=== PATIENT | female | born 1970 | race Caucasian/White ===

== ENCOUNTER 2023-05-23 14:26 | Emergency (ER) | payer MEDICAID, SELFPAY ==
[2023-05-23] VITALS (17 sets, daily range): BP systolic 120–167; BP diastolic 90–111; PULSE 85–99; RESP 13–20; O2SAT 96–99; BMI 32.9
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
--- NOTE | 2023-05-23 14:49 | XR_ITS ---
The [address] [address] Patient Name: CANDE MACHADO MRN: [id number] date: 1970 Sex: F Assigned Patient Location: ER Current Patient Location: ER Accession/Order Number: [id number] Exam Date: 05/23/2023 15:19 Report Date: 05/23/2023 15:38 At the request of: CHAO HUSSEIN Procedure: XR shoulder LT min 2V EXAM: XR shoulder LT min 2V HISTORY: pain COMPARISON: None. TECHNIQUE: 3 views FINDINGS: Overall bony architecture is normal. There is mild narrowing of the acromioclavicular joint. The glenohumeral joint space is satisfactorily maintained. Soft tissues are unremarkable. XR/XR shoulder LT min 2V IMPRESSION: Early degenerative changes at the acromioclavicular joint. No evidence for acute fracture or dislocation. Electronically authenticated by: Melissa YOUNGBLOOD Date: 05/23/2023 15:38
--- NOTE | 2023-05-23 14:54 | ECG_ITS ---
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
[2023-05-23] MEDS: ORPHENADRINE 60 MG/ 2 ML VIAL IV (15:56)
[2023-05-23] MEDS: KETOROLAC TROMETHAMINE 30 MG/ML VIAL IVP (15:56)
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
== END 2023-05-23 16:35 | disposition home or self-care (01) ==
PROVIDERS: Emergency Provider Emergency Medicine
DX: S43.402A Unspecified sprain of left shoulder joint, initial encounter (principal); V44.5XXA Car driver injured in collision with heavy transport vehicle or bus in traffic accident, initial encounter; F17.210 Nicotine dependence, cigarettes, uncomplicated
CPT/HCPCS: 70450; 72125; 73030; 93005; 96374; 96375; 99285

== ENCOUNTER 2023-10-08 10:18 | Emergency (ER) | payer MEDICAID, SELFPAY ==
[2023-10-08 10:20] VITALS: BP 126/75; PULSE 77; RESP 18; TEMP 36.8; O2SAT 99; BMI 35.6
[2023-10-08] MEDS: ORPHENADRINE 60 MG/ 2 ML VIAL IM (11:14)
[2023-10-08] MEDS: HYDROCODONE/ACET 5-325 MG TABLET 1 TAB PO (11:14)
--- NOTE | 2023-10-08 11:17 | ED.GENADUL1 ---
HPI - General Adult General Chief complaint: Back Pain/Injury Stated complaint: BACK PAIN Time Seen by Provider: 10/08/23 11:07 Source: patient Mode of arrival: walk-in Limitations: no limitations History of Present Illness HPI narrative: Patient is a 53-year-old female who is presenting to the Emergency Room WITH ACUTE ON CHRONIC BILATERAL LUMBAR PAIN, and upper thoracic pain bilateral. Patient has a neurosurgeon in [place]. Patient has an appointment on October 16 with her neurosurgeon. Patient has had MRI several weeks ago. Patient has had previous surgery on her upper and lower back, she may need additional surgery. A she'll boyfriend is at bedside. Patient has baclofen and Lyrica that she is taking at home, no pain medication. Patient's PCP is at [facility], she has not spoken to them about pain medication. Patient's pain to upper shoulder/thoracic area has gotten worse in the last week, left shoulder/left trapezius is hurting more than the right side. Patient is here for pain relief. . All systems are negative except as noted/marked. All systems reviewed and otherwise negative. . Nurses note and vital signs reviewed and patient is not hypoxic. General: The patient appears Mild distress secondary to pain. Patient is resting uncomfortably on cart, Laying in a right lateral decubitus position. Patient is not toxic, lethargic, or listless Skin: Warm, dry, no pallor noted. There is no rash noted. No petechiae, purpura. Head: Normocephalic, atraumatic Eye: Normal conjunctiva, no drainage, EOMI. PERRL Ears, Nose, Mouth, and Throat: oral mucosa is moist. Nares patent. Mouth without vesicles. Cardiovascular: Regular Rate and Rhythm, no murmur, gallop, rub Respiratory: Patient is in no distress, no accessory muscle use, lungs are clear to auscultation, no wheezing, rales or rhonchi Back: Patient has moderate tenderness to palpation to bilateral trapezius muscles, left hurting little bit more than the right. Patient has mild to moderate left shoulder pain with flexion and extension and abduction of left shoulder, she's had no acute injury, trauma or fall. No signs of dislocation or fracture. Patient has mild to moderate paracervical tenderness to palpation. Patient has moderate bilateral paralumbar tenderness palpation, no new midline pain, no rash anywhere to the back. Patient has no signs of saddle anesthesia or cauda equina. Otherwise non-tender, no CVA tenderness bilaterally to percussion. No CT LS midline pain Besides above mentioned. GI: soft, no tenderness to palpation, no masses appreciated. No rebound, guarding, or rigidity noted. No flank pain bilateral, No distention Musculoskeletal: Patient has full range of motion of all of the extremities, no motor, sensory, or focal neurological deficits Neurological: A&O x3, normal speech Psychiatric: Cooperative Related Data Home Medications Medication Instructions Recorded Confirmed aripiprazole 15 mg tablet 15 mg PO DAILY 10/08/23 10/08/23 baclofen 10 mg tablet 10 mg PO Q12H 10/08/23 10/08/23 bupropion HCl 150 mg 24 hr tablet, 150 mg PO DAILY 10/08/23 10/08/23 extended release dextroamphetamine-amphetamine ER 30 mg PO .dailly 10/08/23 10/08/23 30 mg 24hr capsule,extend release prazosin 2 mg capsule 2 mg PO Q12H 10/08/23 10/08/23 pregabalin 100 mg capsule 100 mg PO Q12H 10/08/23 10/08/23 tizanidine 4 mg tablet 4 mg PO DAILY 10/08/23 10/08/23 Previous Rx's Medication Instructions Recorded oxycodone-acetaminophen 5 mg-325 1 tab PO Q4H PRN pain #10 tabs 10/08/23 mg tablet (Percocet) Allergies Allergy/AdvReac Type Severity Reaction Status Date / Time No Known Drug Allergies Allergy Verified 05/23/23 14:36 PFSH PFSH Social History Smoking status: Current every day smoker Exam Constitutional Vital Signs, click to edit/add: Last Vital Signs Temp 98.2 F 10/08/23 10:20 Pulse 77 10/08/23 10:20 Resp 18 10/08/23 10:20 BP 126/75 10/08/23 10:20 Pulse Ox 99 10/08/23 10:20 O2 Del Method Room Air 10/08/23 10:20 Course Vital Signs Vital signs: Vital Signs Temperature 98.2 F 10/08/23 10:20 Pulse Rate 77 10/08/23 10:20 Respiratory Rate 18 10/08/23 10:20 Blood Pressure 126/75 10/08/23 10:20 Pulse Oximetry 99 10/08/23 10:20 Oxygen Delivery Method Room Air 10/08/23 10:20 Temperature 98.2 F 10/08/23 10:20 Pulse Rate 77 10/08/23 10:20 Respiratory Rate 18 10/08/23 10:20 Blood Pressure 126/75 10/08/23 10:20 Pulse Oximetry 99 10/08/23 10:20 Oxygen Delivery Method Room Air 10/08/23 10:20 Medical Decision Making MDM Narrative Medical decision making narrative: Patient was given total, Norflex and a [place] in the Emergency Room. Patient was sent home with a short prescription of Percocet. Patient understands we cannot treat chronic pain from the Emergency Room. Patient is told that she needs additional medication she would have to get that from her PCP. Patient is also not taking any anti-inflammatories for unknown reason. Patient will start using NSAIDs along with either Tylenol or Percocet along with baclofen Lyrica and she'll see her neurologist next week at October 08 appointment. No questions at discharge Discharge Plan Discharge Chief Complaint: Back Pain/Injury Clinical Impression: Chronic thoracic back pain, Chronic lumbar pain, Chronic pain Patient Disposition: Home, Self-Care Time of Disposition Decision: 11:17 Condition: Fair Prescriptions / Home Meds: New oxycodone-acetaminophen [Percocet] 5-325 mg tablet 1 tab PO Q4H PRN (Reason: pain) Qty: 10 0RF No Action aripiprazole 15 mg tablet 15 mg PO DAILY baclofen 10 mg tablet 10 mg PO Q12H bupropion HCl 150 mg tablet extended release 24 hr 150 mg PO DAILY pregabalin 100 mg capsule 100 mg PO Q12H prazosin 2 mg capsule 2 mg PO Q12H dextroamphetamine-amphetamine 30 mg capsule,extended release 24hr 30 mg PO .dailly tizanidine 4 mg tablet 4 mg PO DAILY Instructions: Chronic Back Pain (DC), Lower Back Exercises (ED) Additional Instructions: Continue to ice 20 minutes on, 20 minutes off. See her neurologist next week as scheduled. Use anti-inflammatories [id number]. Use either Motrin, Advil, ibuprofen or Aleve. Do not take [place] with Tylenol, take one of the other depending on how severe pain is. Both products have Tylenol in it and he can actually take too much Tylenol and one day. Any other needs for additional medication follow-up with her PCP Stand Alone Forms: Portal Instructions [facility]
[2023-10-08] MEDS: KETOROLAC TROMETHAMINE 60 MG/2 ML VIAL IM (11:21)
== END 2023-10-08 11:29 | disposition home or self-care (01) ==
PROVIDERS: Emergency Provider Emergency Medicine
DX: M54.6 Pain in thoracic spine (principal); M54.50 Low back pain, unspecified; G89.29 Other chronic pain; Z79.899 Other long term (current) drug therapy; F17.210 Nicotine dependence, cigarettes, uncomplicated
CPT/HCPCS: 96372; 99284

== ENCOUNTER 2025-05-15 03:44 | Emergency (ER) | payer MEDICAID, SELFPAY ==
[2025-05-15 03:48] VITALS: BP 131/80; PULSE 75; TEMP 36.8; O2SAT 98; BMI 28.2
--- OUTSIDE RECORDS SUMMARY | 2025-05-15 03:53 | XMS_ITS | CCD ---
Author Organization [facility] Care Team Providers Care Taker Away Name Role Phone Unavailable Primary Care Provider UnavailAGUSTÍN Hernandez Referring Unavailable [facility] Primary Care Unavailable IRA, DR RODAS Admitting Unavailable IRA, DR RODAS Consulting Unavailable IRA, DR RODAS Attending Unavailable STEPHAN JUAREZ Admitting Unavailable STEPHAN JUAREZ Attending Unavailable IRA, DR RODAS Consulting Unavailable [facility] Primary Care Unavailable LEÓN OCONNOR Referring Unavailable SERVICES, [facility] Unava ilable FERNÁNDEZ, CADY Attending Unavailable LEÓN OCONNOR Referring Unavailable SERVICES, [facility] Unava ilable FERNÁNDEZ, CADY Referring Unavailable SERVICES, [facility] Unava ilable FERNÁNDEZ, CADY Referring Unavailable SERVICES, [facility] Unava ilable LEÓN OCONNOR Referring Unavailable SERVICES, [facility] Unava ilable LEÓN OCONNOR Admitting Unavailable LEÓN OCONNOR Attending Unavailable SERVICES, [facility] Unava ilable SERVICES, [facility] Unava il[facility] LEÓN OCONNOR Attending Unavailable LEÓN OCONNOR Referring Unavailable SERVICES, [facility] Unava ilable SERVICES, [facility] Unava il[facility] GUERO DURBIN Attending Unavailable LEÓN OCONNOR Attending Unavailable SERVICES, [facility] Unava ilable SERVICES, [facility] GUERO DURBIN Attending Unavailable PATY SILVER Attending Unavailable VERONICA DIXON Referring Unavailable VERONICA DIXON Primary Care Unavailable Unallocated Yennifer ARREOLA Provider Unavailable [phone] Veronica Dixon MD Primary Care Provider Gabriella Valdes MD Unavailable [phone] Gabriella Valdes MD Unavailable [phone] Unallocated , Yennifer Provider Unavailable Services, [facility] Primary Care Provider Veronica Dixon MD Primary Care Provider ROSALIO MONTES Referring Unavailable SERVICES, [facility] Unava ilable JYOTI, ROSALIO Vargas Admitting Unavailable JYOTI, ROSALIO Vargas Attending Unavailable ROSALIO MONTES Referring Unavailable SERVICES, [facility] Primary Care Unava ilable LAURITA SINGH Attending Unavailable SERVICES, [facility] Unava ilable GUERO DURBIN Referring Unavailable SERVICES, [facility] Unava ilable PATY SILVER Referring Unavailable DIXON, VERONICA L Primary Care Unavailable FERNÁNDEZCADY Attending Unavailable DIXON, VERONICA L Primary Care Unavailable FERNÁNDEZLEVIR Attending Unavailable DIXON, VERONICA L Referring Unavailable DIXON, VERONICA L Primary Care Unavailable ISAEL PATTON Referring Unavailable SERVICES, [facility] Unava ilable Services, [facility] Primary Care Provider Gabriella Valdes MD Unavailable LUIS CARBONE Admitting Unavailable LUIS CARBONE Attending Unavailable LUIS CARBONE Admitting Unavailable LUIS CARBONE Attending Unavailable Dixon, Veronica L. Primary Care Unavailable LUIS CARBONE Admitting Unavailable LUIS CARBONE Attending Unavailable LUIS CARBONE Attending Unavailable LUIS CARBONE Admitting Unavailable Dixon, Veronica L. Primary Care Unavailable JR. CARBONE GEORGE C Attending Unavaila libertad CARBONE JR., GEORGE C Attending Unavaila ble ADITI BILLY T Attending Unavailable BILLY, ADITI T Attending Unavailable THEODORE SAMUEL Attending Unavailable BILLY, ADITI T Attending Unavailable BILLY, ADITI T Referring Unavailable BILLY, ADITI T Attending Unavailable TRISHA HARRIS Attending Unavailable BILLY, ADITI T Referring Unavailable TRISHA HARRIS Attending Unavailable BILLY, ADITI T Referring Unavailable HEATHER KENNY Attending Unavailable BILLY, ADITI T Referring Unavailable TRISHA HARRIS Attending Unavailable BILLY, ADITI T Referring Unavailable HEATHER KENNY Attending Unavailable BILLY, ADITI T Referring Unavailable HEATHER KENNY Attending Unavailable BILLY, ADITI T Referring Unavailable ROSALIO MONTES Attending Unavailable ROSALIO MONTES Referring Unavailable Allergies Allergy Classification Reported Allergen(s) Allergy Type Date of Onset Reaction(s) Facility (20 sources) Grass pollen; Translations: [GRASS POLLEN] Propensity to adverse reactions to drug (disorder) 9 Other (See Comments) [facility] (1 source) No Known Medication Allergies; Translations: [No Known Medication Allergies] Propensity to adverse reactions to drug (disorder) [facility] Rep[facility] Medications Current Medications Medication Drug Class(es) Dates Sig (Normalized) Sig (Original) acetaminophen 325 mg oral tablet (20 sources) Start: 12-04-2023 take 2 tablets by mouth every four hours as needed acetaminophen (Tylenol) 325 MG tablet Take 650 mg by mouth every 4 (four) hours if needed 12/04/2023 Active Start: 12-03-2023 End: 12-04-2023 take 1 tablet by mouth every four hours as needed for pain 650 mg, oral, Every 4 hours PRN, mild pain - pain scale 1-3, fever of 38.6, Starting on Fri12/03/23 at 1631, PACU & Post-op, Do not give for fever if patient received acetaminophen containing products within 4 hours. acetaminophen 325 mg / oxyCODONE hydrochloride 5 mg oral tablet (12 sources) Opioid Agonist Start: 04-16-2025 End: 04-21-2025 take 1 tablet by mouth every six hours for pain oxyCODONE-acetaminophen (Percocet) 5-325 MG tablet Indications: Status post arthroscopy of left shoulder Take 1 tablet by mouth every 6 (six) hours if needed for moderate pain for up to 5 days 20 tablet 04/16/2025 04/21/2025 Active Start: 03-31-2025 End: 04-05-2025 take 1 tablet by mouth every six hours for pain oxyCODONE-acetaminophen (Percocet) 5-325 MG tablet Indications: Post-operative pain Take 1 tablet by mouth every 6 (six) hours if needed for moderate pain for up to 5 days 20 tablet 03/31/2025 04/05/2025 Active Start: 01-21-2025 End: 01-26-2025 take 1 tablet by mouth every six hours for pain oxyCODONE-acetaminophen (Percocet) 5-325 MG tablet Indications: Pain and swelling of left shoulder , Post-op pain Take 1 tablet by mouth every 6 (six) hours if needed for moderate pain for up to 5 days 20 tablet 01/21/2025 01/26/2025 Active Start: 12-04-2023 End: 12-11-2023 oxyCODONE-acetaminophen (PER COCET) 5-325 mg per tablet Indications: Acute post-operative pain Take 1-2 tablets by mouth every 6 (six) hours as needed for pain for up to 7 days. Max Daily Amount: 8 tablets 56 tablet 0 12/04/2023 12/11/2023 Active Start: 12-03-2023 End: 12-04-2023 take 1 tablet by mouth every four hours as needed for pain oxyCODONE-acetaminophen (PERCOCET) 5-325 mg per tablet 1 tablet Start: 10-08-2023 End: 11-07-2023 take 1 tablet by mouth every four hours as needed for pain oxyCODONE-acetaminophen (PERCOCET) 5-325 mg per tablet Take 1 tablet by mouth every 4 (four) hours as needed for pain. 0 10/08/2023 11/07/2023 Discontinued (Therapy completed) take 1 tablet by maureen th twice daily oxyCODONE-acetaminophen (PERCOCET) 10-32 5 MG per tablet Take 1 tablet by mouth 2 times daily 0 Active amitriptyline hydrochloride 50 mg oral tablet (20 sources) Tricyclic Antidepressant Start: 07-01-2024 End: 12-30-2024 amitriptyline (ELAVIL) 50 mg tablet Indications: Fibromyalgia One capsule at 8 PM each night 90 tablet 1 12/30/2024 Active Start: 01-01-2024 End: 07-01-2024 amitriptyline (ELAVIL) 25 mg tablet Indications: Fibromyalgia One capsule at 8 PM each night 90 tablet 1 01/01/2024 07/01/2024 Discontinued (Reorder) Start: 10-27-2023 End: 01-01-2024 amitriptyline (Elavil) 10 MG tablet 10/27/2023 Active atorvastatin 40 mg oral tablet (20 sources) HMG-CoA Reductase Inhibitor Start: 06-03-2024 atorvastatin (Lipito r) 40 MG tablet 1 (one) time each day at the same time 06/03/2024 Active bisacodyl 10 mg rectal suppository (1 source) Stimulant Laxative Start: 12-05-2023 End: 12-04-2023 10 mg, rectal, As needed, constipation, if no BM within 6 hours of administering Milk of Magnesia, Starting on Fri12/05/23 at 0000, PACU & Post-op, Start Post-Op Day 2 Look-alike/sound-alike medication - verify indication for use. Start: 12-05-2023 End: 12-04-2023 10 mg, rectal, As needed, co nstipation, if no BM within 6 hours of administering Milk of Magnesia, Starting on Fri12/05/23 at 0000, PACU & Post-op, Start Post-Op Day 2 Look-alike/sound-alike medication - verify indication for use. dextroamphetamine sulfate 10 mg oral tablet (6 sources) Central Nervous System Stimulant take 4 tablets by mouth once daily dextroamphetamine (DextroStat) 10 MG tablet Take 40 mg by mouth Daily Active diclofenac sodium 50 mg delayed release oral tablet (1 source) Nonsteroidal Anti-inflammatory Drug Start: 2020 take 1 tablet by mouth three times daily at mealtime diclofenac (VOLTAREN) 50 MG EC tablet Take 1 tablet by mouth 3 times daily (with meals) 60 tablet 3 03/09/2021 Active DULoxetine 60 mg delayed release oral capsule (20 sources) Serotonin and Norepinephrine Reuptake Inhibitor Start: 2024 take 1 capsule by mouth in the morning, then take 1 capsule by mouth at bedtime DULoxetine (CYMBALTA) 60 mg capsule Indications: Fibromyalgia Take 1 capsule (60 mg total) by mouth in the morning and 1 capsule (60 mg total) before bedtime. 180 capsule 1 12/30/2024 Active Start: 07-05-2024 End: 12-30-2024 DULoxetine 40 mg capsule,del ayed release(DR/EC) Indications: Fibromyalgia 1 capsule twice daily 180 capsule 1 07/05/2024 12/30/2024 Discontinued Start: 07-01-2024 End: 07-05-2024 DULoxetine 40 mg capsule,del ayed release(DR/EC) Indications: Fibromyalgia Take 20 mg by mouth in the morning and 20 mg before bedtime. 180 capsule 1 07/01/2024 07/05/2024 Discontinued Start: 10-27-2023 End: 07-01-2024 take 1 capsule by mouth in the morning DULoxetine (Cymbalta) [address] capsule Take 20 mg by mouth in the morning. 10/27/2023 Active escitalopram 20 mg oral tablet (1 source) Serotonin Reuptake Inhibitor take 1 tablet by mouth once daily escitalopram (LEXAPRO) 20 MG tablet Take 20 mg by mouth daily 0 Active gabapentin 100 mg oral capsule (1 source) Anti-epileptic Agent Start: 1 End: 1 take 1 capsule by mouth three times daily gabapentin (NEURONTIN) 100 MG capsule Take 1 capsule by mouth 3 times daily for 30 days. 90 capsule 0 05/23/2021 06/22/2021 Active magnesium hydroxide 80 mg/ml oral suspension (1 source) Start: 4 End: 4 30 mL, oral, 2 times daily PRN, if no BM by post-op day 2, Starting on Fri12/05/23 at 0000, PACU & Post-op, Start Post-Op Day 2: DO NOT use in Renal/Dialysis patients Shake well. Start: 12-05-2023 End: 12-04-2023 30 mL, oral, 2 times daily P RN, if no BM by post-op day 2, Starting on Fri12/05/23 at 0000, PACU & Post-op, Start Post-Op Day 2: DO NOT use in Renal/Dialysis patients Shake well. meloxicam 15 mg oral tablet (20 sources) Nonsteroidal Anti-inflammatory Drug Start: 10-27-2023 End: 12-30-2024 meloxicam (Mobic) 15 MG tablet 11/23/2023 Active take 1 tablet by mouth once rex y meloxicam (MOBIC) 7.5 MG tablet Take 7.5 mg by mouth daily 0 Active naloxone hydrochloride 40 mg/ml nasal spray (6 sources) Opioid Antagonist Start: 12-04-2023 naloxone (NARCAN) 4 mg/actuation spray,non-aerosol nasal spray Administer 1 spray (4 mg total) into alternating nostrils as needed for opioid reversal. 1 each 12/04/2023 Active naloxone (NARCAN) 4 mg/actuation spray,non-aerosol nasal spray (7 sources) Start: 12-04-2023 naloxone (NARCAN) 4 mg/actuation spray,non-aerosol nasal spray Administer 1 spray (4 mg total) into alternating nostrils as needed for opioid reversal. 1 each 12/04/2023 Active pregabalin 150 mg oral capsule (20 sources) Start: 12-03-2023 End: 12-04-2023 take 150 mg by mouth twice daily 150 mg, oral, 2 times daily, First dose on Fri12/03/23 at 2100, PACU & Post-op, Look-alike/sound-alike medication. Verify indication for use Start: 11-25-2023 End: 06-08-2024 take 1 capsule by mouth in the morning pregabalin (Lyrica) 150 MG capsule Take 150 mg by mouth in the morning and 150 mg in the evening. 11/25/2023 Active Start: 09-09-2023 End: 10-27-2023 take 1 capsule by mouth in the morning, then take 1 capsule by mouth at bedtime pregabalin (LYRICA) 150 mg capsule Indications: Chronic right shoulder pain , Radiculopathy, cervical region Take 1 capsule (150 mg total) by mouth in the morning and 1 capsule (150 mg total) before bedtime. 60 capsule 0 10/10/2023 10/27/2023 Discontinued Start: 08-27-2023 End: 12-30-2024 take 1 capsule by mouth once daily at bedtime pregabalin (LYRICA) 100 mg capsule Indications: Fibromyalgia Take 1 capsule (100 mg total) by mouth once daily at bedtime. 90 capsule 1 07/01/2024 12/30/2024 Discontinued (Reorder) Vit-Fe Fumarate-FA ( VITAMIN) 27-0.8 MG TABS (1 source) Vit-Fe Fumarate-FA ( VITAMIN) 27-0.8 MG TABS Take by mouth 0 Active psyllium 520 mg oral capsule (7 sources) Start: take 1 capsule by mouth at bedtime psyllium (METAMUCIL) 0.52 gram capsule Indications: Diarrhea, unspecified type Take 1 capsule (0.52 g total) by mouth in the morning and at bedtime. 60 capsule 1 06/08/2024 Active tiZANidine 4 mg oral tablet (11 sources) Central alpha-2 Adrenergic Agonist Start: End: tiZANidine (ZANAFLEX) 4 mg tablet Indications: Fibromyalgia One tab at 8 PM each night 90 tablet 1 12/30/2024 Active take 1 capsule by mouth once davy ly tiZANidine (Zanaflex) 4 MG capsule Take 4 mg by mouth Daily Active traMADol hydrochloride 50 mg oral tablet (18 sources) Opioid Agonist Start: 05-04-2024 End: 12-04-2023 take 1 tablet by mouth every six hours as needed for pain traMADoL (ULTRAM) 50 mg tablet Take 1 tablet (50 mg total) by mouth every 6 (six) hours as needed for pain. 05/04/2024 Active Start: 10-16-2023 End: 11-15-2023 take 1 tablet by mouth every eight hours as needed for pain traMADoL (ULTRAM) 50 mg tablet Indications: Spinal stenosis of lumbar region, unspecified whether neurogenic claudication present , Radiculopathy, lumbar region Take 1 tablet (50 mg total) by mouth every 8 (eight) hours as needed for pain for up to 30 days. 90 tablet 0 10/16/2023 11/15/2023 traMADol (Ultram ) 50 MG tablet Take 50 mg by mouth if needed for severe pain Active Completed/Discontinued Medications Medication Drug Class(es) Dates Sig (Normalized) Sig (Original) 24 hr amphetamine aspartate 3.75 mg / amphetamine sulfate 3.75 mg / dextroamphetamine saccharate 3.75 mg / dextroamphetamine sulfate 3.75 mg extended release oral capsule (20 sources) Central Nervous System Stimulant Start: 12-04-2023 End: 12-04-2023 take 1 capsule by mouth once daily 30 mg, oral, Daily, First dose on Fri12/04/23 at 0800, PACU & Post-op, Look-alike/sound-a like medication - verify indication for use. Do not crush or chew. Capsule may be swallowed whole or it may be opened and the contents sprinkled on applesauce. Applesauce should be consumed immediately without chewing., Indications: attention-deficit hyperactivity disorder Start: 12-03-2023 End: 12-04-2023 take 1 capsule by mouth once daily at lunch 10 mg, oral, Daily with lunch, First dos e on Fri12/03/23 at 1700, PACU & Post-op, Look-alike/sound-alike medication - verify indication for use. Do not crush or chew. Capsule may be swallowed whole or it may be opened and the contents sprinkled on applesauce. Applesauce should be consumed immediately without chewing., Indications: attention-deficit hyperactivity disorder Start: 10-08-2023 take 1 capsule by mo uth in the morning, then take 1 capsule by mouth every twenty-four hours amphetamine-dextroamphetamine XR (Adderall XR) 30 MG 24 hr capsule Take 30 mg by mouth in the morning. 10/08/2023 Active Start: 09-03-2023 take 1 capsule by mo uth once daily at lunch amphetamine-dextroamphetamine XR (ADDERALL XR) 10 mg 24 hr capsule Indications: attention-deficit hyperactivity disorder Take 1 capsule (10 mg total) by mouth daily with lunch Indications: attention deficit disorder with hyperactivity. 09/03/2023 Active End: 11-07-2023 take 1 tablet by mouth in the morning, then take 1 tablet by mouth at bedtime dextroamphetamine-amphetamine (ADDERALL) 20 mg tablet Take 1 tablet (20 mg total) by mouth in the morning and 1 tablet (20 mg total) before bedtime. 0 11/07/2023 Discontinued (Therapy completed) take 1 tablet by maureen th twice daily amphetamine-dextroamphetamine (ADDERALL) 10 MG tablet Take 10 mg by mouth 2 times daily 0 Active ARIPiprazole 15 mg oral tablet (20 sources) Atypical Antipsychotic Start: 12-03-2023 End: 12-04-2023 take 15 mg by mouth once daily at breakfast 15 mg, oral, Daily with breakfast, First dose on Fri12/03/23 at 1700, PACU & Post-op, Look-alike/sound-alike medication - verify indication for use., Indications: bipolar disorder baclofen 10 mg oral tablet (5 sources) gamma-Aminobutyri c Acid-ergic Agonist Start: 11-03-2023 End: 11-07-2023 take 1 tablet by mouth in the morning, then take 1 tablet by mouth at bedtime baclofen (LIORESAL) 10 mg tablet Take 1 tablet (10 mg total) by mouth in the morning and 1 tablet (10 mg total) before bedtime. 0 11/03/2023 11/07/2023 Discontinued (Therapy completed) Start: 07-29-2023 End: 10-27-2023 take 1 tablet by mouth in the morning, then take 1 tablet by mouth at bedtime baclofen (LIORESAL) 10 mg tablet Take 1 tablet (10 mg total) by mouth in the morning and 1 tablet (10 mg total) before bedtime. 60 tablet 3 07/29/2023 10/27/2023 Discontinued 24 hr buPROPion hydrochloride 150 mg extended release oral tablet (20 sources) Aminoketone Start: 11-24-2023 End: 12-07-2024 take 1 tablet by mouth every twenty-four hours in the morning buPROPion XL (Wellbutrin XL) 150 MG 24 hr tablet Take 150 mg by mouth in the morning. 11/24/2023 12/07/2024 Discontinued (Discontinued by another clinician) Start: 08-01-2023 take 1 tablet by maureen th every twelve hours in the morning buPROPion SR (WELLBUTRIN SR) 100 mg 12 hr tablet Indications: anxiety with depression Take 1 tablet (100 mg total) by mouth in the morning. Indications: anxiousness associated with depression. 08/01/2023 Active ceFAZolin (ANCEF) 2,000 mg in sodium chloride 0.9 % 50 mL IVPB-MBP (1 source) Start: 12-03-2023 End: 12-04-2023 take 2000 mg intravenously every eight hours 2,000 mg, intravenous, at 100 mL/hr, Administer over 30 Minutes, Every 8 hours, First dose on Fri12/03/23 at 2000, For 2 doses, PACU & Post-op, Pharmacy to adjust per renal function; Start 8 hours after pre-op dose for total of 3 doses including pre-op dose. Infuse all doses within 24 hours of initial dose. For patient less than 120 kg. ADD-VANTAGE/MBP- Discard 24 hours after activating; dissolve drug prior to administration, Indication: Surgical prophylaxis chlorzoxazone 500 mg oral tablet (8 sources) Muscle Relaxant Start: 01-01-2024 End: 07-01-2024 take 1 tablet by mouth four times daily as needed for muscle spasms chlorzoxazone (PARAFON FORTE) 500 mg tablet Indications: Fibromyalgia Take 1 tablet (500 mg total) by mouth 4 (four) times a day as needed for muscle spasms. 30 tablet 5 01/01/2024 07/01/2024 Discontinued docusate sodium 50 mg / sennosides, group home 8.6 mg oral tablet (8 sources) Start: 12-04-2023 End: 06-08-2024 take 1 tablet by mouth in the morning sennosides-docusate sodium (SENOKOT-S) 8.6-50 mg Take 1 tablet by mouth in the morning and 1 tablet before bedtime. 12/04/2023 06/08/2024 Discontinued (Discontinued by another clinician) Start: 12-04-2023 End: 12-04-2023 take 1 tablet by mouth twice daily for diarrhea, then take 1 tablet by mouth once daily for diarrhea 1 tablet, oral, 2 times daily, First dose on Fri12/04/23 at 0900, PACU & Post-op, Start Post-Op Day 1: Hold for diarrhea 0.4 ml enoxaparin sodium 100 mg/ml prefilled syringe (1 source) Low Molecular Weight Heparin Start: 12-04-2023 End: 12-04-2023 40 mg, subcutaneous, Daily, First dose on Fri12/04/23 at 0600, PACU & Post-op, When Creatinine Clearance 30 mL/min or greater Look-alike/sound-alike medication - verify indication for use. gadoteridol (PROHANCE) injection 15 mL (1 source) Start: 05-27-2021 End: 05-27-2021 gadoteridol (PROHANCE) injection 15 mL glucagon (rdna) 1 mg injection (1 source) Antihypoglycemic Agent Start: 12-03-2023 End: 12-04-2023 1 mg, intramuscular, As needed, low blood sugar, blood glucose less than 70 mg/dL and unconscious or NPO without IV access., Starting on Fri12/03/23 at 1631, PACU & Post-op, If conscious and not NPO, immediately follow with meal tray or high protein (7Grams) snack if tray not available. If NPO, initiate IV 5% Dextrose/Water at 100 mL/hr and contact prescriber for additional orders. If blood glucose is not greater than 70 mg/dL after initial treatment, repeat treatment. 150 ml glucose 50 mg/ml injection (3 sources) Start: 12-03-2023 End: 12-04-2023 15 g, oral, As needed, low blood sugar, blood glucose less than 70 mg/dL, Starting on Fri12/03/23 at 1631, PACU & Post-op, If patient conscious and taking PO. If blood glucose is not greater than 70 mg/dL after initial treatment, repeat treatment. Start: 12-03-2023 End: 12-04-2023 25 mL, intravenous, As neede d, low blood sugar, blood glucose less than 70 mg/dL and unconscious or NPO with IV access, Starting on Fri12/03/23 at 1631, PACU & Post-op, Push over 1-3 minutes STAT. If conscious and not NPO, immediately follow with meal tray or high protein (7 grams) snack if tray not available. If NPO, initiate 5% dextrose in water at 100 mL/hr and contact prescriber for additional orders. If blood glucose is not greater than 70 mg/dL after initial treatment, repeat treatment. VESICANT (RED) Warning: HYPERTONIC solution. Start: 12-03-2023 End: 12-04-2023 take 70 mg intravenously every hour 100 mL/hr, intravenous, Continuous PRN, blood glucose less than 70 mg/dL, Starting on Fri12/03/23 at 1631, PACU & Post-op, Use immediately following dextrose 50% or glucagon treatment for patients who are unconscious or NPO. Contact prescriber for additional orders. If blood glucose is not greater than 70 mg/dL after initial treatment, repeat treatment. ibuprofen 800 mg oral tablet (4 sources) Nonsteroidal Anti-inflammatory Drug Start: 05-23-2023 End: 10-27-2023 take 1 tablet by mouth every eight hours as needed for pain ibuprofen (MOTRIN) 800 mg tablet Take 1 tablet (800 mg total) by mouth every 8 (eight) hours as needed for pain. 0 05/23/2023 10/27/2023 Discontinued methocarbamol 500 mg oral tablet (20 sources) Muscle Relaxant Start: 12-03-2023 End: 03-15-2025 methocarbamol (Robaxin) 500 MG tablet Take 500 mg by mouth in the morning and 500 mg at noon and 500 mg in the evening and 500 mg before bedtime. 12/04/2023 03/15/2025 Discontinued (Therapy completed) Start: 10-27-2023 End: 12-04-2023 methocarbamol (Robaxin) 500 MG tablet Take 500 mg by mouth in the morning and 500 mg at noon and 500 mg in the evening and 500 mg before bedtime. 12/04/2023 Active Start: 05-23-2023 End: 10-27-2023 take 1 tablet by mouth three times daily as needed methocarbamoL (ROBAXIN) 500 mg tablet Take 1 tablet (500 mg total) by mouth 3 (three) times a day as needed. 0 05/23/2023 10/27/2023 Discontinued (Reorder) 1 ml methylPREDNISolone acetate 40 mg/ml injection (16 sources) Corticosteroid Start: 12-07-2024 End: 12-07-2024 methylPREDNISolone acetate (DEPO-Medrol) injection 40 mg Start: 12-07-2024 End: 12-07-2024 40 mg, Intra-articular, Once PRN Procedure, Starting on Fri12/07/24 at 1032, For 1 dose Start: 04-01-2024 methylPREDNISo lone (MEDROL, KAMARI,) 4 mg tablet Indications: Status post lumbar laminectomy Take 1 tablet (4 mg total) by mouth See Admin Instructions. Use as directed by package instructions 21 tablet 04/01/2024 Active Start: 05-27-2023 End: 11-07-2023 methylPREDNISolone (MEDROL, KAMARI,) 4 mg tablet Indications: Lumbar pain follow package directions 21 tablet 0 05/27/2023 11/07/2023 Discontinued (Therapy completed) Start: 05-27-2023 methylPREDNISo lone (MEDROL, KAMARI,) 4 mg tablet Indications: Lumbar pain follow package directions 21 tablet 0 05/27/2023 Active 2 ml midazolam 1 mg/ml cartridge (1 source) Benzodiazepine Start: 12-03-2023 End: 12-03-2023 midazolam (PF) (VERSED) injection 2 mg 1 ml morphine sulfate 2 mg/ml injection (1 source) Opioid Agonist Start: 12-03-2023 End: 12-04-2023 take 2 mg intravenously every four hours as needed 2 mg, intravenous, Every 4 hours PRN, for breakthrough pain, Starting on Fri12/03/23 at 1631, PACU & Post-op, Look-alike/sound -alike medication - verify indication for use. 2 ml ondansetron 2 mg/ml injection (1 source) Serotonin-3 Receptor Antagonist Start: 12-03-2023 End: 12-04-2023 take 4 mg intravenously every six hours as needed for nausea and vomiting 4 mg, intravenous, Every 6 hours PRN, nausea, vomiting, Starting on Fri12/03/23 at 1631, PACU & Post-op, Administer over 2-5 minutes. polyethylene glycol 3350 34363 mg powder for oral solution (8 sources) Osmotic Laxative Start: 12-03-2023 End: 06-08-2024 polyethylene glycol (GLYCOLAX) 17 gram packet Take 17 g by mouth in the morning. 12/05/2023 06/08/2024 Discontinued (Patient Stopped On Own) prazosin 1 mg oral capsule (20 sources) alpha-Adrenergic Cedric Start: 12-03-2023 End: 12-04-2023 take 2 mg by mouth twice daily 2 mg, oral, 2 times daily, First dose on Fri12/03/23 at 2100, PACU & Post-op, Indications: hypertension, post traumatic stress disorder Start: 04-26-2020 End: 11-07-2023 take 1 capsule by mouth once daily prazosin (MINIPRESS) 2 mg capsule Take 1 capsule (2 mg total) by mouth nightly. 0 04/26/2020 Active 125 ml sodium chloride 9 mg/ml prefilled syringe (3 sources) Start: 12-03-2023 End: 12-04-2023 take 75 mL intravenously every hour 75 mL/hr, intravenous, Continuous, Starting on Fri12/03/23 at 1645, PACU & Post-op Start: 12-03-2023 End: 12-04-2023 take 1 dose by mouth once 3 mL, intravenous, Every 12 hours scheduled, First dose on Fri12/03/23 at 2100, PACU & Post-op, Once tolerating oral intake Problems Active Problems Problem Classification Problem Date Documented Da te Episodic/Chronic Anxiety disorders (20 sources) Anxiety disorder, unspecified; Translations: [Panic attack] Onset: 07-05-2022 12-07-2023 Chronic Disorders of teeth and jaw (5 sources) Jaw pain; Translations: [Dental caries, unspecified] Onset: 07-04-2022 Episodic Mood disorders (20 sources) Major depressive disorder, single episode, unspecified; Translations: [Bipolar I disorder] Onset: 07-05-2022 12-07-2023 Chronic Osteoarthritis (20 sources) Unspecified osteoarthritis, unspecified site; Translations: [Arthritis] Onset: 10-27-2023 12-07-2023 Chronic Other aftercare (1 source) Other m[facility] (current) drug therapy; Translations: [OTH 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 SERVICES 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 CURRENT DRUG THERAPY] Onset: 07-05-2022 Episodic Other gastrointestinal disorders (1 source) Fecal urgency; Translations: [Fecal urgency] Onset: 06-08-2024 Episodic Other nervous system disorders (1 source) Other acute postprocedural pain; Translations: [Other acute postprocedural pain] Onset: 12-03-2023 Episodic Other nervous system disorders (2 sources) Postoperative pain ; Translations: [Other acute postprocedural pain] 01-20-2025 Episodic Other non-traumatic joint disorders (2 sources) Derangement of left shoulder joint; Translations: [Other specific joint derangements of left shoulder, not elsewhere classified] 07-22-2024 Chronic Other non-traumatic joint disorders (2 sources) Chronic pain of left upper limb; Translations: [Pain in left shoulder] 07-22-2024 Episodic Other non-traumatic joint disorders (3 sources) Shoulder pain; Translations: [Pain in left shoulder] 12-08-2024 Episodic Residual codes; unclassified (20 sources) Obstructive sleep apnea syndrome; Translations: [Obstructive sleep apnea (adult) (pediatric)] Onset: 12-07-2023 12-07-2023 Chronic Residual codes; unclassified (1 source) H/O Spinal surgery; Translations: [Other specified postprocedural states] Episodic Residual codes; unclassified (4 sources) History of arthroscopic procedure on shoulder; Translations: [Other specified postprocedural states] 04-15-2025 Episodic Spondylosis; intervertebral disc disorders; other back problems (20 sources) Degeneration of lumbar intervertebral disc; Translations: [Other intervertebral disc degeneration, lumbar region] Onset: 02-26-2023 Chronic Sprains and strains (4 sources) Sprain of left rotator cuff capsule; Translations: [Sprain of left rotator cuff capsule, initial encounter] 12-07-2024 Episodic Substance-related disorders (1 source) Nicotine dependence, cigarettes, uncomplicated; Translations: [NICOTINE DEPEND CIGARETTES UNCOMP] Onset: 07-05-2022 Chronic Unclassified (1 source) Spinal stenosis of lumbar region, unspecified whether neurogenic claudication present [M48.061] Onset: 12-03-2023 Unclassified (1 source) Change in Bowel Habits Onset: 06-08-2024 Unclassified (1 source) Post-op Onset: 01-01-2024 Unclassified (1 source) Results Onset: 10-16-2023 Unclassified (1 source) left shoulder rotator cuff tear Onset: 02-25-2024 Past or Other Problems Problem Classification Problem Date Documented Da te Episodic/Chronic Mood disorders (12 sources) Mood disorders Onset: 12-04-2023 12-04-2023 Other connective tissue disease (2 sources) Fibromyalgia; Translations: [Fibromyalgia] Onset: 10-27-2023 Episodic Other connective tissue disease (20 sources) Fibromyalgia; Translations: [Fibromyalgia] Onset: 10-27-2023 12-07-2023 Episodic Other gastrointestinal disorders (2 sources) Diarrhea, unspecified; Translations: [Diarrhea, unspecified] Onset: 06-08-2024 Episodic Other gastrointestinal disorders (1 source) Diarrhea; Translations: [Diarrhea, unspecified] 06-08-2024 Episodic Other gastrointestinal disorders (1 source) Urgent desire for stool; Translations: [Fecal urgency] 06-08-2024 Episodic Other nervous system disorders (1 source) Acute postoperative pain; Translations: [Other acute postprocedural pain] 12-04-2023 Episodic Other non-traumatic joint disorders (20 sources) Chronic pain of right upper limb; Translations: [Pain in right shoulder] Onset: 12-29-2015 12-29-2015 Episodic Other non-traumatic joint disorders (20 sources) Pain in left shoulder; Translations: [Pain in joint, shoulder region] Onset: 10-16-2023 06-17-2024 Episodic Residual codes; unclassified (2 sources) Other specified postprocedural states; Translations: [Other specified postprocedural states] Onset: 01-01-2024 Episodic Residual codes; unclassified (20 sources) Amnesia; Translations: [Other amnesia] Onset: 12-07-2023 12-07-2023 Episodic Residual codes; unclassified (2 sources) History of lumbar laminectomy; Translations: [Other specified postprocedural states] 01-01-2024 Episodic Spondylosis; intervertebral disc disorders; other back problems (20 sources) Backache; Translations: [Dorsalgia, unspecified] Onset: 10-23-2021 Episodic Unclassified (2 sources) Sprain of left rotator cuff capsule 12-08-2024 Results Test Name Value Interpretation Reference Range Facility Coding Summaryon 04-12-2025 Coding Summary HTMLBase 64 LsmflvwoROn6gJw+PGhlYW Q+DX1JYKBrL09meUYgdR2q T4GIEAiUDnkgVYJOWUkELj NsjgVjOC7vhBLfCZZv IC8+FA2kWRSwNgzfpFQdb3 A7fXM2M06vnj0gTYthlPS7 DWSkXeQhrgvdn5renQo4SM cuNmluOyBt LWMuxX76GUD7tI90Xy02hE NvdUAis9fsdSo6HhSlDTNi YHI1mTiaMJphs5KwLUSoS1 1rcRNkq1Z8 BYRhuMyflQFvNoIuaLZ0aJ 0tPYxsrgxkq9uoxoxcDdp3 jw96rEVkq1J0nHI0X7Aynx S8OYXptQOw ZwtgeYFKpI5rhsgip1ytmy ksIwKuLZQsKQm4WRo5WYKp rDphNcTyQM05KJQ9HRPvqh XwC2IyUHHb hEodOeE4w9Y4Rs3BZ3PZTn wdM3UOIDDDPYfdzUC+PC90 eu14X7AsXxilQjb3ONThPH Y3qXH3xE9e DRJjTRncn8E1xWY9H4Gila Kcna6bv9xxKUMqYSbaG07v zAZlp9P8TXMerXW8ZMFolF ptJoTwiT13 Oyc+DNQtmYlcs3IzRstil1 ims2aolAo0BrfaPRVcvoSw mEicWBZ0o6JqRh9sWEHdqZ U7wDS9kQ0u MsWgDnY8BEkiK570UxAdoR TiLoioA27vF3PpzLW+PHRy Xzs7GALusHuvFF0cY9FcPJ RpbmctbGVm zUmgXG9zSMYevsajVKHyjE 4uLSCaS0i0MhTrUzQ4GPtg L2MyXJUnwdonHy81gD2yEz XwXaR1LHjr W2WfwyO5EANglDIoKXuwEG O7C56sn5I9ITVvLBAkKFG4 bBK1uZ3owPnmndrkuSCvnI sgdmVydGlj MLozLCiuF912QIYjjTjkCz NvZGluZyBEYXRlOiAgMDYv MjQvMjAyNTwvdGQ+PHRkIH K9uOxyOKQg qLNeGRixWi1qwOrwaMxpDJ 1hCEFbdtyyQMXvcZ3hDGQd gXOevChgGM8hSSBlkhxkh7 55LrJuNMX6 GIIwmOZlY0SabS9uQmTeMP JoSTPiT5TotPTkDLjlM322 FMrrUhR6KUQutvHnA5BmMH FsaWduOiB0 n7S0Ls0Yn4KzvdgfD3PeoQ EtJnIkFduqWKd3Q1BuEitl dHI+CO79BDFqQV45EBx5RV W0kFfnYWbo AEQwB6EgpK5uKkEuOIQfAF RkOyc+PHRhYmxlIHdpZHRo REnlNHWaHxUajKulVB6oNz 9yZGVyLWNv xKjtjKYeUdLid1fmDZAaIE gkHL7eiJacL0VzbVN4OAMd a7p0Ky40A52sX1WvwZT+PG LxqTB3iQW7 mK4qSdWtAmB1RTezE937Xn LblCRzWjwqv8ukd0vbzUw4 AyV2LONsvcYibSmeRRW1s2 LcOz31S45l IHdpZHRoPSIxNSUiIHZhbG ockd3onE3vCr1+PGNvbCB3 sDD5xC3zTqOcElU9CWjwJ8 49InRvcCIv Yjarx2mkb9wzpLs2KlKeJF UwalOspHzdQBI9e9HqAp74 L6IsuKptr1EbFcb2vw33iJ Dnd3H6kPV1 S4InMHVfpmfczSYdqWoxFO 7zOQSyipbuTCNwnC0xTLXr L0a3TwLhSqV7TOqvV3Medg Q5DOWvpWUx EIYthQHPnH0qwtlbk2opjb hiUnCrMMMwBRx2RKe7SSBl xNmhGpZwIZL5UeZ5JQO7kY AbdP7lvBku otkvrN4dFin+RIK9oLRxgX TUXS7xChoosIN+PHRkIHN0 iKrxYAwaWIRahO1eYXVfK9 q5HzIoQoB7 HBnmR2QzfqO6HGXwhQEwXW XncYVPpI9cjpufn2qnwwtp PnKbUAMbSLy7CHy7AIGnmP duOiBsZWZ0 WoE8GLS5tXXmcT8oyWnbqv aszN6zBse+QmlydGggRGF0 LKt1I4OeEgo7PSMhkPhcQD 0ncGFkZGlu Tl9gtAcxcEmzBJ7wYHCibr mgq102RkPyn3cdAYAyaGMa YDgvZXO5Y81mu3Z2BBUrER AnMOG4eHB4 eH8pvYpkvnrczTWoaPmvfz VhqVtyCOuvRPzlP093KGFq nKijBqVjTPx3C7KfIxv6ZH DupApjDV3l zPLyKZcuLx5yjJyhuFzfSI 3zGGNwcmzgf195YhPfn0bf AOOvbYFpDRejCBE7L87pi2 C3XKOfURRd NKA3aPW2uO4lgNqqoebvqB VmdDsgdmVydGljYWwtYWxp O200TDTraMzlPhNkcXv3K2 HuJsd8HBSl hGkjJW6vxMOdJVwaSt4fgC pwcBtjLE3cEXVejrnsw144 LnFtj4jkNLOscYZmOQusHI S9V28kr3S9 SQCsECAnUSC7mZT7xY5bwF lnbjogbGVmdDsgdmVydGlj XOopMZnnR972NGYpyGwpRz BhdGllbnQg GEyfRFy2H9RcXzkesTY+PC 35WKDxBD91mCDzyTCma1ds mSw7ExVkHFNgBJX2lNulUG nvb3RfNVKc U05quSVpg1K8GPLpfDqipP SkHkMrjIV5pD5cFJhioydq n3mxglucApkzs3rkfs47vI 60N69iPEex ZHRoPSIzMCUiIHZhbGlnbj 2zjQ8gGn0+KMYejQM7iXA3 wI3fPMXpUgF9YPcsU493Wb RvcCIvPjxj i0nvv4tgrLf3JdG5IVIvsz FkiKptATF2b9MqUt10M43v IHdpZHRoPSIyMCUiIHZhbG tczx3ktD2w Ii8+HXYxzXF2rNX4jA9fUe JyYlX9EFmwP012WuQdrTCx RdcnD60yS3YwkQT+PHRyPj r9JDTvfExf RY5xlROcTOufPq4kHOF4Ge JlWpTtBMqbY6WvRVQaqhpq snsmcBH6VIRgRNShqE19Mz 9udDogMTBw mNYRmC5jmhulu7clyvhqMs TvRRUwLFs0RPh9GAWunQdk RbVyFQV2QcR3GJE8kTHmyI 1hbGlnbjog oV6cO3WtXEHkbqgqEb72uO 5vIfHbFpT0CSveJvq+SkFD Y5UNOdbyZKRSVVblJDVRXC S5N7LrTwc4 LMDspHlaWU7cfEXpNTogFc 7mmKqkyUnrEB2zGPCrmudh QYIwyP5jFGOcjCYiyRoaOG 4wNTBpbjtm h021OrJvXFM8LXZvqIPiF8 PxrL7aBxHcHJZvUUTwA3Ib fQDeUEmbC224FOfmOsY6ED WbkjUjJ7Ws EMHayAetDgX2s1J8Ij5bLe 4oVJ0oXWluES77QD11nIMo d1I1tJO0O7CmDEKhfmpujf aawZS9RGWl URNryJ82iIHtVCsuJt0ec0 N0z665ZJWdRPWnyE52Hn9e iHthQVGyzNIIjN8gytinb3 xvcjogIzAw KMNsCLs8OWx2YOBdiUhuWc EnTFO9EbL6CQD5oQWoaI1g vOghlulocH9xGft+NTMgWW GsumB7K9Hh Hpd3XUNxhCkbRR3ciMJoUZ hhOh4nlGsstRvtRZ0nIOId krobVJMpqL8vOPVlaBNwtD boBK7oBZVf uhyqt632HpHmJSH3DNIvtK DuS0TyeW2qPsVzRMIzDWSn K7FqoPLpPVqbC322FThyCl C6KQAfxuNz D1AzDVMutJpsLcD0v6I4Tx 2OIU6VHHB0E9JbQcv1MVJi cOdyDP6yrMRgECqxSy7ljA vvvNfnLK4v NUUfdpitKDRvrI1uKQShzT CilOjkTG3sOYMxzfjub076 YdWiHBJ5GGKqhXWnP3AieP 9yOiAjMDAw AYBlL6HmjHCkPIxcE977CO naLnQ2QXNefoEgL6GjELFp fFefTqG7w6G2Ko8SKLfkF1 VfS0CzlExi dGQ+OB11kw46J8GsZyedFp f1MPJxFKF7zOZ4cF8kCGYh QGfiq7G7pYK0C1PrrjAhtv 3je9kqCSSb KVdwJ70rwISnj8P5XFDikH F2GWVlqQsdXzUfnJ39Yii+ WJLgdStsy7GxWzwrk3ahl6 wjmTx6QoTl TFNuzpXgsLvlSVJ7e3SoTt 04V56yQZxhCEInJMWsCEJb EFPcgRwazo0jvC2bPo1+PG RzvJM8gRB2 iC8eTkGiIcV1LSfcJ216Je HuvZAmQuvtx4oax7lqmAl4 VuFzTBVdrrQoeBcpKRI3i5 TdAx07E4Di yUbqk5AmQqx2hw19jLXzu7 S1eTC3B1FtCPLihynhwBYq rNbsWZ0lQNHcavsdWCBclP 2mCFLlH1y5 CgKaRgS5JQyhJ0FjpoN8CX GumUGdKHAojQPIrC9rjlmi e5qxktghLeFdPIChQWe2HV d4YLUkkTtk ZbHhHUA4DyQ0VWK7hYYleS 8qxQkcbmchrV0tKwt+UGh5 l0yrqFMrZH1dvQL1SG59CM 16mVEpc4I4 wOC8L0ZzVPIjmioafgewdL W8CDTcNPTkvV88Ih0hkXtq Qk6mCKTbOFT5FDItxXHiU3 AinL3tFwIy DOHqJRCsQ0EsgAPhZHhsY0 76GSkaSyI2GWQnuvVjJ8Ln BPEjvFklZfI8j8R7Tk8LKJ 07SU67HZ38 xHZrn2L1jDU5C3MtNQAqsw egfqufgBI1LSNtYFPbtX30 Qh6rjEbuCg2wBIPwSXT8TU KivDPmM9Ld yP7aMoSrXCIuBKFrI3GgmN BiFAaxP149USvoOqM9CQWm wyRmD8WfWMNehRzzLtM2w1 W8Sb1YKg99 TM95YL83dBMyf3S2zYI6Z8 GdMWIywzjlnghydRP1BUPh HEEquO86My3kwUzfSv1vTH VqHRU9ALYs xMLdU9PssD3fEzByMESuTF JuM0MqlILpYVmoR864QAaa ZvG6VFNsahAfV4VsVSIpjB eoQxL7h5J2 Ik7NEBgdyfb6E1UeCurgnV I+PM62XOQzPM26oZHpjQKw m0amhLb7KmWaAYArCTP9oF vvIKcgd0On ZXI (more content not included)... Normal [facility] MAGR Intraoperative Recordon 04-07-2025 MAGR Intraoperative Record MAGR Intra-Op Record Summary Primary Physician: LUIS CARBONE DO Finalized Date/Time: 04/07/25 13:32:35 Pt. Name: CANDE RAHMAN/Sex: 1970 FEMALE Med Rec #: [id number] Physician: LUIS CARBONE DO Financial #: [id number] Pt. Type: D Room/Bed: / Admit/Disch: 04/01/25 09:25:00 - 04/01/25 14:15:00 Institution: Case Times MAGR Entry 1 Patient In Room Time 04/01/25 11:12:00 Out Room Time 04/01/25 12:53:00 Anesthesia Start Time 04/01/25 11:12:00 Stop Time 04/01/25 12:53:00 Surgery Start Time 04/01/25 11:46:00 Stop Time 04/01/25 12:40:00 Last Modified By: Libby Dobson RN 04/01/25 12:55:33 Case Attendance MAGR Entry 1 Entry 2 Entry 3 Case Attendee LUIS CARBONE Bradley MD Baumer, Erica RN Role Performed Surgeon - Primary Anesthesiologist of Reed [employer] Wind Instrument Tuner Record Time In 04/01/25 11:18:00 04/01/25 11:12:00 04/01/25 11:12:00 Time Out 04/01/25 12:40:00 04/01/25 12:53:00 04/01/25 12:53:00 Procedure Arthroscopy Arthroscopy Arthroscopy Shoulder(Left) Shoulder(Left) Shoulder(Left) Last Modified By: Libby Dobson RN, Erica RN Baumer, Erica RN 04/01/25 12:55:34 04/01/25 12:55:34 04/01/25 12:55:34 Entry 4 Entry 5 Case Attendee Ching Stewart CST, Hunter ST CSFA Role Performed Treasury Director Scrub Personnel Time In 04/01/25 11:12:00 04/01/25 11:12:00 Time Out 04/01/25 12:53:00 04/01/25 12:53:00 Procedure Arthroscopy Arthroscopy Shoulder(Left) Shoulder(Left) Last Modified By: Libby Dobson RN, Erica RN 04/01/25 12:55:34 04/01/25 12:55:34 General Comments: ZEKE AUGUSTE (ARTHREX) Surgical Procedures MAGR Pre-Care Text: A.20 Verifies operative procedure, surgical site, and laterality Im.150 Develops individualized plan of care Entry 1 Procedure Arthroscopy Shoulder Primary Procedure Yes Primary Surgeon LUIS CARBONE DO Modifiers Left Surgeon Comment Left shoulder Start 04/01/25 11:46:00 arthroscopy with rotator cuff repair Stop 04/01/25 12:40:00 Anesthesia Type General Surgical Service Orthopedics Wound Class Clean Technique Details Closure Technique Primary Entire procedure No was performed via laparoscope or robotic assistance Last Modified By: Libby Dobson RN 04/01/25 12:52:45 Post-Care Text: O.730 The patient's care is consistent with the individualized perioperative plan of care General Case Data MAGR Pre-Care Text: A.350.1 Classifies surgical wound Entry 1 Case Information OR MAGR OR 05 Case Level Level 4 Wound Class Clean Specialty Orthopedics ASA Class 2 Diagnosis Preop Diagnosis Rotator cuff tear, Left Postop Same As Preop Yes shoulder Postop Diagnosis Rotator cuff tear, Left shoulder Blunt or No Is the procedure No penetrating injury considered occured prior to Emergent/Urgent? the start of the procedure: Last Modified By: Libby Dobson RN 04/01/25 12:33:01 Post-Care Text: O.760 Patient receives consistent and comparable care regardless of the setting Time Out MAGR Entry 1 Procedure(s) Arthroscopy Shoulder(Left) Time Out Checklist Verifications Team Introductions Yes Confirmed Identity, Yes Completed Procedure, Incision Site, and Consent(s) Presence of Yes Site Verification, Yes Necessary Site Marking, Site Procedural Marking Equipment, Devices, Alternative, and/or and Implants Site Marking Verified Exception in Accordance with Facility Policy Anesthesia Review Antibiotic Received Yes All Anesthesia Yes Within an Concerns Addressed Appropriate Time Interval Prior to Surgical Incision Surgeon Review Anticipated Blood Yes Expected Case Yes Loss Risk Addressed Duration Addressed Critical and Yes Non-Routine Steps to be Performed Addressed Nurse Review Equipment Yes Fire Risk Yes Checks/Concerns Assessment Addressed Completed and Interventions Performed Diagnostic and Yes Sterilization n/a Radiological Test Concerns Addressed Results Displayed are Appropriate and Labeled Other Concerns n/a Addressed Time Out Scout Juarez, Time Out Time 04/01/25 11:45:00 Participants Libby Dobson RN, Tera Carpenter MD, Ching Stewart CST, LUIS CARBONE DO Last Modified By: Libby Dobson RN 04/01/25 11:47:26 Patient Positioning MAGR Pre-Care Text: A.280 Identifies baseline musculoskeletal status Im.40 Positions the patient Im.80 Applies safety devices Entry 1 Procedure Arthroscopy Body Position Supine Shoulder(Left) Left Arm Position Other/See comments Right Arm Position Extended on padded arm board Left Leg Position Extended Right Leg Position Extended Feet Uncrossed? Yes Press Points Checked Yes Additional RIGHT LATERAL ON GEL Positioning Device Arm Boards, Arm Strap, Information PADDED PEG BOARD. Pillow, Safety Strap, OPERATIVE ARM SUSPENDED Peg Board IN ATAR SLEEVE/SHOULDER GUILLERMO. PILLOWS BETWEEEN KNEES. Outcome Met ( (more content not included)... [facility] Coding Summaryon 04-06-2025 Coding Summary HTMLBase 64 VvxupofwJYx2wEf+PGhlYW Q+SY9TAOLoM74efHCncX9r H9QTYGkVPjzrGZSIOKfOTq IreeDhVB0tqXKiMZEh IC8+OA8fJMMuVrzxrZYhg3 M7iEM9S46kgg7qHYpubIB5 UWFkRlBuazluy8npgFd0IP cuNmluOyBt WRXvvL77DYK1jG31Ab41aF ImiLMco6tmpVs7DxOpVTJy GES0qYmfUCwfh6KrRAIgC3 9trPCaf8C6 OWMtzFjgcVYnVqVrjGV7yC 2oKGufnfmui8surxplVbt8 mu12gKCcy5O2tKF0T7Fpyx R3WTJmbGQu SvseySJLwK5vuenla8kxks ksWqBiNYGaEQs6SRk2VXGi xDkdBjIjXA97LKX9VHHfwo IbH3TqQWIq iNekNbE5r8E1Zm6XH0QBEc rtY2IURJBYJXwfuNL+PC90 ki61L3UuCeekCfu7ZFJoWF A0qWO0gP4o OVVtFYzsd6S3aKB6Q1Ctsl Fvsd6tf1hhPUZlTEfhX88y hQGhr7X7VLRiuVS3BAOspX drJaEvgU81 Oyc+LVIjyCowm7VkJbqio8 nvd4hhvEq7WrfdOARegqHd uVtkCPK9s4YvUl4bPSRfoC A9vHO7zK3f QuLrMoX8LGbeK959SwGsiK SsCjznX78hZ4GgtTO+PHRy Ykd9CSIueStlDC7nC6DnNN RpbmctbGVm sRmhTX0yIMNzkdxcJLSbpZ 6nXPCwV6p2DcRpAdM4HCng R6JvVZXzbizdZl85cR0gIk DvEqO0VDhw J8CbfkA1PGTfgXBmALucNP O6S31qg6N4BVJqTYCyJPR4 wKJ5gG8ghSpkxzuxwWEuuW sgdmVydGlj XSguHPqpE637QPOupFloGb NvZGluZyBEYXRlOiAgMDYv MTgvMjAyNTwvdGQ+PHRkIH I7tUiiJAVr xHZcCWpqCc9fdQlwyVpxSQ 8oWMCjptjiSMUtgC0sNZBq tBVbhUvrRU2tAHPxtmxje0 67OxKyYAE3 ZGBcsFNiK2BhgF6oGyJwUC ByMILgU5PtwDVgBJyvX538 SCwmJyT0CCWsgmDxG6ExTH FsaWduOiB0 t3V7Jc9Am7OszutsQ6HdzZ QfGvFgThxuGIj9L5RjJyix dHI+KA65LNGxUC44PFq6CE R8zPidSLpo TVDxK3QzvM3iQrRcYIJtWL RkOyc+PHRhYmxlIHdpZHRo CDjvHWPiQjQkkEyySV9iTe 9yZGVyLWNv bYkrrVTmQwLik3vmTJNiFS fcPL3hbGaeF9VrcQO2JBZx l3w6Kl35D25lA8XntBE+PG LboAA1jGJ1 iN5yAcEvCpK1HVrlD541Uu NzaZVqDroqm5hvi2ywrIt2 RjZ7MFEmprQrsAvlZPY4u3 TjXe58B73u IHdpZHRoPSIxNSUiIHZhbG okdk8dfM2wLp8+PGNvbCB3 oSY9sQ5jRyEdLqR6BXgjF4 49InRvcCIv Nshgj6yxo0lqgKa0UnQuAF JpghWoeJwyNVB5r9WeFp37 Q7RrnPbuh6PhVbf4wv71tN Asy3X6wUK4 S2SsXWUnosdimIDciYhuLF 0oUSWlhdafNTRroI0hSQOw T2t3FuZdEcU1PHreC7Emrn G7FGBudYRr SEHwmFTLtW7kfrczu6evel piMyKvKWIfQDx3WPw0IUXg iIrrYwSjWZI1BuW4BON9oO GlsV5zkGsh syzpaV9mJan+QTE6vRZavV AJXA3zKrimvUU+PHRkIHN0 wAvkCQoqSCTscT9jOZZlJ4 q7IzGdJoU0 KJzrW5UsokW2LXAqtOHmOW SleXOJpY3tessju3irkwna KfXwTVYkMEc5APd4ZVMghR duOiBsZWZ0 ZyT3LYX1aJQryV2nwIuixm zbvY1yVvy+QmlydGggRGF0 ABk4I3RsQjy4QXLpwVphNZ 0ncGFkZGlu Yf4pmRqncOfiBO6cXLJhhi dzk541TbMcr7poUNOrcKVe ZTphYXJ3J54gk8L9SYPcAM ZgLXF7qHP0 kO2tuGaxvytlhVAisIyrjo RqrDdtWWtoEPxzU982QSHg wFlgVrSfVNn5Y4TkYts5NM FkpLfjWP7a jTJrFCbdDm4gaEjljLmjZV 4dISLcgwncx249AgRmp3pa REZnsWRfDXycFWG8D01fe3 J3DXYdGWRj QUP6jFT6dZ9pfGxjyonvkD VmdDsgdmVydGljYWwtYWxp E262BUEyyRbpKtPezUs1D4 OmQgo2HEFz zOanWA5ssFZtQRsgCq5puL nlhVujPH8pDSJlwkjae346 YdOlc1hsUYOxkRDjABpbOJ C6T67ga0C3 SLJcGMNyAYW5nYH8nJ3ctF lnbjogbGVmdDsgdmVydGlj YYieMSluA923ARBxnRbmVd BhdGllbnQg DMksRCi2X1CoQvppvVO+PC 07TKDhLY49nDGszOGal2ux iNw7QwWyIBLcSYM6pLsyHN jsq9VmNOJv S69uiZRkk6H2HPNcqZfwnU HkKfLjyTY2tI2oEYsxzvdj k4obqimcUvemp2vekr07kI 52Z86oQInd ZHRoPSIzMCUiIHZhbGlnbj 2ghM5nKi2+XOXxjSV2lCQ8 bZ2rMXVeZgC7LVhuH896Tn RvcCIvPjxj r9hxc2jbcTa7TyX1OYLsbx AipIdoTOX1q3SiHa47V77z IHdpZHRoPSIyMCUiIHZhbG ovmv2sgG5a Ii8+XOMtfSU9pYD9gY6nZj TjUdX2YIotV009LwMenNDf TaamU33tW0JkoNM+PHRyPj v3FKNztHjw IA9hqZHjZMyeFs8sWBB9En CjJxZyGEvdB9CmSPMtvtgy tjrtfGZ2CZPrILTdaL23Br 9udDogMTBw cULPkO9thjjlz3cqtoyaVk BrGGGmNOu4IQc5WHUmzNsf BrMeZGR6YfL2UFV6eVSgiL 1hbGlnbjog fR9zZ2MtLTZiltjxCt81sO 2cGqRzMlG8VAxrXvb+SkFD T2USVrqnXNXCSIijJVBKIW Y2C9BgUqs8 FLYadTttLM8maBRtTKpoFd 5ynIwygDpvXD0rKVNgyyxc STSufL0iCCLptFSnrJjqVV 4wNTBpbjtm m133CnGnFWJ9ZUVmxDCaH9 PqbG9dMgOuRDWxWGJnL8Cy nLYxTDaxL345GJouNnH7PA RghiOoB9Gf ELTynNwpBdS5m2G6Xe6aRx 2pJO7iHXxqVI35HF77nEAk d5T9oIY5C1XwEWUxddqmrh hzrLV0OGCf VYQkrS26iUXbWWkpEv4us3 O9a250ZCEqGYAdwC32Hd1s wMyrEHRutYZLgD3azravg1 xvcjogIzAw UHMyALc2GCy7TUOpxBxcRs DwDOP8XhF8XLI1mSZmqM4y wTcfzanrpQ2uIgn+NTMgWW MhyqE4H0Qi Oyr9TLVblDfvJD6hwWJlRW lyLi1xrBbelOfcNG5nSTGx splvDBCfgU6iOORjnDTxhC kbRR8pMHSx vmhco570ZdOkURX2AGGhrC DvC2VgtK0dKwCdBFVxTWCz R6WflUViMXjbJ644MVaaZo W8FJWzgvAp X0BtMHUazQmxNbZ4r7I6Ty 1TIX1IIXD6V8LrUuf7SJGo kYcrDS5tmDAkNUblZb7qqR qgwLniDB8q UXZpfuaaNAUrnO1aGNRbsW ZhfRbkGR4dILYocmduh834 YyPaCFY3JGGhgZTrE9TecC 9yOiAjMDAw AHQnZ7BhhURqEQcsZ617UQ wlMiW9MACgarTqJ5LyGVPv dBgvBzR2w0Y4Pe2YIVijG6 JaR6TcvEuv dGQ+QG45gm13C6WoQqcnHc h0TFYdJLN2zXQ2nI3sBQEr IPgmq3L2nDD5X4MmlrPdor 1hi4skKVCf YKdcR38acNUir1A7XOCtgY S3IAFqsDdoTbUxrG41Hpf+ SFXanGvlj4GhNbfmy2ifc9 fawPp3HoCm KRItpuBcaSigSOP8u2EoEm 85V88nDCpgGNXzPZVmFIXv KGPeiSpqln3osP5cAi8+PG IpgUU9jXG3 pR9zPxVlAwW2RPykA499Ds ChqYUsGyslp1vnk8njmEy5 VfItUHEihvQsvAqbBMI7f2 FxMc23Y9Jr nHfpi3GgDek4ff65mLJiw5 N2fZR1X8KuCROmkjcrhOLq wKmhLX1vSJWkyftpLLLhmI 9lCCScH5z1 RiTxBvE2ESuyL4ArslN2TJ LxvKXzJQOulVKLtX8iuiqk i6uodkplFeMjWRFeCYx0PI q0OPEyaKca KkVfADS7RoO3WDZ9uSVkfI 5cuScapiviwY0gQnx+UGh5 c2lslWDrGI3glDW5DW22VH 62wBShj8M8 lIV4W0XaYHKsxruepjqjwK I5QOOlAJHqgF96Ej8gpIdv Lu0bHZQtPYY9YAIcsYWpI2 KasL3oAuOk AICyJSLzK1DhhNKoBWvhQ3 70DIjlIsM3UALlauTpS3Ga UMOhhIihPyI1q2M8Kp1CRM 69JA38EG25 cENgu7Q4yFY1J4DlUIJzrd cgeidxmFH2IKPsFOJcrS62 Mb7maGzfYg0oMHJpTQU6TO FgeZZmS2Jt mG5gYkEtFYIcPVMuZ1CncR XlORypB616HRdwOoM2VNJn hcJsA0TiZFJqqQgqNlQ4a7 R6Lt6XMe28 BS14KQ69eSLna9H4wWB0I1 EeCEXqxinitlpkaXB7MFRv NGByfD96Oz9tkXzsMo3hHM WmVJY4LXZj lFLfR7FnoW3mWiArPMBdPD NbD1WaqWVdNHsjV244TNsm ZnX0VFUgbkZaL6ZuTWIyfS chMqQ5c1F0 Wk7CUAazldt7X3TvAdqetB I+YL69RLIoOJ60ySEotBWl w5dboBj1EfNcNOIbQMN5pE gjCRmzv5Zq ZXI (more content not included)... [facility] Consent Formson 04-04-2025 Consent Forms [id number]#1.00 [facility] Outside Recordson 04-04-2025 Outside Records [id number]#1.00 [facility] Provider Orderson 04-04-2025 Provider Orders [id number]#1.00 [facility] Telemetry Stripson Telemetry Strips [id number]#1.00 [facility] Anesthesia Noteon 04-01-2025 Anesthesia Note Patient: CANDE RAHMAN Age: 55 years Sex: FEMALE : 1970 Associated Diagnoses: None Author: Tera Carpenter MD Postoperative Information Post Operative Note: Post Anesthesia Care Unit. Anesthetic utilized: General, LMA used. . Regional: Interscalene BPNB for post-operative pain control. . Health Status Allergies: Allergic Reactions (All) No Known Medication Allergies Physical Examination Vital Signs (last 24 hrs) Last Charted Temp Temporal L 36.2 DegC (APR 01 09:35) Heart Rate Monitored 83 bpm (APR 01:30) Resp Rate 16 br/min (APR 01:30) SBP H 125 mmHg (APR 01:30) DBP H 84 mmHg (APR 01:30) Weight 86.3 kg (APR 01 09:35) Pain assessment: Self-reports no pain. General: Alert and oriented, No acute distress. Respiratory: Respirations are non-labored. Cardiovascular: Normal rate, Regular rhythm. Neurologic: Alert, Oriented. Review / Management Condition: Stable. Assessment Anesthetic outcome No anesthetic complications noted. Adequate pain relief. No Complaint of nausea and vomiting. Plan Transfer/ Discharge: Patient can be discharged from PACU when criteria met. [Electronically Signed on: 04/01/2025 13:37 EDT] Tera Carpenter MD [Verified on: 04/01/2025 13:37 EDT] Tera Carpenter MD [facility] Anesthesia Note Patient: CANDE RAHMAN Age: 55 years Sex: FEMALE : 1970 Associated Diagnoses: None Author: Tera Carpenter MD Preoperative Information Anesthesia history: Patient history: No nausea and vomiting with anesthesia, No prior anesthesia problems. Review of Systems Constitutional: Negative. Respiratory: No shortness of breath. Cardiovascular: No chest pain. Health Status Allergies: Allergic Reactions (All) No Known Medication Allergies Current medications: Home Medications (13) Active Adderall 10 mg oral tablet 10 mg = 1 tab(s), Oral, Daily amitriptyline 50 mg oral tablet 50 mg = 1 tab(s), Oral, Once a day (at bedtime) amphetamine-dextroamph etamine 30 mg oral capsule, extended release 30 mg = 1 cap(s), Oral, qAM ARIPiprazole 15 mg oral tablet 15 mg = 1 tab(s), Oral, Daily atorvastatin 80 mg oral tablet 80 mg = 1 tab(s), Oral, Daily Auvelity 45 mg-105 mg oral tablet, extended release 1 tab(s), Oral, BID DULoxetine 40 mg oral delayed release capsule 1 tab(s), Oral, Daily Gummie (THC) 1 tab(s), Chewed, HS meloxicam 15 mg oral tablet 15 mg = 1 tab(s), Oral, Daily prazosin 2 mg oral capsule 2 mg = 1 cap(s), Oral, BID pregabalin 150 mg oral capsule 150 mg = 1 cap(s), Oral, Daily tiZANidine 4 mg oral tablet 4 mg = 1 tab(s), Oral, HS traMADol 50 mg oral tablet 50 mg = 1 tab(s), PRN, Oral, q12hr Problem list: All Problems Anxiety / SNOMED CT 58576183 / Confirmed ADHD / SNOMED CT 4867466892 / Confirmed Bipolar 1 disorder / SNOMED CT 0604060354 / Confirmed Depression / SNOMED CT 88445868 / Confirmed Hyperlipidemia / SNOMED CT 23808308 / Confirmed Insomnia / SNOMED CT 341813018 / Confirmed Neck pain / SNOMED CT 179441153 / Confirmed Overactive bladder / SNOMED CT 6535636330 / Confirmed PTSD (post-traumatic stress disorder) / SNOMED CT 98786287 / Confirmed Shoulder pain / SNOMED CT 38990264 / Confirmed Tobacco user / SNOMED CT 852480077 / Probable Histories Family History: No family history items have been selected or recorded. Procedure history: Surgery ([id number]). Comments: 01/06/2025 15:10 EDT - Danni King RN back Tubal ligation ([id number]). Shoulder ([id number]). Comments: 01/06/2025 15:14 EDT Danni Kumar RN left shoulder surgery Hysterectomy ([id number]). Social History Electronic Cigarette/Vaping Assessment Electronic Cigarette Use: Use, within last 90 days. Type: Cannabinoid infused, Flavored only, Nicotine infused. Use per Day: occasionally. Alcohol Assessment Use: Current. Beer, Wine, Liquor, 1-2 times per year Tobacco Assessment Current everyday tobacco user Tobacco Use:. half pack a day per day. 39 year(s). Substance Abuse Assessment Substance use: Past. Cocaine, Marijuana, 1-2 times per month . Social & Psychosocial Habits Alcohol 03/08/2025 Alcohol Use: Current Type: Beer, Liquor, Wine Frequency: 1-2 times per year Substance Use 03/08/2025 Substance use: Past Type: Cocaine, Marijuana Frequency: 1-2 times per month Tobacco 03/08/2025 Smoking tobacco use: Current everyday tobacco Number used per day: half pack a day Number of years: 39 Electronic Cigarette/Vaping 03/08/2025 Electronic Cigarette Use: Use, within last 90 days Type: Cannabinoid infused, Flavored only, Nicotine infused Use per Day: occasionally . Physical Examination Vital Signs (last 24 hrs) Last Charted Temp Temporal L 36.2 DegC (APR 01:35) Heart Rate Peripheral 72 bpm (APR 01:35) Resp Rate 16 br/min (APR 01:35) SBP H 123 mmHg (APR 01:44) DBP H 82 mmHg (APR 01:44) Weight 86.3 kg (TELLO 13 09:35) General: Alert and oriented, No acute distress. Airway: Mallampati classification: III (soft palate, base of uvula visible). Mouth: Adequate opening. Neck: Stiffness, Trachea ( Limited Flexion ), No full range of motion. Respiratory: Respirations are non-labored. Cardiovascular: Normal rate, Regular rhythm. Neurologic: Alert, Oriented. Review / Management Laboratory Results Plan [place] [employer]hesiologists (ASA) physical status classification: Class II. Anesthetic Preoperative Plan Anesthesia: General. , Regional Interscalene BPNB for Post-operative pain control. , Plan for LMA. Anesthetic plan, risks, benefits, and alternatives discussed with the patient and/or family. Patient verbalized understanding. Informed consent was given. Consent was signed by the patient. Mother and aunt present at interview. . [Electronically Signed on: 04/01/2025 10:38 EDT] Tera Carpenter MD [Verified on: 04/01/2025 10:38 EDT] Tera Carpenter MD [facility] Inpatient Patient Summaryon 04-01-2025 Inpatient [place] [address] Patient Discharge Instructions Name: CANDE RAHMAN : 1970 Patient Address: [address] [place] [address] Primary Care Provider: Name: Phone: After you are discharged if you find you have any questions, please, call [phone] ext [phone] to speak to a nurse. Discharge Diagnosis: Acute pain of left shoulder Prescription Information: If you have been given a prescription for narcotics, seek immediate medical attention if you have any difficulty breathing or any sudden status changes such as confusion and sleepiness. If you or anyone you know is experiencing suicidal thoughts, mental health, alcohol and/or drug addiction problems; contact the [facility] 12/05 Crisis Hotline -Text 4HNSP lc 826263. If you received any narcotics, sedation, or any other medication that causes drowsiness for the next 24 hours, unless otherwise directed: ? Do not drive a car. ? Do not operate machinery such as power tools, lawn mowers, drills, sewing machines, or stoves ? Avoid alcoholic beverages and drugs for allergies, nerves, or sleep ? Do not make important personal or business decisions or sign any legal documents [facility] would like to thank you for allowing us to assist you with your healthcare needs. The following includes patient education materials and information regarding your injury/illness. CANDE RAHMAN has been given the following list of follow-up instructions, prescriptions, and patient education materials: Follow-up Instructions With: Address: When: Aditi Blakelyen [address] [place] [address], [place] [id number] Business (1) 04/15/2025 9:15 AM Medications During the course of your visit, your medication list was updated with the most current information. The details of those changes are reflected below: New Medications Other Medications acetaminophen-hydrocod one (acetaminophen-hydroco done 325 mg-5 mg oral tablet) 1 tab(s) Oral (given by mouth) every 4 hours as needed pain. Medications to Continue That Have Not Changed Other Medications amitriptyline (amitriptyline 50 mg oral tablet) 1 tab(s) Oral (given by mouth) once a day (at bedtime). amphetamine-dextroamph etamine (Adderall 10 mg oral tablet) 1 tab(s) Oral (given by mouth) every day. amphetamine-dextroamph etamine (amphetamine-dextroamp hetamine 30 mg oral capsule, extended release) 1 cap(s) Oral (given by mouth) once a day (in the morning). ARIPiprazole (ARIPiprazole 15 mg oral tablet) 1 tab(s) Oral (given by mouth) every day. atorvastatin (atorvastatin 80 mg oral tablet) 1 tab(s) Oral (given by mouth) every day. bupropion-dextromethor turk (Auvelity 45 mg-105 mg oral tablet, extended release) 1 tab(s) Oral (given by mouth) 2 times per day. DULoxetine (DULoxetine 40 mg oral delayed release capsule) 1 tab(s) Oral (given by mouth) every day. meloxicam (meloxicam 15 mg oral tablet) 1 tab(s) Oral (given by mouth) every day. prazosin (prazosin 2 mg oral capsule) 1 cap(s) Oral (given by mouth) 2 times per day. pregabalin (pregabalin 150 mg oral capsule) 1 cap(s) Oral (given by mouth) every day. tiZANidine (tiZANidine 4 mg oral tablet) 1 tab(s) Oral (given by mouth) At bedtime. No Longer Take the Following Medications Template Non-Formulary (Gummie (THC)) 1 tab(s) Chewed At bedtime. traMADol (traMADol 50 mg oral tablet) 1 tab(s) Oral (given by mouth) Every 12 hours scheduled time as needed as needed for pain. It is important to always keep an active list of medications available so that you can share with other providers and manage your medications appropriately. As an additional courtesy, we are also providing you with your final active medications list that you can keep with you. acetaminophen-hydrocod one (acetaminophen-hydroco done 325 mg-5 mg oral tablet) 1 tab(s) Oral (given by mouth) every 4 hours as needed pain. amitriptyline (amitriptyline 50 mg oral tablet) 1 tab(s) Oral (given by mouth) once a day (at bedtime). amphetamine-dextroamph etamine (Adderall 10 mg oral tablet) 1 tab(s) Oral (given by mouth) every day. amphetamine-dextroamph etamine (amphetamine-dextroamp hetamine 30 mg oral capsule, extended release) 1 cap(s) Oral (given by mouth) once a day (in the morning). ARIPiprazole (ARIPiprazole 15 mg oral tablet) 1 tab(s) Oral (given by mouth) every day. atorvastatin (atorvastatin 80 mg oral tablet) 1 tab(s) Oral (given by mouth) every day. bupropion-dextromethor turk (Auvelity 45 mg-105 mg oral tablet, extended release) 1 tab(s) Oral (given by mouth) 2 times per day. DULoxetine (DULoxetine 40 mg oral delayed release capsule) 1 tab(s) Oral (given by mouth) every day. meloxicam (meloxicam 15 mg oral tablet) 1 tab(s) Oral (given by mouth) every day. prazosin (prazosin 2 mg oral capsule) 1 cap(s) Oral (given by mouth) 2 times per day. pregabalin (prega (more content not included)... Normal [facility] MAGR Intraoperative Recordon 04-01-2025 MAGR Intraoperative Record MAGR Intra-Op Record Summary Primary Physician: Finalized Date/Time: 04/01/25 11:19:45 Pt. Name: CANDE RAHMANEileen Shukla/Sex: 1970 FEMALE Med Rec #: [id number] Physician: LUIS CARBONE DO Financial #: [id number] Pt. Type: D Room/Bed: / Admit/Disch: 04/01/25 09:25:00 - Institution: Case Times MAGR Entry 1 Patient In Room Time 04/01/25 11:02:00 Out Room Time 04/01/25 11:12:00 Anesthesia Start Time 04/01/25 11:03:00 Stop Time 04/01/25 11:09:00 Surgery Start Time 04/01/25 11:05:00 Stop Time 04/01/25 11:09:00 Last Modified By: Joyce Fried RN 04/01/25 11:14:29 Case Attendance MAGR Entry 1 Entry 2 Entry 3 Case Attendee Tera Carpenter MD, Margaret RN Slauterbeck, Linda RN Role Performed Anesthesiologist of Reed Or Wind Instrument Tuner [employer] Instrument Tuner Record Time In 04/01/25 11:02:00 04/01/25 11:02:00 04/01/25 11:02:00 Time Out 04/01/25 11:10:00 04/01/25 11:11:00 04/01/25 11:11:00 Procedure Interscalene Block Interscalene Block Interscalene Block Last Modified By: Joyce Fried RN, Linda RN Slauterbeck, Linda RN 04/01/25 11:14:58 04/01/25 11:14:58 04/01/25 11:14:58 Surgical Procedures MAGR Pre-Care Text: A.20 Verifies operative procedure, surgical site, and laterality Im.150 Develops individualized plan of care Entry 1 Procedure Interscalene Block Primary Procedure Yes Primary Surgeon Tera Carpenter MD Surgeon Comment SCALENE BLOCK PRIOR TO LEFT SHOULDER ARTHROSCOPY Start 04/01/25 11:05:00 Stop 04/01/25 11:09:00 Anesthesia Type Regional Block Surgical Service Anesthesia Wound Class Clean Technique Details Closure Technique Primary Entire procedure Yes was performed via laparoscope or robotic assistance Last Modified By: Joyce Fried RN 04/01/25 11:15:23 Post-Care Text: O.730 The patient's care is consistent with the individualized perioperative plan of care General Case Data MAGR Pre-Care Text: A.350.1 Classifies surgical wound Entry 1 Case Information OR MAGR Proc Room Case Level None Wound Class Clean Specialty Anesthesia ASA Class 2 Diagnosis Preop Diagnosis SCALENE BLOCK PRIOR TO Postop Same As Preop Yes LEFT SHOULDER ARTHROSCOPY Postop Diagnosis SCALENE BLOCK PRIOR TO LEFT SHOULDER ARTHROSCOPY Blunt or No Is the procedure No penetrating injury considered occured prior to Emergent/Urgent? the start of the procedure: Last Modified By: Joyce Fried RN 04/01/25 11:15:37 Post-Care Text: O.760 Patient receives consistent and comparable care regardless of the setting Time Out MAGR Entry 1 Procedure(s) Interscalene Block Time Out Checklist Verifications Team Introductions Yes Confirmed Identity, Yes Completed Procedure, Incision Site, and Consent(s) Presence of Yes Site Verification, Yes Necessary Site Marking, Site Procedural Marking Equipment, Devices, Alternative, and/or and Implants Site Marking Verified Exception in Accordance with Facility Policy Anesthesia Review Antibiotic Received n/a All Anesthesia Yes Within an Concerns Addressed Appropriate Time Interval Prior to Surgical Incision Surgeon Review Anticipated Blood Yes Expected Case Yes Loss Risk Addressed Duration Addressed Critical and Yes Non-Routine Steps to be Performed Addressed Nurse Review Equipment Yes Fire Risk Yes Checks/Concerns Assessment Addressed Completed and Interventions Performed Diagnostic and n/a Sterilization Yes Radiological Test Concerns Addressed Results Displayed are Appropriate and Labeled Other Concerns Yes Addressed Time Out Tera Carpenter MD, Time Out Time 04/01/25 11:02:00 Participants Mariluz Hoyt RN, Joyce Fried RN Last Modified By: Joyce Fried RN 04/01/25 11:16:43 Patient Positioning MAGR Pre-Care Text: A.280 Identifies baseline musculoskeletal status Im.40 Positions the patient Im.80 Applies safety devices Entry 1 Procedure Interscalene Block Body Position Semi-Fowlers Left Arm Position Extended Right Arm Position Extended Left Leg Position Extended Right Leg Position Extended Feet Uncrossed? Yes Press Points Checked Yes Outcome Met (O.80) Yes Last Modified By: Joyce Fried RN 04/01/25 11:17:11 Post-Care Text: E.290 Evaluates musculoskeletal status O.80 Patient is free from signs and symptoms of injury related to positioning Skin Prep MAGR Pre-Care Text: A.30 Verifies allergies Im.270 Performs skin preparation Im.270.1 Implements protective measures to prevent skin and tissue injury due to chemical sources Entry 1 Skin Prep Syntegrity Prep Agents (Im.270) Chlorhexidine Gluconate Prep By Tera Carpenter MD and Alcohol Prep Area (Im.270) Shoulder, Neck Prep Area Details Left Skin Prep Agent Dry Yes Without Pooling Hair Removal Syntegrity Hair Removal Methods No hair removal performed Outcome Met (O.100) Yes Last Modified By: Gold Fried (more content not included)... [facility] MAGR PACU Recordon MAGR PACU Record MAGR PACU Record Summary Primary Physician: LUIS CARBONE DO Finalized Date/Time: 04/01/25 13:44:10 Pt. Name: JOSIAH CANDE PALMA Gayla/Sex: 1970 FEMALE Med Rec #: [id number] Physician: LUIS CARBONE DO Financial #: [id number] Pt. Type: D Room/Bed: / Admit/Disch: 04/01/25 09:25:00 - Institution: PACU Case Times MAGR Entry 1 In PACU I 04/01/25 12:50:00 Discharge from PACU 04/01/25 13:33:00 I Last Modified By: Joaquín Muhammad RN 04/01/25 13:44:06 Finalized By: Joaquín Muhammad RN Document Signatures Signed By: Joaquín Muhammad RN 04/01/25 13:44 [facility] MAGR Postoperative Recordon 04-01-2025 MAGR Postoperative Record MAGR Phase II Record Summary Primary Physician: LUIS CARBONE DO Finalized Date/Time: 04/01/25 14:14:46 Pt. Name: CANDE RAHMANEileen Caal./Sex: 1970 FEMALE Med Rec #: [id number] Physician: LUIS CARBONE DO Financial #: [id number] Pt. Type: D Room/Bed: / Admit/Disch: 04/01/25 09:25:00 - Institution: Phase II Case Times MAGR Pre-Care Text: Patient is free from s/s of injury. Patient remains free from compromised physical state related to surgery or anesthesia. Patient comfort maintained. Patient/family verbalize understanding of discharge instructions. Entry 1 In PACU II 04/01/25 13:35:00 Discharge from PACU 04/01/25 14:15:00 II Last Modified By: Joyce Fried RN 04/01/25 14:14:42 Post-Care Text: The patient remains free from s/s of injury. Patient's vital signs stable, circulation maintained, return to preop mental and physical status, opsite/dressing intact, minimal or absent nausea and vomiting, tolerates po intake. Patient verbalizes adequate pain control. Patient/family express understanding of discharge instructions. Finalized By: Joyce Fried RN Document Signatures Signed By: Joyce Fried RN 04/01/25 14:14 [facility] Preoperative Recordon 0 04-01-2025 [facility] Preoperative Record MAGR Pre-Op Record Summary Primary Physician: LUIS CARBONE DO Finalized Date/Time: 04/01/25 12:55:27 Pt. Name: JOSIAH CANDE Shukla/Sex: 1970 FEMALE Med Rec #: [id number] Physician: LUIS CARBONE DO Financial #: [id number] Pt. Type: D Room/Bed: / Admit/Disch: 04/01/25 09:25:00 - Institution: Pre-Op Case Times MAGR Pre-Care Text: Patient will be optimally prepared for surgery. Patient is free from s/s of injury. Provide information to patient/family related to plan of care. Verify patient allergies. Confirm identity and verify consent before the operative or invasive procedure. Entry 1 Patient Arrival Time 04/01/25 09:35:00 Preop Departure 04/01/25 11:10:00 Last Modified By: Joaquín Muhammad RN 04/01/25 12:55:24 Post-Care Text: Patient is prepared mentally and physically and is ready for surgery. The patient remains free from s/s of injury. Patient/family express understanding of plan of care and participate in decisions affecting his or her perioperrative plan of care. Allergies documented appropriately. Patient identifiers and consent correct. General Comments: Reviewed for the next 24 hours not to do anything that requires concentration. Denies chest pain, shortness of breath or illnessess. Denies pacemaker/defib. Denies sleep apnea. Finalized By: Joaquín Muhammad RN Document Signatures Signed By: Joaquín Muhammad RN 04/01/25 12:55 [facility] Patient Handouton 04-01-2025 Patient Handout Outpatient Shoulder Discharge Instructions 1.) For the next 24 hours, do not drink any alcoholic beverages, drive a motor vehicle, operate machinery or power tools, make any important decisions or sign important papers. 2.) Rest at home with moderate activity as tolerated for at least 24 hours. 3.) You may feel dizzy, lightheaded or sleepy following surgery. Please, have someone with you for the rest of the day and during the night. 4.) You may eat when you prefer, but it is usually best to start with liquids and gradually work up to solid foods. 5.) If you experience persistent nausea or vomiting, pain not controlled with your pain medicine and ice, bleeding that you feel is excessive, swelling or fever, please call Dr. Carbone at [phone]. 6.) Keep dressings in place, clean and dry until 04/05. 7.) On 04/05, remove the dressings, shower and cover the incision with band aids. 8.) Flex and extend elbow 15 times twice a day starting tomorrow. 9.) Use the sling continuously except to bathe. 10.) DO NOT LIFT ARM AWAY FROM SIDE!! 11.) Use Ice as needed to help with pain control. 12.) Proceed immediately to the emergency room for chest pain or shortness of breath 13.) If you have any problems or concerns, please call the office at [phone] or [phone] [facility] Triage Panel 04-01-2025 Triage Internal Control Pass [facility] Comment on above: Performed By: #### 1 [id number] ####[facility] (DEFAULT)[address] [place] [address]9910 U Amph Scr Negative [facility] Comment on above: Performed By: #### 1 [id number] ####[facility] (DEFAULT)[address] [place] [address] 95600 U Farhana Scr Negative [facility] Comment on above: Performed By: #### 1 [id number] ####[facility] (DEFAULT)[address] [place] [address] [id number] U Benzodia Scr Negative [facility] Comment on above: Performed By: #### 1 [id number] ####[facility] (DEFAULT)[address] [place] [address] 60045 U Cannab Scrn Positive [facility] Comment on above: Performed By: #### 1 [id number] ####[facility] (DEFAULT)[address] [place] [address] 42469 U Cocaine Scr Negative [facility] Comment on above: Performed By: #### 1 [id number] ####[facility] (DEFAULT)[address] [place] [address] 69161 U Methadone Scr Negative [facility] Comment on above: Performed By: #### 1 [id number] ####[facility] (DEFAULT)[address] [place] [address] 35079 U Methamp Scrn Negative [facility] Comment on above: Performed By: #### 1 [id number] ####[facility] (DEFAULT)[address] [place] [address] 03532 U Opiate Scr Negative [facility] Comment on above: Performed By: #### 1 [id number] ####[facility] (DEFAULT)[address] [place] [address] [id number] U Oxycod Scr Negative [facility] Comment on above: Performed By: #### 1 [id number] ####[facility] (DEFAULT)[address] [place] [address] 73386 U Phencyclidine Scr Negative [facility] Comment on above: Performed By: #### 1 [id number] ####[facility] (DEFAULT)[address] [place] [address] [id number] U Tricyclic Antidepress Scr Positive [facility] Comment on above: Result Comment: Resu lts are to be used only for medical (ie, treatment) purposes only. Positive tests will not be sent out for confirmation. PROFILE?-V MEDTOX Scan? Drugs of Abuse Test System detects drug classes at the following cutoff concentrations: AMP Amphetamine (d-amphetamine): 500 ng/mL BAR Barbituates (Butabital): 200 ng/mL BZO Benzodiazepines (Nordiazepam): 150 ng/mL BUP Buprenorphine (Buprenorphine): 10 ng/mL SHANNAN Cocaine (Benzoylecgonine): 150 ng/mL MAMP Methamphetamine (d-Methamphetamine): 500 ng/mL MTD Methadone (Methadone): 200 ng/mL OPI Opiates (Morphine): 100 ng/mL or 2000 ng/mL OXY Oxycodone (Oxycodone): 100 ng/mL PCP Phencyclidine (Phencyclidine): 25 ng/mL PPX Propoxyphene (Norpropoxyphene): 300 ng/mL THC Cannabinoids (61-ovi-8-carboxy- -THC): 50 ng/mL TCA Tricyclic-Antidepressants (Desipramine): 300 ng/mL Performed By: #### 1 [id number] ####[facility] (DEFAULT)[address] [place] [address] 70563 Urine Source Voided [facility] Comment on above: Performed By: #### 1 [id number] ####[facility] (DEFAULT)[address] [place] [address] 09565 Progress Note - Nurseon 03-20 Progress Note - Nurse Spoke with pt and informed her to be at hospital at 10am and NPO after MN, she verbalizes understanding. [Electronically Signed on: 03/31/2025 09:18 EDT] Halblaub, Sidsel RN [Verified on: 03/31/2025 09:18 EDT] Ruthy Terry RN [facility] Coding Summaryon 03-15-2025 Coding Summary HTMLBase 64 YmstwbzcGRi0jIy+PGhlYW Q+WV9WICBbY16giHBlqO0v F1JUIQuCDaayDVLBYXvUCg HdmcDmMX0ykDDcNYXt IC8+EM2gQBDlXhfftKXzn0 X7pLJ7T08kyd8dXZcffUJ7 SXPnBxYmpcdgl2tcdXm4CV cuNmluOyBt QFUhfU66TEZ2xZ37Va27uB HluWCpp2xaaUf1MnMlQRDk VYW3lGtcAZpkf4FnKGKpE4 7eiIVxt4P0 ZYVobXgdiZEaVfGjdXI9yF 5vNBttcuepf1radnlwXfr0 yg22bVUfw8T7zMY3P2Enyh W8ZNCrlDVw KasxlZIMbJ1qozhhm9fhqo ceBpTiVPZlJRd4YVf2YZOt wZxrCtRqZW71EEO6HYQgor KkV4LdSVVr mJwbIoI2u3N9Vw1XF3CLAb idL5CWPBDMPSbvyQH+PC90 tc18K9OyEausYcn8JFAoKT O5fQE1iZ1u FFOeFGvmo4Y9mPS5J3Mmhm Jtsk6cz0tuPHDoULrtR94t yXQie2V9DLYmxJK7MRLmwE udMfPoiR22 Oyc+WXIyzPmpd4ZwPpcpe7 act8bzfRv8ZuslWKWzlwNn cGowBET4h9LoDp6bWGDrxK G0pVM9vD8x MnUxIpO1QLwvO720SsHtmC QeDqeiW63yW1ReqBF+PHRy Gmo5UANnvXccNS6rQ0YtUP RpbmctbGVm gFtkXK9fPJUfyajkOKPluH 0fACZgR7j7LsUsIeU8JDqi Q0PhQZBhqkncYf50mV0vLb PoNcA4TTpb R9BjmsP4CSAzsVNrYLgjSZ U1W71nk9Q7IXUoMQEeHJB6 eEL5eV0qkFwncoobfGDanJ sgdmVydGlj CUnnMPytR980DVQulQfcXv NvZGluZyBEYXRlOiAgMDUv MjcvMjAyNTwvdGQ+PHRkIH U0bXhqCKDs qROqHOcfVe8qpEjzuUpkPI 9pFVMptjbeOQFruJ6rVPKi yNEpbDiyEB0tNYRzcgvqa1 80XkCiHPG9 HANmqKLhE2WtaK2dHsFoNJ YjMFMmU7SgtEKwJKhdX668 RNqrEjC5MQJejnBpG6GrJG FsaWduOiB0 m1Z2Wv5Uf9UhbemxH8VmfG TwOoTxGcqqKLe0B2FfKsez dHI+QY86DMYwOD86NWu7JF W9aJwmIDdd SHFjJ2EltL5vHrLyQJRlFQ RkOyc+PHRhYmxlIHdpZHRo HNwgWLIsFaOztDwcMX7rZd 9yZGVyLWNv sWzdfKYeRyMpw8leUFPbUC sbUV7fkAujU2KlkUM4PXSa w2c5Is55S64wY9VsxII+PG MchRH7oKF3 bN9fToHsMfD6BVfuN636Yn FxaQXhJkmnb0arw0lbaUf2 QiK0KMEkmxVfgAvuAWR7z3 UiSg14M62c IHdpZHRoPSIxNSUiIHZhbG cjwt4vlV5qFw9+PGNvbCB3 eSI3qP4cUbPaDjS1TAqqW9 49InRvcCIv Cxgtm8fda3xbqLm1EdCaTY YcjsDvzXwvOII6i7DcVl13 J4FwqSnmt5BpMlq6tq46uT Mxe4G9eZR6 H8PpMEMfwbdwmMRlpHikBH 7bBXMsrdalHSFugN7cGIDg J5k1GkAiDrE7COikL6Qrzz I8RCFdzXXc YJOdrHYQqE2nkyecz9maxl wpDyKrZQKcIYk8YTh2VGIi rOpySwHjNTQ0FfX0ISV2oM PxrN1dmIev tmnysZ5jYtp+OOX0fFMesQ RPAD5bYndmzAS+PHRkIHN0 rGueNKywMNSscY4pXIEnR8 c3QvKgSgK2 SGxpK9LojeY2DQHjwBHsEO ZinDFIhB8wdysdi0ioqyeb JlGvUEIaIFu6IZt7CORnsK duOiBsZWZ0 PuS6CTC5jQYvuB4syMgcjz wucR6eNdk+QmlydGggRGF0 ZHn2P1OrMvk3TWKxmMokTW 0ncGFkZGlu Kn4ogLcscPjhQC1gJRUqbs xdk956TpEpw2slDLKuvEQn VKlcHMW1I17uc7K1RQNpNE EwBNS7zXP8 rP5pkMfkbocncLShzSmsmq QqbGtiTTmxOXffI655KZHr hAvnLvJtHLd6Z1GdYzn5KX AsmDvdNQ8v zIYqKEehRl5dhUveqIfhYN 5wSVTwizmrw006EmWbh3nr YYYmoVDgKGgoMFX7P22om7 B8EITgWJZo YRI1gMU5jV9uoKssiamykP VmdDsgdmVydGljYWwtYWxp W431ZDFthElyEyIwwYq4S4 BnTdj0IRGo nIcmNR0vkFOgVYqzLl2yuF xvdKqgZB7aTNSdwvvza328 TvJfo4qoKTZleUVaSVtjQW G2B58kw2I7 IJKlPHInGRQ7oOV3qF3izP lnbjogbGVmdDsgdmVydGlj RMjeRZawW965JEIguEtrGt BhdGllbnQg OInpDIi1H5DdNuxveJN+PC 83RUKhQO42tWMcoPJhd5jj yOe9IxUrVQWmLAN0pUkiPX nzk3IbTORi S37uwNUho8Q8HMOrrWwylN VbZkKevGI0bV0wHUmnxyxf d9mtrlsnZurdd1mjdt02bC 54N02iEKhh ZHRoPSIzMCUiIHZhbGlnbj 0odV0wIy3+NKXyzFV0gRH9 rR5tLFZtUjV4UEfcG724Nh RvcCIvPjxj f7acb4bwaYi7NxW2ZNEjqj KrzGzyRUJ0e8AzSf34Z21b IHdpZHRoPSIyMCUiIHZhbG uwyh1raU4p Ii8+PYChoLM2dHQ8gT6qSb ZiIbM0QTwhA824GvXibMPw LharX70wS2PjvSQ+PHRyPj u1RNJkwKdb ZZ4mhFVpOUaqRg0vTMH6Yh QiHgKqXPqfW1QpCUDnhyxw ocpxeDI7NJTzZEGmrZ99Yj 9udDogMTBw kNZKjD3mxvokd7wnlznsBr BzGTXvTDb8OIa6SIQozQsp GzAqDBG8NyW3AAL5qHQwgG 1hbGlnbjog oY0bE7PuDOWqjhjeEb68aQ 2lQnAaIpE4BBetUgp+SkFD F0PJHybaOUKGDGvyJFOEWW S1Y7ZiSft6 PLQhxAkjVT7xcJSnTJmnKa 4jnSivgTmkNK5gWHSzkgjp QEEjoY9hCVNjeDArtAiwHV 4wNTBpbjtm x724QlSjODO0JIPtsVAqN5 NcmP7nQxXiUGXmLWMqT9Hz nYBhYLrqW215MInxHcZ2GR LpenHwO3Ge FJVwdJrsQwI5a9G0Ks1hYl 0jYO3fUQuvUL90ZI07mUZu u2X6qPP4O4BeHAYxcickih wiuOE5WKHf BMCfyU73nOHqIFkhWl4wn7 V1k382EJBmKKNdzE03Za3r jKsmGUChrHKLlN0xnpijg2 xvcjogIzAw YYKhNPd3YKz4IAJvdZdqGl OdZJP4StQ2SAS1fKEoeV1k vZrrqkvqyV9nRzi+NTMgWW TbeqJ5E0Nb Afa2POHvuNshJR4zfSJrSA dyHl8bxRjtjIplNZ8lBGVq gdhsJJVifJ0kZWJgpNUidV tiWL1nMMTb puxul379OdHiUTL9SRTsoD UsY9RbqI3uBlPcLCGhYBNo N9KgaTZuRJwtI761LJdwQk O3VVXrvpSm A3TyNWDbwOzzQaI0g6I7Gv 5HMS6PPYP8T6WuFdc4EPCp pAkuHN3boEVyOOofVb0djL jflUpdDA7e VISgftqtJUAyvP3yZKAqbH OfmBwwMV0lQYWorumuj899 TsWlLDG1QIThjWMkG2FzwW 9yOiAjMDAw WNGxH3ZfmTQwENzpT996FE nnKkP2JMJfqlJvW9BnJYKy mSjeInC5t5B9Ku8PHEaxuW Q+MU26in78 S4TwQnvuCkn6LADaFXK9dX E3vA2yCAKyHPiko8W8dAL3 B3CsxrMfwo7ri5luWXFkGS izG27eyJGf l1S6PMUgiIO5NXJgbSbjOc VwhX60Fle+RRZujXott6Qt Vgqbi7ohn6cheBa9FfGuVU IgdmFsaWdu CET9r0GrNv94U86wUYwaBC XcRYMzTLStFSUyuNhhty5j oL9yBl4+MWMmsVR8zOX3uA 6lMeCbOcB5 DOgtM836SyKtoPIpJohir9 hfe2cllMu9HlFkBIWymeEr xHmdKDD0n3EqUw38L8FspB yzn2QcNec8 ml89kHZgq5P1uFQ8Z3LsDD PhlzihsOKcnDmgIP6pSFPk ndifFZUgaP2cUNPbZ8n4Ry NhFgO4SYsd K7JpkeD0CLPtkNQtBNNokZ KBtT9pkjcho8aujijeWvMa CQWdYWf5ZOa9XQWutSppGo UdEBM4UcK8 FFE7rOMyaQ9nvHfueiorqF 9wOyc+AHo8x9oweYUvGW4l yBQ0QR11MD38zJBuc8H3nV Q9T5YiLLMd haxzcgvpoLX7GEFeXRNxfC 34Gl9ruVxqBi3oRWFzXKJ9 JJOshGPlJ9OdpS7bRqGfPJ KsTJPrP2Oa gCDzEGlrQ345CQoqLjL6GS TxgoPoZ4LxJPVboFsrSmG5 h2T7Ei5PGP17WE19WF19iQ Zjq8W1lDA9 L8SfSCVikikerwxaeSI7RK NmACAkpF00Xn1fiHstZj8k RYIjYTF2STWhhUToV6FsuN 9yOiAjMDAw GZInO8SzgINgPLfnB150DZ ebCaR3HWWrcmHsF6TeMCBa tTymInI4y5B7Rw0UFg97PQ 62BP63aTHp f5N1nRK9L1JkPMTwuxglxj oroAL6EPGuHSPtgW86Dz8t cTxyPv7zAMJcBSF3EMIhwZ KeK3IrbJ9f TuEvICUpPZGnL0WtgNYiVV ubP078XXgfMwQ7JTMmwmRl E7TnSIDuxHhfZjT1q3M1Bx 3NCVqtgkp9 P0ObEjnocXD+UA82JIMeQS 96cDRqfSXwa5vacEm4BuMg JHBjYRI9uJmjQCprb4RvGU AbK92ubLGd c2U (more content not included)... [facility] Progress Note - Nurseon 02-18 Progress Note - Nurse Dr Bernabe reviews pt chart and wants Triage panel morning of surgery. [Electronically Signed on: 03/10/2025 13:05 EDT] Ruthy Terry RN [Verified on: 03/10/2025 13:05 EDT] Ruthy Terry RN [facility] .Auto Diff 103-08-2025 Auto [place] % 7 % Normal 10-31 [facility] Comment on above: Performed By: #### 1 [id number], [id number], [id number] ####[facility] (DEFAULT)[address] [place] [address] 26777 Baso Abs# 0.0 x10 Normal 0.0-0.2 [facility] Comment on above: Performed By: #### 1 [id number], [id number], [id number] ####[facility] (DEFAULT)[address] [place] [address] 39313 Basophils/100 WBC (Bld) 0.5 % Normal 0.2-2.0 [facility] Comment on above: Performed By: #### 1 [id number], [id number], [id number] ####[facility] (DEFAULT)[address] [place] [address] 09405 Eos Abs# 0.1 x10 Normal 0.0-0.4 [facility] Comment on above: Performed By: #### 1 [id number], [id number], [id number] ####[facility] (DEFAULT)[address] [place] [address] 34711 Eosinophils/100 WBC (Bld) 2.1 % Normal 0.9-4.0 [facility] Comment on above: Performed By: #### 1 [id number], [id number], [id number] ####[facility] (DEFAULT)[address] [place] [address] 95197 Lymph Abs# 2.5 x10 Normal 1.3-2.9 [facility] Comment on above: Performed By: #### 1 [id number], [id number], [id number] ####[facility] (DEFAULT)[address] [place] [address] 25981 Lymphocytes/100 WBC (Bld) 38 % Normal 14-48 [facility] Comment on above: Performed By: #### 1 [id number], [id number], [id number] ####[facility] (DEFAULT)[address] [place] [address] 11499 [place] Abs# 0.5 x10 Normal 0.0-0.8 [facility] Comment on above: Performed By: #### 1 [id number], [id number], [id number] ####[facility] (DEFAULT)[address] [place] [address] 38168 Neut Abs# 3.4 x10 Normal 1.5-9.2 [facility] Comment on above: Performed By: #### 1 [id number], [id number], [id number] ####[facility] (DEFAULT)[address] [place] [address] 17492 Neutrophils/100 WBC (Bld) 52 % Normal 44-88 [facility] Comment on above: Performed By: #### 1 [id number], [id number], [id number] ####[facility] (DEFAULT)[address] [place] [address] 32305 [facility] Standardon 03-08-2025 eGFR Non AA >60 Invalid Interpretation Code [facility] Comment on above: Performed By: #### 1 [id number], [id number], [id number] ####[facility] (DEFAULT)[address] [place] [address] 57882 eGFR AA >60 Invalid Interpretation Code [facility] Comment on above: Performed By: #### 1 [id number], [id number], [id number] ####[facility] (DEFAULT)[address] [place] [address] 20516 Anion gap [Moles/Vol] 11.6 mmol/L Normal 5.0-19.0 [facility] Comment on above: Performed By: #### 1 [id number], [id number], [id number] ####[facility] (DEFAULT)[address] [place] [address] 84624 Calcium [Mass/Vol] 8.9 mg/dL Normal 8.9-10.3 [facility] Comment on above: Performed By: #### 1 [id number], [id number], [id number] ####[facility] (DEFAULT)[address] [place] [address] 03647 Chloride [Moles/Vol] 104 mmol/L Normal 101-111 [facility] Comment on above: Performed By: #### 1 [id number], [id number], [id number] ####[facility] (DEFAULT)[address] [place] [address] 82660 CO2 [Moles/Vol] 25 mmol/L Normal 21-32 [facility] Comment on above: Performed By: #### 1 [id number], [id number], [id number] ####[facility] (DEFAULT)[address] [place] [address] 74299 Creatinine [Mass/Vol] 0.83 mg/dL Normal 0.60-1.30 [facility] Comment on above: Performed By: #### 1 [id number], [id number], [id number] ####[facility] (DEFAULT)[address] [place] [address] 86625 Glucose [Mass/Vol] 92.0 mg/dL Normal 74.0-118.0 [facility] Comment on above: Performed By: #### 1 [id number], [id number], [id number] ####[facility] (DEFAULT)[address] [place] [address] 99890 Osmolality 273 mOsm/L Invalid Interpretation Code [facility] Comment on above: Performed By: #### 1 [id number], [id number], [id number] ####[facility] (DEFAULT)[address] [place] [address] 63823 Potassium [Moles/Vol] 4.6 mmol/L Normal 3.6-5.1 [facility] Comment on above: Performed By: #### 1 [id number], [id number], [id number] ####[facility] (DEFAULT)[address] [place] [address] 63105 Sodium [Moles/Vol] 136.0 mmol/L Normal 136.0-144.0 [facility] Comment on above: Performed By: #### 1 [id number], [id number], [id number] ####[facility] (DEFAULT)[address] [place] [address] 76623 Urea nitrogen [Mass/Vol] 18 mg/dL Normal 8-26 [facility] Comment on above: Performed By: #### 1 [id number], [id number], [id number] ####[facility] (DEFAULT)[address] [place] [address] 20676 Urea nitrogen/Creatinine [Mass ratio] 21.6 mg/mg High 4.6-16.2 [facility] Comment on above: Performed By: #### 1 [id number], [id number], [id number] ####[facility] (DEFAULT)[address] [place] [address] 77069 CBC w/ Auto Diffon 5 Erythrocyte distribution width (RBC) [Ratio] 14.8 % Normal 11.5-15.0 [facility] Comment on above: Performed By: #### 1 [id number], [id number], [id number] ####[facility] (DEFAULT)[address] [place] [address] 01481 Hematocrit (Bld) [Volume fraction] 41.6 % High 33.7-40.4 [facility] Comment on above: Performed By: #### 1 [id number], [id number], [id number] ####[facility] (DEFAULT)[address] [place] [address] 02202 Hemoglobin (Bld) [Mass/Vol] 14.0 g/dL Normal 11.3-15.9 [facility] Comment on above: Performed By: #### 1 [id number], [id number], [id number] ####[facility] (DEFAULT)[address] [place] [address] Man Diff? Auto Invalid Interpretation Code [facility] Comment on above: Performed By: #### 1 [id number], [id number], [id number] ####[facility] (DEFAULT)[address] [place] [address] 03061 MCH (RBC) [Entitic mass] 31 pg Normal 24-34 [facility] Comment on above: Performed By: #### 1 [id number], [id number], [id number] ####[facility] (DEFAULT)[address] [place] [address] 79323 MCHC (RBC) [Mass/Vol] 34 g/dL Normal 26-37 [facility] Comment on above: Performed By: #### 1 [id number], [id number], [id number] ####[facility] (DEFAULT)[address] [place] [address] 41863 MCV (RBC) [Entitic vol] 93 fL Normal 81-100 [facility] Comment on above: Performed By: #### 1 [id number], [id number], [id number] ####[facility] (DEFAULT)[address] [place] [address] 74824 Platelet 284 x10 Normal 138-427 [facility] Comment on above: Performed By: #### 1 [id number], [id number], [id number] ####[facility] (DEFAULT)[address] [place] [address] 86413 Platelet mean volume (Bld) [Entitic vol] 7.7 fL Normal 6.3-10.2 [facility] Comment on above: Performed By: #### 1 [id number], [id number], [id number] ####[facility] (DEFAULT)[address] [place] [address] RBC 4.47 x10 Normal 3.70-5.30 [facility] Comment on above: Performed By: #### 1 [id number], [id number], [id number] ####[facility] (DEFAULT)[address] [place] [address] WBC 6.5 x10 Normal 3.5-10.5 [facility] Comment on above: Performed By: #### 1 [id number], [id number], [id number] ####[facility] (DEFAULT)[address] [place] [address] 38198 Coding Summaryon 01-25-2025 Coding Summary HTMLBase 64 CeftrgktQNl2oQp+PGhlYW Q+KW2OCMPoZ54drZMkiD5s X1PWMXdFMuikLOFVPRhFIn HkwvJaBE1thIAjEYQx IC8+IT6wHGFdYbbvpCDdc4 O3bEV7N40kgc3aAUhmmLP8 RCAfQkLopnprj7wpdMx9ZT cuNmluOyBt SODbxZ71DRL4nJ28Mr47pL EwtPNdu8dvhNe4SbIkYJSd JGN1dVauKQzbj7GvRLMjC5 6cwATws1V0 ZXMpmIhpjZBnClItmON8jK 8hACjavfeec1djzhglBka8 wh70vAEbx9E6oBJ4K6Adjx V2YIAcnSBt BuulyWQSvU6hyrgcu6wful rzDmYdKXPgGOk0YAk1DCTs vEczCbKfQN54KTF3TVPzft ZhP2LvOCGl nQgxEvV0y0R2Zs2TK8KPTw uaD0OWBYGPSMclfIQ+PC90 ja16Q3KrZgjjUlr5WULySM D7gBW7kI1r MMOuLOaks6T4fIE2P2Lnub Tzix6lf3qsYQYnRIvvM30o bQJgf2F9TKLmmRG3SELdiJ lvHhNpqA27 Oyc+LTMlfQhoz5JkNyaru1 pve4dslOs3FhxmDSHpzyEw oEngFJI0r6RuCw7rKQKbkD G2cUG2iH7e LnPyTbJ3PHglA156SzZgaV CcIvazB24oV4IbvWS+PHRy Jhl1XAKmpVdzQM1tC2IwGU RpbmctbGVm rOagIY4tHDIyyefcCQIyrA 4mNYYaQ6y8FfHtIzT1BZnw Z1TvYPMkgwxaQk62jI8wNi IdPyD1KIcv K5UgpkX0TUIzdTCuLJwiOR Z0T26sw6M6FZEdBUEvYBF0 lQW0oO0tmLokakqbjYWrxZ sgdmVydGlj YGoiCWcfI355MDYdiHfhRx NvZGluZyBEYXRlOiAgMDQv MDgvMjAyNTwvdGQ+PHRkIH I0gTvfUYZm oRAaNEyeYs2isBwuwMqeWE 1mLXFiwkeeCSOvnM5jXTNx iVYucZvuOM6qHFBsxjxhi5 28PbSgWIO4 MELbbZBhD0CfjQ3bCuBiEZ XfIXIcC5ZzuYNnFCyvR626 JMliYwL6UPZdvpJfV8UoET FsaWduOiB0 s7I7Cl4Sn0CdhehiC8ZrnS UtTcLgLydgYWl3N4MzFduz dHI+VX66KQKfKJ75MIx0GL N7xYbdTBue CYXgQ8OjoO2pBtYxAODwBT RkOyc+PHRhYmxlIHdpZHRo NCzxFJPmKzSdrPqsLQ4yQw 9yZGVyLWNv mVassRXuPeWuf6ynKUCiPW hgOY5qjKiyC9KlwCA0OYMd i2w3Hd52E41lO9ZfaNL+PG NwiLH7aDZ4 uM2pLtJyJgH6OMtnC804Ew EgwFCsAqtam1rbl0mvsIz8 MsY0RYDzunEfaPsoTYE9y1 YmYv94I78i IHdpZHRoPSIxNSUiIHZhbG lqrm2emA3aDj9+PGNvbCB3 eUU8bX3uBeOnBrK1JMcaO7 49InRvcCIv Oayvm2zcb1wsjMh3CnBzNK VdepUbbXbtWLU2g5YsHq87 R7KyjZkyu1XpWcr8jo98kG Fjo0C1mPF3 T2SmBDEjhstlbTFotNilKV 5pERKoehbfKNMywZ6fOUIn T7w1GvPwKyB2VNlsQ4Tegq C0USLnjAHe IQXwkGAToM9dgpszs8pnri swIcSsCNCrDBs1TTq0UMTn bXooYjSeXBE3EdV3KEV8cN JypD8mwOun wolqcW2oVto+UNG2tYOscY ZFDV2vPimjwFL+PHRkIHN0 nRbaZGzeXLBlvJ0hCUEkC5 s5MwBhBnR9 TAsuR2XqbdJ8QVJdgCEpHI YfvRMMuX5jdadku8yehnnj OpLxHHFeKRs0HKe4TSMrkR duOiBsZWZ0 SoG2CIP4zBRkcW1bnTvxni wdsR8lAyi+QmlydGggRGF0 YUa8B5OzKpv6LGExhSkiHD 0ncGFkZGlu Tp3fdUhnbTwkHJ4nUQQqyy jfk084SuLej5wjSUGicOPc WYjgHQL1M20qk3F0FDSqDZ PjZMD5vIG5 rK5vwWlppjtgfCZrmWnnvz DnoRjvFBlxQLtpP316XVNr nVjvYuKiRXj0K5GuJem0RZ GikSlaAT3c cZKuVTohPw9gdPctaEebDG 1sGLUxkfrru868HnRnh6yg FKGsxOLxENedTTB9Y52ax7 S4RNClLTIx PYB9rZF7kE5maRxtxbtnuQ VmdDsgdmVydGljYWwtYWxp G828IPBwsJdvXeWmlYp7E4 BgRkf7RDVz cExkOY4ihUSvMGbaId2gvH nigUrkBR3eRIRwbaque210 RaUac4lcRADklUJdRIlfVN C6I47qb3L2 WGQdMLLoSCV1gHL0hU3pcG lnbjogbGVmdDsgdmVydGlj RRxcMFapP519IRIwuVetEt BhdGllbnQg NLdlDTx9S8NiFksdmLI+PC 97STXvAH33pXDqdSEdd7zq bIw7KiInGGFgWTV4pMixOM gmr3MmWMFk T84wiDKof1D7TQDbmRgtjF KdLiWyxET1zE1uQIptzgjb d7kzoeiyGrckd0zkzg91oQ 32B42wJFau ZHRoPSIzMCUiIHZhbGlnbj 4fyI2bQb9+UKSluPS0dLL1 mR3kUIVrSqT6GTlvJ569Zn RvcCIvPjxj t4xez5ugjTb1DdI1CNWmrv FumFpxXRY6h2LoDo50Y64q IHdpZHRoPSIyMCUiIHZhbG iwza3ipO8n Ii8+LONrvLJ4vAV0nS1fUu GjPwG0KEuzI477JuXdiFNh ArhyD49lU4RdvWN+PHRyPj n3HDMvnOav RE6mlCEgUDlxZr6pVPL3Ia CiYrImFVjcL5UlVJVmkpyo cwndtQZ2USOsNXCkwN71Zi 9udDogMTBw mKBDeE5bhoyxc0bqxtxmQo SfKNIvHYa0RZq7GWEdqGin UdZxDTP4KlK5EMZ7tJXnwK 1hbGlnbjog lR4jF4HeXCBrebnfYz22bZ 8yJaWwWdD6AKnrCai+SkFD F6MWYpguMEFIAMgbHDBTOJ F6P3KwKln9 UJIisTigDB4cvQOuDUlcMd 2gaPbctJbxMN6wMKLtzatq GKEvpY4oAPTlkTNzxPjwHN 4wNTBpbjtm i351JlGbCZF1YYUzaHQnO6 EzkK3hZcWsHJXvJFKlM6Uw eJTnMRvhW135UPuzJpH2CX IoguUwQ4Xf REBqiIgbKsH8y1N7Bc4iFs 4yAP8lEOktIW53JN46uQPf x2C5sML1D7HlBJKijylzve cmgAD4UOTs CFXwuA30gCAeDFzuTh6wz7 S5k489BUWgFUPayW25Rm3j qIevSQCcqAASdO7akumro4 xvcjogIzAw VUKeZXo9GEu4XOYmjNueUz BoAFS3MnJ5IXU2bZYmuJ6s rPrwccnqbC7uMag+NTMgWW OkmzQ2Y3Ql Zcy5IZJbbEorFT6bcHNsEI xcOs9zhOoslAlqEI2oXVJx zzmuCDZjuJ6rURMihNGxiL grDN0tFQSo szjct140JtQdEHX0LYZaqX DkH2ZquP7cGcTrQOBiVSEw X8FkrQZmSQolN304YYhoDt C6IVWtoxMo I0YcDZDaxDvdCcN4e8J9Gk 8QPS5KRHU4G1JeGrw9CWZw qVfhAO2dwGWgALgqOt8qmD vicWhpUP0l VBBmmnxeWKOcpP2qJULqwB IwzDccPU3jJQJisdjnv954 FwFgFDM9BRUwpRLjN4GkrN 9yOiAjMDAw SJKeD1RwvAZdXTbmB396XE txEdY0YHHqtnXiH8HiCTFw dHotIwO3o8P8Bw0VTUkyJ9 XmI9ZziKam dGQ+JV84wx31X7BmBmfjKv x6GYFaSRY8pMP9dG9qRMMz SNckq3G6nNW5H5BwtiYkgp 4og4gxQDMy RPgtU60dpWYqc3K2PUTzxD I2QQIgaVnyJaEwnO11Dfp+ OQRpiBdkz8ZpWykbm6nva6 cebLu5JtTv BDLmgtCrxIrwQOK4s5TqWf 81P11aPJnaQHXqRWCyFIXi QPOtdIjkvd9rxO2nDj9+PG BkcBS2iVZ8 qS3lBwSyKvT4IAdtL206Eb UwdIMqXhvwy2aog9bwkDd0 FxWyWCIsmkQlvDtjBUK8q3 EqZr40U9Lv xOwyz7WtLrf9en35fCUjm2 P1hQN3R6FyYDKatcgilHCc dLdmDO2rHTNsueufITTnoX 9vNSEaV7v5 CiIpSiM0RNxxW8WtemX5UY QafZWaMKNpbFRCqU5ivapy l4aqmptwTiAzXWYkVSp1EU h3TJOkcFle FcIpHHC0HcM6HVX8rFIqrC 0xgJadtxlszO2bGxm+UGh5 d3zesGEoCH8qrHM5NO12PT 89jEHvt9S0 rNL4I4CxVLAivmrocvuezJ I8UTRgKRLsfK65Tf1gxLdy Pw9mYXZtZEF2XWJxqMXhH8 JekX4nZgOs AOAeWFOjL2PiiNGgIEqhY5 43AAcrVlD4STWyizAdX2Eh DPLwuDdbItE4n9Z3Jz3ECU 08AS77UV99 hYWlq4N8mWC1E0AuBFLvtb hialuqxKX8VOLiTMZijW64 Ma2rrCkbCa9gMDXqAXM8XE UyvFZmZ9Wx rM2mPqXvSDSsSBHtU9MsmZ LxKZblK099PHphFpK9VOPn ctNlN0BvTYKzyHexMyO0p7 U9Ya1VQv24 JR99YN09gPQos0I6zRR3D7 IrXWJivbpzpjodsGY5WYNg SUGccF82Me4hmBprQb2qUD VqJXC7VGQb eNVmY3CcfO3dBwElYYGuTI ZcZ8FvzZRgFIwtR053NLmt ZgV5EDMasaAnB8XgVVNusM eaKqW9g0I0 Vd6BSGbirbp4Z0ZtVpxcqM I+GJ64LBEsGI44xADamXKz u7usaJf9AoQeVMEbPBY1kR meAQvcy2Kb ZXI (more content not included)... [facility] Preoperative Record [facility] Pre-Op Record Summary Primary Physician: LUIS CARBONE DO Finalized Date/Time: 01/21/25 11:19:28 Pt. Name: CANDE RAHMAN/Sex: 1970 FEMALE Med Rec #: [id number] Physician: LUIS CARBONE DO Financial #: [id number] Pt. Type: D Room/Bed: / Admit/Disch: 01/21/25 09:58:19 - Institution: Pre-Op Case Times [facility] Pre-Care Text: Patient will be optimally prepared for surgery. Patient is free from s/s of injury. Provide information to patient/family related to plan of care. Verify patient allergies. Confirm identity and verify consent before the operative or invasive procedure. Entry 1 Patient Arrival Time 01/21/25 10:04:00 Preop Departure 01/21/25 11:17:00 Last Modified By: Sanjuana Llamas RN 01/21/25 11:19:23 Post-Care Text: Patient is prepared mentally and physically and is ready for surgery. The patient remains free from s/s of injury. Patient/family express understanding of plan of care and participate in decisions affecting his or her perioperrative plan of care. Allergies documented appropriately. Patient identifiers and consent correct. General Comments: Pt arrives to w ambulatory. PT denies cp, sob, cough or flu like symptoms. PT denies pacemaker/defibillator , pt has sleep apnea. Finalized By: Sanjuana Llamas RN Document Signatures Signed By: Sanjuana Llamas RN 01/21/25 11:19 [facility] Triage Panel 12on 01-21-2025 Triage Internal Control Pass [facility] Comment on above: Performed By: #### 1 [id number] ####[facility] (DEFAULT)[address] [place] [address] U Amph Scr Negative [facility] Comment on above: Performed By: #### 1 [id number] ####[facility] (DEFAULT)[address] [place], [place] [id number] U Farhana Scr Negative [facility] Comment on above: Performed By: #### 1 [id number] ####[facility] (DEFAULT)[address] [place] [address] U Benzodia Scr Negative [facility] Comment on above: Performed By: #### 1 [id number] ####[facility] (DEFAULT)[address] [place] [address] U Cannab Scrn Positive [facility] Comment on above: Performed By: #### 1 [id number] ####[facility] (DEFAULT)[address] [place] [address] U Cocaine Scr Positive [facility] Comment on above: Performed By: #### 1 [id number] ####[facility] (DEFAULT)[address] [place] [address] U Methadone Scr Negative [facility] Comment on above: Performed By: #### 1 [id number] ####[facility] (DEFAULT)[address] [place] [address] U Methamp Scrn Negative [facility] Comment on above: Performed By: #### 1 [id number] ####[facility] (DEFAULT)[address] [place] [address] U Opiate Scr Negative [facility] Comment on above: Performed By: #### 1 [id number] ####[facility] (DEFAULT)[address] [place] [address] U Oxycod Scr Negative [facility] Comment on above: Performed By: #### 1 [id number] ####[facility] (DEFAULT)[address] [place] [address] U Phencyclidine Scr Negative [facility] Comment on above: Performed By: #### 1 [id number] ####[facility] (DEFAULT)[address] [place] [address] U Tricyclic Antidepress Scr Positive [facility] Comment on above: Result Comment: Resu lts are to be used only for medical (ie, treatment) purposes only. Positive tests will not be sent out for confirmation. PROFILE?-V MEDTOX Scan? Drugs of Abuse Test System detects drug classes at the following cutoff concentrations: AMP Amphetamine (d-amphetamine): 500 ng/mL BAR Barbituates (Butabital): 200 ng/mL BZO Benzodiazepines (Nordiazepam): 150 ng/mL BUP Buprenorphine (Buprenorphine): 10 ng/mL SHANNAN Cocaine (Benzoylecgonine): 150 ng/mL MAMP Methamphetamine (d-Methamphetamine): 500 ng/mL MTD Methadone (Methadone): 200 ng/mL OPI Opiates (Morphine): 100 ng/mL or 2000 ng/mL OXY Oxycodone (Oxycodone): 100 ng/mL PCP Phencyclidine (Phencyclidine): 25 ng/mL PPX Propoxyphene (Norpropoxyphene): 300 ng/mL THC Cannabinoids (64-ild-5-carboxy- -THC): 50 ng/mL TCA Tricyclic-Antidepressants (Desipramine): 300 ng/mL Performed By: #### 1 [id number] ####[facility] (DEFAULT)[address] [place] [address] Urine Source Voided Normal [facility] Comment on above: Performed By: #### 1 [id number] ####[facility] (DEFAULT)[address] [place] [address] Inpatient Patient Summaryon 01-20-2025 Inpatient Patient Summary [facility] [address] [place] [id number] Patient Discharge Instructions Name: CANDE RAHMAN : 1970 Patient Address: [address] [place] [address] Primary Care Provider: Name: Phone: After you are discharged if you find you have any questions, please, call [phone] ext [phone] to speak to a nurse. Discharge Diagnosis: Acute pain of left shoulder Prescription Information: If you have been given a prescription for narcotics, seek immediate medical attention if you have any difficulty breathing or any sudden status changes such as confusion and sleepiness. If you or anyone you know is experiencing suicidal thoughts, mental health, alcohol and/or drug addiction problems; contact the [facility] 12/05 Crisis Hotline -text 4HGPE op 005339. If you received any narcotics, sedation, or any other medication that causes drowsiness for the next 24 hours, unless otherwise directed: ? Do not drive a car. ? Do not operate machinery such as power tools, lawn mowers, drills, sewing machines, or stoves ? Avoid alcoholic beverages and drugs for allergies, nerves, or sleep ? Do not make important personal or business decisions or sign any legal documents [facility] would like to thank you for allowing us to assist you with your healthcare needs. The following includes patient education materials and information regarding your injury/illness. CANDE RAHMAN has been given the following list of follow-up instructions, prescriptions, and patient education materials: Follow-up Instructions With: Address: When: Theodore Samuel [address] [place], [place] [id number] Business (1) 02/04/2025 9:00 AM Medications During the course of your visit, your medication list was updated with the most current information. The details of those changes are reflected below: Medications to Continue That Have Not Changed Other Medications amitriptyline (amitriptyline 50 mg oral tablet) 1 tab(s) Oral (given by mouth) once a day (at bedtime). amphetamine-dextroamph etamine (Adderall 10 mg oral tablet) 1 tab(s) Oral (given by mouth) every day. amphetamine-dextroamph etamine (Adderall 30 mg oral tablet) 1 tab(s) Oral (given by mouth) every day. amphetamine-dextroamph etamine (amphetamine-dextroamp hetamine 30 mg oral capsule, extended release) 1 cap(s) Oral (given by mouth) once a day (in the morning). ARIPiprazole (ARIPiprazole 15 mg oral tablet) 1 tab(s) Oral (given by mouth) every day. atorvastatin (atorvastatin 80 mg oral tablet) 1 tab(s) Oral (given by mouth) every day. bupropion-dextromethor turk (Auvelity 45 mg-105 mg oral tablet, extended release) 1 tab(s) Oral (given by mouth) every day. DULoxetine (DULoxetine 40 mg oral delayed release capsule) 1 tab(s) Oral (given by mouth) As Directed. meloxicam (meloxicam 15 mg oral tablet) 1 tab(s) Oral (given by mouth) every day. prazosin (prazosin 2 mg oral capsule) 1 cap(s) Oral (given by mouth) 2 times per day. pregabalin (pregabalin 150 mg oral capsule) 1 cap(s) Oral (given by mouth) every day. tiZANidine (tiZANidine 4 mg oral tablet) 1 tab(s) Oral (given by mouth) At bedtime. traMADol (traMADol 50 mg oral tablet) 1 tab(s) Oral (given by mouth) Every 12 hours scheduled time as needed as needed for pain. It is important to always keep an active list of medications available so that you can share with other providers and manage your medications appropriately. As an additional courtesy, we are also providing you with your final active medications list that you can keep with you. amitriptyline (amitriptyline 50 mg oral tablet) 1 tab(s) Oral (given by mouth) once a day (at bedtime). amphetamine-dextroamph etamine (Adderall 10 mg oral tablet) 1 tab(s) Oral (given by mouth) every day. amphetamine-dextroamph etamine (Adderall 30 mg oral tablet) 1 tab(s) Oral (given by mouth) every day. amphetamine-dextroamph etamine (amphetamine-dextroamp hetamine 30 mg oral capsule, extended release) 1 cap(s) Oral (given by mouth) once a day (in the morning). ARIPiprazole (ARIPiprazole 15 mg oral tablet) 1 tab(s) Oral (given by mouth) every day. atorvastatin (atorvastatin 80 mg oral tablet) 1 tab(s) Oral (given by mouth) every day. bupropion-dextromethor turk (Auvelity 45 mg-105 mg oral tablet, extended release) 1 tab(s) Oral (given by mouth) every day. DULoxetine (DULoxetine 40 mg oral delayed release capsule) 1 tab(s) Oral (given by mouth) As Directed. meloxicam (meloxicam 15 mg oral tablet) 1 tab(s) Oral (given by mouth) every day. prazosin (prazosin 2 mg oral capsule) 1 cap(s) Oral (given by mouth) 2 times per day. pregabalin (pregabalin 150 mg oral capsule) 1 cap(s) Oral (given by mouth) every day. tiZANidine (tiZANidine 4 mg oral tablet) 1 tab(s) Oral (given by mouth) At bedtime. traMADol (traMADol 50 mg oral tablet) 1 tab(s) Oral (given by mouth) Every 12 hours sched (more content not included)... Normal [facility] Patient Handouton 01-20-2025 Patient Handout Outpatient Shoulder Discharge Instructions 1.) For the next 24 hours, do not drink any alcoholic beverages, drive a motor vehicle, operate machinery or power tools, make any important decisions or sign important papers. 2.) Rest at home with moderate activity as tolerated for at least 24 hours. 3.) You may feel dizzy, lightheaded or sleepy following surgery. Please, have someone with you for the rest of the day and during the night. 4.) You may eat when you prefer, but it is usually best to start with liquids and gradually work up to solid foods. 5.) If you experience persistent nausea or vomiting, pain not controlled with your pain medicine and ice, bleeding that you feel is excessive, swelling or fever, please call Dr. Carbone at [phone]. 6.) Keep dressings in place, clean and dry until 01/25/25 . 7.) On 01/25/25, remove the dressings, shower and cover the incision with band aids. 8.) Flex and extend elbow 15 times twice a day starting tomorrow. 9.) Use the sling continuously except to bathe. 10.) DO NOT LIFT ARM AWAY FROM SIDE!! 11.) Use Ice as needed to help with pain control. 12.) Proceed immediately to the emergency room for chest pain or shortness of breath 13.) If you have any problems or concerns, please call the office at [phone] or [phone] [facility] XR CHEST 2 VWSon 01-14-2025 XR CHEST 2 VWS XR CHEST 2 VWS PA and lateral chest: HISTORY: Preoperative exam. Anesthesia clearance. 2 views of the chest are obtained. Cardiac and mediastinal contours are within normal limits. Lungs are clear. There is no vascular congestion, effusion, or pneumothorax. Osseous structures appear intact. IMPRESSION: No acute findings. Finalized by Vincezno Hernandez MD on 01/14/2025 10:33 PM [facility] Coding Summaryon 2025 Coding Summary HTMLBase 64 RdlvcnnlFJy7uWd+PGhlYW Q+SD3WJJArG07tyCNuqH9w K7LRIOfEEgmmKYVZSGgWVk FrvkKaGR6hiCQdQQPz IC8+EB2eZAAmIcjxrRIag5 V6eYV6E49frn0nLRubhJP4 XRIrQcDoztbrk1uljNb2EQ cuNmluOyBt ZLEakT49QVZ9vP21Lx60mM MgrSNlg8kedPx5DhLnQDNh LIL0cZkaNDicw6MnEQMkV8 5nyALwz7S1 QXJjlNcdjUNdBpTjiMO0fB 8bJOmewlvzg8vqnfnbQte5 if00yPOqc3X7aYH7H5Thrw E9QWBycCVk XcmylSYFpK2dvzntz5xrbk wyMzPzMGGhWRy7IAi5IHSo lGeqSxJqYJ74RYZ9TAKpri ZrJ8BtICQu pKtaZbU4k5W4Mh3OW6HQNq znD3UMMEEUOSmdaMX+PC90 iw95J7VhLcldLsk7MNLrRM V3oLA5oN8d MYKmLZweo8S4pVP8J2Kzks Jegu9aj4lsCBTnILwpK10c dTKfc5F5QZNhiXV4WMKsxJ wtZzYnuK33 Oyc+ZQCfbVkjd7AqHrydl6 kre3eigSh6UjqdLFAxrqZf lZeyTKY4f8VmGz9nHYHrpP Z1aCS8uO0g HxKqFkT6DXzeC835SeMstR JeRinkK36fR3ZjwKD+PHRy Yum3MWSwcDieHS9sO4RjHY RpbmctbGVm hKbtBA3cDUEmtyfpXZAltX 7kXXNwT9o5DeLgRdV2LBau E7AbBRRclzfuPe63aZ5kRp LvVoT3UJzd Q6QxsrD6CDGkkJMaBWsmFG A1U50ll3O6IWWuUCHlLSM1 yGQ8zL9leMbsiubrnLUezD sgdmVydGlj PUrgIHfaJ404UBKitKozTw NvZGluZyBEYXRlOiAgMDMv MjYvMjAyNTwvdGQ+PHRkIH F3sUvcJSJu iMJmSMpfMy7dgCoaqIwlLY 9nKUKxoyjsBXRxbI3hXIVa cCZlcVvkIU0xPYPoljjuo3 81XcOkREG5 VZFxoZSmE7MozE6kElGnPC LyOLTjW0VqnMAgJIqsV271 DBpdLcB2HQEcgnBgO3QgPN FsaWduOiB0 o7I9Qv5Ax0IhvsyeR8TmfH UtPwDnZunfJNt0H5EzZnxk dHI+QQ93WOXzKZ92NRp6SJ I5fQajMJzb GLXkF8JbhZ2qBzTqMBKjSE RkOyc+PHRhYmxlIHdpZHRo ZOqeEYUiYwYysDmqKN4oTk 9yZGVyLWNv vNvmnBJuAlSvg8rhOKSoAA riDD4owRddM5PmuVJ1RHDf a1v2Iv78C46zH2PrcPF+PG LwbLM7vQQ5 tC4bQhRbVyV9IPtxP345Wa EhiXSzCtycz4huy6tacWm9 AwI9QSFvtdKbkRjiNEO9v3 NeOj32O09u IHdpZHRoPSIxNSUiIHZhbG wviu5oyR5jGy2+PGNvbCB3 eRH6sF8wFfMxTaJ1RFadX1 49InRvcCIv Cyagy2sbs4tsyCv9ToFgXR HcniApoCkvTSE8e3VoPn90 C4KtsRppa7ZlPlk3cu77xT Kou7Q5mNA0 S8IoWTZopqmxeXIafIamEZ 4xQGZrgrwcPMSbqD0sIFJu Z6k8QjBpDpR9SKobQ6Uoqc V7CMIuuATr NSEyoIHPtG8eocood6levq zzNeAeTUPxYIk7PEh2OVOv rDgqZjNcPXP1SlK5LDT4vD QnkC3xgQfg pwyvzX1dBgi+ZJE9iYNjsN IGKH9bCofsiON+PHRkIHN0 jZpyNWliNLOuuP0bTOYaG3 s0YaHxWoY0 BIsbP5XakrQ9HWVyxSVbDL RmnDUXvF6heqlbc3wqilit DzBzCUHkDDu0HLl9ZSOkeI duOiBsZWZ0 XhD2OOU3lAEqxS6scHkppb spaZ2uXwd+QmlydGggRGF0 LQi8T3VyUya7HSXhnDhcFS 0ncGFkZGlu Ex8vkKsauBtoUX6dNSBmst jfa689SqZpq7scYBMcrHEz GZjsBES6L68vx0Q3EZVjBY GbUFV3iVV5 sR2pnHghvzfmfNWurGkpgk XyiRkbYSliWHasR190GAJa aSwjTvQuAWj5Y4OoGuc9LA PeyFtbFN0l hBXwCHzsLy7idMlpzJbbIV 2wXKSchsodk840DdTcw6nv FVMarUIsOBtvWCE7B82sa3 B4EOFsSXXv YTZ2hSE2wO2ctIhslaeuxV VmdDsgdmVydGljYWwtYWxp R524JYImpUajXlWucDe1N8 AbRme1KJGi yTkiHC9udMRkNSrwOi6fwM knkJnaVQ6hFIOdsxhmc272 AeHgv3asWEQxxDCcHIvsPE N0X92tt0R8 GCVhFWAbPAI6cHJ1vV0ddZ lnbjogbGVmdDsgdmVydGlj DFtyOJpkF427HGVjlSthFs BhdGllbnQg SIbtXSl2P9IhSqzdxDZ+PC 76VYApBX17tTVnvEPqm2oj hGu1FaLmJPBwLBG1zIbhOK rtb0CbMPYh X00hoLBnk6S4SQBnbWvjcE QwBsCxzEA6zH0uETdnltlp b1isrbzhNgkdi3xesj87rG 67C77aOZln ZHRoPSIzMCUiIHZhbGlnbj 1gtW4cVi1+AJUhmSV4oGD6 cZ7vMSHbRlF9QTidU316Gf RvcCIvPjxj m7lby3cnfBa8GnL8MSHqlg PxhMemKYC9k8SkJe16P61l IHdpZHRoPSIyMCUiIHZhbG bkrt6xwR6i Ii8+VILxqYB8sMQ7fV1eYp LmDlM6PTgbN591CjOybFFp QzqxO43mM8SxpGY+PHRyPj l5IHQxjOhh VX8mtFWaGMikNj8yYWQ5Mv AuQhBdQDtyQ6VgYONobgep utdfjWG3ZIDqFUIxpS19Vj 9udDogMTBw lTRMpA0ygvjkq2vqrzhkRs LuWKQgOJp1MCn2OYCgsZkz CiViMOE6UyQ4WQJ9aSWviG 1hbGlnbjog zE0gT9WkFNGhrhplPu27oK 9nOjIwLfT1PJheKnp+SkFD Y0XCBfjpUOJUWMsfMQKHLT A4M3JpHnd3 NXBwcMhrSR8mvAKyXKfnCo 9tuFcbqHsoJU5rXCSrfdgp WZYxiJ6pVAMlkCLytNlkLY 4wNTBpbjtm p809KuTbARO1MOKocNLzH6 DuzR9iTbDdKUBaGTZmY5Zr qAJrGFtcA712OWqxTrW0ZP AccwFoW5Mo JQHfcAdaFnT9c7A8Vj2qJn 1kYO8hSFxpWD25JO52bIEc f9B3zRN7T0CmQZWoiitkcb xrsRM8QHAf GXUekR32aKJkFOhjNs8qg8 I6g859UOSvMGPxwZ66Kq9a oVrvEPGtkORLcG6sqyqeo3 xvcjogIzAw YHNlPHs2HFu2PYQetMqgBp UfAQM3FwA5FJV3iQObrZ7z rEcbmmwqeI1tXde+NTMgWW JwfuR1F5Lo Bme7QAFzvCjbLC3xxAJeJI qiCh2crLlepOftUC8mBFYa wlofFPUnoF4dNMTakCTbnQ tlCA7qTBHu gosvt504UcWrBKJ2VVBuxJ DtD0FxqP4sBgFlPQVrGSKm L3MazEHfNPfaN800JUilZz H7XUFozjDz R4OjRSSqmMomCnW1x6T1Kz 1BPG5NGBO8R8QzBhk1PLEj jNskIE2kcABqLFmmOs1dtC kqhGkvVN8v SBWssfhfICOvoT8yIENquS RktIlgLP5xKGEreetrw906 YrBdZMN3RFApvCNhM5VvuX 9yOiAjMDAw GSByK2ElpTZxKRawB856PX woQaC8PVAsshDcV9XhGLWv lKeiOrI6s9D9De8FQCiuuL Q+QF03zn20 E2GjPuxhAzr4XKXeVRA2mX R3eD0cXAMhAMrcc2M5zYK2 P7OfbkZocb2sg7dnVNLxCR jmW49clQJd q7D6EZEztKD2QVTnxAsjDj StuD80Fzq+SANryBxnj5Gt Kalrh1gds7xnbRi1UbWwSA IgdmFsaWdu OTV2a2WgEb20Z02gWMrtHI KrYJRsZAUpHZGkdQwzfl7o dP1zOh7+GPLaoSO5mKA5wU 9tQfZsCmT9 EOfqY362EuKcuRBmWbktv6 yqj2iktSl7WjWjMIQrhtOs jDqpVIT3s5ZcHw05H4JvrB njy7CoKbw5 qt72rVJsq0E2bKM0Y8OzXH TbnylcaBWknLfvDC7wMDYz sdchXVAqtO0aPSKfJ5w7Kq BxBdY4NPep Q0OmltZ2FGSgkNKkBGVogA OCzA0ywvlnx3yxnxsjRcNr XJZrIJr3VJt1UIDtsCgpIg YzBHG1RxI1 GZI2bFWtcB6dzOmunsfbqH 9wOyc+AMj5v7ytbBFrHA9v zLM0WF70BJ96yVPtp7A2mB E9Z8IeWCOr vmrkeqbypCO1IOUeIBDodH 76Ho5ckTkdJm1tXKCpYGV5 ZECpsNXkP2JvhW7kMaJgDE CxJDUcB7Py zQGzQLonH047BNxnQkY2OD SmkmUdX4PlWQQlbCcvMxJ7 y7E6Xs7JJB19JL84UN40iQ Kvr2N2uDF7 H3AoTWHzghibrqmrwLN6DO XiWSXwsK54Qc9olNyeZa6p LGZyGNW3VQWajJOwH5TyvZ 9yOiAjMDAw FKWwL6KqlDDpSYmtY837SA bvViI6DTLkpjPnH2RnKUDz wIjcOxX1p2B9Mc2FGs09LH 72UO85dJNm k3M5dXA7K6UhPBUrgbtway jehXC9BETeBKWzoB99Yg9c nGtnRr6tADYyKWT1MUXdfS ImM3UilS2b DpGmFUIvGODpA4RwmDWhOZ rnZ177CHepMxW5LSQhetIj C2UpCYXryPfmWnY4n7M4Hc 3TXSxqxpp1 F0ZyXproyQC+HE92HCKwMQ 31oVZxpLArm1vdfAl1UnJg PQLuZFT3aUfrUXqnh4WhXN FsU77xtWWe c2U (more content not included)... [facility] No Panel Informationon 12-07 Jr. Luis waggoner DO 12/08/2024 12:15 PM L Inj/Asp: L subacromial bursa on 12/07/2024 10:32 AM Indications: pain Details: 21 G needle, posterior approach Medications: 40 mg methylPREDNISolone acetate 40 MG/ML Outcome: tolerated well, no immediate complications Procedure, treatment alternatives, risks and benefits explained, specific risks discussed. Consent was given by the patient. Patient was prepped and draped in the usual sterile fashion. [facility] MR SHOULDER LEFT WO IV CONTR Cheryl 08-24-2024 MR SHOULDER LEFT WO IV CONTRAST EXAM: MR SHOULDER LEFT WO IV CONTRAST HISTORY: Shoulder pain. Limited range of motion. History of prior shoulder surgery. TECHNIQUE: Multiplanar multisequence MRI of the shoulder was performed Without contrast. COMPARISON: Shoulder radiographs May 04, 2024. FINDINGS: Mild degenerative changes of the acromioclavicular joint without undersurface osteophyte formation. The acromion is curved. Coracoclavicular ligament intact. Small amount of subacromial/subdeltoid bursal fluid. Low-grade intrasubstance tearing of distal infraspinatus tendon at and just proximal to the footprint with possible tiny full-thickness tear components superimposed on mild tendinosis. Supraspinatus, subscapularis, and teres minor tendons are intact. No atrophy or fatty infiltration of the rotator cuff musculature. The intra-articular and extra-articular long head biceps tendon is intact. The biceps tendon resides within the bicipital groove. Postsurgical changes of labral repair. Anterior superior through posterior superior labral scarring and postsurgical changes without definitive tear. No well-defined or measurable cartilage defect. Small glenohumeral joint effusion . IMPRESSION: Low-grade intrasubstance tearing of distal infraspinatus tendon at and just proximal to the footprint with possible tiny full-thickness tear components superimposed on mild tendinosis. ELECTRONICALLY SIGNED BY: Manish Jones, DO Normal Not Available Comment on above: Order Comment: LT sh oulder pain. Previous RCR and SLAP repair 02/25/24. [facility] C DIFFICILE BY PCRon 024 C. difficile toxin genes LEXI+probe Ql (Stl) TOXIGENIC C DIFF Negative (qualifier value) 027 NAP1 Negative (qualifier value) Normal PRNEG [facility] Comment on above: Performed By: #### 5 4067-4 #### [facility] ([id number]) [address], [address] [place] [address] #### [id number] #### [facility] ([id number]) [address] [place] [address] [facility] ([id number]) [address] [address] GI PANELon 06-10-2024 Gastrointestinal pathogens DNA and RNA panel LEXI+non-probe (Stl) SPECIMEN SOURCE STOOL CAMPYLOBACTER Not detected (qualifier value) PLESIOMONAS Not detected (qualifier value) SALMONELLA Not detected (qualifier value) VIBRIO Not detected (qualifier value) VIBRIO CHOLERAE Not detected (qualifier value) Y. ENTEROCOLITICA Not detected (qualifier value) AGGREGATIVE E COLI Not detected (qualifier value) PATHOGENIC E COLI Not detected (qualifier value) TOXIGENIC E COLI Not detected (qualifier value) SHIGA TOXIN E COLI Not detected (qualifier value) SHIGELLA-E COLI Not detected (qualifier value) CRYPTOSPORIDIUM Not detected (qualifier value) CYCLOSPORA Not detected (qualifier value) E HISTOLYTICA Not detected (qualifier value) GIARDIA LAMBLIA Not detected (qualifier value) ADENOVIRUS Not detected (qualifier value) ASTROVIRUS Not detected (qualifier value) NOROVIRUS Not detected (qualifier value) ROTAVIRUS A Not detected (qualifier value) SAPOVIRUS Not detected (qualifier value) Normal NDET [facility] Comment on above: Performed By: #### 5 4067-4 #### [facility] ([id number]) [address] [address] #### 23893-1 #### [facility] ([id number]) [address] [place] [address] [facility] ([id number]) [address] [address] XR SPINE LUMB BENDING ONLY 2 -3 VWSon 03-30-2024 XR SPINE LUMB BENDING ONLY 2-3 VWS XR SPINE LUMB BENDING ONLY 2-3 VWS Lumbosacral spine: 03/29/2024 10:08 AM. Reason for study: Status post lumbar laminectomy. Comparison: Lumbosacral spine radiographs from 06/25/2023 Technique: Flexion/extension lateral views of the lumbosacral spine were obtained. Findings: Vertebral body heights are well-maintained. No significant spondylolisthesis. Severe degenerative disc disease at the lumbosacral junction. Mild facet arthropathy the lower lumbar spine. Laminectomy postsurgical changes noted. Impression: 1. No acute fracture or significant spondylolisthesis on the flexion/extension views. 2. Similar advanced lumbosacral degenerative disc disease. Finalized by Manuel Delgado MD on 03/30/2024 10:19 AM Normal [facility] CREATININEon 12-04-2023 Creatinine [Mass/Vol] 0.78 mg/dL Normal 0.40-1.00 Comment on above: Result Comment: METH OD TRACEABLE TO IDSC STANDARD Performed By: #### 1 988-5, 81831-4, 86408-4, 70194-8 #### [facility] ([id number]) [address], [address] [place] [address] eGFR (CKD-EPI) NON-RACE DEPENDENT >90 Normal >59 Comment on above: Result Comment: Reported eGFR is based on the CKD-EPI 2020 equation that does not use a race coefficient. Performed By: #### 1 988-5, 54099-1, 46336-0, 23387-2 #### [facility] ([id number]) [address], [address] [place] [address] Creatinine includes GFR, ser umon 12-04-2023 Creatinine [Mass/Vol] 0.78 mg/dL 0.40 - 1.00 mg/dL [facility] Comment on above: METHOD TRACEABLE TO IDMS STANDARD eGFR (CKD-EPI)non-race dependent - PINF [facility] Comment on above: Reported eGFR is based on the CKD-EPI 2020 equation that does not use a race coefficient. [facility] HGB AND HCTon 12-04-2023 Hematocrit (Bld) [Volume fraction] 37.9 % Normal 35-47 Comment on above: Performed By: #### 1 988-5, 61316-2, 12366-6, 09132-3 #### [facility] ([id number]) [address], [address] [place] [address] Hemoglobin (Bld) [Mass/Vol] 12.7 g/dL Normal 11.7-15.5 Comment on above: Performed By: #### 1 988-5, 84974-2, 91247-8, 21054-4 #### [facility] ([id number]) [address], [address] [place] [address] Hemoglobin and hematocrit, b loodon 12-04-2023 Hematocrit (Bld) [Volume fraction] 37.9 % 35 - 47 % [facility] Hemoglobin (Bld) [Mass/Vol] 12.7 g/dL 11.7 - 15.5 g/dL [facility] PLATELET COUNT AND MPVon Platelet mean volume (Bld) [Entitic vol] 7.7 fL Normal 7-12 Comment on above: Performed By: #### 1 988-5, 52934-4, 81363-5, 80709-5 #### [facility] ([id number]) [address], [address] [place] [address] Platelets (Bld) [#/Vol] 280 10*3/uL Normal 150-450 Comment on above: Performed By: #### 1 988-5, 26177-6, 70095-4, 83927-0 #### [facility] ([id number]) [address], [address] [place] [address] Platelet counton 12-04-2023 Platelet mean volume (Bld) [Entitic vol] 7.7 fL 7 - 12 fL [facility] Platelets (Bld) [#/Vol] 280 10*3/uL [facility] RF Guidance for injection of Spine facet jointon 12-03-2023 CLINICAL INFORMATION : L4-5 lami IMPRESSION: * Intraoperative fluoroscopy provided. The reference air kerma was 1.56 mGy. Finalized by Theodore Woods MD on 12/03/2023 12:39 PM SECTRAPACS Theodore Woods MD - 12/03/2023 CLINICAL INFORMATION: L4-5 lami IMPRESSION: * Intraoperative fluoroscopy provided. The reference air kerma was 1.56 mGy. Finalized by Theodore Woods MD on 12/03/2023 12:39 PM [facility] Radiology Study observation (narrative) [facility] RF Guidance for injection of Spine facet jointOrdered By: Theodore Woods on 12-03-2023 [facility] Work Phone: Type and screen (Pre-op)on 0 12-03-2023 ABO O [facility] Rh Nom (Bld) Positive [facility] Bacteria identified Cx Nom ( U)on 11-08-2023 Service comment (Unsp spec) [Interp] >100,000 ORGANISMS/ML NORMAL UROGENITAL ROCIO [facility] APTTon 11-07-2023 aPTT Coag (PPP) [Time] 35 s [facility] BASIC METABOLIC PANLon 11-07 Anion gap [Moles/Vol] 9 mmol/L Normal 5-15 Comment on above: Performed By: #### C BCA, BMP, PINR, 90204-1 #### [facility] ([id number]) [address], [address] [place] [address] Calcium [Mass/Vol] 9.4 mg/dL Normal 8.5-10.5 [facility] Comment on above: Performed By: #### C BCA, BMP, PINR, 01705-4 #### [facility] ([id number]) [address], [address] [place] [address] Chloride [Moles/Vol] 106 mmol/L Normal 98-109 [facility] Comment on above: Performed By: #### C BCA, BMP, PINR, 26510-5 #### [facility] ([id number]) [address], [address] [place] [address] CO2 [Moles/Vol] 22 mmol/L Normal 22-32 Comment on above: Performed By: #### C BCA, BMP, PINR, 28835-2 #### [facility] ([id number]) [address], [address] [place] [address] Creatinine [Mass/Vol] 0.93 mg/dL Normal 0.40-1.00 Comment on above: Result Comment: METH OD TRACEABLE TO IDMS STANDARD Performed By: #### C BCA, BMP, PINR, 63989-0 #### [facility] ([id number]) [address], [address] [place] [address] GFR/1.73 sq M.predicted among non-blacks MDRD (S/P/Bld) [Vol rate/Area] 74 mL/min/{1.73_m2} Normal >59 Comment on above: Result Comment: Reported eGFR is based on the CKD-EPI 2020 equation that does not use a race coefficient. Performed By: #### C BCA, BMP, PINR, 98662-4 #### [facility] ([id number]) [address], [address] [place] [address] Glucose [Mass/Vol] 90 mg/dL Normal 65-99 [facility] Comment on above: Performed By: #### C BCA, BMP, PINR, 51642-0 #### [facility] ([id number]) [address], [address] [place] [address] Potassium [Moles/Vol] 4.2 mmol/L Normal 3.5-5.0 Comment on above: Performed By: #### C BCA, BMP, PINR, 45777-7 #### [facility] ([id number]) [address], [address] [place] [address] Sodium [Moles/Vol] 137 mmol/L Normal 134-146 [facility] Comment on above: Performed By: #### C BCA, BMP, PINR, 88670-1 #### [facility] ([id number]) [address], [address] [place] [address] Urea nitrogen [Mass/Vol] 19 mg/dL Normal 5-23 Comment on above: Performed By: #### C BCA, BMP, PINR, 04678-6 #### [facility] ([id number]) [address], [address] [place] [address] Basic Metabolic Panelon 10-20 Anion gap [Moles/Vol] 9 mmol/L 5 - 15 mmol/L [facility] Calcium [Mass/Vol] 9.4 mg/dL 8.5 - 10. 5 mg/dL [facility] Chloride [Moles/Vol] 106 mmol/L 98 - 10 9 mmol/L [facility] CO2 [Moles/Vol] 22 mmol/L 22 - 32 mmol/L [facility] Creatinine [Mass/Vol] 0.93 mg/dL 0.40 - 1.00 mg/dL [facility] Comment on above: METHOD TRACEABLE TO IDSC STANDARD eGFR (CKD-EPI)non-race dependent 74 - PINF [facility] Comment on above: Reported eGFR is based on the CKD-EPI 2020 equation that does not use a race coefficient. Glucose [Mass/Vol] 90 mg/dL 65 - 99 mg/dL [facility] Potassium [Moles/Vol] 4.2 mmol/L 3.5 - 5.0 mmol/L [facility] Sodium [Moles/Vol] 137 mmol/L 134 - 146 mmol/L [facility] Urea nitrogen [Mass/Vol] 19 mg/dL 5 - 23 mg/dL [facility] CBC AND AUTO DIFFon 11-07-19 ABSOLUTE BASOPHIL 0.0 X10E9/L Normal 0.0-0.2 [facility] Comment on above: Performed By: #### C BCA, BMP, PINR, 27962-6 #### [facility] ([id number]) [address] [address] [place] [address] ABSOLUTE NEUTROPHIL 6.2 X10E9/L Normal 1.5-6.6 [facility] Comment on above: Performed By: #### C BCA, BMP, PINR, 55207-9 #### [facility] ([id number]) [address] [address] [place] [address] Basophils/100 WBC (Bld) 0.4 % Normal Comment on above: Performed By: #### C BCA, BMP, PINR, 73743-3 #### [facility] ([id number]) [address] [address] [place] [address] Eosinophils (Bld) [#/Vol] 0.0 10*3/uL Normal 0.0-0.4 Comment on above: Performed By: #### C BCA, BMP, PINR, 39977-7 #### [facility] ([id number]) [address] [address] Eosinophils/100 WBC (Bld) 0.4 % Normal Comment on above: Performed By: #### C BCA, BMP, PINR, 44905-6 #### [facility] ([id number]) [address] [address] [place] [address] Erythrocyte distribution width (RBC) [Ratio] 14.1 % Normal 11.5-15.0 Comment on above: Performed By: #### C BCA, BMP, PINR, 61175-1 #### [facility] ([id number]) [address] [address] [place] [address] Hematocrit (Bld) [Volume fraction] 45.0 % Normal 35-47 Comment on above: Performed By: #### C BCA, BMP, PINR, 47652-9 #### [facility] ([id number]) [address], [address] [place] [address] Hemoglobin (Bld) [Mass/Vol] 15.2 g/dL Normal 11.7-15.5 Comment on above: Performed By: #### C BCA, BMP, PINR, 78055-6 #### [facility] ([id number]) [address], [facility] [place] [address] [place] [address] Lymphocytes (Bld) [#/Vol] 2.5 10*3/uL Normal 1.0-3.5 Comment on above: Performed By: #### C BCA, BMP, PINR, 63347-3 #### [facility] ([id number]) [address] [address] [place] [address] Lymphocytes/100 WBC (Bld) 26.3 % Normal Comment on above: Performed By: #### C BCA, BMP, PINR, 97848-5 #### [facility] ([id number]) [address], [address] [place] [address] MCH (RBC) [Entitic mass] 30.6 pg Normal 27-34 Comment on above: Performed By: #### C BCA, BMP, PINR, 74339-7 #### [facility] ([id number]) [address], [address] [place] [address] MCHC (RBC) [Mass/Vol] 33.8 g/dL Normal 32-36 Comment on above: Performed By: #### C BCA, BMP, PINR, 79639-4 #### [facility] ([id number]) [address], [address] [place] [address] MCV (RBC) [Entitic vol] 91 fL Normal 80-100 Comment on above: Performed By: #### C BCA, BMP, PINR, 42016-1 #### [facility] ([id number]) [address], [address] [place] [address] Monocytes (Bld) [#/Vol] 0.6 10*3/uL Normal 0-0.9 Comment on above: Performed By: #### C BCA, BMP, PINR, 97023-5 #### [facility] ([id number]) [address], [address] [place] [address] Monocytes/100 WBC (Bld) 6.6 % Normal Comment on above: Performed By: #### C BCA, BMP, PINR, 76143-6 #### [facility] ([id number]) [address], [address] [place] [address] Neutrophils/100 WBC (Bld) 66.3 % Normal Comment on above: Performed By: #### C BCA, BMP, PINR, 97245-7 #### [facility] ([id number]) [address], [address] [place] [address] Platelet mean volume (Bld) [Entitic vol] 8.1 fL Normal 7-12 Comment on above: Performed By: #### C BCA, BMP, PINR, 15666-7 #### [facility] ([id number]) [address], [address] [place] [address] Platelets (Bld) [#/Vol] 334 10*3/uL Normal 150-450 Comment on above: Performed By: #### C BCA, BMP, PINR, 48250-8 #### [facility] ([id number]) [address], [address] [place] [address] RBC COUNT 4.97 X10E12/L Normal 3.80-5.20 Comment on above: Performed By: #### C BCA, BMP, PINR, 09598-4 #### [facility] ([id number]) [address], [address] [place] [address] WBC (Bld) [#/Vol] 9.4 10*3/uL Normal 4.0-11.0 [facility] Comment on above: Performed By: #### C BCA, BMP, PINR, 68611-2 #### [facility] ([id number]) [address] [place] [address] CBC auto differentialon 10-20 Basophils (Bld) [#/Vol] 0.0 10*3/uL [facility] Basophils/100 WBC (Bld) 0.4 % [facility] Eosinophils (Bld) [#/Vol] 0.0 10*3/uL [facility] Eosinophils/100 WBC (Bld) 0.4 % [facility] Erythrocyte distribution width (RBC) [Ratio] 14.1 % 11.5 - 15.0 % [facility] Hematocrit (Bld) [Volume fraction] 45.0 % 35 - 47 % [facility] Hemoglobin (Bld) [Mass/Vol] 15.2 g/dL 11.7 - 15.5 g/dL [facility] Lymphocytes (Bld) [#/Vol] 2.5 10*3/uL [facility] Lymphocytes/100 WBC (Bld) 26.3 % [facility] MCH (RBC) [Entitic mass] 30.6 pg 27 - 34 pg [facility] MCHC (RBC) [Mass/Vol] 33.8 g/dL 32 - 36 g/dL [facility] MCV (RBC) [Entitic vol] 91 fL 80 - 100 fL [facility] Monocytes (Bld) [#/Vol] 0.6 10*3/uL [facility] Monocytes/100 WBC (Bld) 6.6 % [facility] Neutrophils (Bld) [#/Vol] 6.2 10*3/uL [facility] Neutrophils/100 WBC (Bld) 66.3 % [facility] Platelet mean volume (Bld) [Entitic vol] 8.1 fL 7 - 12 fL [facility] Platelets (Bld) [#/Vol] 334 10*3/uL [facility] RBC (Bld) [#/Vol] 4.97 10*6/uL [facility] WBC corrected for nucl RBC Auto (Bld) [#/Vol] 9.4 [facility] No Panel Informationon 11-07 [facility] PROTIME AND INRon 11-07-2023 INR Coag (PPP) [Relative time] 1.0 {INR} Normal 0.8-1.1 Comment on above: Performed By: #### C BCA, BMP, PINR, 89942-8 #### [facility] ([id number]) [address], [address] [place] [address] PT Coag (PPP) [Time] 11.4 s Normal 9.8-13.2 [facility] Comment on above: Performed By: #### C BCA, BMP, PINR, 96776-5 #### [facility] ([id number]) [address], [address] [place] [address] Protime & INRon 11-07-2023 INR Coag (PPP) [Relative time] 1.0 {INR} [facility] PT Coag (PPP) [Time] 11.4 s [facility] Type and screenon 11-07-2023 ABO O [facility] Rh Nom (Bld) Positive [facility] URINALYSISon 11-07-2023 Bilirubin Ql (U) Negative Normal NEG [facility] BLOOD/HGB Negative Normal NEG Color (U) YELLOW Normal YELLOW Glucose Ql (U) Negative Normal NEG Hyaline casts LM Ql (Urine sed) 4 /lpf High 0-2 Ketones Ql (U) Negative Normal NEG Leukocyte esterase Test strip Ql (U) Negative Normal NEG MUCOUS PRESENT Abnormal NONE Nitrite Ql (U) Negative Normal NEG pH (U) 6.0 [pH] Normal 5.0-8.5 Protein Ql (U) Trace Abnormal NEG R.B.CELLS <1 Normal 0-5 Specific gravity (U) [Rel density] 1.029 Normal 1.003-1.035 SQUAMOUS EPITHELIUM 1 /hpf Normal 0-5 [facility] TURBIDITY CLEAR Normal CLEAR Urobilinogen (U) [Mass/Vol] mg/dL Normal <1.1 W.B.CELLS 2 /hpf Normal 0-5 URINE CULTUREon 11-07-2023 Bacteria identified Cx Nom (U) CULTURE RESULTS >100,000 ORGANISMS/ML NORMAL UROGENITAL ROCIO Normal Comment on above: Performed By: #### 1 988-5, 09333-0, 25502-2, 92675-4 #### [facility] ([id number]) [address] [place] [address], [address] [place] [address] Urinalysison 11-07-2023 Bilirubin Ql (U) Negative Negative^Ne g ative [facility] Color (U) YELLOW YELLOW^YELLO W [facility] Epithelial cells Auto (Urine sed) [#/Area] 1 [facility] Glucose (U) [Mass/Vol] Negative Negative^Neg ative mg/dL [facility] Hemoglobin Auto test strip Ql (U) Negative Negative^Neg ative [facility] Hyaline casts (Urine sed) [#/Area] 4 /[LPF] High [facility] Interpretation and review of laboratory results Abnormal [facility] Ketones (U) [Mass/Vol] Negative Negative^Neg ative mg/dL [facility] Leukocyte esterase Auto test strip Ql (U) Negative Negative^Neg ative [facility] Mucus Ql (Urine sed) PRESENT Abnormal NONE^NONE [facility] Nitrite Auto test strip Ql (U) Negative Negative^Neg ative [facility] pH (U) 6.0 [pH] 5.0 - 8.5 [facility] Protein (U) [Mass/Vol] Trace Abnormal Negative^Neg ative mg/dL [facility] RBC Auto (Urine sed) [#/Area] [facility] Specific gravity Refractometry automated (U) [Rel density] 1.029 1.003 - 1.035 [facility] Turbidity Ql (U) CLEAR CLEAR^CLEAR [facility] Urobilinogen Qn (U) NINF [facility] WBC Auto (Urine sed) [#/Area] 2 [facility] aPTT Coag (PPP) [Time]on aPTT Coag (Bld) [Time] 35 s Normal 26-37 Comment on above: Performed By: #### 1 988-5, 91364-8, 54622-4, 26332-0 #### [facility] ([id number]) [address] [place] [address] XR OSSEOUS SURVEY LIMITEDon 10-29-2023 XR OSSEOUS SURVEY LIMITED XR OSSEOUS SURVEY LIMITED 2 views of each hand HISTORY: Bilateral hand pain and swelling COMPARISON: None FINDINGS: No fracture. No malalignment. Joint spaces are preserved. No significant osteophyte formation. No osseous erosive changes. IMPRESSION: No osseous abnormalities in either hand. Finalized by Kenroy Stahl MD on 10/28/2023 10:04 PM Normal C-reactive proteinon 024 CRP [Mass/Vol] 1.4 mg/dL High 0.000 - 0.744 mg/dL [facility] CCP Abon 10-27-2023 Cyclic citrullinated peptide IgG Qn U/ML NINF - 3.0 U/ML [facility] Comment on above: Interpretation-------- <3 Negative >=3 Positive CRP [Mass/Vol]on 10-27-2023 Interpretation and review of laboratory results Abnormal [facility] C REACTIVE PROTEIN 1.4 mg/dL High 0.000-0.744 [facility] Comment on above: Performed By: #### 1 988-5, 45291-4, 18531-8, 80786-7 #### [facility] ([id number]) [address], [address] [place] [address] Cyclic citrullinated peptide IgG Qnon 10-27-2023 [facility] ESR Photometric method (Bld) [Velocity]on 10-27-2023 Interpretation and review of laboratory results Abnormal [facility] ESR, ERYTHROCYTE SEDIMENTATION RATE 42 mm/h High 0-30 Comment on above: Performed By: #### 1 988-5, 54673-9, 85907-3, 07624-6 #### [facility] ([id number]) [address], [address] [place] [address] Erythrocyte Sedimentation Ra te (ESR)on 10-27-2023 ESR Photometric method (Bld) [Velocity] 42 mm/h High 0 - 30 mm/h [facility] Rheumatoid factoron 10-27-19 24 Rheumatoid factor Nephelometry Qn (S) NINF [facility] Rheumatoid factor Nephelomet ry Qn (S)on 10-27-2023 [facility] RHEUMATOID FACTOR <10 Normal <20 [facility] Comment on above: Performed By: #### 1 988-5, 56563-3, 63215-4, 26224-0 #### [facility] ([id number]) [address], [address] [place] [address] XR CHEST 2 VWSon 10-16-2023 XR CHEST 2 VWS XR CHEST 2 VWS Chest 2 views History: Anesthesia clearance, preadmission testing, personal history of tobacco use Pre-op testing; Spinal stenosis of lumbar region, unspecified whether neurogenic claudication present Comparison: 10/23/2021 Findings: Chest 2 views. Stable cardiomediastinal silhouette. No focal opacity, effusion or pneumothorax. Impression: No evident acute cardiopulmonary process. Finalized by Ángel Edge MD on 10/16/2023 5:12 PM Normal XR Chest PA and Lateralon Chest 2 views History: Anesthesia clearance, preadmission testing, personal history of tobacco use Pre-op testing; Spinal stenosis of lumbar region, unspecified whether neurogenic claudication present Comparison: 10/23/2021 Findings: Chest 2 views. Stable cardiomediastinal silhouette. No focal opacity, effusion or pneumothorax. Impression: No evident acute cardiopulmonary process. Finalized by Ángel Edge MD on 10/16/2023 5:12 PM [facility] Ángel Edge MD - 10/16/2023 Chest 2 views History: Anesthesia clearance, preadmission testing, personal history of tobacco use Pre-op testing; Spinal stenosis of lumbar region, unspecified whether neurogenic claudication present Comparison: 10/23/2021 Findings: Chest 2 views. Stable cardiomediastinal silhouette. No focal opacity, effusion or pneumothorax. Impression: No evident acute cardiopulmonary process. Finalized by Ángel Edge MD on 10/16/2023 5:12 PM [facility] Radiology Study observation (narrative) [facility] XR Chest PA and LateralOrder ed By: Ángel Edge on 10-16-2023 [facility] Work Phone: MRI LUMBAR SPINE W WO CONTRA STOrdered By: Agustín Walls on 05-28-2021 L5-S1 postoperative changes considered to represent left laminectomy. L5-S1 severe degenerative disc disease. Bulging/protruding severely desiccated disc, and to a lesser extent endplate osteophyte, more pronounced in the left paracentral, subarticular and medial foraminal region where there is also posterior disc margin postoperative scarring adjacent to the left S1 nerve root as it exits the thecal sac. No significant canal stenosis. L5-S1 mild right greater than left foraminal narrowing. L4-5 central, right paracentral and subarticular focal disc bulge/undulating broad-based disc protrusion that along with ligamentum flavum hypertrophy, facet arthrosis, and mild posterior epidural lipomatosis creates moderate thecal sac narrowing. C5-6 degenerative disc changes and possible canal narrowing on the localizer. Correlate with dedicated cervical spine MRI. Right pelvic lesion appears cystic but is incompletely characterized. Correlate with pelvic ultrasound. [employer] Phone: MRI lumbar spine without and with contrast HISTORY: 5 year history of low back pain. Pain radiates to lower extremity. Numbness in the legs and hands. COMPARISON: No prior lumbar spine imaging available for correlation. TECHNIQUE: Sagittal T1, T2, and inversion recovery. Axial and coronal T2. Sagittal and axial T1 with fat suppression after the IV administration of 15 mL of gadolinium (ProHance). Sagittal T2 whole spine localizer. 3 plane abdominal pelvic T2 localizer. FINDINGS: For the purposes of enumerating the lumbar disc levels the lowest lumbar-type disc will be referred to as L5-S1. Conus medullaris is unremarkable terminating at the approximately mid L1 vertebral body level. Vertebral body heights are maintained. No sign of spondylolysis. L3 posterior mid right vertebral body less than 5 mm focus of increased T1, T2 and inversion recovery sequence signal compatible with small hemangioma. Tiny mid L5 vascular remnant or fat poor hemangioma. A few scattered small focal fatty marrow rests within the visualized bony structures. S1 is a transitional-type vertebra incompletely sacralized bilaterally (Castellevi type II B). T11-12 disc is included on the edge of the study appears unremarkable. T12-L1 disc has subtle anterior bulging but is otherwise unremarkable without significant degenerative desiccation, height loss, disc bulging, canal or foraminal narrowing. L1-2 (L1): Disc is unremarkable without significant degeneration. No canal or foraminal stenosis. Mild ligamentum flavum hypertrophy and minimal facet arthrosis. L2-3 (L2): Disc is unremarkable without significant degeneration. No canal or foraminal stenosis. Mild ligamentum flavum hypertrophy and subtle facet arthrosis. L3-4 (L3): Very mild posterior disc space narrowing. No significant disc desiccation. No posterior disc bulging/anterior thecal sac mass effect, canal or foraminal stenosis. Minimal ligamentous hypertrophy. L4-5 (L4): Very mild posterior disc space narrowing. The rest of the disc space height and degree of hydration is maintained. Subtle retrolisthesis of L4 relative to L5 due to the posterior disc space narrowing. Central, right paracentral and subarticular focal disc bulging or broad-based undulating protrusion causing mild to moderate anterior thecal sac mass effect. Disc extends 4.9 mm posterior to the superior L5 endplate and 3 mm posterior to the inferior L4 endplate. Along with moderate ligamentous hypertrophy and mild facet arthrosis there is associated moderate thecal sac narrowing accentuated by mild posterior epidural lipomatosis. Overall mild to moderate bony canal narrowing. No significant foraminal stenosis. L5-S1 (L5): Susceptibility artifact in the posterior paraspinal soft tissues on the left extending to the lamina compatible with laminectomy postoperative changes. Enhancement of the left posterior lamina margin indicate scarring. Severely narrowed and desiccated disc. Degenerative type II (fat) endplate signal changes involving the lower and upper halves of L5 and S1, respectively. Diffuse but more prominently eccentric towards the left paracentral, subarticular and medial foraminal mild disc level anterior extradural defect. Part of this represents desiccated disc and to a lesser extent endplate osteophyte in addition to scar. Enhancement of this region at the posterior disc margin near the S1 nerve (subarticular) compatible with postoperative scarring contacting but not significantly displacing the S1 nerve root. Tiny area of nonenhancing disc signal more left paracentral away from the S1 nerve root protruding slightly inferior to the superior S1 endplate. No significant canal stenosis. L5-S1 moderate bilateral facet arthrosis. Severe facet joint spurring is more pronounced on the right and along with severe disc space narrowing and foraminal bulging of the desiccated disc, and to lesser extent osteophyte complex, accounts for mild right foraminal narrowing. Milder foraminal narrowing on the left due to disc space height loss and foraminal desiccated disc bulging. 7.9 x 6.8 mm cystic signal structure only seen on the inversion recovery sequence at the posterior margin of the left laminectomy defect. This could represent a residual small seroma but is of doubtful clinical significance as it does not appear to create any mass effect on the neural structures. Incidental findings on the localizer: C5-6 moderate degenerative disc changes with likely at least mild posterior disc bulging. There may be canal narrowing. Evaluation limited on the localizer. Consider correlation with cervical spine MRI. Only on the localizer within the right pelvis is an approximately 4.7 cm in greatest dimension well-defined rounded increased T2 signal lesion causing slight depression of the superior aspect of the right urinary bladder. This is incompletely characterized as its entire margin is not included on the study. The limited portion appears cystic without sign of soft tissue nodules. Correlate with ultrasound of the pelvis. [employer] Work Phone: [employer], po Incoming Radiant Results From [employer] - 05/28/2021 9:12 PM EDT MRI lumbar spine without and with contrast HISTORY: 5 year history of low back pain. Pain radiates to lower extremity. Numbness in the legs and hands. COMPARISON: No prior lumbar spine imaging available for correlation. TECHNIQUE: Sagittal T1, T2, and inversion recovery. Axial and coronal T2. Sagittal and axial T1 with fat suppression after the IV administration of 15 mL of gadolinium (ProHance). Sagittal T2 whole spine localizer. 3 plane abdominal pelvic T2 localizer. FINDINGS: For the purposes of enumerating the lumbar disc levels the lowest lumbar-type disc will be referred to as L5-S1. Conus medullaris is unremarkable terminating at the approximately mid L1 vertebral body level. Vertebral body heights are maintained. No sign of spondylolysis. L3 posterior mid right vertebral body less than 5 mm focus of increased T1, T2 and inversion recovery sequence signal compatible with small hemangioma. Tiny mid L5 vascular remnant or fat poor hemangioma. A few scattered small focal fatty marrow rests within the visualized bony structures. S1 is a transitional-type vertebra incompletely sacralized bilaterally (Castellevi type II B). T11-12 disc is included on the edge of the study appears unremarkable. T12-L1 disc has subtle anterior bulging but is otherwise unremarkable without significant degenerative desiccation, height loss, disc bulging, canal or foraminal narrowing. L1-2 (L1): Disc is unremarkable without significant degeneration. No canal or foraminal stenosis. Mild ligamentum flavum hypertrophy and minimal facet arthrosis. L2-3 (L2): Disc is unremarkable without significant degeneration. No canal or foraminal stenosis. Mild ligamentum flavum hypertrophy and subtle facet arthrosis. L3-4 (L3): Very mild posterior disc space narrowing. No significant disc desiccation. No posterior disc bulging/anterior thecal sac mass effect, canal or foraminal stenosis. Minimal ligamentous hypertrophy. L4-5 (L4): Very mild posterior disc space narrowing. The rest of the disc space height and degree of hydration is maintained. Subtle retrolisthesis of L4 relative to L5 due to the posterior disc space narrowing. Central, right paracentral and subarticular focal disc bulging or broad-based undulating protrusion causing mild to moderate anterior thecal sac mass effect. Disc extends 4.9 mm posterior to the superior L5 endplate and 3 mm posterior to the inferior L4 endplate. Along with moderate ligamentous hypertrophy and mild facet arthrosis there is associated moderate thecal sac narrowing accentuated by mild posterior epidural lipomatosis. Overall mild to moderate bony canal narrowing. No significant foraminal stenosis. L5-S1 (L5): Susceptibility artifact in the posterior paraspinal soft tissues on the left extending to the lamina compatible with laminectomy postoperative changes. Enhancement of the left posterior lamina margin indicate scarring. Severely narrowed and desiccated disc. Degenerative type II (fat) endplate signal changes involving the lower and upper halves of L5 and S1, respectively. Diffuse but more prominently eccentric towards the left paracentral, subarticular and medial foraminal mild disc level anterior extradural defect. Part of this represents desiccated disc and to a lesser extent endplate osteophyte in addition to scar. Enhancement of this region at the posterior disc margin near the S1 nerve (subarticular) compatible with postoperative scarring contacting but not significantly displacing the S1 nerve root. Tiny area of nonenhancing disc signal more left paracentral away from the S1 nerve root protruding slightly inferior to the superior S1 endplate. No significant canal stenosis. L5-S1 moderate bilateral facet arthrosis. Severe facet joint spurring is more pronounced on the right and along with severe disc space narrowing and foraminal bulging of the desiccated disc, and to lesser extent osteophyte complex, accounts for mild right foraminal narrowing. Milder foraminal narrowing on the left due to disc space height loss and foraminal desiccated disc bulging. 7.9 x 6.8 mm cystic signal structure only seen on the inversion recovery sequence at the posterior margin of the left laminectomy defect. This could represent a residual small seroma but is of doubtful clinical significance as it does not appear to create any mass effect on the neural structures. Incidental findings on the localizer: C5-6 moderate degenerative disc changes with likely at least mild posterior disc bulging. There may be canal narrowing. Evaluation limited on the localizer. Consider correlation with cervical spine MRI. Only on the localizer within the right pelvis is an approximately 4.7 cm in greatest dimension well-defined rounded increased T2 signal lesion causing slight depression of the superior aspect of the r (more content not included)... [employer] Work Phone: [employer] Phone: MRI LUMBAR SPINE W WO CONTRA STon 05-27-2021 MRI LUMBAR SPINE W WO CONTRAST MRI lumbar spine without and with contrast HISTORY: 5 year history of low back pain. Pain radiates to lower extremity. Numbness in the legs and hands. COMPARISON: No prior lumbar spine imaging available for correlation. TECHNIQUE: Sagittal T1, T2, and inversion recovery. Axial and coronal T2. Sagittal and axial T1 with fat suppression after the IV administration of 15 mL of gadolinium (ProHance). Sagittal T2 whole spine localizer. 3 plane abdominal pelvic T2 localizer. FINDINGS: For the purposes of enumerating the lumbar disc levels the lowest lumbar-type disc will be referred to as L5-S1. Conus medullaris is unremarkable terminating at the approximately mid L1 vertebral body level. Vertebral body heights are maintained. No sign of spondylolysis. L3 posterior mid right vertebral body less than 5 mm focus of increased T1, T2 and inversion recovery sequence signal compatible with small hemangioma. Tiny mid L5 vascular remnant or fat poor hemangioma. A few scattered small focal fatty marrow rests within the visualized bony structures. S1 is a transitional-type vertebra incompletely sacralized bilaterally (Castellevi type II B). T11-12 disc is included on the edge of the study appears unremarkable. T12-L1 disc has subtle anterior bulging but is otherwise unremarkable without significant degenerative desiccation, height loss, disc bulging, canal or foraminal narrowing. L1-2 (L1): Disc is unremarkable without significant degeneration. No canal or foraminal stenosis. Mild ligamentum flavum hypertrophy and minimal facet arthrosis. L2-3 (L2): Disc is unremarkable without significant degeneration. No canal or foraminal stenosis. Mild ligamentum flavum hypertrophy and subtle facet arthrosis. L3-4 (L3): Very mild posterior disc space narrowing. No significant disc desiccation. No posterior disc bulging/anterior thecal sac mass effect, canal or foraminal stenosis. Minimal ligamentous hypertrophy. L4-5 (L4): Very mild posterior disc space narrowing. The rest of the disc space height and degree of hydration is maintained. Subtle retrolisthesis of L4 relative to L5 due to the posterior disc space narrowing. Central, right paracentral and subarticular focal disc bulging or broad-based undulating protrusion causing mild to moderate anterior thecal sac mass effect. Disc extends 4.9 mm posterior to the superior L5 endplate and 3 mm posterior to the inferior L4 endplate. Along with moderate ligamentous hypertrophy and mild facet arthrosis there is associated moderate thecal sac narrowing accentuated by mild posterior epidural lipomatosis. Overall mild to moderate bony canal narrowing. No significant foraminal stenosis. L5-S1 (L5): Susceptibility artifact in the posterior paraspinal soft tissues on the left extending to the lamina compatible with laminectomy postoperative changes. Enhancement of the left posterior lamina margin indicate scarring. Severely narrowed and desiccated disc. Degenerative type II (fat) endplate signal changes involving the lower and upper halves of L5 and S1, respectively. Diffuse but more prominently eccentric towards the left paracentral, subarticular and medial foraminal mild disc level anterior extradural defect. Part of this represents desiccated disc and to a lesser extent endplate osteophyte in addition to scar. Enhancement of this region at the posterior disc margin near the S1 nerve (subarticular) compatible with postoperative scarring contacting but not significantly displacing the S1 nerve root. Tiny area of nonenhancing disc signal more left paracentral away from the S1 nerve root protruding slightly inferior to the superior S1 endplate. No significant canal stenosis. L5-S1 moderate bilateral facet arthrosis. Severe facet joint spurring is more pronounced on the right and along with severe disc space narrowing and foraminal bulging of the desiccated disc, and to lesser extent osteophyte complex, accounts for mild right foraminal narrowing. Milder foraminal narrowing on the left due to disc space height loss and foraminal desiccated disc bulging. 7.9 x 6.8 mm cystic signal structure only seen on the inversion recovery sequence at the posterior margin of the left laminectomy defect. This could represent a residual small seroma but is of doubtful clinical significance as it does not appear to create any mass effect on the neural structures. Incidental findings on the localizer: C5-6 moderate degenerative disc changes with likely at least mild posterior disc bulging. There may be canal narrowing. Evaluation limited on the localizer. Consider correlation with cervical spine MRI. Only on the localizer within the right pelvis is an approximately 4.7 cm in greatest dimension well-defined rounded increased T2 signal lesion causing slight depression of the superior aspect of the right urinary bladder. This is incompletely characterized as its entire margin is not included on the study. The limited portion appears cystic without sign of soft t (more content not included)... [facility] PROGRESSon 02-01-2020 PROGRESS HNO ID: [id number] Author: Alanna Rodriguez Service: ? Author Type: Physician Type: Progress Notes Filed: 02/01/2020 9:45 AM Note Text: Identified patient by and name and obtained consent from the patient to complete the visit virtually through Telephone encounter. PROBLEM: Cande Rahman presents for postop visit. SURGERY AND DATE: 12/14/2019 ; s/p TLH, BS and cystoscopy PATHOLOGY: Uterus and fallopian tubes, hysterectomy and bilateral salpingectomy: Cervix - Nabothian cysts. Endometrium - Secretory phase. Myometrium - No pathologic change. Fallopian tubes - No pathologic change. SUBJECTIVE/INTERVAL HISTORY: Cande Rahman reports that she feels well. No fever or chills. No shortness of breath, cough, or chest pain. No incisional redness, swelling, or drainage. Patient reports that her appetite is good. No abdominal pain, nausea, vomiting, diarrhea, or constipation. No dysuria, gross hematuria, urinary frequency, urinary urgency, or incontinence. OBJECTIVE: Not examined. Reviewed her CBC and CMP ASSESSMENT: 12/14/2019 ; s/p TLH, BS and cystoscopy PLAN: 1.Postop restrictions reviewed. 3. RGYN as needed. Answered all her questions. Total time spent 15 minutes, more than 50% of time was spent talking face to face. Alanna Rodriguez MD [facility] 01-07-2020 [facility] CANDE RAHMAN ([id number]) 1970 F Date Time Provider Department 01/07/20 ALANNA RODRIGUEZ [facility] During your visit today, we recorded the following information about you: Alanna Rodriguez MD 01/07/2020 1:17 PM Signed Please print out CMP and CBC requests and fax to following numbers: Lab Fax number : [phone] Doctors office : [phone] Vickie Bean Ma 01/07/2020 1:37 PM Signed Patient has been identified by name and date of : Yes Printed and faxed labs per request Allergies As of Date: 01/07/2020 (No Known Allergies) Date Reviewed: 12/27/2019 Reviewed by: Mars Mei LPN - Fully Assessed Reason for Visit: Orders [681] Cmt: LAB Prescriptions as of 01/07/2020 Sig: IBUPROFEN 800 MG TABLET Take 1 tablet by mouth every * DOCUSATE SODIUM 100 MG CAPSULE Take 1 capsule by mouth twice* OXYBUTYNIN CHLORIDE ER 10 MG * LATUDA 20 MG TABLET Take 1 tablet by mouth once d* DIVALPROEX 500 MG TABLET,SOFIA* Take 500 mg by mouth three ti* LORAZEPAM 0.5 MG TABLET Take 0.5 mg by mouth twice da* LITHIUM ASPARTATE 20 MG CAPSU* Take 1 capsule by mouth once * Problem List As Of Date: 01/07/2020 (None) Encounter Status:Closed by VICKIE BEAN MA on 01/07/20 [facility] 01-03-2020 [facility] Telephone ([facility]) CANDE RAHMAN ([id number]) 1970 F Date Time Provider Department 01/03/20 ALANNA RODRIGUEZ [facility] During your visit today, we recorded the following information about you: Stephanie Danny 01/03/2020 11:55 AM Signed Patient says she went to ED last night says she had severe kidney infection. The antibiotics that she was given to prevent infection did not help her, so they gave her a different script to help with the kidney infection. Patient was told to call the office to notify doctor. Stephanie Peres RN 01/03/2020 2:[address] Brannon, Angel guillaume. I don't think there is anything we need to do, maybe just forward to Dr. Rodriguez as an update. Thank you, Lula Rodriguez MD 01/04/2020 2:09 PM Signed Called,identified by three patient identifiers. She started sudden RUQ pain went to ED outside facility, she lives in [facility]. CT scan there reviewed : perinephric stranding and no pelvicalyceal or ureteric dilatation. No free fluid in pelvis or no abscess in pelvis. CBC ; WBC : 13 with left shift. Creatinine 1.9 UA : moderate blood and protein qnd leucs ++, urine culture : [phone] normal urogenital rocio. She was given cipro and flagyl for vaginal discharge. She was discharged on 01/01 with keflex and is her pain is completely gone and feels better, no fevers, normal GI and urinary function. No abdominal distention. Advised to call PCP at [place] and get repeat CBC and CMP ERUM. If needed will see her this week for further evaluations. Answered all her questions. Allergies As of Date: 01/03/2020 (No Known Allergies) Date Reviewed: 12/27/2019 Reviewed by: Mars Mei LPN - Fully Assessed Reason for Visit: Question [6721] Prescriptions as of 01/03/2020 Sig: CIPROFLOXACIN 500 MG TABLET Take 1 tablet by mouth twice * METRONIDAZOLE 500 MG TABLET Take 1 tablet by mouth twice * IBUPROFEN 800 MG TABLET Take 1 tablet by mouth every * DOCUSATE SODIUM 100 MG CAPSULE Take 1 capsule by mouth twice* OXYBUTYNIN CHLORIDE ER 10 MG * LATUDA 20 MG TABLET Take 1 tablet by mouth once d* DIVALPROEX 500 MG TABLET,SOFIA* Take 500 mg by mouth three ti* LORAZEPAM 0.5 MG TABLET Take 0.5 mg by mouth twice da* LITHIUM ASPARTATE 20 MG CAPSU* Take 1 capsule by mouth once * Problem List As Of Date: 01/03/2020 (None) Encounter Status:Closed by ALANNA RODRIGUEZ MD on 01/04/20 [facility] CNOVon 12-27-2019 CNOV Office Visit ([facility] ) CANDE RAHMAN ([id number]) 1970 F Date Time Provider Department 12/27/19 3:00 PM ALANNA RODRIGUEZ [facility] During your visit today, we recorded the following information about you: Blood pressure Weight 108/70 78.1 kg Mars Mei 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 Alanna Rodriguez MD 12/27/2019 2:49 PM Signed DATE OF SERVICE: 12/27/2019 PROBLEM: Cande Rahman presents for postop visit. SURGERY AND DATE: 12/14/2019 ; s/p TLH, BS and cystoscopy PATHOLOGY: Uterus and fallopian tubes, hysterectomy and bilateral salpingectomy: Cervix - Nabothian cysts. Endometrium - Secretory phase. Myometrium - No pathologic change. Fallopian tubes - No pathologic change. SUBJECTIVE/INTERVAL HISTORY: Cande Rahman reports that she feels well. No fever or chills. No shortness of breath, cough, or chest pain. No incisional redness, swelling, or drainage. Patient reports that her appetite is good. No abdominal pain, nausea, vomiting, diarrhea, or constipation. No dysuria, gross hematuria, urinary frequency, urinary urgency, or incontinence. OBJECTIVE: VITALS: stable HEENT: Normocephalic, atraumatic, mucus membranes moist and no lesions NECK: Supple, no adenopathy; thyroid symmetric, normal size, no bruits LUNGS: Clear to auscultation bilaterally. HEART: Regular rate and rhythm, no murmurs. ABDOMEN: Abdomen soft, non-tender, no hepatosplenomegaly. PELVIC: External genitalia normal. Vagina normal on speculum exam. Uterus, cervix, adnexa surgically absent. No urethral, bladder or pelvic masses. Cuff smooth. Cul de sac negative on rectal exam. No rectal masses. LOWER EXTREMITIES: No pitting edema, no palpable cords and no skin changes. ASSESSMENT: 12/14/2019 ; s/p TLH, BS and cystoscopy PLAN: 1. Discussed results of pathology and implications with patient. 2. Postop restrictions reviewed. 3. RGYN in 4-6 weeks Alanna Rodriguez MD Referring Provider: SELF [200] Allergies As of Date: 12/27/2019 (No Known Allergies) Date Reviewed: 12/27/2019 Reviewed by: Mars Mei LPN - Fully Assessed Reason for Visit: Post-Op Visit [1236] Visit Diagnosis:Post-operati ve state [Z98.890] Order(s):ciprofloxacin HCl (CIPRO) 500 mg tabletTake 1 tablet by mouth twice daily for 7 days.Disp: 14 tabletRfl: 0 metroNIDAZOLE (FLAGYL) 500 mg tabletTake 1 tablet by mouth twice daily for 7 days. for vaginosis. Do not drink alcohol while taking this medicationDisp: 14 tabletRfl: 0 Prescriptions as of 12/27/2019 Sig: CIPROFLOXACIN 500 MG TABLET Take 1 tablet by mouth twice * METRONIDAZOLE 500 MG TABLET Take 1 tablet by mouth twice * IBUPROFEN 800 MG TABLET Take 1 tablet by mouth every * DOCUSATE SODIUM 100 MG CAPSULE Take 1 capsule by mouth twice* OXYBUTYNIN CHLORIDE ER 10 MG * LATUDA 20 MG TABLET Take 1 tablet by mouth once d* DIVALPROEX 500 MG TABLET,SOFIA* Take 500 mg by mouth three ti* LORAZEPAM 0.5 MG TABLET Take 0.5 mg by mouth twice da* LITHIUM ASPARTATE 20 MG CAPSU* Take 1 capsule by mouth once * Problem List As Of Date: 12/27/2019 (None) Visit Notes: >> Mars Mei LPN Mon Dec 27, 2019 2:31 PM 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 Prescriptions ordered this encounter Disp Refills Start End CIPROFLOXACIN 500 MG TABLET 14 t* 0 12/27/2019 01/03/2020 Route: ORAL Sig: Take 1 tablet by mouth twice daily for 7 days. METRONIDAZOLE 500 MG TABLET 14 t* 0 12/27/2019 01/03/2020 Route: ORAL Sig: Take 1 tablet by mouth twice daily for 7 days. for vaginosis. Do not drink alcohol while taking this medication Disposition: Return in about 4 weeks (around 01/24/2020), or if symptoms worsen or fail to improve. Follow-up and Disposition History Recorded Encounter Status:Closed by ALANNA RODRIGUEZ MD on 12/27/19 [facility] PROGRESSon 12-27-2019 PROGRESS HNO ID: [id number] Author: Alanna Rodriguez Service: ? Author Type: Physician Type: Progress Notes Filed: 12/27/2019 2:49 PM Note Text: DATE OF SERVICE: 12/27/2019 PROBLEM: Cande Rahman presents for postop visit. SURGERY AND DATE: 12/14/2019 ; s/p TLH, BS and cystoscopy PATHOLOGY: Uterus and fallopian tubes, hysterectomy and bilateral salpingectomy: Cervix - Nabothian cysts. Endometrium - Secretory phase. Myometrium - No pathologic change. Fallopian tubes - No pathologic change. SUBJECTIVE/INTERVAL HISTORY: Cande Rahman reports that she feels well. No fever or chills. No shortness of breath, cough, or chest pain. No incisional redness, swelling, or drainage. Patient reports that her appetite is good. No abdominal pain, nausea, vomiting, diarrhea, or constipation. No dysuria, gross hematuria, urinary frequency, urinary urgency, or incontinence. OBJECTIVE: VITALS: stable HEENT: Normocephalic, atraumatic, mucus membranes moist and no lesions NECK: Supple, no adenopathy; thyroid symmetric, normal size, no bruits LUNGS: Clear to auscultation bilaterally. HEART: Regular rate and rhythm, no murmurs. ABDOMEN: Abdomen soft, non-tender, no hepatosplenomegaly. PELVIC: External genitalia normal. Vagina normal on speculum exam. Uterus, cervix, adnexa surgically absent. No urethral, bladder or pelvic masses. Cuff smooth. Cul de sac negative on rectal exam. No rectal masses. LOWER EXTREMITIES: No pitting edema, no palpable cords and no skin changes. ASSESSMENT: 12/14/2019 ; s/p TLH, BS and cystoscopy PLAN: 1. Discussed results of pathology and implications with patient. 2. Postop restrictions reviewed. 3. RGYN in 4-6 weeks Alanna Rodriguez MD [facility] Basic Metabolic Panlon 12-15 Anion gap [Moles/Vol] 8 mmol/L Normal 0-15 [facility] Comment on above: Performed By: #### C BC, BMP ####[address] [place]., [place] [phone] Calcium [Mass/Vol] 8.6 mg/dL Normal 8.5-10.2 [facility] Comment on above: Performed By: #### C BC, BMP ####[address] [place]., [place] [phone] Chloride [Moles/Vol] 106 mmol/L High 97-105 [facility] Comment on above: Performed By: #### C BC, BMP ####[address] [place]., [place] [phone] CO2 [Moles/Vol] 26 mmol/L Normal 22-30 [facility] Comment on above: Performed By: #### C BC, BMP ####[address] [place] [phone] Creatinine [Mass/Vol] 0.89 mg/dL Normal 0.58-0.96 [facility] Comment on above: Performed By: #### C BC, BMP ####[address] [place] [phone] eGFR- Amer. >60 Normal >60 [facility] Comment on above: Performed By: #### C BC, BMP ####[address] [place]., [place] [phone] GFR/1.73 sq M predicted among non-blacks MDRD (S/P/Bld) [Vol rate/Area] mL/min/{1.73_m2} Normal >60 [facility] Comment on above: Result Comment: eGFR (Estimated GFR) Units of measure: mL/min/1.73 meters squared eGFR is derived from the reexpressed MDRD Study equation using the following parameters: serum creatinine, age, gender and race. The creatinine assay has been calibrated to be traceable to [employer]. An eGFR <60 mL/min/1.73m2 for >3 months is consistent with chronic kidney disease. Refer to KDOQI guidelines for clinical interpretation. In patients with unstable renal function, e.g. those with acute kidney injury, the eGFR may not accurately reflect actual GFR. Performed By: #### C BC, BMP ####[address] [place] [phone] Glucose [Mass/Vol] 92 mg/dL Normal 74-99 [facility] Comment on above: Performed By: #### C BC, BMP ####[address] [place] [phone] Potassium [Moles/Vol] 4.2 mmol/L Normal 3.7-5.1 [facility] Comment on above: Performed By: #### C BC, BMP ####[address] [place] [phone] Sodium [Moles/Vol] 140 mmol/L Normal 136-144 [facility] Comment on above: Performed By: #### C BC, BMP ####[address] [place] [phone] Urea nitrogen [Mass/Vol] 7 mg/dL Normal 7-21 [facility] Comment on above: Performed By: #### C BC, BMP ####[address] [place] [phone] CBCon 12-15-2019 Absolute nRBC <0.01 Normal <0.01 [facility] Comment on above: Performed By: #### C BC, BMP ####[address] [place] [phone] Erythrocyte distribution width (RBC) [Ratio] 13.2 % Normal 11.5-15.0 [facility] Comment on above: Performed By: #### C BC, BMP ####[address] [place] [phone] Hematocrit (Bld) [Volume fraction] 38.0 % Normal 36.0-46.0 [facility] Comment on above: Performed By: #### C BC, BMP ####[address] [place] [phone] Hemoglobin (Bld) [Mass/Vol] 12.5 g/dL Normal 11.5-15.5 [facility] Comment on above: Performed By: #### C BC, BMP ####[address] [place] [phone] MCH (RBC) [Entitic mass] 31.6 pG Normal 26.0-34.0 [facility] Comment on above: Performed By: #### C BC, BMP ####[address] [place] [phone] MCHC (RBC) [Mass/Vol] 32.9 g/dL Normal 30.5-36.0 [facility] Comment on above: Performed By: #### C BC, BMP ####[address] [place] [phone] MCV (RBC) [Entitic vol] 96.2 fL Normal 80.0-100.0 [facility] Comment on above: Performed By: #### C BC, BMP ####[address] [place] [phone] Platelet mean volume (Bld) [Entitic vol] 10.2 fL Normal 9.0-12.7 [facility] Comment on above: Performed By: #### C BC, BMP ####[address] [place] [phone] Platelets (Bld) [#/Vol] 217 10*3/uL Normal 150-400 [facility] Comment on above: Performed By: #### C BC, BMP ####[facility] [facility]., [place] [phone] RBC (Bld) [#/Vol] 3.95 10*6/uL Normal 3.90-5.20 [facility] Comment on above: Performed By: #### C BC, BMP ####[facility] [facility] [place]., [place] [phone] WBC (Bld) [#/Vol] 8.29 10*3/uL Normal 3.70-11.00 [facility] Comment on above: Performed By: #### C BC, BMP ####[facility] [facility]., [place] [phone] NURSING PROGon 12-15-2019 NURSING PROG HNO ID: [id number] Author: Racquel TinajeroRn) NEREYDA Winchester Service: Nursing Author Type: Registered Nurse Type: Nursing Progress Note Filed: 12/15/2019 7:29 AM Note Text: Nursing Progress Note Patient Name: Cande Rahman Patient Location: [id number] __ Daily Note: 0700- Assumed patient care, patient awake, alert no signs or symptoms of distress, bed locked and lowered call light within reach will continue to monitor This note was completed by: Racquel Winchester RN [facility] PROGRESSon 12-15-2019 PROGRESS HNO ID: [id number] Author: Gabriella Harris Service: Gynecology Author Type: Physician Type: Progress Notes Filed: 12/15/2019 8:41 AM Note Text: December 15, 2019 8:14 AM Subjective Cande Rahman is POD # 1 Laparoscopic hysterectomy with bilateral salpingectomy, cystoscopy She is doing well Pain well controlled Tolerating regular diet No difficulty urinating 12/14/19 1711 12/14/19 2125 12/15/19 0254 12/15/19 0614 BP: 122/76 99/62 90/55 (!) 92/48 Pulse: 82 76 77 75 Resp: 16 12 16 Temp: 36.8 ?C (98.2 ?F) 36.8 ?C (98.2 ?F) 37.1 ?C (98.8 ?F) 36.9 ?C (98.4 ?F) TempSrc: Oral Oral Oral SpO2: 96% 97% 97% 97% Weight: Height: General appearance: healthy, alert, cooperative, pleasant, in no acute distress Abdomen: soft, nondistended, tender minimally at incisions incisions: healing well without evidence of infection, surgical glue in place Impression: POD # 1 Laparoscopic hysterectomy with bilateral salpingectomy, cystoscopy She is doing well Plan: reviewed discharge instructions Discharge today I answered all of the patient's questions. Gabriella Harris MD Plan of care discussed with patient and nurse [facility] ANES Yi 12-14-2019 ANES POST HNO ID: [id number] Author: Ike Medina Service: Anesthesiology Author Type: Anesthesiologist Type: Anesthesia PostOp Filed: 12/14/2019 1:06 PM Note Text: POST ANESTHESIA EVALUATION NOTE SERVICE DATE: 12/14/2019 SERVICE TIME: 1:06 PM : 1970 Vitals: 12/14/19 0611 12/14/19 1054 Temp: 36.2 ?C (97.2 ?F) 36.4 ?C (97.6 ?F) 12/14/19 1215 12/14/19 1230 12/14/19 1245 12/14/19 1300 BP: 148/90 145/89 137/94 143/91 12/14/19 1215 12/14/19 1230 12/14/19 1245 12/14/19 1300 Pulse: 86 88 89 88 12/14/19 1215 12/14/19 1230 12/14/19 1245 12/14/19 1300 Resp: 18 19 19 22 12/14/19 1215 12/14/19 1230 12/14/19 1245 12/14/19 1300 SpO2: 98% 97% 97% 97% Validated Vital Signs: Yes POST ANES STATUS: No apparent anesthetic complications. The patient is appropriately hydrated with stable respiratory and cardiovascular status. Patient has safe and adequate airway control. The patient has appropriate pain relief and no significant post operative nausea or vomiting. The patient has achieved baseline mental status. Intra-Operative Events: No Significant Anesthesia Events Further assessment by Anesthesia Service: None Other Remarks: SIGNATURE: Ike Medina MD PATIENT NAME: Cande Rahman DATE: December 14, 2019 TIME: 1:06 PM PAGER/CONTACT #: [phone] [facility] ANES PREOPon 12-14-2019 ANES PREOP HNO ID: [id number] Author: Ike Medina Service: Anesthesiology Author Type: Anesthesiologist Type: Anesthesia PreOp Filed: 12/14/2019 7:41 AM Note Text: ANESTHESIOLOGY DAY OF SURGERY NOTE SERVICE DATE: 12/14/2019 SERVICE TIME: 7:37 AM : 1970 Procedure(s) (LRB): LAPAROSCOPIC HYSTERECTOMY TOTAL FOR UTERUS 250 G OR LESS W/REMOVAL TUBES (Bilateral) CYSTOSCOPY (N/A) Surgeon(s): Alanna Rodriguez Estimated body mass index is 28.79 kg/m? as calculated from the following: Height as of 11/03/19: 167.6 cm (5' 6 ). Weight as of 11/03/19: 80.9 kg (178 lb 6 oz). Most recent hematocrit and potassium results: Hematocrit 46.1 09/10/2019 Potassium 4.3 09/10/2019 ANES DOS/PREOP NOTE: Vitals: 12/14/19 0611 BP: 117/74 Pulse: 70 Resp: 16 Temp: 36.2 ?C (97.2 ?F) TempSrc: Temporal Artery SpO2: 100% There is no problem list on file for this patient. Very poor and unreliable historian Possible history of TIAs, patient denies this history, tingling in left hand has been attributed to CTS No past medical history on file. No past surgical history on file. Lumbar surgery, one level lumbar fusion-per patient (left leg sxs resolved post procedure) No family history on file. Social History: Social History Tobacco Use - Smoking status: Current Every Day Smoker Years: 30.00 Types: Cigarettes - Smokeless tobacco: Current User Substance Use Topics - Alcohol use: Yes - Drug use: Not Currently No current facility-administered medications on file prior to encounter. Current Outpatient Medications on File Prior to Encounter Medication Sig - lurasidone (LATUDA) 20 mg tablet Take 1 tablet by mouth once daily. - divalproex DR (DEPAKOTE) 500 mg EC tablet Take 500 mg by mouth three times daily. - LORazepam (ATIVAN) 0.5 mg tab Take 0.5 mg by mouth twice daily. - Marlboro Aspartate 20 mg cap Take 1 capsule by mouth once daily. - HYDROcodone-acetaminop hen (NORCO) 5-325 mg per tablet Take 1 tablet by mouth every 8 hours as needed. - ibuprofen (MOTRIN) 800 mg tablet Take 800 mg by mouth every 6 hours as needed. Current Facility-Administered Medications Medication Dose Route Frequency Provider Last Rate Last Dose - lidocaine 10 mg/mL (1 %) 1-2 mg injection (XYLOCAINE) 0.1-0.2 mL INTRADERMAL PRN Alanna Kollikonda - lactated ringers infusion 5-30 mL/hr INTRAVENOUS CONTINUOUS Alanna Kollikonda 15 mL/hr at 12/14/19 0631 15 mL/hr at 12/14/19 0631 - ceFAZolin iv piggyback 2 g in D5W (iso-osmotic) 100 mL (ANCEF) 2 g INTRAVENOUS Pre-Op Once Alanna Kollikonda Allergies: ALLERGIES No Known Allergies DOS EXAM: Adequate NPO status: Yes Anesthetic risks, benefits, alternatives, personnel and consent discussed: Yes Patient agrees to proceed: Yes Previous Anesthesia: No history of adverse event. Airway Assessment: MP 2; Neck ROM: Full ROM without neurologic symptoms; Airway Evaluation: No significant abnormalities Symptoms of Sleep Apnea: denies hx or sxs Dentition: Teeth intact Additional Physical Exam: Lungs: Patient health status unchanged since recent history and physical. See history and physical for exam findings. Cardiac: Patient health status unchanged since recent history and physical. See history and physical for exam findings. Additional Pertinent Findings: N/A Blood Products: Not anticipated for this procedure. Anesthetic Plan: General, Standard ASA Monitors Pain Management Plan: Parenteral or Oral ASA Class: 3 Other Medical Problems: None Chronic Beta Cedric medication administered within 24 hours: N/A I have interviewed and examined the patient. I have reviewed the medical record and/or the pre-anesthesia evaluation, pertinent labs, and test results. Significant changes in the patient's condition since the History and Physical, not otherwise documented in primary service progress notes: No This contains updated information obtained within 48 hours of Surgery/Procedure. SIGNATURE: Ike Medina MD PATIENT NAME: Cande Rahman DATE: December 14, 2019 TIME: 7:37 AM CSN: [id number] [facility] Confirm Blood Typeon 020 ABO/RH(D) Positive [facility] Comment on above: Performed By: #### C ONABO #### [facility] [address] [place] [address] HISTORY PHYSICALon 0 HISTORY PHYSICAL HNO ID: [id number] Author: Di Rahman ([place]) Service: Gastroenterology Author Type: Physician Occupational Therapy Instructor Type: HANDP Filed: 12/14/2019 7:38 AM Note Text: HISTORY AND PHYSICAL EXAMINATION SERVICE DATE: 12/14/2019 SERVICE TIME: 715AM PRIMARY CARE PHYSICIAN: No primary care provider on file. REASON FOR VISIT: Cande Rahman is a 49 year old female who is scheduled for a Laparoscopic hysterectomy with removal of tubes at the request of Dr. Rodriguez for consultation. My final recommendation will be communicated back to the requesting physician by way of shared medical record or letter. The patient has the following: There is no problem list on file for this patient. Subjective CHIEF COMPLAINT: Ms. Rahman is a 49 yo female who presents in preop for an evaluation of her medical history and physical examination to be optimally prepared for surgery. HPI: 49 yo female presents for laparoscopic hysterectomy due to abnormal bleeding and cramping x 6 months at the request of Dr. Rodriguez. Patient denies any current pain. She denies any urinary issues including, pyruia, blood in the urine, or frequency. She denies any abnormal discharge, odors, or any other vaginal issues other than stated above. Other than the gynecological issues she presents for today, she states she is otherwise generally healthy. She denies any recent CP, SOB, or NVD. She states she has no concerns and agrees to proceed with the procedure as scheduled. No past medical history on file. No past surgical history on file. No family history on file. SOCIAL HISTORY: Social History Tobacco Use - Smoking status: Current Every Day Smoker Years: 30.00 Types: Cigarettes - Smokeless tobacco: Current User Substance Use Topics - Alcohol use: Yes - Drug use: Not Currently Prior to Admission medications as of 12/14/19 0611 Medication Sig Last Dose Taking oxybutynin ER (DITROPAN XL) 10 mg 24 hr tablet 12/13/2019 at Unknown time Yes lurasidone (LATUDA) 20 mg tablet Take 1 tablet by mouth once daily. 12/13/2019 at Unknown time Yes divalproex DR (DEPAKOTE) 500 mg EC tablet Take 500 mg by mouth three times daily. 12/13/2019 at Unknown time Yes LORazepam (ATIVAN) 0.5 mg tab Take 0.5 mg by mouth twice daily. Unknown at Unknown time Marlboro Aspartate 20 mg cap Take 1 capsule by mouth once daily. Unknown at Unknown time HYDROcodone-acetaminop hen (NORCO) 5-325 mg per tablet Take 1 tablet by mouth every 8 hours as needed. Unknown at Unknown time ibuprofen (MOTRIN) 800 mg tablet Take 800 mg by mouth every 6 hours as needed. Unknown at Unknown time No medication comments found. 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 Neuro: No history of TIA's, stroke, DATA CENTER MANAGER tumor, impaired sensorium, hemiplegia, paraplegia or quadraplegia. No neurological symptoms or problems. Respiratory: No history of current cough or dyspnea, or pneumonia in the past 6 weeks. No history of respiratory/pulmonary symptoms or problems. Cardiovascular: No history of HTN requiring medication, no history of angina, CHF, NH, cardiac surgery or stents. Denies rest pain, gangrene or revascularization/ampu tation for PVD. No history of cardiovascular symptoms or problems. GI: No history of GI symptoms or problems. No history of esophageal varices, recent ascites, or ETOH greater than 2 drinks per day. : No history of dysuria, frequency or incontinence,, stones or chronic kidney disease SHOP TECH: See HPI : Not due to recent lab values Endocrine: No history of diabetes. Has not taken steroids within the past 30 days. No history of endocrinological symptoms or problems. Hematology: No history of bleeding or clotting disorder. Pt is not taking anti-coagulation or platelet medications. No history of hematological symptoms or problems. Oncology: No history of CA metastasis, chemo within 30 days, or radiotherapy within 90 days. Has not lost 10% of body wt in 6 months. No history of oncological symptoms or problems. Psych: Anxiety Musculoskeletal: Negative for joint pain or swelling, back pain or muscle pain. Skin: Negative for lesions, rash and itching. Objective PHYSICAL EXAM: VITALS: BP 117/74 Pulse 70 Temp (Src) 97.2 (Temporal Artery) Resp 16 SpO2 100% O2 Therapy: Room Air General: Alert and oriented Skin: Normal color, no rash, no lesions. HEENT: Normocephalic Cardiovascular: Normal S1 AND S2, no rubs, murmurs or gallops. No JVD. Pulse regular. Lungs: Normal breath sounds, no wheezes or crackles. Abdomen: Soft, non-tender, no rigidity. Extremities: No deformity, no edema or tenderness, no joint swelling or clubbing. Neurological: Normal cognition and motor skills. Pulses: Carotid and radial pulses normal +2. Diagnostic tests reviewed for today's visit: Lab Value Units Date High Low HB 14.9 g/dL 09/10/2019 15.5 11.5 HCT 46.1 % 09/10/2019 46.0 36.0 WBC 10.89 k/uL 09/10/2019 11.00 3.70 PLT 316 k/uL 09/10/2019 400 150 NA 139 mmol/L 09/10/2019 144 136 K 4.3 mmol/L 09/10/2019 5.1 3.7 GLUC 89 mg/dL 09/10/2019 99 74 BUN 14 mg/dL 09/10/2019 21 7 CREAT 0.90 mg/dL 09/10/2019 0.96 0.58 PTSEC No results within date range. INR No results within date range. APTT No results within date range. ALT 20 U/L 09/10/2019 38 7 AST 17 U/L 09/10/2019 35 13 TBILI <0.2 mg/dL 09/10/2019 1.3 0.2 TSH 1.400 uU/mL 11/03/2019 4.200 0.270 Lab Value Units Date High Low HCGQT No results within date range. UHCG No results within date range. HCG, BODY* No results within date range. Lab Value Units Date High Low ABORHD No results within date range. ABSCREEN No results within date range. No results found for: HBA1C No new labs Assessment/Plan Assessment: There is no known pertinent medical condition which may affect joey-operative course This patient is optimally prepared for surgery. CONSULTS: Patient does not require consults for optimization at this time. Planned Anesthetic: General Instructions Given to Patient: Instructions located in the after visit summary. Patient given verbal and written preop instructions and voices comprehension and compliance. SIGNATURE: Di Rahman PA-C PATIENT NAME: Cande Rahman DATE: December 14, 2019 TIME: 7:15 AM PAGER/CONTACT #: [facility] NURSING PROGon 12-14-2019 NURSING PROG HNO ID: [id number] Author: Racquel TinajeroRn) NEREYDA Winchester Service: Nursing Author Type: Registered Nurse Type: Nursing Progress Note Filed: 12/14/2019 3:25 PM Note Text: Nursing Progress Note Patient Name: Cande Rahman Patient Location: [id number] __ Daily Note: 1515- Assumed patient care, patient arrived from PACU awake, alert no signs of distress bed locked and lowered call light within reach will continue to monitor This note was completed by: Racquel Winchester RN [facility] OPERATIVE NOon 12-14-2019 OPERATIVE NO HNO ID: [id number] Author: Alanna Rodriguez Service: Gynecology Author Type: Physician Type: Operative Report Filed: 12/17/2019 4:04 PM Note Text: Log ID: [id number] Surgery/Procedure Date: 12/14/2019 Incision/Procedure Start Time: 8:37 AM Incision Close/Procedure End Time: 10:41 AM Surgeon(s) and Occupational Therapy Instructor(s): Surgeon(s) and Role: * Alanna Rodriguez - Primary Physician Occupational Therapy Instructor: Di Rahman (Pa) Paraprofessional Aide Teacher: Manish Mann No qualified residents avaialble Procedures and Anesthesia: Procedure(s) and Anesthesia Type: * LAPAROSCOPIC HYSTERECTOMY TOTAL FOR UTERUS 250 G OR LESS W/REMOVAL TUBES - General * CYSTOSCOPY - General Diagnosis Code(s): Pre-Op Diagnosis Codes: * Menorrhagia [N92.0] Postop Diagnosis: Same as above Procedure Details: Patient was taken to the operating room where the sign-in and time out were completed. Patient was prepped and draped under sterile conditions. General anesthesia was induced and found to be adequate. She was placed in a dorsal lithotomy position. Exam under anesthesia was performed. The abdomen, perineum and vagina were prepped and draped in the usual sterile fashion. SCDs were placed and turned on for DVT prophylaxis. A Riley catheter was placed in the urinary bladder under sterile conditions A weighted speculum was placed in the patient's vagina with clear visualization of the cervix. The cervix was serially dilated to allow placement of Vcare and left in place throughout the laparoscopic portion of the procedure. Attention was turned to the abdomen with clean sterile gloves. Prior to making the incision the area was injected with 0.25% Marcaine 2 cc. , A 5 mm infraumbilical incision was made with the knife. and An optical visualization trochar was placed into the peritoneal cavity while the anterior abdominal wall was elevated. The abdomen was insufflated with CO2 gas. Local anesthetic was infiltrated. and A small incision was made in the Bilateral lower abdominal wall. Through these sites a 5 mm trochar and sleeve were inserted under direct visualization. The pelvic contents were visualized and found to be as below. The round ligaments were grasped, cauterized and divided first on the patient right and then on the patient's left using the LigaSure device. The ureters were well clear of the operative site. The right fallopian tube and utero-ovarian ligament were grasped, cauterized and divided using the LigaSure device. The left fallopian tube and utero-ovarian ligament were grasped, cauterized and divided using the LigaSure device. Dissection then proceeded down the broad ligaments bilaterally taking alternate bites with the LigaSure device. The bladder flap was then created using LigaSure device. All areas were inspected for hemostasis which was excellent. The uterine arteries were skeletonized using the LigaSure. The VCARE cup was then identified easily around the cervix. The bladder was ensured to be out of our colpotomy incision site. Once this was done the uterine arteries were then clamped, coagulated and transected on both sides. Once this was completed monopolar hook electrocautery was used to perform the colpotomy circumferentially along the VCARE cup. The uterus and cervix were then delivered through the vagina and sent to pathology. Findings: Uterus: Normal and small fibroids Right Ovary: Normal Left Ovary: Normal Fibroids: Fibroid present: 2 cm at fundus Polyps: No polyps The vaginal cuff ,including the posterior peritoneum, was closed with figure-8 0-vicryl sutures horizontally. The pneumo-peritoneum was re-insuflated and the pelvic contents inspected. The specimens were sent to pathology. Hemostasis was excellent and all instruments were removed from the abdomen and the pneumo-peritoneum released. The skin incisions were closed with 4-0 monocryl. and Cystoscopy was performed and strong bilateral jets were noted from the ureters. Sign-out was completed. Vaginal sweep was performed and was negative for swabs , sharps and instruments. Estimated Blood Loss: 10 cc Input : 1000 cc Output : 600 cc Specimens: uterus, bilateral fallopian tubes and cervix Drains: Yes, Riley for drainage Wound Classification: Class 2, operative wound clean-contaminated, genitor-urinary tract entered without significant spillage Complications: None I, primary surgeon performed the procedure with assistance.?The PA assisted during the entire procedure and closed the skin at the end of the procedure as there was no??qualified resident/fellow was available. I was present and scrubbed during the entire procedure until closure of the skin and was immediately available during that time. SIGNATURE: Alanna Rodriguez MD PATIENT NAME: Cande Rahman DATE: December 14, 2019 TIME: 11:14 AM PAGER/CONTACT #: [phone] [facility] PT EDon 12-14-2019 PT ED HNO ID: [id number] Author: Imani (Rn) NEREYDA Hale Service: ? Author Type: Registered Nurse Type: Patient Education Filed: 12/14/2019 6:15 AM Note Text: PRE OP LEARNING ASSESSMENT PROCEDURE/SURGERY: SURGERY: preop READINESS TO LEARN COGNITIVE ABILITY: Alert and oriented MOTIVATION TO LEARN: Eager FAMILY SUPPORT: High - Very involved in pt care PATIENT LEARNS BEST BY: Individual Instruction FACTORS AFFECTING LEARNING: None PHYSICAL LIMITATIONS AFFECTING LEARNING: None Electronically Signed By: Imani Hale RN In Department: [facility] SURGERY Normal [facility] SURGICAL PATHOLOGYon 020 SURGICAL PATHOLOGY Specimen #: [id number] Submitting Physician: ALANNA RODRIGUEZ MD FINAL DIAGNOSIS Uterus and fallopian tubes, hysterectomy and bilateral salpingectomy: Cervix - Nabothian cysts. Endometrium - Secretory phase. Myometrium - No pathologic change. Fallopian tubes - No pathologic change. MICHELLE/magdalena 12/17/2019 Devon Feliciano M.D. (Electronic Signature) _ SPECIMEN SUBMITTED A: UTERUS AND BILATERAL FALLOPIAN TUBES CLINICAL DATA MENORRHAGIA LAPAROSCOPIC TOTAL HYSTERECTOMY AND REMOVAL OF BILATERAL TUBES GROSS DESCRIPTION Received in formalin is a uterus with attached cervix and bilateral fallopian tubes. The uterus with cervix measures 8.2 x 5 x 4.1 cm and weighs 87.7 grams. A section of vaginal cuff is not attached. The ectocervix is unremarkable and the external os is fishmouth in contour. The endocervical canal measures 2.4 cm in length with Nabothian cysts but without polyps. The endometrial cavity measures 5.1 cm in length and 2.2 cm in greatest width. The endometrium ranges from 0.1 cm to 0.2 cm in thickness, is azar-red and slightly hemorrhagic. The myometrium measures 1.7 cm in thickness and is unremarkable. The serosal aspect is smooth and glistening. The right fallopian tube measures 2.6 cm in length. The fimbriated end has an normal villous appearance. The left fallopian tube measures 2.8 cm in length. The fimbriated end also has a normal villous appearance. Automatic Winder Operator sections are submitted as follows: A1 anterior cervix; A2 posterior cervix; A3 anterior uterine wall; A4 posterior uterine wall; A5-A6 right fallopian tube, totally submitted; A7-A8 left fallopian tube, totally submitted. KIANA/elisabet/12/15/19 Gross examination performed at [facility], [address] [id number] Date of Report: 12/17/2019 Date of Procedure: 12/14/2019 Date of Receipt: 12/14/2019 Submitted by: ALANNA RODRIGUEZ MD Location: [facility] Diagnostic interpretation performed at [facility], [address] [place] [address]. CLIA Number: [id number] [facility] Type and Screenon 12-14-2019 ABO/RH(D) Positive [facility] Comment on above: Performed By: #### T SCR #### [facility] [address] [place] [id number] [facility] 11-22-2019 CNPN Telephone ([facility]) CANDE RAHMAN ([id number]) 1970 F Date Time Provider Department 11/22/19 ALANNA RODRIGUEZ [facility] During your visit today, we recorded the following information about you: Lula Peres RN 11/22/2019 4:11 PM Signed Pt called in today , she is scheduled for surgery tomorrow and was not able to get all of her medical clearance. Pt was seeing her pcp in [place] and they requested a CT of the brain d/t hx strokes and she has not been able to schedule it because it hasn't been approved by insurance. Dr. Rodriguez aware and surgery to be rescheduled. Surgery rescheduled to 12-14-2019. OR aware. Lula Peres RN 11/23/2019 11:50 AM Signed Pre-printed letter sent to pt addressing surgical date change and now change inpost op appt date. Also added to letter that she is to fax the labs, EKG and the Ct results that were done by her pcp in [place] to the office so they can be uploaded into her chart. Advised to keep us informed of status of scheduling her CT scan and will plan on new surgical date of 12-14-2019. Lula Peres RN Cece Shepherd RN 11/23/2019 3:02 PM Signed Records received from [facility] in [place]. Placed on Dr. Rodriguez's desk for review Adriana Peres RN also notified that records were received Will scan to chart once reviewed by md. Allergies As of Date: 11/22/2019 (No Known Allergies) Date Reviewed: 11/03/2019 Reviewed by: Trinity Shen Ma - Fully Assessed Reason for Visit: Counseling [29] Prescriptions as of 11/22/2019 Sig: OXYBUTYNIN CHLORIDE ER 10 MG * LATUDA 20 MG TABLET Take 1 tablet by mouth once d* DIVALPROEX 500 MG TABLET,SOFIA* Take 500 mg by mouth three ti* LORAZEPAM 0.5 MG TABLET Take 0.5 mg by mouth twice da* LITHIUM ASPARTATE 20 MG CAPSU* Take 1 capsule by mouth once * HYDROCODONE 5 MG-ACETAMINOPHE* Take 1 tablet by mouth every * IBUPROFEN 800 MG TABLET Take 800 mg by mouth every 6 * Problem List As Of Date: 11/22/2019 (None) Encounter Status:Closed by LULA PERES RN on 11/22/19 Normal [facility] CNCOon 11-03-2019 CNCO HNO ID: [id number] Author: Mammography Coordinator Service: ? Author Type: Physician Type: Letter Filed: 11/04/2019 11:35 PM Note Text: November 03, 2019 PID: [id number] Cadne Rahman [address] [place] [address] Dear Ms. Rahman, We are pleased to inform you that the results of your recent breast imaging exam on 11/03/2019 are normal. Your mammogram demonstrates that you have dense breast tissue, which could hide abnormalities. Dense breast tissue, in and of itself, is a relatively common condition. Therefore, this information is not provided to cause undue concern; rather, it is to raise your awareness and promote discussion with your health care provider regarding the presence of dense breast tissue in addition to other risk factors. Early detection of cancer is very important. We also understand recommendations regarding breast cancer screening are controversial. Please discuss with your primary care provider which strategy is best for you and whether a mammogram is right for you. Your imaging studies and report will be kept on file at [facility] as part of your permanent medical record and are available for your continuing care. Thank you for allowing us to help in meeting your health care needs. Sincerely, Dr. Heaton Interpreting Radiologist [facility] (Normal over 40) Normal [facility] CNOVon 11-03-2019 CNOV Office Visit (ENDOSO ) CANDE RAHMAN ([id number]) 1970 F Date Time Provider Department 11/03/19 2:00 PM GABRIELLA WANG During your visit today, we recorded the following information about you: Pulse Blood pressure Weight Height 76/minute 102/58 80.9 kg 1.676 m Last Period 10/15/19 Gabriella Wang MD 11/03/2019 2:19 PM Signed Endocrinology Consult NEW patient Sent at the request of:Dr. Rodriguez for evaluation of abnormal thyroid function My final recommendation will be communicated back to the requesting physician by way of shared medical record or letter. CC abnormal thyroid function Ms. Cande Rahman is a 49 y old woman here for evaluation of abnormal thyroid function She needs to get hysterectomy On lithium for bipolar depression. She was on this for 6 months and this was stopped a month ago She is now on latuda for the bipolar/depression +constipation She is having periods every two weeks for 6 months if not more. She reports the changes in her periods even before the lithium was started. Has had some weight gain. She will be weaned off depakote. Was on one a day from 3 a day No hot or cold intolerance. No inappropriate sweating. No thyroid pain. No change in voice, difficulty swallowing, or neck pressure. No palpitations. No skin or hair changes. Family history of thyroid disease: no Radiation exposure: no Difficulty swallowing: no Difficulty breathing: no ROS otherwise negative. Current Outpatient Medications Medication Sig - oxybutynin ER (DITROPAN XL) 10 mg 24 hr tablet - lurasidone (LATUDA) 20 mg tablet Take 1 tablet by mouth once daily. - divalproex DR (DEPAKOTE) 500 mg EC tablet Take 500 mg by mouth three times daily. - LORazepam (ATIVAN) 0.5 mg tab Take 0.5 mg by mouth twice daily. - ibuprofen (MOTRIN) 800 mg tablet Take 800 mg by mouth every 6 hours as needed. - Marlboro Aspartate 20 mg cap Take 1 capsule by mouth once daily. - HYDROcodone-acetaminop hen (NORCO) 5-325 mg per tablet Take 1 tablet by mouth every 8 hours as needed. No current facility-administered medications for this visit. ALLERGIES No Known Allergies pmhx-Ptsd, depression, anxiety, bipolar Surgical hx-Has had tubes tied, lower back surgery and gallstone surgery Social History Tobacco Use - Smoking status: Current Every Day Smoker Years: 30.00 Types: Cigarettes - Smokeless tobacco: Current User Substance Use Topics - Alcohol use: Yes - Drug use: Not Currently No family history on file. REVIEW OF SYSTEMS GENERAL: No weight loss, malaise or fevers., SEE HPI HEENT: Negative for frequent or significant headaches, No changes in hearing or vision, no nose bleeds or other nasal problems NECK: Negative for lumps, goiter, pain and significant neck swelling RESPIRATORY: Negative for cough, wheezing or shortness of breath. CARDIOVASCULAR: Negative for chest pain, leg swelling or palpitations. GI: Negative for abdominal discomfort, blood in stools or black stools or change in bowel habits MUSCULOSKELETAL: Negative for joint pain or swelling, back pain or muscle pain. SKIN: Negative for lesions, rash, and itching. : No polyuria or dysuria. HEMATOLOGY/LYMPHOLOGY: Negative for prolonged bleeding, bruising easily or swollen nodes. ENDOCRINE: Negative for cold or heat intolerance, polyuria, polydipsia and goiter. NEURO: No history of headaches, syncope, paralysis, seizures or tremors All other reviewed and negative other than HPI. BP 102/58 (BP Site: Right Arm, BP Position: Sitting, BP Cuff Size: Extra Large Adult) Pulse 76 Ht 167.6 cm (5' 6 ) Wt 80.9 kg (178 lb 6 oz) LMP 10/15/2019 BMI 28.79 kg/m? Physical Examination General: alert and oriented X 3, well appearing, pleasant and in no acute distress HEENT: eyes without erythema or icterus, no neck lymphadenopathy or mass. Thyroid exam: No goiter or palpable thyroid nodule LN: No palpable cervical or supraclavicular lymphadenopathy. Skin: no rash, no nail changes Cardiac: RRR, no murmur gallop or rub, no peripheral edema Respiratory: CTA bilaterally, no wheezing or rhonchi Gastrointestinal: soft, NT, no palpable masses Musculoskeletal: no notable extremity weakness Neurological: symmetric reflexes bilateral upper and lower extremities. CNII-XII intact Impression and Plan: 49 y old woman here evaluation of abnormal thyroid function. She has no palpable nodules on exam. She reports constipation and weight gain. Off lithium now for one month which was stopped by her therapist. Suspect this possibly may have affected her thyroid function. Plan for hysterectomy by SHOP TECH -TSH only mildly elevated. We will repeat labs today with thyroid antibodies. If still elevated to start a low dose levothyroxine and we can repeat free t4/tsh at the end of October prior to surgery. Gabriella Wang MD Endocrinology Staff [phone] can leave a message on her phone Referring Provider: ALANNA RODRIGUEZ [[id number]] Allergies As of Date: 11/03/2019 (No Known Allergies) Date Reviewed: 11/03/2019 Reviewed by: Trinity Shen Ma - Fully Assessed Reason for Visit: New Patient [172] Primary Visit Diagnosis:Other specified hypothyroidism [E03.8] Other Visit Diagnosis:Constipation , unspecified constipation type [K59.00] Order(s):TSH BLD [SQTSH] Order #: [id number] FUTURE T4 FREE/FREE THYROX [SQFT4] Order #: [id number] FUTURE THYROID PEROXIDASE ANTIBODY BLOOD [SQMICRO] Order #: [id number] FUTURE THYROGLOBULIN AB [SQTGAB] Order #: [id number] FUTURE Prescriptions as of 11/03/2019 Sig: OXYBUTYNIN CHLORIDE ER 10 MG * LATUDA 20 MG TABLET Take 1 tablet by mouth once d* DIVALPROEX 500 MG TABLET,SOFIA* Take 500 mg by mouth three ti* LORAZEPAM 0.5 MG TABLET Take 0.5 mg by mouth twice da* IBUPROFEN 800 MG TABLET Take 800 mg by mouth every 6 * LITHIUM ASPARTATE 20 MG CAPSU* Take 1 capsule by mouth once * HYDROCODONE 5 MG-ACETAMINOPHE* Take 1 tablet by mouth every * Problem List As Of Date: 11/03/2019 (None) Encounter Status:Closed by GABRIELLA WANG MD on 11/03/19 Normal [facility] Free T4on 11-03-2019 Free T4 [Mass/Vol] 1.0 ng/dL Normal 0.9-1.7 [facility] Comment on above: Performed By: #### F T4, TSH, TGAB, MICRO ####[facility] [id number] [place], [place] [id number] [facility] SCREENINGon 11-03-2019 [facility] SCREENING * * *Final Report* * * DATE OF EXAM: Nov 03 2019 3:04PM SOW 0581 - [facility] SCREENING / PROCEDURE REASON: Encounter for screening mammogram for malignant neoplasm of breast * * * * Physician Interpretation * * * * RESULT: #[id number] - [facility] SCREENING BILATERAL DIGITAL SCREENING MAMMOGRAM WITH CAD: 11/03/2019 HISTORY: Encounter For Screening Mammogram For Malignant Neoplasm Of Breast /Screening Mammogram-Patient reports NO symptoms. RESULT: TECHNIQUE: The study was acquired using full field digital technology and interpreted from soft copy. Current study was also evaluated with a Computer Aided Detection (CAD). No prior exams were available for comparison. The tissue of both breasts is heterogeneously dense. This may lower the sensitivity of mammography. No significant masses, calcifications, or other findings are seen in either breast. IMPRESSION: NEGATIVE There is no mammographic evidence of malignancy. A 1 year screening mammogram is recommended. Adriane Heaton M.D., lp/penrad:11/03/2019 16:30:11 Public Relations Intern(s): Tawana Solis [facility] letter sent: Normal over 40 Mammogram BI-RADS: 1 Negative Multiple national specialty organizations have released breast cancer screening guidelines for women at average risk for developing breast cancer - guidelines that are based on both evidence and opinion, yet differ on when to start and how often to screen for breast cancer. With representation from Breast Imaging, Internal Medicine, Women's Health, Family Medicine, and Medical/Surgical Oncology, the [facility] has carefully reviewed the data and reached the following consensus: 1) All women should engage in shared decision-making with their providers to decide when to start and how often to screen; 2) All women should have the opportunity to start screening mammography at age 40; 3) For women ages 45-55, we recommend annual screening mammograms; 4) For women ages 55 and over, we support both the transition from an annual to a biennial interval if this aligns more with patient's values and preferences, or continuation with annual screening; 5) All women should discuss with their providers when to stop screening mammograms. Merit System Director: Tawnya Transcribe Date/Time: Nov 03 2019 2:42P Dictated by: ADRIANE HEATON MD This examination was interpreted and the report reviewed and electronically signed by: ADRIANE HEATON MD on Nov 03 2019 4:30PM EST [id number] [facility] PROGRESSon 11-03-2019 PROGRESS HNO ID: [id number] Author: Jose Ramon Benz (Tech) Service: ? Author Type: Unit Manager [employer] Type: Progress Notes Filed: 11/03/2019 3:05 PM Note Text: Radiology Service Progress Note PATIENT NAME: Cande Rahman DATE OF SERVICE: November 03, 2019 TIME: 3:05 PM PATIENT IDENTITY VERIFICATION COMPLETED USING TWO (2) IDENTIFIERS: Name and Date of confirmed by patient verbally. PATIENT GENDER DATA: Female. status: : No status: NO. PATIENT RELEVANT IMPLANT DATA REVIEWED: Yes RADIOLOGY DEPARTMENT: Mammography PERIPHERAL IV DATA: Not applicable SIGNED BY: Jose Ramon Benz November 03, 2019 3:05 PM [facility] PROGRESS HNO ID: [id number] Author: Gabriella Wang Service: ? Author Type: Physician Type: Progress Notes Filed: 11/03/2019 2:19 PM Note Text: Endocrinology Consult NEW patient Sent at the request of:Dr. Rodriguez for evaluation of abnormal thyroid function My final recommendation will be communicated back to the requesting physician by way of shared medical record or letter. CC abnormal thyroid function Ms. Cande Rahman is a 49 y old woman here for evaluation of abnormal thyroid function She needs to get hysterectomy On lithium for bipolar depression. She was on this for 6 months and this was stopped a month ago She is now on latuda for the bipolar/depression +constipation She is having periods every two weeks for 6 months if not more. She reports the changes in her periods even before the lithium was started. Has had some weight gain. She will be weaned off depakote. Was on one a day from 3 a day No hot or cold intolerance. No inappropriate sweating. No thyroid pain. No change in voice, difficulty swallowing, or neck pressure. No palpitations. No skin or hair changes. Family history of thyroid disease: no Radiation exposure: no Difficulty swallowing: no Difficulty breathing: no ROS otherwise negative. Current Outpatient Medications Medication Sig - oxybutynin ER (DITROPAN XL) 10 mg 24 hr tablet - lurasidone (LATUDA) 20 mg tablet Take 1 tablet by mouth once daily. - divalproex DR (DEPAKOTE) 500 mg EC tablet Take 500 mg by mouth three times daily. - LORazepam (ATIVAN) 0.5 mg tab Take 0.5 mg by mouth twice daily. - ibuprofen (MOTRIN) 800 mg tablet Take 800 mg by mouth every 6 hours as needed. - Marlboro Aspartate 20 mg cap Take 1 capsule by mouth once daily. - HYDROcodone-acetaminop hen (NORCO) 5-325 mg per tablet Take 1 tablet by mouth every 8 hours as needed. No current facility-administered medications for this visit. ALLERGIES No Known Allergies pmhx-Ptsd, depression, anxiety, bipolar Surgical hx-Has had tubes tied, lower back surgery and gallstone surgery Social History Tobacco Use - Smoking status: Current Every Day Smoker Years: 30.00 Types: Cigarettes - Smokeless tobacco: Current User Substance Use Topics - Alcohol use: Yes - Drug use: Not Currently No family history on file. REVIEW OF SYSTEMS GENERAL: No weight loss, malaise or fevers., SEE HPI HEENT: Negative for frequent or significant headaches, No changes in hearing or vision, no nose bleeds or other nasal problems NECK: Negative for lumps, goiter, pain and significant neck swelling RESPIRATORY: Negative for cough, wheezing or shortness of breath. CARDIOVASCULAR: Negative for chest pain, leg swelling or palpitations. GI: Negative for abdominal discomfort, blood in stools or black stools or change in bowel habits MUSCULOSKELETAL: Negative for joint pain or swelling, back pain or muscle pain. SKIN: Negative for lesions, rash, and itching. : No polyuria or dysuria. HEMATOLOGY/LYMPHOLOGY: Negative for prolonged bleeding, bruising easily or swollen nodes. ENDOCRINE: Negative for cold or heat intolerance, polyuria, polydipsia and goiter. NEURO: No history of headaches, syncope, paralysis, seizures or tremors All other reviewed and negative other than HPI. BP 102/58 (BP Site: Right Arm, BP Position: Sitting, BP Cuff Size: Extra Large Adult) Pulse 76 Ht 167.6 cm (5' 6 ) Wt 80.9 kg (178 lb 6 oz) LMP 10/15/2019 BMI 28.79 kg/m? Physical Examination General: alert and oriented X 3, well appearing, pleasant and in no acute distress HEENT: eyes without erythema or icterus, no neck lymphadenopathy or mass. Thyroid exam: No goiter or palpable thyroid nodule LN: No palpable cervical or supraclavicular lymphadenopathy. Skin: no rash, no nail changes Cardiac: RRR, no murmur gallop or rub, no peripheral edema Respiratory: CTA bilaterally, no wheezing or rhonchi Gastrointestinal: soft, NT, no palpable masses Musculoskeletal: no notable extremity weakness Neurological: symmetric reflexes bilateral upper and lower extremities. CNII-XII intact Impression and Plan: 49 y old woman here evaluation of abnormal thyroid function. She has no palpable nodules on exam. She reports constipation and weight gain. Off lithium now for one month which was stopped by her therapist. Suspect this possibly may have affected her thyroid function. Plan for hysterectomy by SHOP TECH -TSH only mildly elevated. We will repeat labs today with thyroid antibodies. If still elevated to start a low dose levothyroxine and we can repeat free t4/tsh at the end of October prior to surgery. Gabriella Wang MD Endocrinology Staff [phone] can leave a message on her phone [facility] TPO Antibodyon 11-03-2019 TPO Antibody <1.0 Normal <5.6 [facility] Comment on above: Performed By: #### F T4, TSH, TGAB, MICRO ####[facility] [place], [place] [phone] TSHon 11-03-2019 TSH Qn 1.400 uU/mL Normal 0.270-4.200 [facility] Comment on above: Result Comment: If t he patient is , TSH reference range varies by gestational period: First Trimester (weeks 9-12): 0.180-2.990 mcIU/mL Second Trimester: 0.110-3.980 mcIU/mL Third Trimester: 0.480-4.710 mcIU/mL Lance Malcolm et al. A Practical Approach for the Verifications and Determination of Site- and Trimester-Specific Reference Intervals for Thyroid Function tests in . Thyroid, 2019:29:3:412-420. Clyde E, et al. 2017 Guidelines of the [place] Thy[employer] for the Diagnosis and Management of Thyroid Disease during and the . Thyroid, 2017:27:3:315-389. Performed By: #### F T4, TSH, TGAB, MICRO ####[facility] [place], [place] [phone] Thyroglobulin Abon 0 Thyroglobulin Ab Qn 1.4 [IU]/mL Normal <14.[address] [facility] Comment on above: Performed By: #### F T4, TSH, TGAB, MICRO ####[facility] [place], [place] [phone] CNOVon 10-07-2019 CNOV Office Visit (OBGYSO ) CANDE RAHMAN ([id number]) 1970 F Date Time Provider Department 10/07/19 9:45 AM ALANNA RODRIGUEZ During your visit today, we recorded the following information about you: Blood pressure Weight Last Period 110 82.6 kg 10/07/19 Alanna Rodriguez MD 10/07/2019 10:26 AM Signed Patient is here for a pre-operative consultation. Patient with long hx menorrhagia and dysmenorrhea. Declined medical management. Endometrial biopsy : normal. Pap smear and HPV ; negative She strongly desires hysterectomy. Recent ultrasound with normal uterus except for small fibroid and ovaries. Discussed Risks/Benefits and Alternatives to Hysterectomy at length. After explaining risks such as infection , hemorrhage, injury to bowel, bladder, ureter, large blood vessels, deep vein thromboembolism , pulmonary embolism and anesthetic complications informed consent was obtained for Total laparoscopic hysterectomy, Bilateral salpingectomy and cystoscopy. Discussed ovarian preservation and patient agrees to leave ovaries in unless there is visible pathology. Consent obtained. Post op recovery discussed. Surgical paper work done. TSH elevated, will get endocrinology consult and clearance. Also will get clearance from PCP In view of h/o smoking. Questions answered. Will proceed with scheduling. Total time spent 25 minutes, more than 50% of time was spent talking face to face. Alanna Rodriguez MD Referring Provider: SELF [200] Allergies As of Date: 10/07/2019 (No Known Allergies) Date Reviewed: 10/07/2019 Reviewed by: Albertina Al Ma - Fully Assessed Reason for Visit: Uterine Fibroids [287] Primary Visit Diagnosis:Preoperative clearance [Z01.818] Other Visit Diagnoses:Menorrhagia with regular cycle [N92.0] Intramural leiomyoma of uterus [D25.1] Dysmenorrhea [N94.6] Encounter for screening mammogram for malignant neoplasm of breast [Z12.31] Order(s):lurasidone (LATUDA) 20 mg tabletTake 1 tablet by mouth once daily.Disp: Rfl: CONSULT TO PCP [3036536] Order #: [id number]: 1 FUTURE SURGICAL REQUEST - ELECTIVE [[id number]] Order #: [id number]: 1 PORTER SCREENING [[id number]] Order #: [id number] FUTURE Prescriptions as of 10/07/2019 Sig: DIVALPROEX 500 MG TABLET,SOFIA* Take 500 mg by mouth three ti* LORAZEPAM 0.5 MG TABLET Take 0.5 mg by mouth twice da* IBUPROFEN 800 MG TABLET Take 800 mg by mouth every 6 * LATUDA 20 MG TABLET Take 1 tablet by mouth once d* LITHIUM ASPARTATE 20 MG CAPSU* Take 1 capsule by mouth once * HYDROCODONE 5 MG-ACETAMINOPHE* Take 1 tablet by mouth every * Problem List As Of Date: 10/07/2019 (None) Prescriptions ordered this encounter Disp Refills Start End LATUDA 20 MG TABLET 10/07/2019 Class: Med Update Route: ORAL Sig: Take 1 tablet by mouth once daily. Disposition: Return in about 3 months (around 01/06/2020), or if symptoms worsen or fail to improve. Follow-up and Disposition History Recorded Encounter Status:Closed by ALANNA RODRIGUEZ MD on 10/07/19 [facility] 10-07-2019 HOSP Patient:Sally Rahman MRN: Height:5' 6 (1.676 m) Weight:No patient weight recorded within the last 30 days. Outpatient Medications as of 12/14/19: oxybutynin ER (DITROPAN XL) 10 mg 24 hr tablet lurasidone (LATUDA) [address] (DEPAKOTE) 500 mg EC tablet LORazepam (ATIVAN) 0.5 mg tab Marl[place] Aspartate 20 mg cap HYDROcodone-acetaminop hen (NORCO) 5-325 mg per tablet ibuprofen (MOTRIN) 800 mg tablet Admission/Clinic Administered Medications as of 12/14/19: lidocaine 10 mg/mL (1 %) 1-2 mg injection (XYLOCAINE) lactated ringers infusion ceFAZolin iv piggyback 2 g in D5W (iso-osmotic) 100 mL (ANCEF) Problem List: No problem list on file for this patient. Allergies: No Known Allergies Date Verified:12/14/19 Lab Values No results within the last 30 days for the following basenames: K,HCT Progress Notes (CL[employer]ICAL [employer]PER[employer]OR [facility]): Lula Peers RN 12/13/2019 10:12 AM Signed Spoke with pt, she is scheduled for surgery tomorrow and was to have CT scan and get medical clearance for surgery. Pt states she had the scan done and has a letter stating she is cleared for surgery. She has no way to fax letter, would like to just bring with her tomorrow. Reviewed with Dr. Rodriguez and that is acceptable. Pt aware. Also advised that she will get a call this afternoon telling her what time to be at the hospital. Lula Peres RN Progress Notes (CLINICAL [employer]PER[employer]OR [facility]): Lula Peres RN 11/22/2019 4:11 PM Signed Pt called in today , she is scheduled for surgery tomorrow and was not able to get all of her medical clearance. Pt was seeing her pcp in [place] and they requested a CT of the brain d/t hx strokes and she has not been able to schedule it because it hasn't been approved by insurance. Dr. Rodriguez aware and surgery to be rescheduled. Surgery rescheduled to 12-14-2019. OR aware. Lula Peres RN 11/23/2019 11:50 AM Signed Pre-printed letter sent to pt addressing surgical date change and now change inpost op appt date. Also added to letter that she is to fax the labs, EKG and the Ct results that were done by her pcp in [place] to the office so they can be uploaded into her chart. Advised to keep us informed of status of scheduling her CT scan and will plan on new surgical date of 12-14-2019. Lula Shepherd RN 11/23/2019 3:02 PM Signed Records received from [facility] in [place]. Placed on Dr. Rodriguez's desk for review Adriana Peres RN also notified that records were received Will scan to chart once reviewed by . [facility] PROGRESSon 10-07-2019 PROGRESS HNO ID: [id number] Author: Alanna Rodriguez Service: ? Author Type: Physician Type: Progress Notes Filed: 10/07/2019 10:26 AM Note Text: Patient is here for a pre-operative consultation. Patient with long hx menorrhagia and dysmenorrhea. Declined medical management. Endometrial biopsy : normal. Pap smear and HPV ; negative She strongly desires hysterectomy. Recent ultrasound with normal uterus except for small fibroid and ovaries. Discussed Risks/Benefits and Alternatives to Hysterectomy at length. After explaining risks such as infection , hemorrhage, injury to bowel, bladder, ureter, large blood vessels, deep vein thromboembolism , pulmonary embolism and anesthetic complications informed consent was obtained for Total laparoscopic hysterectomy, Bilateral salpingectomy and cystoscopy. Discussed ovarian preservation and patient agrees to leave ovaries in unless there is visible pathology. Consent obtained. Post op recovery discussed. Surgical paper work done. TSH elevated, will get endocrinology consult and clearance. Also will get clearance from PCP In view of h/o smoking. Questions answered. Will proceed with scheduling. Total time spent 25 minutes, more than 50% of time was spent talking face to face. Alanna Rodriguez MD Normal [facility] 09-17-2019 [facility] Telephone (HLPROB) CANDE RAHMAN ([id number]) 1970 F Date Time Provider Department 09/17/19 ALANNA RODRIGUEZ During your visit today, we recorded the following information about you: Alanna Rodriguez MD 09/17/2019 11:58 AM Signed Called, identified by three patient identifiers. EB ; benign US ; small 1 cm fibroid , otherwise normal. CBC, CMP : normal. TSH elevated, advised to follow up with endocrinology. Answered all her questions . She has follow up appointment with me next month to discuss further plan of management. Allergies As of Date: 09/17/2019 (Not on File) Date Reviewed: 09/10/2019 Reviewed by: Alanna Rodriguez - Fully Assessed Reason for Visit: Results [95] Prescriptions as of 09/17/2019 Sig: DIVALPROEX 500 MG TABLET,SOFIA* Take 500 mg by mouth three ti* LORAZEPAM 0.5 MG TABLET Take 0.5 mg by mouth twice da* LITHIUM ASPARTATE 20 MG CAPSU* Take 1 capsule by mouth once * HYDROCODONE 5 MG-ACETAMINOPHE* Take 1 tablet by mouth every * IBUPROFEN 800 MG TABLET Take 800 mg by mouth every 6 * Problem List As Of Date: 09/17/2019 (None) Encounter Status:Closed by ALANNA RODRIGUEZ MD on 09/17/19 [facility] FEMALE PELVIS TRANSVAGon 09-14-2019 US FEMALE PELVIS TRANSVAG * * *Final Report* * * DATE OF EXAM: Sep 14 2019 10:18AM [facility] - US FEMALE PELVIS TRANSVAG / PROCEDURE REASON: multiple diagnoses * * * * Physician Interpretation * * * * EXAMINATION: TRANSVAGINAL AND LIMITED TRANSABDOMINAL PELVIC ULTRASOUND CLINICAL HISTORY: Menorrhagia with regular cycle Intramural leiomyoma of uterus Secondary dysmenorrhea; 49-year-old; LMP is reported as 09/10/2019; patient reports right pelvic pain TECHNIQUE: Sonography of the pelvis was performed by transvaginal and transabdominal (limited) techniques. Images were obtained and stored in a permanent archive. MQ: [id number] COMPARISON: None RESULT: Uterus size: 7.7 x 3.8 x 4.7 cm -Orientation: Anteverted -Myometrium: 1.6 x 1.3 x 1.6 cm posterior fundal fibroid. -Endometrial echo complex: 0.6 cm in thickness, avascular -Cervix: Several Nabothian cysts Right ovary: 2.6 x 1.7 x 1.9 cm Normal sonographic appearance. Arterial and venous flow is present throughout the ovary on color Doppler imaging with normal spectral waveforms. Left ovary: 2.7 x 1.4 x 1.6 cm Normal sonographic appearance. Arterial and venous flow is present throughout the left ovary on color Doppler imaging with normal spectral waveforms. Pelvis free fluid: None. IMPRESSION: No ovarian torsion. Small fundal fibroid. [facility]it System Director[facility] Transcribe Date/Time: Sep 14 2019 10:29A Dictated by : MY RICHARDSON MD This examination was interpreted and the report reviewed and electronically signed by: MY RICHARDSON MD on Sep 14 2019 10:32AM EST [id number] [facility] 09-13-2019 [facility] Telephone ([place]da) CANDE RAHMAN ([id number]) 1970 F Date Time Provider Department 09/13/19 ALANNA RODRIGUEZ During your visit today, we recorded the following information about you: Alanna Rodriguez MD 09/13/2019 10:36 AM Signed Please call and inform her blood test results: CBC ; normal. CMP : normal. TSH : elevated, need endocrinology consult for further management. Placed request in system, please guide her to schedule. Cece Shepherd RN 09/13/2019 10:59 AM Signed Patient has been identified by name and date of : Yes Spoke with pt Results discussed Will call back to get endocrine phone number Currently driving. Endocrinology appts- [phone] Chantal Gómez RN, RN 09/14/2019 10:29 AM Signed Patient has been identified by name and date of : Yes Pt present in office, had US done in the building today Pt requesting to review results Chart reviewed Pt advised Biopsy results not yet back, pap test not yet back, blood work cbc, cmp normal Advised TSH elevated Pt requesting to see a specific cold roll catcher in [place] Requesting a referral from Dr Rodriguez Advised pt a referral has been placed for endocrinology in the [facility] system Advised pt to first check with her insurance to see if this is a covered provider, or in network Pt will call insurance company and go from there Allergies As of Date: 09/13/2019 (Not on File) Date Reviewed: 09/10/2019 Reviewed by: Alanna Rodriguez - Fully Assessed Reason for Visit: Results [95] Primary Visit Diagnosis: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] Order(s):CONSULT TO ENDOCRINOLOGY [9007] Order #: [id number]: 1 Prescriptions as of 09/13/2019 Sig: DIVALPROEX 500 MG TABLET,SOFIA* Take 500 mg by mouth three ti* LORAZEPAM 0.5 MG TABLET Take 0.5 mg by mouth twice da* LITHIUM ASPARTATE 20 MG CAPSU* Take 1 capsule by mouth once * HYDROCODONE 5 MG-ACETAMINOPHE* Take 1 tablet by mouth every * IBUPROFEN 800 MG TABLET Take 800 mg by mouth every 6 * Problem List As Of Date: 09/13/2019 (None) Encounter Status:Closed by CHANTAL GÓMEZ on 09/14/19 [facility] CBC and Differentialon 09-10 Abs Baso 0.05 k/uL Normal <0.11 [facility] Comment on above: Performed By: #### C BCDIF, CMP, TSH #### [place] [id number] [place] [address] Abs [place] 0.68 k/uL Normal <0.87 [facility] Comment on above: Performed By: #### C BCDIF, CMP, TSH #### [place] [id number] [place] [address] Abs Neut 7.04 k/uL Normal 1.45-7.50 [facility] Comment on above: Performed By: #### C BCDIF, CMP, TSH #### [place] [id number] [place] [address] Absolute nRBC <0.01 Normal <0.01 [facility] Comment on above: Performed By: #### C BCDIF, CMP, TSH #### [place] [id number] [place] [address] Basophils/100 WBC (Bld) 0.5 % Normal [facility] Comment on above: Performed By: #### C BCDIF, CMP, TSH #### [facility] [address] [place] [address] DTYPE Auto Diff Normal [facility] Comment on above: Performed By: #### C BCDIF, CMP, TSH #### [place] [id number] [place] [id number] Eosinophils (Bld) [#/Vol] 0.10 10*3/uL Normal <0.46 [facility] Comment on above: Performed By: #### C BCDIF, CMP, TSH #### [facility] [address] [place], [place] [address] Eosinophils/100 WBC (Bld) 0.9 % Normal [facility] Comment on above: Performed By: #### C BCOSCARF CMP, TSH #### [facility] [address] [place], [place] [address] Erythrocyte distribution width (RBC) [Ratio] 12.3 % Normal 11.5-15.0 [facility] Comment on above: Performed By: #### C BCDIF CMP, TSH #### [place] [id number] [place] [address] Hematocrit (Bld) [Volume fraction] 46.1 % High 36.0-46.0 [facility] Comment on above: Performed By: #### C BCDIF CMP, TSH #### [place] [id number] [place] [address] Hemoglobin (Bld) [Mass/Vol] 14.9 g/dL Normal 11.5-15.5 [facility] Comment on above: Performed By: #### C BCGENESIS CMP, TSH #### [place] [id number] [place], [place] [address] Lymphocytes (Bld) [#/Vol] 3.02 10*3/uL Normal 1.00-4.00 [facility] Comment on above: Performed By: #### C BCDIF CMP, TSH #### [place] [id number] [place], [place] [address] Lymphocytes/100 WBC (Bld) 27.7 % Normal [facility] Comment on above: Performed By: #### C BCDIF CMP, TSH #### [place] [id number] [place], [place] [address] MCH (RBC) [Entitic mass] 31.7 pG Normal 26.0-34.0 [facility] Comment on above: Performed By: #### C BCDIF CMP, TSH #### [facility] [address] [place], [place] [address] MCHC (RBC) [Mass/Vol] 32.3 g/dL Normal 30.5-36.0 [facility] Comment on above: Performed By: #### C BCDIF, CMP, TSH #### [facility] [address] [place] [address] MCV (RBC) [Entitic vol] 98.1 fL Normal 80.0-100.0 [facility] Comment on above: Performed By: #### C BCDIF, CMP, TSH #### [place] [id number] [place] [address] Monocytes/100 WBC (Bld) 6.2 % Normal [facility] Comment on above: Performed By: #### C BCDIF, CMP, TSH #### [place] [id number] [place] [address] Neutrophils/100 WBC (Bld) 64.7 % Normal [facility] Comment on above: Performed By: #### C BCDIF, CMP, TSH #### [place] [id number] [place] [address] NRBCs 0.0 /100 WBC Normal 0 [facility] Comment on above: Performed By: #### C BCDIF, CMP, TSH #### [place] [id number] [place] [address] Platelet mean volume (Bld) [Entitic vol] 10.2 fL Normal 9.0-12.7 [facility] Comment on above: Performed By: #### C BCDIF, CMP, TSH #### [place] [id number] [place] [address] Platelets (Bld) [#/Vol] 316 10*3/uL Normal 150-400 [facility] Comment on above: Performed By: #### C BCDIF, CMP, TSH #### [facility] [address] [place], [place] [address] RBC (Bld) [#/Vol] 4.70 10*6/uL Normal 3.90-5.20 [facility] Comment on above: Performed By: #### C BCDIF, CMP, TSH #### [facility] [address] [place], [place] [address] WBC (Bld) [#/Vol] 10.89 10*3/uL Normal 3.70-11.[address] [facility] Comment on above: Performed By: #### C BCDIF, CMP, TSH #### [facility] [address] [place], [place] [address] CNOVon 09-10-2019 CNOV Office Visit (OBGYSO ) CANDE RAHMAN ([id number]) 1970 F Date Time Provider Department 09/10/19 2:00 PM ALANNA RODRIGUEZ During your visit today, we recorded the following information about you: Blood pressure Weight Height Last Period 100/68 78.9 kg 1.676 m 09/10/19 Alanna Rodriguez MD 09/10/2019 2:19 PM Signed Reason for office visit : menorrhagia HPI ; Cande Rahman is a 49 year old female who presents for problem visit : Bleed 5 days/20 days, heavy bleeding first 3 days with some blood clots and abdominal cramping for last 6 months. Prior to 6 months had normal regular periods with regular flow. No Symptoms of anemia. Did not try any treatment for menorrhagia. GYNH : Last pap smear : 6 months back normal Last mammogram ; one year back normal. BC : tubal ligation. Sexually active STD's : none OB History T0 L3 SAB0 TAB0 Ectopic0 Multiple0 Live Births0 History reviewed. No pertinent past medical history. History reviewed. No pertinent surgical history. History reviewed. No pertinent family history. Social History Tobacco Use - Smoking status: Current Every Day Smoker Years: 30.00 Types: Cigarettes - Smokeless tobacco: Never Used Substance Use Topics - Alcohol use: Yes - Drug use: Not Currently Current Outpatient Medications Medication Sig - divalproex DR (DEPAKOTE) 500 mg EC tablet Take 500 mg by mouth three times daily. - LORazepam (ATIVAN) 0.5 mg tab Take 0.5 mg by mouth twice daily. - Marlboro Aspartate 20 mg cap Take 1 capsule by mouth once daily. - ibuprofen (MOTRIN) 800 mg tablet Take 800 mg by mouth every 6 hours as needed. - HYDROcodone-acetaminop hen (NORCO) 5-325 mg per tablet Take 1 tablet by mouth every 8 hours as needed. No current facility-administered medications for this visit. Allergies As of Date: 09/10/2019 (Not on File) Fully Assessed 09/10/2019 REVIEW OF SYSTEMS Abdomen: No bloating, early satiety, indigestion, or increased flatulence. No abdominal pain, nausea, vomiting, diarrhea, or constipation. Bladder: No dysuria, gross hematuria, urinary frequency, urinary urgency, or incontinence. Breast: No breast lumps, nipple d/c, overlying skin changes, redness or skin retraction. Expanded ROS: N/A Allergies and current medication updated:Yes EXAM: BP 100/68 Ht 5' 6 (1.68m) Wt 174 lb (78.9kg) LMP 09/10/2019 BMI 28.10 kg/(m2). GENERAL: pleasant, female in no apparent distress HEENT: Normocephalic, atraumatic, mucus membranes moist and no lesions NECK: Supple, full range of motion, no adenopathy and thyroid normal DERMATOLOGY: Normal, without lesions, non-icteric and non-hirsute CHEST: Normal inspiratory effort ABDOMEN: soft, non-tender and no masses PELVIC: external genitalia normal, normal Bartholin's glands, urethra, [place]'s glands, no vulvar lesions, no cervical lesions, good vaginal support, physiologic discharge present, normal appearing perineal body and perianal region BIMANUAL: uterus normal size, shape and consistency, no adnexal masses and tender on right side NEURO: alert and oriented x3,exam grossly non-focal EXTREMITIES: normal US ; 09/02/2019; Uterus 10 weeks size. 1.7 cm fibroid. ET : 16 mm ASSESSMENT AND PLAN: Menorrhagia Fibroid uterus Plan : Requested US again in [facility] system as last US from outside facility revealed some cervical mass. Explained need for EB, agreed , risks and benefits discussed, consent signed. Discussed treatment options such as Progesterone only pills, DEPO shot, Mirena IUD, Nexplanon, Hysterectomy, inclining to hysterectomy. Discussed pros and cons of all options. Also requested CBC , CMP and TSH. Answered all her questions. Total time spent 30 minutes, more than 50% of time was spent talking face to face. Alanna Rodriguez MD Endometrial biopsy : Cande Rahman is a 49 year old female. Patient's last menstrual period was 09/10/2019.. She presents today for an endometrial biopsy due to menorrhagia. The procedure including risks, benefits, options and personnel performing the procedure was discussed with the patient. There are no contraindications to the procedure. Cande Rahman expressed understanding and agreed to proceed. UNIVERSAL PROTOCOL / SAFETY CHECKLIST Procedure to be performed: Endometrial biopsy Sign in Communication: Completed Time Out: Team Confirms the Correct Patient, Correct Procedure, Correct Site and Site Marking, Correct Position (if applicable), Prep and Dry Time (if applicable). Affirmation of Time Out: YES Sign Out Discussion: Completed Alanna Rodriguez MD The cervix was cleansed with betadine. Uterus was sounded to 7 cm. The specimen was obtained with a pipelle. The procedure was completed without complication and the patient tolerated the procedure well. The specimen was properly labeled and routed to pathology. PLAN: Will call patient with results once they are in and discuss future follow-up. MD Tresa Cedeno MA 09/10/2019 4:01 PM Signed Addended by: TRESA LAINEZ MA on: 09/10/2019 04:01 PM Modules accepted: Kristian Rodriguez MD 09/10/2019 4:25 PM Signed Addended by: ALANNA RODRIGUEZ MD on: 09/10/2019 04:25 PM Modules accepted: Orders Tresa Lainez MA 09/10/2019 4:48 PM Signed Addended by: TRESA LAINEZ MA on: 09/10/2019 04:48 PM Modules accepted: Orders Referring Provider: SELF [200] Allergies As of Date: 09/10/2019 (Not on File) Date Reviewed: 09/10/2019 Reviewed by: Alanna Rodriguez - Fully Assessed Reason for Visit: New Patient [172] Cmt: endometrial biopsy/ 2 menses monthly x 2 months Reason For Visit History Recorded Visit Diagnoses:Menorrhagia with regular cycle [N92.0] Intramural leiomyoma of uterus [D25.1] Secondary dysmenorrhea [N94.5] Order(s):SURGICAL PATHOLOGY [4214309] Order #: [id number] FEMALE PELVIS TRANSVAG [[id number]] Order #: [id number] FUTURE CBC + DIFF [SQCBCDIF] Order #: [id number] FUTURE COMP METABOLIC PANEL [SQCMP] Order #: [id number] FUTURE TSH BLD [SQTSH] Order #: [id number] FUTURE PAP FLUID CERVICAL SCREENING [[id number]] Order #: [id number] HCG QUAL UR B/O [2033801] Order #: [id number] Prescriptions as of 09/10/2019 Sig: DIVALPROEX 500 MG TABLET,SOFIA* Take 500 mg by mouth three ti* LORAZEPAM 0.5 MG TABLET Take 0.5 mg by mouth twice da* LITHIUM ASPARTATE 20 MG CAPSU* Take 1 capsule by mouth once * IBUPROFEN 800 MG TABLET Take 800 mg by mouth every 6 * HYDROCODONE 5 MG-ACETAMINOPHE* Take 1 tablet by mouth every * Problem List As Of Date: 09/10/2019 (None) Disposition: Return in about 1 year (around 09/10/2020), or if symptoms worsen or fail to improve. Follow-up and Disposition History Recorded Encounter Status:Closed by ALANNA RODRIGUEZ MD on 09/10/19 Normal [facility] CYTOLOGYon 09-10-2019 CYTOLOGY ADDITIONAL PROCEDURES PRESENT Specimen originated from [facility] Specimen #: [id number] Submitting Physician: ALANNA RODRIGUEZ SPECIMEN SUBMITTED A: CERVICAL, SCREENING, FLUID _ FINAL DIAGNOSIS A. CERVICAL, SCREENING, FLUID Satisfactory for interpretation. Excess blood. Negative for intraepithelial lesion or malignancy. Endometrial cells present in phase. This specimen has been analyzed by the ThinPrep Imaging System, an automated imaging and review system, which assists the laboratory in evaluating cells on ThinPrep Pap tests. Following automated imaging, selected pinedo from every slide are reviewed by a open claims representative. GERALD Jin(ASCP) (Electronic Signature) _ ADDITIONAL PROCEDURE(S) HUMAN PAPILLOMA VIRUS Date Ordered: 09/13/2019 Date Reported: 09/15/2019 Procedure Results and Interpretation Negative for HPV DNA high risk type 16 by PCR. Negative for HPV DNA high risk type 18 by PCR. Negative for HPV DNA high risk types: 31,33,35,39,45,51,52,5 6,58,59,66,68 by PCR. This test was developed and its performance characteristics determined by [facility]'s [facility] [place] ([facility]). It has not been cleared or approved by the FDA. [facility] is regulated under CLIA as qualified to perform high-complexity testing. This test is used for clinical purposes. It should not be regarded as investigational or for research. CLINICAL DATA ROUTINE EXAM, HPV Testing: Yes, automatic HPV patients over 30 Date of Last Menstrual Period: 09/10/2019 GROSS DESCRIPTION Glacial Acetic Acid added. STAINS A: CERVICAL, SCREENING, FLUID THIN PREP SHOP TECH x 2 Blane Singh M.D., Neonatal Intensive Care Nurse Date of Report: 09/20/2019 Date of Procedure: 09/10/2019 Date of Receipt: 09/13/2019 Submitted by: ALANNA RODRIGUEZ Location: [facility] Diagnostic interpretation performed at [place] [address]. CLIA Number: [id number] The Pap Smear is a screening test for cervical cancer. False negative results occur with all screening tests, emphasizing the need for rescreening at recommended intervals, and clinical correlation. Normal [facility] Comp Metabolic Panelon 09-10 Albumin [Mass/Vol] 4.3 g/dL Normal 3.9-4.9 [facility] Comment on above: Performed By: #### C BCDIF, CMP, TSH #### [place] [address] ALP [Catalytic activity/Vol] 56 U/L Normal 34-123 [facility] Comment on above: Performed By: #### C BCDIF, CMP, TSH #### [place] [id number] ALT [Catalytic activity/Vol] 20 U/L Normal 7-38 [facility] Comment on above: Performed By: #### C BCDIF, CMP, TSH #### [place] [phone] Anion gap [Moles/Vol] 12 mmol/L Normal 9-18 [facility] Comment on above: Performed By: #### C BCDIF, CMP, TSH #### [place] [address] AST [Catalytic activity/Vol] 17 U/L Normal 13-35 [facility] Comment on above: Performed By: #### C BCDIF, CMP, TSH #### [place] [id number] [place] [address] Bilirubin [Mass/Vol] mg/dL Low 0.2-1.[address] [facility] Comment on above: Performed By: #### C BCDIF CMP, TSH #### [facility] [address] [place] [address] Calcium [Mass/Vol] 10.0 mg/dL Normal 8.5-10.2 [facility] Comment on above: Performed By: #### C BCDIF, CMP, TSH #### [place] [id number] [place] [address] Chloride [Moles/Vol] 100 mmol/L Normal 97-[address] [facility] Comment on above: Performed By: #### C BCDIF CMP, TSH #### [place] [id number] [place] [address] CO2 [Moles/Vol] 27 mmol/L Normal 22-30 [facility] Comment on above: Performed By: #### C BCDIF, CMP, TSH #### [place] [id number] [place] [phone] Creatinine [Mass/Vol] 0.90 mg/dL Normal 0.58-0.96 [facility] Comment on above: Performed By: #### C BCDIF CMP, TSH #### [facility] [address] [place] [address] eGFR- Amer. >60 Normal [facility] Comment on above: Performed By: #### C BCDIF, CMP, TSH #### [place] [id number] [place] [address] GFR/1.73 sq M predicted among non-blacks MDRD (S/P/Bld) [Vol rate/Area] mL/min/{1.73_m2} Normal [facility] Comment on above: Result Comment: eGFR (Estimated GFR) Units of measure: mL/min/1.73 meters squared eGFR is derived from the reexpressed MDRD Study equation using the following parameters: serum creatinine, age, gender and race. The creatinine assay has been calibrated to be traceable to IDMS. An eGFR <60 mL/min/1.73m2 for >3 months is consistent with chronic kidney disease. Refer to KDOQI guidelines for clinical interpretation. In patients with unstable renal function, e.g. those with acute kidney injury, the eGFR may not accurately reflect actual GFR. Performed By: #### C SLOAN MCKAY, TSH #### [facility] [address] [place], [place] [address] Glucose [Mass/Vol] 89 mg/dL Normal 74-99 [facility] Comment on above: Result Comment: The [place] Diabetes Association (ADA) provides guidance for cutoff values for fasting glucose and random glucose. The ADA defines fasting as no caloric intake for at least 8 hours. Fasting plasma glucose results between 100 to 125 mg/dL indicate increased risk for diabetes (prediabetes). Fasting plasma glucose results greater than or equal to 126 mg/dL meet the criteria for diagnosis of diabetes. In the absence of unequivocal hyperglycemia, results should be confirmed by repeat testing. In a patient with classic symptoms of hyperglycemia or hyperglycemic crisis, random plasma glucose results greater than or equal to 200 mg/dL meet the criteria for diagnosis of diabetes. Reference: Standards of Medical Care in Diabetes 2016, [place] Diabetes Association. Diabetes Care. 2016.39(Suppl 1). Performed By: #### C SLOAN MCKAY, TSH #### [facility] [address] [place], [place] [address] Potassium [Moles/Vol] 4.3 mmol/L Normal 3.7-5.1 [facility] Comment on above: Performed By: #### C SLOAN MCKAY, TSH #### [facility] [address] [place], [place] [address] Protein [Mass/Vol] 7.5 g/dL Normal 6.3-8.0 [facility] Comment on above: Performed By: #### C BCSLOAN HURTADO, TSH #### [facility] [address] [place], [place] [address] Sodium [Moles/Vol] 139 mmol/L Normal 136-144 [facility] Comment on above: Performed By: #### C BCOSCARF, CMP, TSH #### [facility] [address] [place], [place] [address] Urea nitrogen [Mass/Vol] 14 mg/dL Normal 7-21 [facility] Comment on above: Performed By: #### C BCOSCARF, CMP, TSH #### [facility] [address] [place], [place] [address] HPV w/Genotypeon 09-10-2019 HPV HighRisk Other Negative for HPV DNA high risk types: 31,33,35,39,45,51,52,5 6,58,59,66,68 by PCR. Normal [facility] Comment on above: Result Comment: This test was developed and its performance characteristics determined by [facility]'s [facility] [place] ([facility]). It has not been cleared or approved by the FDA. ED [facility] is regulated under CLIA as qualified to perform high-complexity testing. This test is used for clinical purposes. It should not be regarded as investigational or for research. Performed By: #### H PVHRR ####[address] [phone] HPV HighRisk Type [address] [facility] Comment on above: Performed By: #### H PVHRR ####[facility] [place], [place] [phone] HPV HighRisk Type [address] [facility] Comment on above: Performed By: #### H PVHRR ####[place] [id number] [place], [place] [phone] PROGRESSon 09-10-2019 PROGRESS HNO ID: [id number] Author: Alanna Rodriguez Service: ? Author Type: Physician Type: Progress Notes Filed: 09/10/2019 2:19 PM Note Text: Reason for office visit : menorrhagia HPI ; Cande Rahman is a 49 year old female who presents for problem visit : Bleed 5 days/20 days, heavy bleeding first 3 days with some blood clots and abdominal cramping for last 6 months. Prior to 6 months had normal regular periods with regular flow. No Symptoms of anemia. Did not try any treatment for menorrhagia. GYNH : Last pap smear : 6 months back normal Last mammogram ; one year back normal. BC : tubal ligation. Sexually active STD's : none OB History T0 L3 SAB0 TAB0 Ectopic0 Multiple0 Live Births0 History reviewed. No pertinent past medical history. History reviewed. No pertinent surgical history. History reviewed. No pertinent family history. Social History Tobacco Use - Smoking status: Current Every Day Smoker Years: 30.00 Types: Cigarettes - Smokeless tobacco: Never Used Substance Use Topics - Alcohol use: Yes - Drug use: Not Currently Current Outpatient Medications Medication Sig - divalproex DR (DEPAKOTE) 500 mg EC tablet Take 500 mg by mouth three times daily. - LORazepam (ATIVAN) 0.5 mg tab Take 0.5 mg by mouth twice daily. - Marlboro Aspartate 20 mg cap Take 1 capsule by mouth once daily. - ibuprofen (MOTRIN) 800 mg tablet Take 800 mg by mouth every 6 hours as needed. - HYDROcodone-acetaminop hen (NORCO) 5-325 mg per tablet Take 1 tablet by mouth every 8 hours as needed. No current facility-administered medications for this visit. Allergies As of Date: 09/10/2019 (Not on File) Fully Assessed 09/10/2019 REVIEW OF SYSTEMS Abdomen: No bloating, early satiety, indigestion, or increased flatulence. No abdominal pain, nausea, vomiting, diarrhea, or constipation. Bladder: No dysuria, gross hematuria, urinary frequency, urinary urgency, or incontinence. Breast: No breast lumps, nipple d/c, overlying skin changes, redness or skin retraction. Expanded ROS: N/A Allergies and current medication updated:Yes EXAM: BP 100/68 Ht 5' 6 (1.68m) Wt 174 lb (78.9kg) LMP 09/10/2019 BMI 28.10 kg/(m2). GENERAL: pleasant, female in no apparent distress HEENT: Normocephalic, atraumatic, mucus membranes moist and no lesions NECK: Supple, full range of motion, no adenopathy and thyroid normal DERMATOLOGY: Normal, without lesions, non-icteric and non-hirsute CHEST: Normal inspiratory effort ABDOMEN: soft, non-tender and no masses PELVIC: external genitalia normal, normal Bartholin's glands, urethra, [place]'s glands, no vulvar lesions, no cervical lesions, good vaginal support, physiologic discharge present, normal appearing perineal body and perianal region BIMANUAL: uterus normal size, shape and consistency, no adnexal masses and tender on right side NEURO: alert and oriented x3,exam grossly non-focal EXTREMITIES: normal US ; 09/02/2019; Uterus 10 weeks size. 1.7 cm fibroid. ET : 16 mm ASSESSMENT AND PLAN: Menorrhagia Fibroid uterus Plan : Requested US again in [facility] system as last US from outside facility revealed some cervical mass. Explained need for EB, agreed , risks and benefits discussed, consent signed. Discussed treatment options such as Progesterone only pills, DEPO shot, Mirena IUD, Nexplanon, Hysterectomy, inclining to hysterectomy. Discussed pros and cons of all options. Also requested CBC , CMP and TSH. Answered all her questions. Total time spent 30 minutes, more than 50% of time was spent talking face to face. Alanna Rodriguez MD Endometrial biopsy : Cande Rahman is a 49 year old female. Patient's last menstrual period was 09/10/2019.. She presents today for an endometrial biopsy due to menorrhagia. The procedure including risks, benefits, options and personnel performing the procedure was discussed with the patient. There are no contraindications to the procedure. Cande Rahman expressed understanding and agreed to proceed. UNIVERSAL PROTOCOL / SAFETY CHECKLIST Procedure to be performed: Endometrial biopsy Sign in Communication: Completed Time Out: Team Confirms the Correct Patient, Correct Procedure, Correct Site and Site Marking, Correct Position (if applicable), Prep and Dry Time (if applicable). Affirmation of Time Out: YES Sign Out Discussion: Completed Alanna Rodriguez MD The cervix was cleansed with betadine. Uterus was sounded to 7 cm. The specimen was obtained with a pipelle. The procedure was completed without complication and the patient tolerated the procedure well. The specimen was properly labeled and routed to pathology. PLAN: Will call patient with results once they are in and discuss future follow-up. Alanna Rodriguez MD Normal [facility] SURGICAL PATHOLOGYon 019 SURGICAL PATHOLOGY Specimen originated from [facility] Specimen #: [id number] Submitting Physician: ALANNA RODRIGUEZ FINAL DIAGNOSIS Endometrium, biopsy - Secretory endometrium with stromal breakdown. GZ/shr 09/13/2019 Stephanie Magallon M.D. (Electronic Signature) _ SPECIMEN SUBMITTED A: ENDOMETRIAL CAVITY BIOPSY CLINICAL DATA MENORRHAGIA GROSS DESCRIPTION A. Received in alcoholic formalin are multiple red-brown segments of hemorrhagic material aggregating to 2.2 x 2.2 x 0.5 cm. Totally submitted in one cassette. Gross examination performed at [facility], [address] [place] [address] 09/10/2019 11:47:43 PM Date of Report: 09/15/2019 Date of Procedure: 09/10/2019 Date of Receipt: 09/10/2019 Submitted by: ALANNA RODRIGUEZ Location: [facility] [place] Diagnostic interpretation performed at [place] [address]. CLIA Number: [id number] Normal [facility] TSHon 09-10-2019 TSH Qn 5.700 uU/mL High 0.270-4.200 [facility] Comment on above: Result Comment: If t he patient is , TSH reference range varies by gestational period: First Trimester (weeks 9-12): 0.180-2.990 mcIU/mL Second Trimester: 0.110-3.980 mcIU/mL Third Trimester: 0.480-4.710 mcIU/mL Lance Mlacolm et al. A Practical Approach for the Verifications and Determination of Site- and Trimester-Specific Reference Intervals for Thyroid Function tests in . Thyroid, 2019:29:3:412-420. Clyde Arellano, et al. 2017 Guidelines of the [place] Thyroid Association for the Diagnosis and Management of Thyroid Disease during and the . Thyroid, 2017:27:3:315-389. Performed By: #### C BCDIF, CMP, TSH #### [facility] [address] [place], [place] [address] ED NOTEon 09-07-2019 ED NOTE HNO ID: [id number] Author: Nash TinajeroRn) NEREYDA Ocampo Service: Emergency Medicine Author Type: Registered Nurse Type: ED Notes Filed: 09/07/2019 3:08 PM Note Text: Discharge instructions/follow-up reviewed. All additional questions or concerns addressed at this time. Patient instructed to return to Emergency Department if experiencing worsening symptoms. Patient verbalized understanding. Patient alert, oriented, respirations easy and unlabored. Normal [facility] ED PROV NOTEon 09-07-2019 ED PROV NOTE HNO ID: [id number] Author: Fior Lucio MD Service: Emergency Medicine Author Type: Resident Type: ED Provider Notes Filed: 09/07/2019 3:09 PM Note Text: Attestation signed by January Junior MD at 09/07/2019 3:40 PM I evaluated the patient and personally participated in the leon components. I agree with the resident's findings and plan as documented and have discussed the case and management of the patient's care with the resident. 49 year old female with concern for f/up regarding pelvic pain for the last week. Feels similar to dysmenorrhea in the past, but is worse and not during menses. No fever, trauma, vaginal dc, sti exposure. Ct done for these symptoms shows likely leiomyoma and ovarian cysts. Was told that malignancy could not be ruled out. Alert, afebrile and hemodynamically stable with adequate oxygenation. Exam benign. 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 dc Signature: January Junior MD Date: 09/07/2019 Time: 3:38 PM ED Provider Note Patient Name: Cande Rahman SERVICE DATE: 09/07/19 History Patient presents with: Pelvic Pain: Pt was told she has mass on her uterus. Pt is here for second opinoin. HPI Ms. Rahman is a 49 yo female w/ hx of bipolar disorder presenting with right lower quadrant abdominal/pelvic pain x1 week. States it started last Friday. Describes a sharp, constant, 8/10 pain in RLQ that extends to right groin. Denies any nausea, vomiting, fevers, or chills. States she went to [facility] last , and had CT imaging and pelvic US done at that time. States she was told she has a mass in the uterus that may be cancer , and she was told to come to [facility] if she has persistent pain. States she is very concerned about this being cancer, and that is why she is here today. states she would like the mass removed. States her LMP was end of July. States for past few months she has been having periods twice per month, and the first 3 days are often very heavy bleeding. However, she hasn't had period in almost a month. She denies any vaginal bleeding or discharge. No hx of STIs. She also endorses hot flashes for past few months. States overall, her RLQ pain feels similar to her typical PMS pain, just worse in nature. No past medical history on file. No past surgical history on file. No family history on file. Social History Tobacco Use - Smoking status: Not on file Substance and Sexual Activity - Alcohol use: Not on file - Drug use: Not on file - Sexual activity: Not on file ALLERGIES Allergies not on file Review of Systems Constitutional: Negative for chills and fever. Eyes: Negative for visual disturbance. Respiratory: Negative for chest tightness and shortness of breath. Gastrointestinal: Positive for abdominal pain (RLQ). Genitourinary: Positive for pelvic pain (RLQ ). Negative for difficulty urinating, dysuria, hematuria, vaginal bleeding, vaginal discharge and vaginal pain. Musculoskeletal: Negative for back pain. Skin: Negative for pallor and rash. Allergic/Immunologic: Negative for immunocompromised state. Neurological: Negative for weakness and headaches. Hematological: Negative for adenopathy. Psychiatric/Behavioral : Negative for confusion. Physical Exam BP 126/73 Pulse 78 Temp (Src) 98.8 (Oral) Resp 16 Wt 176 lb (79.8kg) SpO2 100% O2 Therapy: Room Air Physical Exam Vitals signs reviewed. Constitutional: General: She is not in acute distress. Appearance: Normal appearance. She is not toxic-appearing. HENT: Mouth/Throat: Mouth: Mucous membranes are moist. Pharynx: Oropharynx is clear. Eyes: General: No scleral icterus. Extraocular Movements: Extraocular movements intact. Conjunctiva/sclera: Conjunctivae normal. Neck: Musculoskeletal: Neck supple. Cardiovascular: Rate and Rhythm: Normal rate and regular rhythm. Pulmonary: Effort: Pulmonary effort is normal. Breath sounds: Normal breath sounds. Abdominal: General: There is no distension. Palpations: There is no mass. Tenderness: There is tenderness (RLQ). There is no right CVA tenderness, left CVA tenderness, guarding or rebound. Musculoskeletal: Right lower leg: No edema. Left lower leg: No edema. Skin: General: Skin is warm and dry. Coloration: Skin is not pale. Neurological: General: No focal deficit present. Mental Status: She is alert and oriented to person, place, and time. Psychiatric: Mood and Affect: Mood normal. Behavior: Behavior normal. Diagnostic Testing ED Labs Ordered and Reviewed - No data to display Procedures ED Course / Clinical Impression Clinical Impressions as of Sep 07 1501 Uterine leiomyoma, unspecified location Pelvic pain in female MDM / Disposition / Plan MDM Ms. Rahman is a 49 yo female presenting with RLQ abdominal/groin pain x1 week. She presents afebrile and hemodynamically stable. Patient brings in medical records from recent [place] ED visit on 09/02/[address] abdomen/pelvis w/ normal appendix and Pelvic ultrasound with ovarian cysts measuring <3cm bilaterally, and suspected uterine leiomyoma. Thus, I suspect her pelvic pain that she is experiencing is likely related to her uterine fibroid and dysmenorrhea. She has had no recent fevers or vomiting to suggest new appendicitis, especially with imaging 5 days ago revealing normal appendix. Further, she is very well appearing, afebrile and hemodynamically stable here. Very low suspicion for ovarian torsion at this point given size of cysts seen on prior ultrasound, and no change in nature of her pain. Further, she describes the pain as similar to her normal PMS pain, just enhanced in nature. Her main concern today is essentially regarding the uterine mass, as she was told this may be cancerous. Thus, I spoke with OBGYN and arranged for patient to have an outpatient follow up visit within the next 2 weeks for possible Endometrial biopsy. I discussed this with patient, and she feels very reassured. I encouraged her to use Motrin for pain in the meantime, and return precautions were given. She was discharged in stable condition. Given opportunity to ask questions throughout her stay. She is agreeable to this plan. The patient was DISCHARGED: Counseled patient and family regarding suspected diagnosis AND need for follow-up. Discharged home with verbal and written instructions. They were instructed to return as needed for persistent or worsening symptoms or any new concerns. Condition at time of disposition: improved SIGNATURE: MD Fior Spencer (Res) MD Khadijah Resident 09/07/19 1509 January Junior MD 09/07/19 1540 Normal [facility] Vital Signs Date Time Vital Sign Value Performing Clinician Facility 03-15-2025 14:16-040 Body height 167.6 cm Theodore TAYLOR Work Phone: [facility] 03-15-2025 14:16-040 Body mass index (BMI) [Ratio] 30.67 kg/m2 Theodore TAYLOR Work Phone: [facility] 03-15-2025 14:16-0400 Body weight 86.18 kg Theodore TAYLOR Work Phone: [facility] 01-10-2025 14:13-0400 Body height 167.6 cm Aditi Billy NP Work Phone: [facility] 01-10-2025 14:13-0400 Body mass index (BMI) [Ratio] 28.41 kg/m2 Aditi Milton VENDOR ANALYST Work Phone: [facility] 01-10-2025 14:13-0400 Body weight 79.83 kg Aditi Milton VENDOR ANALYST Work Phone: [facility] 12-30-2024 11:14-0400 Body height 167.6 cm Cady Fernández MD Work Phone: [facility] 12-30-2024 11:14-0400 Body mass index (BMI) [Ratio] 30.04 kg/m2 Cady Fernández MD Work Phone: [facility] 12-30-2024 11:14-0400 Body weight 84.37 kg Cady Fernández MD Work Phone: [facility] 12-30-2024 11:14-0400 Respiratory rate 18 /min Cady Fernández MD Work Phone: [facility] 07-01-2024 10:49-0400 Body height 167.6 cm Cady Fernández MD Work Phone: [facility] 07-01-2024 10:49-0400 Body mass index (BMI) [Ratio] 33.1 kg/m2 Cady Fernádnez MD Work Phone: [facility] 07-01-2024 10:49-0400 Body weight 92.99 kg Cady Fernández MD Work Phone: [facility] 07-01-2024 10:49-0400 Respiratory rate 18 /min Cady Fernández MD Work Phone: [facility] 06-08-2024 13:40-0400 Body height 167.6 cm Paty MCKEON Work Phone: [facility] 06-08-2024 13:40-0400 Body mass index (BMI) [Ratio] 34.22 kg/m2 Paty Silver SPOUT POSITIONER-CLINICAL SUPERVISOR Work Phone: [facility] 06-08-2024 13:40-0400 Body weight 96.16 kg Paty Silver SPOUT POSITIONER-CLINICAL SUPERVISOR Work Phone: [facility] 06-08-2024 13:40-0400 Diastolic blood pressure 67 mm[Hg] Paty Silver SPOUT POSITIONER-CLINICAL SUPERVISOR Work Phone: [facility] 06-08-2024 13:40-0400 Heart rate 102 /min Paty Silver SPOUT POSITIONER-CLINICAL SUPERVISOR Work Phone: [facility] 06-08-2024 13:40-0400 Systolic blood pressure 97 mm[Hg] Paty Silver SPOUT POSITIONER-CLINICAL SUPERVISOR Work Phone: [facility] 01-28-2024 12:50-0400 Body height 167.6 cm [facility] 01-28-2024 12:50-0400 Body mass index (BMI) [Ratio] 34.7 kg/m2 [facility] 2 [facility] 01-28-2024 12:50-0400 Body weight 97.52 kg [facility] 2 [facility] 01-01-2024 15:29-0400 Body height 167.6 cm Guero Russ SPOUT POSITIONER-CLINICAL SUPERVISOR Work Phone: [facility] 01-01-2024 15:29-0400 Body mass index (BMI) [Ratio] 33.92 kg/m2 Gueromeghan Durbin SPOUT POSITIONER-CLINICAL SUPERVISOR Work Phone: [facility] 01-01-2024 15:29-0400 Body weight 95.25 kg Gueroeleazar Durbin SPOUT POSITIONER-CLINICAL SUPERVISOR Work Phone: [facility] 01-01-2024 15:29-0400 Diastolic blood pressure 82 mm[Hg] Guero Durbin SPOUT POSITIONER-CLINICAL SUPERVISOR Work Phone: [facility] 01-01-2024 15:29-0400 Heart rate 81 /min Guero Durbin SPOUT POSITIONER-CLINICAL SUPERVISOR Work Phone: [facility] 01-01-2024 15:29-0400 Systolic blood pressure 121 mm[Hg] Guero Durbin SPOUT POSITIONER-CLINICAL SUPERVISOR Work Phone: [facility] 01-01-2024 09:13-0400 Body height 167.6 cm Cady Fernández MD Work Phone: [facility] 01-01-2024 09:13-0400 Body mass index (BMI) [Ratio] 33.91 kg/m2 Cady Fernández MD Work Phone: [facility] 01-01-2024 09:13-0400 Body weight 95.25 kg Cady Fernández MD Work Phone: [facility] 01-01-2024 09:13-0400 Diastolic blood pressure 92 mm[Hg] [facility]dez MD [facility] 01-01-2024 09:13-0400 Respiratory rate 18 /min Cady Fernández MD [facility] 01-01-2024 09:13-0400 Systolic blood pressure 133 mm[Hg] Cady Fernández MD Work Phone: [facility] 12-04-2023 07:23-0500 Body temperature 97.9 [degF] León Oconnor MD [facility] 12-04-2023 07:23-0500 Diastolic blood pressure 57 mm[Hg] León Oconnor MD [facility] 12-04-2023 07:23-0500 Heart rate 80 /min León Oconnor MD Work Phone: [facility] 12-04-2023 07:23-0500 SaO2% (BldA) [Mass fraction] 96 % León Oconnor MD Work Phone: [facility] 12-04-2023 07:23-0500 Systolic blood pressure 91 mm[Hg] León Oconnor MD Work Phone: [facility] 12-04-2023 05:20-0500 Respiratory rate 16 /min León Oconnor MD Work Phone: [facility] 12-03-2023 15:33-0500 Body height 167.6 cm León Oconnor MD Work Phone: [facility] 12-03-2023 15:33-0500 Body mass index (BMI) [Ratio] 34.44 kg/m2 León Oconnor MD Work Phone: [facility] 12-03-2023 15:33-0500 Body weight 96.8 kg León Oconnor MD Work Phone: [facility] 11-07-2023 13:37-0500 Body height 167.6 cm [facility] [address] [place] [address] 11-07-2023 13:37-0500 Body mass index (BMI) [Ratio] 34.69 kg/m2 [facility] [address] [place] [address] 11-07-2023 13:37-0500 Body temperature 98.01 [degF] [facility] [address] [place] [address] 11-07-2023 13:37-0500 Body weight 97.5 kg [facility] 11-07-2023 13:37-0500 Diastolic blood pressure 81 mm[Hg] [facility] 11-07-2023 13:37-0500 Heart rate 95 /min [facility] 11-07-2023 13:37-0500 Respiratory rate 18 /min [facility] 11-07-2023 13:37-0500 SaO2% (BldA) [Mass fraction] 95 % [facility] 11-07-2023 13:37-0500 Systolic blood pressure 111 mm[Hg] [facility] 10-27-2023 10:47-0500 Body height 167.6 cm Cady Fernández MD [facility] 10-27-2023 10:47-0500 Body mass index (BMI) [Ratio] 34.72 kg/m2 Cady Fernández MD [facility] 10-27-2023 10:47-0500 Body weight 97.52 kg Cady Fernández MD Work Phone: [facility] 10-27-2023 10:47-0500 Diastolic blood pressure 74 mm[Hg] Cady Fernández MD [facility] 10-27-2023 10:47-0500 Respiratory rate 18 /min Cady Fernández MD [facility] 10-27-2023 10:47-0500 Systolic blood pressure 128 mm[Hg] Cady Fernández MD Work Phone: [facility] 10-16-2023 14:53-0500 Body height 167.6 cm León Oconnor MD [facility] 10-16-2023 14:53-0500 Body mass index (BMI) [Ratio] 33.91 kg/m2 León Oconnor MD [facility] 10-16-2023 14:53-0500 Body weight 95.25 kg León Oconnor MD Work Phone: [facility] 10-16-2023 14:53-0500 Diastolic blood pressure 85 mm[Hg] León Oconnor MD [facility] 10-16-2023 14:53-0500 Heart rate 95 /min León Oconnor MD Work Phone: [facility] 10-16-2023 14:53-0500 Systolic blood pressure 129 mm[Hg] León Oconnor MD Work Phone: [facility] Encounters Encounter Date Encounter Type Care Provider Facility Start: 04-15-2025 End: 04-15-2025 Bamboo flowsheet Aditi Billy VENDOR ANALYST Work Phone: [facility] Start: 04-15-2025 End: 04-15-2025 Bamboo flowsheet Aditi Billy VENDOR ANALYST Work Phone: [facility] Start: 04-15-2025 End: 04-15-2025 Postop follow up visit related to original px Aditi Billy VENDOR ANALYST Work Phone: [facility] Comment on above: Status post arthrosc opy of left shoulder Start: 04-15-2025 End: 04-15-2025 ambulatory ADITI BILLY Not Available Start: 04-01-2025 End: 04-01-2025 ambulatory [facility] Facility:[facility] Start: 03-24-2025 End: 03-31-2025 Refill Aditi Billy VENDOR ANALYST Work Phone: [facility] Comment on above: Post-operative pain (Primary Dx) Start: 03-15-2025 End: 03-15-2025 Patient encounter procedure Theodore TAYLOR Work Phone: [facility] Comment on above: Pre-op examination ( Primary Dx) Start: 03-15-2025 End: 03-15-2025 Preprocedural examination done Theodore TAYLOR Work Phone: [facility] Work Phone: Start: 03-15-2025 End: 03-15-2025 ambulatory THEODORE SAMUEL Not Available Start: 03-15-2025 End: 03-15-2025 Bamboo flowsheet Theodore TAYLOR Work Phone: [facility] Start: 03-15-2025 End: 03-15-2025 Bamboo flowsheet Theodore Samuel PA Work Phone: [facility] Start: 03-08-2025 End: 03-08-2025 ambulatory [facility] Facility:[facility] Start: 02-08-2025 End: 02-22-2025 Telephone encounter Julissa Rahman RN [facility] Start: 01-21-2025 End: 01-21-2025 ambulatory [facility] Facility:[facility] Start: 01-20-2025 End: 01-21-2025 Refill Aditi Billy VENDOR ANALYST Work Phone: [facility] Comment on above: Pain and swelling of left shoulder (Primary Dx); Post-op pain Start: 01-14-2025 End: 01-14-2025 ambulatory ISAEL PATTON [facility] Start: 01-14-2025 [facility] Start: 01-14-2025 End: 01-18-2025 Telephone encounter Jr. Luis Carbone DO Work Phone: [facility] Comment on above: Surgery Clearance Start: 01-10-2025 End: 01-10-2025 Patient encounter procedure Aditi Billy VENDOR ANALYST Work Phone: [facility] Comment on above: Pre-op evaluation (P rimary Dx) Start: 01-10-2025 End: 01-10-2025 Preprocedural examination done Aditi Billy VENDOR ANALYST Work Phone: [facility] Work Phone: Start: 01-10-2025 End: 01-10-2025 ambulatory ADITI BILLY Not Available Start: 01-07-2025 End: 01-07-2025 ambulatory [facility] Facility:[facility] Start: 12-30-2024 End: 12-30-2024 Office outpatient visit 25 minutes Cady Fernández MD Work Phone: [facility] Comment on above: Fibromyalgia Start: 12-30-2024 End: 12-30-2024 ambulatory [facility] Start: 12-21-2024 End: 12-21-2024 Bamboo flowsheet [facility] Work [facility]: [facility] Start: 12-21-2024 End: 12-21-2024 Bamboo flowsheet Jr. Luis Waggoner Steplilibeth DO Work Phone: [facility] Start: 12-21-2024 End: 12-21-2024 Office outpatient visit 40 minutes Jr. Luis Carbone DO Work Phone: [facility] Comment on above: Sprain of left rotat or cuff capsule, initial encounter (Primary Dx); Status post left rotator cuff repair Start: 12-21-2024 End: 12-21-2024 ambulatory .LUIS Not Available Start: 12-07-2024 End: 12-07-2024 Bamboo flowsheet Jr. Luis Carbone DO Work Phone: [facility] Start: 12-07-2024 End: 12-07-2024 Bamboo flowsheet Jr. Luis Carbone DO Work Phone: [facility] Start: 12-07-2024 End: 12-07-2024 ambulatory JR.LUIS Not Available Start: 12-07-2024 End: 12-07-2024 Office outpatient visit 25 minutes Jr. Luis Carbone DO Work Phone: [facility] Comment on above: Pain and swelling of left shoulder (Primary Dx); Sprain of left rotator cuff capsule, initial encounter Start: 11-22-2024 End: 11-23-2024 Telephone encounter Rosalio Montes DO Work Phone: [facility] Comment on above: MRI Start: 08-24-2024 End: 08-24-2024 ambulatory ROSALIO MONTES Not Available Start: 07-22-2024 End: 07-22-2024 Bamboo flowsheet Rosalio Montes DO Work Phone: [facility] Start: 07-22-2024 End: 07-22-2024 Bamboo flowsheet Rosalio Montes DO Work Phone: [facility] Start: 07-22-2024 End: 07-22-2024 Office outpatient visit 10 minutes Rosalio Vargas Jyoti DO Work Phone: [facility] Comment on above: Chronic left shoulde r pain (Primary Dx); Status post left rotator cuff repair; Internal derangement of left shoulder Start: 07-22-2024 End: 07-22-2024 ambulatory ROSALIO ZARATEDLESTON Not Available Start: 07-15-2024 End: 07-15-2024 Bamboo flowsheet Heather Kenny FRONT END LOADER OPERATOR [facility] Start: 07-15-2024 End: 07-15-2024 Bamboo flowsheet Heather Carvajalall FRONT END LOADER OPERATOR [facility] Start: 07-15-2024 End: 07-15-2024 ambulatory Heather Kenny FRONT END LOADER OPERATOR [facility] Comment on above: Acute pain of left s houlder (Primary Dx); Status post left rotator cuff repair Start: 07-13-2024 End: 07-13-2024 Bamboo flowsheet Heather Kenny FRONT END LOADER OPERATOR [facility] Start: 07-13-2024 End: 07-13-2024 Bamboo flowsheet Heather Carvajalall FRONT END LOADER OPERATOR [facility] Start: 07-13-2024 End: 07-13-2024 ambulatory Heather Kenny FRONT END LOADER OPERATOR [facility] Comment on above: Acute pain of left s houlder (Primary Dx); Status post left rotator cuff repair Start: 07-08-2024 End: 07-08-2024 Bamboo flowsheet Trisha J Kobe PT Work Phone: [facility] Start: 07-08-2024 End: 07-08-2024 Bamboo flowsheet Trisha J Kobe PT Work Phone: [facility] Start: 07-08-2024 End: 07-08-2024 ambulatory Trisha J Kobe PT Work Phone: [facility] Comment on above: Acute pain of left s houlder (Primary Dx); Status post left rotator cuff repair Start: 07-06-2024 End: 07-06-2024 Bamboo flowsheet Heather Kenny FRONT END LOADER OPERATOR [facility] Start: 07-06-2024 End: 07-06-2024 Bamboo flowsheet Heather Kenny FRONT END LOADER OPERATOR [facility] Start: 07-06-2024 End: 07-06-2024 ambulatory Heather Kenny FRONT END LOADER OPERATOR [facility] Comment on above: Acute pain of left s houlder (Primary Dx); Status post left rotator cuff repair Start: 07-05-2024 End: 07-05-2024 Refill Cady Fernández MD Work Phone: [facility] Comment on above: Fibromyalgia Start: 07-01-2024 End: 09-13-2024 Telephone encounter Trisha J Kobe PT Work Phone: [facility] Start: 07-01-2024 End: 07-01-2024 Office outpatient visit 25 minutes Cady Fernández MD Work Phone: [facility] Comment on above: Fibromyalgia (Primar y Dx) Start: 07-01-2024 End: 07-01-2024 ambulatory [facility] Start: 06-23-2024 End: 06-23-2024 Bamboo flowsheet Trisha J Kobe PT Work Phone: [facility] Start: 06-23-2024 End: 06-23-2024 Bamboo flowsheet Trisha J Kobe PT Work Phone: [facility] Start: 06-23-2024 End: 06-24-2024 ambulatory Trisha J Kobe PT Work Phone: [facility] Comment on above: Acute pain of left s houlder (Primary Dx); Status post left rotator cuff repair Start: 06-17-2024 End: 06-17-2024 ambulatory Trisha J Kobe PT Work Phone: [facility] Comment on above: Acute pain of left s houlder (Primary Dx); Status post left rotator cuff repair Start: 06-17-2024 End: 06-17-2024 Bamboo flowsheet Trisha J Kobe PT Work Phone: [facility] Start: 06-17-2024 End: 06-17-2024 Bamboo flowsheet Trisha Harris PT Work Phone: [facility] Start: 06-14-2024 End: 06-14-2024 Telephone encounter Ching Villasenor CMA [facility] Start: 06-11-2024 End: 06-11-2024 Telephone encounter Imani Esteban RN [facility] Comment on above: refill request Start: 06-10-2024 End: 06-10-2024 ambulatory [facility] Start: 06-08-2024 End: 06-08-2024 Office outpatient new 30 minutes [facility] SPOUT POSITIONER-CLINICAL SUPERVISOR Work Phone: [facility] Comment on above: Diarrhea, unspecifie d type (Primary Dx); Fecal urgency Start: 06-08-2024 End: 06-08-2024 ambulatory [facility] Start: 06-07-2024 End: 06-07-2024 Office outpatient visit 10 minutes Aditi Billy VENDOR ANALYST Work Phone: [facility] Comment on above: Status post left rot ator cuff repair (Primary Dx) Start: 06-07-2024 End: 06-07-2024 ambulatory ADITI BILLY Not Available Start: 05-04-2024 End: 05-04-2024 ambulatory ADITI BILLY Not Available Start: 04-01-2024 End: 04-01-2024 ambulatory [facility] Start: 03-30-2024 End: 03-30-2024 Telephone encounter Imani Esteban RN [facility] Comment on above: med refill request Start: 03-29-2024 End: 03-29-2024 ambulatory GUERO DURBIN [facility] Start: 02-25-2024 End: 02-25-2024 Evaluation and management of inpatient LAURITA Nika SINGH [facility] Start: 02-25-2024 End: 02-25-2024 Evaluation and management of inpatient ROSALIO MONTES [facility] Start: 01-28-2024 End: 01-28[facility]2024 [facility] Start: 01-28-2024 End: 01-28-2024 Patient encounter procedure [facility] Pre-Admission Testing 2 [facility] - Pre Admit Start: 01-01-2024 End: 01-01-2024 Postop follow up visit related to original px Guero Durbin SPOUT POSITIONER-CLINICAL SUPERVISOR Work Phone: [facility] Comment on above: Status post lumbar l aminectomy (Primary Dx) Start: 01-01-2024 End: 01-01-2024 ambulatory [facility] Start: 01-01-2024 End: 01-01-2024 Office outpatient visit 25 minutes Cady Fernández MD Work Phone: [facility] Comment on above: Fibromyalgia Start: 12-05-2023 End: 12-05-2023 Evaluation and management of inpatient [facility] Start: 12-03-2023 End: 12-05-2023 Evaluation and management of inpatient [facility] Start: 12-03-2023 End: 12-04-2023 ambulatory [facility] Start: 12-03-2023 End: 12-04-2023 Subsequent hospital visit by physician León Oconnor MD Work Phone: - Observation Unit Comment on above: Acute post-operative pain (Primary Dx); Spinal stenosis of lumbar region, unspecified whether neurogenic claudication present; Radiculopathy, lumbar region Start: 12-02-2023 Telephone encounter [facility] Comment on above: surgery reminder Start: 11-25-2023 Telephone encounter Veronica James LPN [facility] Comment on above: Med Refill Stenosis of cervical spine; Radiculopathy, cervical region Start: 11-07-2023 End: 11-07-2023 ambulatory [facility] Start: 11-07-2023 End: 11-07-2023 [facility] Comment on above: Spinal stenosis of l umbar region with neurogenic claudication (Primary Dx); Spinal stenosis of lumbar region, unspecified whether neurogenic claudication present; Radiculopathy, lumbar region Start: 10-27-2023 End: 10-28-2023 ambulatory [facility] Start: 10-27-2023 End: 10-27-2023 ambulatory [facility] Start: 10-27-2023 End: 10-27-2023 Office outpatient new 45 minutes Cady Fernández MD Work Phone: [facility] Comment on above: Fibromyalgia (Primar y Dx); Arthritis Start: 10-16-2023 End: 10-17-2023 ambulatory [facility] Start: 10-16-2023 Encounter for other preprocedural examination [facility] Start: 10-16-2023 Encounter for other preprocedural examination [facility] Start: 10-16-2023 End: 10-16-2023 Office outpatient visit 40 minutes León Oconnor MD Work Phone: [facility] Comment on above: Spinal stenosis of l umbar region, unspecified whether neurogenic claudication present (Primary Dx); Left shoulder pain, unspecified chronicity; Pre-op testing Start: 10-16-2023 End: 10-16-2023 Patient encounter status León Oconnor MD Work Phone: [facility] Start: 10-16-2023 End: 10-16-2023 ambulatory [facility] Comment on above: Spinal stenosis of l umbar region, unspecified whether neurogenic claudication present (Primary Dx); Radiculopathy, lumbar region Start: 10-10-2023 Refill Veronica shoemaker LPN [facility] Comment on above: Chronic right should er pain; Radiculopathy, cervical region Start: 07-04-2022 End: 07-04-2022 ambulatory STEPHAN JUAREZ Facility:H1 Start: 02-20-2022 End: 02-20-[address] [facility] Facility: Start: 05-27-2021 End: 05-30-2021 ambulatory AGUSTÍN Umesh WALLS [facility] Start: 05-27-2021 End: 05-29-2021 Subsequent hospital visit by physician Christelle Mri Room 1 [facility] MRI Comment on above: Back pain, unspecifi ed back location, unspecified back pain laterality, unspecified chronicity; History of back surgery; Lumbar degenerative disc disease; Lumbar spondylosis; Lumbar radiculopathy Procedures Date Procedure Procedure Detail Performing Clinician Start: 12-07-2024 Arthrocentesis aspir &/inj major jt/bursa w/o us Jr. Luis Carbone DO Work Phone: Start: 06-17-2024 History of repair of musculotendinous cuff of shoulder Status post left rotator cuff repair Trisha Harris PT Work Phone: Start: 04-01-2024 Follow-up visit Follow-up JESUS DURBIN Start: 12-04-2023 Creatinine blood Jo Ann Mishra SPOUT POSITIONER-CLINICAL SUPERVISOR Work Phone: Start: 12-04-2023 Adult depression scr eening assessment Cady Fernández MD Work Phone: Start: 12-04-2023 Blood count platelet automated Jo Ann Mishra SPOUT POSITIONER-CLINICAL SUPERVISOR Work Phone: Start: 12-03-2023 Fluor needle/cath spine/paraspinal dx/ther addon León Oconnor MD Work Phone: Start: 12-03-2023 Antibody screen León ponce MD Work Phone: Start: 12-03-2023 End: 12-03-2023 LAMINECTOMY LUMBAR SINGLE LEVEL León Oconnor MD Work Phone: Start: 12-03-2023 Blood typing serologic abo León Oconnor MD Work Phone: Start: 11-07-2023 Antibody screen [facility] 1 5 Start: 11-07-2023 Basic metabolic pane l calcium total León Oconnor MD Work Phone: Start: 11-07-2023 Blood typing serologic abo León Oconnor MD Work Phone: Start: 11-07-2023 Culture bacterial quanttative colony count urine León Oconnor MD Work Phone: Start: 11-07-2023 Urnls dip stick/tabl et rgnt auto w/o microscopy León Oconnor MD Work Phone: Start: 10-27-2023 Cyclic citrullinated peptide antibody LEÓN OCONNOR Comment on above: Result Comment: Interpretation-------- <3 Negative >=3 Positive Performed By: #### 1 988-5, 79749-7, 76965-8, [id number] #### [facility] ([id number]) [address], [address] [place] [address] Start: 05-26-2023 Mammography Aditi hassan VENDOR ANALYST Work Phone: Start: 05-27-2021 Mri spinal canal lum bar w/o & w/contr matrl Agustín Walls MD Work Phone: Start: 02-12-2021 Colonoscopy Veronica James ROTOGRAVURE PRESS OPERATOR Start: 12-14-2019 Antibody screen Comment on above: Performed By: #### T SCR #### [facility] [address] [place] [address] Start: 09-10-2019 Microscopic observat ion [Identifier] in Cervix by Kb Carbone DO Work Phone: History of repair of musculotendinous cuff of shoulder Status post left rotator cuff repair Rosalio Montes DO Work Phone: History of repair of musculotendinous cuff of shoulder Status post left rotator cuff repair Heather Kenny FRONT END LOADER OPERATOR History of repair of musculotendinous cuff of shoulder Status post left rotator cuff repair Aditi Billy VENDOR ANALYST Work Phone: History of repair of musculotendinous cuff of shoulder Status post left rotator cuff repair Trisha J Kobe PT Work Phone: History of repair of musculotendinous cuff of shoulder Status post left rotator cuff repair Trisha Randall Kobe PT Work Phone: History of repair of musculotendinous cuff of shoulder Status post left rotator cuff repair Heather Kenny FRONT END LOADER OPERATOR History of repair of musculotendinous cuff of shoulder Status post left rotator cuff repair Heather Kenny FRONT END LOADER OPERATOR History of repair of musculotendinous cuff of shoulder Status post left rotator cuff repair Jr. Luis Carbone DO Work Phone: Plan of Treatment Date Care Activity Detail Author Start: 02-12-2031 Screening for malign ant neoplasm of colon [facility] Start: 12-30-2025 Adult BMI Screening Adult BMI Screen ing [facility] Start: 07-01-2025 Adult BMI Screening Adult BMI Screen ing [facility] Start: 07-01-2025 Tobacco Screening Tobacco Screening [facility] Start: 06-30-2025 End: 06-30-2025 Patient encounter procedure 06/30/2025 11:30 AM EDT Office Visit [facility] [address] [address] [place] [phone] Cady Fernández MD [address] [phone] [facility] Start: 06-20-2025 Influenza vaccination [facility] Start: 06-08-2025 Adult BMI Screening Adult BMI Screen ing [facility] Start: 06-08-2025 Tobacco Screening Tobacco Screening [facility] Start: 05-16-2025 End: 05-16-2025 Patient encounter procedure 05/16/2025 1:45 PM EDT Office Visit [facility] [address] [place] [phone] Aditi Billy, VENDOR ANALYST [address] [place] [address] [facility] Start: 04-15-2025 End: 04-15-2025 Patient encounter procedure [facility] Comment on above: Arrived Start: 03-15-2025 End: 03-15-2025 Patient encounter procedure 03/15/2025 2:15 PM EDT Office Visit [facility] [address] [place] [phone] Theodore Samuel PA [address] [place] [address] Pre-op examination (Primary Dx) [facility] Comment on above: Pre-op examination ( Primary Dx) Start: 02-24-2025 Adult BMI Screening Adult BMI Screen ing [facility] Start: 02-24-2025 Tobacco Screening Tobacco Screening [facility] Start: 02-04-2025 End: 02-04-2025 Patient encounter procedure 02/04/2025 9:00 AM EDT Office Visit [facility] [address] [place] [phone] Theodore Samuel PA [address] [facility] [address] [place] [address] [facility] Start: 01-27-2025 Adult BMI Screening Adult BMI Screen ing [facility] Start: 01-27-2025 Tobacco Screening Tobacco Screening [facility] Start: 01-03-2025 End: 01-03-2025 Patient encounter procedure 01/03/2025 1:45 PM EDT Office Visit [facility] [address] [place] [address] Aditi Billy, MER [address] [place], [place] [phone] [facility] Start: 12-31-2024 Adult BMI Screening Adult BMI Screen ing [facility] Start: 12-31-2024 Tobacco Screening Tobacco Screening [facility] Start: 12-30-2024 End: 12-30-2024 Patient encounter procedure 12/30/2024 11:30 AM EDT Office Visit [facility] [address] [place] [address] Cady Fernández MD [address] [address] [facility] Start: 12-21-2024 End: 12-21-2024 Patient encounter procedure [facility] Comment on above: Arrived Start: 12-07-2024 End: 12-07-2024 Patient encounter procedure [facility] Comment on above: Arrived Start: 12-04-2024 Depression Screening Depression Scre ening [facility] Start: 11-07-2024 Adult BMI Screening Adult BMI Screen ing [facility] Start: 11-07-2024 Tobacco Screening Tobacco Screening [facility] Start: 10-27-2024 Adult BMI Screening Adult BMI Screen ing [facility] Start: 10-27-2024 Tobacco Screening Tobacco Screening [facility] Start: 10-21-2024 Tobacco Screening Tobacco Screening [facility] Start: 10-16-2024 Adult BMI Screening Adult BMI Screen ing [facility] Start: 10-16-2024 Tobacco Screening Tobacco Screening [facility] Start: 09-10-2024 Screening for malign ant neoplasm of cervix [facility] Start: 09-09-2024 Adult BMI Screening Adult BMI Screen ing [facility] Start: 08-27-2024 Tobacco Screening Tobacco Screening [facility] Start: 07-22-2024 End: 07-22-2025 MR Shoulder - left WO contrast MR shoulder left wo IV contrast Imaging Routine Internal derangement of left shoulder Expected: 07/22/2024 (Approximate), Expires: 07/22/2025 [facility] Work Phone: Comment on above: Expected: 07/22/2024 (Approximate), Expires: 07/22/2025 Start: 07-22-2024 End: 07-22-2024 Patient encounter procedure [facility] Comment on above: Arrived Start: 07-15-2024 End: 07-15-2024 ambulatory [facility] Comment on above: Arrived Start: 07-13-2024 End: 07-13-2024 ambulatory 07/13/2024 1:30 PM EDT Treatment [facility] [address] [place] [address] Heather Kenny PTA [facility] Start: 07-08-2024 End: 07-08-2024 Patient encounter procedure 07/08/2024 2:30 PM EDT Office Visit [facility] [address] [place] [address] Rosalio Montes, [address] [address] [facility] Start: 07-08-2024 End: 07-08-2024 ambulatory [facility] Comment on above: Arrived Start: 07-06-2024 End: 07-06-2024 ambulatory [facility] Comment on above: Arrived Start: 07-01-2024 End: 07-01-2024 ambulatory 07/01/2024 2:00 PM EDT Treatment [facility] [address] [place] [address] Heather Kenny PTA [facility] Start: 07-01-2024 End: 07-01-2024 Patient encounter procedure 07/01/2024 11:00 AM EDT Office Visit [facility] [address] [place] [phone] Cady Fernández MD [address] [address] [facility] Start: 06-29-2024 End: 06-29-2024 ambulatory 06/29/2024 2:00 PM EDT Treatment [facility] [address] [place] [phone] Heather Kenny PTA [facility] Start: 06-25-2024 End: 06-25-2024 ambulatory 06/25/2024 2:30 PM EDT Treatment [facility] [address] [place] [phone] Trisha Harris, PT [address] [place] [address] [facility] Start: 06-23-2024 End: 06-23-2024 ambulatory [facility] Comment on above: Arrived Start: 06-20-2024 COVID-19 Vaccine ( season) COVID-19 Vaccine ( season) [facility] Start: 06-20-2024 COVID-19 Vaccine ( season) COVID-19 Vaccine ( season) [facility] Start: 06-20-2024 Influenza vaccination [facility] Start: 06-17-2024 End: 06-17-2024 ambulatory 06/17/2024 3:00 PM EDT Evaluation [facility] [address] [place] [phone] Trisha Harris, PT [address] [place] [address] Status post left rotator cuff repair [facility] Comment on above: Status post left rot ator cuff repair Start: 05-26-2024 Screening for malign ant neoplasm of breast Mammogram [facility] Start: 04-02-2024 End: 12-31-2024 XR Lumbar spine Views AP W right bending and W left bending X-ray spine lumbar flexion and extension only 2 to 3 views Imaging Routine Status post lumbar laminectomy Expected: 04/02/2024 (Approximate), Expires: 12/31/2024 [facility] Work Phone: Comment on above: Expected: 04/02/2024 (Approximate), Expires: 12/31/2024 Start: 04-01-2024 End: 04-01-2024 Patient encounter procedure 04/01/2024 2:00 PM EDT Office Visit [facility] [address] [place] [phone] [place]ón [place] [address] [place] [address] [address] [place] [phone] [facility] Start: 02-25-2024 End: 02-25-2024 Admission to same day surgery center 02/25/2024 10:15 AM EDT - 02/25/2024 12:00 PM EDT Surgery [facility] [address] [place] [address] Rosalio Montes DO [address] [place] [address] ARTHROSCOPIC REPAIR ROTATOR CUFF SHOULDER [70604 (CPT )] [facility] Comment on above: ARTHROSCOPIC REPAIR ROTATOR CUFF SHOULDER [46552 (CPT )] Start: 02-25-2024 End: 02-25-2024 Arthroscopy shoulder rotator cuff repair ARTHROSCOPIC REPAIR ROTATOR CUFF SHOULDER left shoulder rotator cuff tear 02/25/2024 10:15 AM EDT [facility] Start: 02-25-2024 Subsequent hospital visit by physician 02/25/2024 10:15 AM EDT Hospital Encounter [facility] [address] [place] [address] Rosalio Montes DO [address] [place] [address] [facility] Start: 01-01-2024 End: 01-01-2024 Patient encounter procedure [facility] Start: 12-03-2023 End: 12-03-2023 Admission to same day surgery center 12/03/2023 11:45 AM EST - 12/03/2023 1:30 PM EST Surgery - Surgery [address] [place] [phone] León Oconnor MD [address] [place] [address] [address] [place] [address] LAMINECTOMY LUMBAR SINGLE LEVEL / L4/5 [facility] Comment on above: LAMINECTOMY LUMBAR S SALLY LEVEL / L4/5 Start: 12-03-2023 End: 12-03-2023 Anesthesia consultation 12/03/2023 11:45 AM EST Anesthesia Event [facility] [address] [place] [phone] Veena Osei SRNA [facility] Start: 12-03-2023 End: 12-03-2023 LAMINECTOMY LUMBAR SINGLE LEVEL LAMINECTOMY LUMBAR SINGLE LEVEL Spinal stenosis of lumbar region, unspecified whether neurogenic claudication present Radiculopathy, lumbar region 12/03/2023 11:45 AM EST [facility] Start: 12-03-2023 Subsequent hospital visit by physician 12/03/2023 11:45 AM EST Hospital Encounter [address] [address] León Oconnor MD [address] [place] [address] [address] [place] [phone] [facility] Start: 12-02-2023 End: 12-02-2023 Patient encounter procedure 12/02/2023 1:00 PM EST Office Visit [facility] [address] [place] [phone] Kailyn Arzola, PA-C [address] [place] [address] [facility] Start: 11-21-2023 End: 11-21-2023 Admission to same day surgery center 11/21/2023 7:30 AM EST - 11/21/2023 9:15 AM EST Surgery [facility] [address] [place] [address]. [place] [address] León Oconnor MD [address] [place] [address] [address] [place] [phone] LAMINECTOMY LUMBAR SINGLE LEVEL / L4/5 [facility] Comment on above: LAMINECTOMY LUMBAR S SALLY LEVEL / L4/5 Start: 11-21-2023 End: 11-21-2023 LAMINECTOMY LUMBAR SINGLE LEVEL LAMINECTOMY LUMBAR SINGLE LEVEL Spinal stenosis of lumbar region, unspecified whether neurogenic claudication present Radiculopathy, lumbar region 11/21/2023 7:30 AM EST [facility] Start: 11-21-2023 Subsequent hospital visit by physician 11/21/2023 7:30 AM EST Hospital Encounter [address] [phone] León Oconnor MD [address] [place] [address] [address] [place] [phone] [facility] Start: 11-07-2023 End: 11-07-2023 Patient encounter procedure 11/07/2023 1:30 PM EST Procedure visit [facility] On [address] [address] [facility] Start: 10-27-2023 End: 10-27-2024 XR [employer] Survey Views [facility] Work Phone: Comment on above: Expected: 10/27/2023 , Expires: 10/27/2024 Start: 10-27-2023 End: 10-27-2023 Patient encounter procedure 10/27/2023 10:45 AM EST Office Visit [facility] [address] [phone] Cady Fernández MD [address] [address] [facility] Start: 10-16-2023 End: 10-16-2023 Patient encounter procedure 10/16/2023 2:05 PM EST Office Visit [facility] [address] [place] [phone] León Oconnor MD [address] [facility] [address] [place] [phone] [facility] Start: 06-20-2023 COVID-19 Vaccine ( season) COVID-19 Vaccine ( season) [facility] Start: 06-20-2023 Influenza vaccination Influenza Vacc ine [facility] Start: 09-10-2022 Screening for malign ant neoplasm of cervix Pap Smear [facility] Start: 01-11-2022 Administration of varicella zoster vaccine Zoster (Shingles) Vaccine (1 of 2) [facility] Start: 06-20-2021 Influenza vaccination Flu vaccine (# 1) [facility] Work Phone: Start: 06-01-2021 End: 06-01-2021 Patient encounter procedure 06/01/2021 Office Visit Neurosurgery Agustín Walls MD [address] [phone] [facility] Start: 2012 Diabetes screen Diabetes screen [facility] Work Phone: Start: 2012 Lipid panel Lipid screen [facility] Work Phone: Start: 01-11-1993 Screening for malign ant neoplasm of cervix [facility] Start: 01-11-1991 DTaP,Tdap and Td Vaccines (1 - Tdap) DTaP,Tdap and Td Vaccines (1 - Tdap) [facility] Start: 01-11-1991 DTaP/Tdap/Td vaccine (1 - Tdap) DTaP/Tdap/Td vaccine (1 - Tdap) [facility] Work Phone: Start: 01-11-1990 Adult BMI Follow Up Plan Adult BMI Follow Up Plan [facility] Start: 01-11-1987 HIV screening HIV screen [facility] Work Phone: Start: 1984 Depression Screening Depression Scre ening [facility] [employer] Start: 01-11-1978 Pneumococcal 0-64 ye ars Vaccine (1 of 2 - PPSV23) Pneumococcal 0-64 years Vaccine (1 of 2 - PPSV23) [facility] Work Phone: Start: 1972 Hepatitis C screening Hepatitis C sc reen [facility] Work Phone: Start: 1972 Screening for malign ant neoplasm of colon [facility] Start: 1972 Tobacco Counseling Tobacco Counselin g [facility] End: 06-08-2025 C difficile by PCR C difficile by PCR Lab Routine Diarrhea, unspecified type 1 Occurrences starting 06/08/2024 until 06/08/2025 [facility] Work Phone: Comment on above: 1 Occurrences starti ng 06/08/2024 until 06/08/2025 End: 06-08-2025 GI Panel(stool pathogen panel) GI Panel(stool pathogen panel) Lab Routine Diarrhea, unspecified type 1 Occurrences starting 06/08/2024 until 06/08/2025 [facility] Comment on above: 1 Occurrences starti ng 06/08/2024 until 06/08/2025 Immunizations Immunization Date Immunization Notes Care Provider Bahman lovett 11-13-2009 novel [id number], preservative-free, injectable Aditi Billy NP Work Phone: [facility] 11-13-2009 influenza virus vaccine, unspecified formulation Veronica James LPN [facility] Payers Date Payer Category Payer Unknown [id number] 2022 Medicaid [id number] 2022 Medicaid [id number] 2020 Unknown [id number] 1.2 .[id number]15 1972 Unknown [id number] 2.16.8 40.1.442600.3.579.2.182 1972 Unknown [id number] 2.16.84 0.1.983450.3.579.2.593 1972 Unknown [id number] 2.16.84 0.1.026575.3.579.2.593 1972 Unknown [id number] 2.16.8 40.1.402501.3.579.2.1286 1972 Unknown [id number] 2.16.8 40.1.844873.3.579.2.1286 1972 Unknown [id number] 2.16.8 40.1.889421.3.579.2.1286 1972 Unknown [id number] 2.16.8 40.1.495007.3.579.2.1286 1972 Unknown [id number] 2.16.84 0.1.216919.3.579.2.1286 1972 Unknown [id number] 2.16.84 0.1.788361.3.579.2.1286 1972 Unknown [id number] 2.16.84 0.1.911987.3.579.2.1286 1972 Unknown [id number] 2.16.84 0.1.791343.3.579.2.1286 1972 Unknown [id number] 2.16.84 0.1.699574.3.579.2.1286 1972 Unknown [id number] 2.16.8 40.1.926261.3.579.2.1286 1972 Unknown [id number] 2.16.8 40.1.262482.3.579.2.1286 1972 Unknown [id number] 2.16.8 40.1.644850.3.579.2.1286 1972 Unknown [id number] 2.16.84 0.1.404533.3.579.2.1285 1972 Unknown [id number] 2.16. 840.1.400529.3.579.2.6 1972 Unknown [id number] 2.16. 840.1.631956.3.579.2.1285 1972 Unknown [id number] 2.16.8 40.1.471987.3.579.2.1285 1972 Unknown [id number] 2.16.8 40.1.535773.3.579.2.1285 1972 Unknown [id number] 2.16.8 40.1.457981.3.579.2.1285 1972 Unknown [id number] 2.16.8 40.1.425334.3.579.2.1285 1972 Unknown [id number] 2.16.8 40.1.238749.3.579.2.1286 1972 Unknown [id number] 2.16.8 40.1.464223.3.579.2.6 1972 Unknown [id number] 2.16.8 40.1.288499.3.579.2.6 1972 Unknown [id number] 2.16.8 40.1.911547.3.579.2.718 1972 Unknown [id number] 2.16.8 40.1.636038.3.579.2.718 1972 Unknown [id number] 2.16.8 40.1.412179.3.579.2.8 1972 Unknown [id number] 2.16.8 40.1.336219.3.579.2.718 1972 Unknown [id number] 2.16.8 40.1.361956.3.579.2.1259 1972 Unknown [id number] 2.16.84 0.1.188046.3.579.2.9 1972 Unknown [id number] 2.16.84 0.1.134885.3.579.2.9 1972 Unknown [id number] 2.16.84 0.1.495748.3.579.2.9 1972 Unknown [id number] 2.16.84 0.1.812388.3.579.2.1258 1972 Unknown [id number] 2.16.84 0.1.969363.3.579.2.1258 1972 Unknown [id number] 2.16.84 0.1.905976.3.579.2.1258 1972 Unknown [id number] 2.16.84 0.1.274130.3.579.2.1258 1972 Unknown [id number] 2.16.84 0.1.105633.3.579.2.1258 1972 Unknown [id number] 2.16.84 0.1.922591.3.579.2.1258 1972 Unknown [id number] 2.16.84 0.1.756399.3.579.2.1258 1972 Unknown [id number] 2.16.84 0.1.472652.3.579.2.1258 1972 Unknown [id number] .16.84 0.1.542348.3.579.2.1258 1972 Unknown [id number] .16.84 0.1.800209.3.579.2.1259 1972 Unknown [id number] .16.84 0.1.441163.3.579.2.1258 1972 Unknown [id number] .16.84 0.1.009696.3.579.2.1259 1959 Unknown [id number] Social History Date Type Detail Facility Start: 05-04-2021 End: 12-07-2023 Tobacco smoking status NHIS Current every day smoker [employer] Phone: Start: 05-04-2021 End: 12-07-2023 Tobacco use and exposure Never used doo Start: 1970 Sex Assigned At [facility] Exposure to SARS-CoV -2 (event) Not sure doo History of tobacco use [facility] Start: 07-07-2024 End: 04-15-2025 Alcoholic beverage intake Current drinker of alcohol (finding) [facility] Start: 06-07-2024 End: 04-15-2025 History of Social function [facility] Start: 06-07-2024 End: 04-15-2025 Tobacco use panel [facility] Start: 12-09-2023 Alcohol Comment monthly [facility] Housing Instability Unknown [facility] Start: 08-09-2021 Alcohol Comment Occasional 4 c ans of beer monthly [facility] Has the [employer], or [employer] threatened to shut off services in your home in past 12Mo No [facility] How often to you hav e a drink containing alcohol? 2-4 times a month [facility] How many standard dr inks containing alcohol do you have on a typical day? 1 or 2 [facility] How often do you hav e 6 or more drinks on 1 occasion? Never [facility] Start: 05-25-2015 Sex Female (finding) [facility] Medical Equipment Procedure Code Equipment Code Equipment Origin al Text Equipment Identifier Dates Spacer Spnl 14x6 mm Coalition Mis 7d 12mm Ti Strl Lf - [id number] Start: 11-06-2021 Graft Bn Cllr Bn Mtrx Sm 1cc Vivigen Frmbl Rpl [id number] Rpl Special [id number] - [id number] - [id number] Start: 11-06-2021 Screw Bn 12mm 3. 6mm Slf Drl Va Spne [employer] Ns - [id number] Start: 11-06-2021 Implant Bio Tiss Med Bvn At Dlv Dev Bioinductive Impl - Sna - [id number] Start: 02-25-2024 Microraptor Knot less Regenesorb Suture [place] [id number])N/A, [id number]_[facility] Start: 02-25-2024 [place] Sut Teresa portillo Tndn Rotr Cuf Repr - Sna - [id number] Start: 02-25-2024 [place] Sut Bn As cp Dlv - Sna - [id number] Start: 02-25-2024 Clinical Notes 10-10-2023 to 04-15-2025 Aditi Billy, MER - 04/15/2025 9:15 AM EDTTelephone Encounter - Aditi Billy, MER - 03/24/2025 3:49 PM EDTTelephone Encounter - Aditi Billy, MER - 03/24/2025 3:49 PM EDTPatient Instructions Note Date & Type Note Facility 04-15-2025 History of Present illness Narrative Images from the original note were not included. HISTORY OF PRESENT ILLNESS: POST OP PT Cande Rahman is an 55 y.o. @ female. 1ST PO S/P LT SHOULDER SCOPE 04/01/25 (2 WKS) @ [facility]. WEARING ULTRA SLING WITHOUT THE PILLOW. STATES SHE WAS DOING FINE UNTIL SHE THINKS SHE POSSIBLY JERKED HER ARM A FEW DAYS AGO. PAIN IN BICEP, STATES SHE FEELS A BUMP. +PERCOCET PRN. +ICE. DENIES N/T, HAD N/T INITIALLY WHEN SHE JERKED HER ARM. DOING PENDULUMS. STATES SHE HAS BEEN USING HER ARM. DOES NOT WAKE AT HS. DENIES DRAINAGE. STITCHES INTACT, REMOVED TODAY. INCISIONS HEALING WELL. REVIEW OF SYSTEMS: General: Denies fever, fatigue or weight loss Lungs: Denies SOB Cardio: Denies chest pain GI: Denies indigestion or abdominal pain Neuro: Denies numbness or tingling, denies new onset paralysis Musculoskeletal: ( see note) PHYSICAL EXAM: Left Shoulder Exam Left shoulder exam is normal. Tenderness The patient is experiencing no tenderness (compartments soft). Range of Motion Left shoulder passive abduction: gentle pendulums easily. Muscle Strength Left shoulder normal muscle strength: gentle pendulums easily, fires rotator cuff and deltoid. Other Erythema: absent Scars: present (Portals well healing, sutures removed, no erythema, drainge or discharge, no dehisence) Sensation: normal Pulse: present Comments: The operative upper extremity was noted to be neurovascularly unchanged. Sensation to light touch was intact to all dermatomes to operative upper extremity. Radial and ulnar pulses were present and equal bilaterally. Patient was able to motor elbow wrist and fingers in all anatomic planes with 5 out of 5 strength on the operative upper extremity. Compartments were soft to operative upper extremity. There was no evidence of infection or ascending lymphangitis to operative extremity. Physical Exam Results Procedures Orders Placed This Encounter Procedures Ambulatory referral to Physical Therapy S/P LT shoulder scope 04/01/25 Standing Status: Future Expected Date: 04/15/2025 Expiration Date: 10/15/2025 Referral Priority: Routine Referral Type: Rehabilitation - Outpatient Referral Reason: Specialty Services Required Referred to Provider: Trisha Harris PT Requested Specialty: Physical Therapy Number of Visits Requested: 1 ASSESSMENT: ICD-10-CM 1. Status post arthroscopy of left shoulder Z98.890 Ambulatory referral to Physical Therapy PLAN: Assessment & Plan 2 weeks s/p Shoulder Arthroscopy: Bankart repair, BT and SAD Plan: I reviewed surgical findings and disucssed plan of care. I recommend no lifting pushing or pulling at this time. I reviewed HEP and post op precausitons with patient. We will send order to PT to work on PROM. No AROM until 6 weeks PO and continue in sling. Patient verabalized understading. Questions answered in laymen terms at the bedside. If unable to be reached in office, I recommend evaluation at nearest Emergency Room if any symptoms worsened or new symptoms develop for requiring urgent evaluation. Questions answered in laymen terms at the bedside. The diagnosis, home exercise plan and any ongoing restrictions/ recommendations reviewed. If unable to be reached in office, I recommend evaluation at nearest Emergency Room if any symptoms worsened or new symptoms develop for requiring urgent evaluation. Aditi Billy APRN, NP-C documented in this encounter [facility] 04-04-2025 Note [id number] 04-04-2025 Note [id number] 04-01-2025 Note [facility] SURGERY Clinical Discharge Summary PERSON INFORMATION Name CANDE RAHMAN Age 55 Years 1970 Sex FEMALE Language Mauritanian PCP Marital Status Single Phone Med Service Ambulatory Surgery Acct# Arrival 04/01/2025 09:25:00 Visit Reason Surgery- Shoulder arthroscopy left shoulder Acuity LOS 057 01:54 Address: [address] [place] [id number] Comment: PROVIDER INFORMATION VITALS INFORMATION Vital Sign Triage Latest Temp Oral Temp Temporal Temp Intravascular Temp Axillary Temp Rectal 02 Sat 100 % 96 % Respiratory Rate Peripheral Pulse Rate Apical Heart Rate Blood Pressure / 63 mmHg / 96 mmHg Comment: MEDICAL INFORMATION Allergy Info: No Known Medication Allergies Prescriptions Given: acetaminophen-hydrocodone (acetaminophen-hydrocodone 325 mg-5 mg oral tablet) 1 tab(s) Oral (given by mouth) every 4 hours as needed pain. amitriptyline (amitriptyline 50 mg oral tablet) 1 tab(s) Oral (given by mouth) once a day (at bedtime). amphetamine-dextroamphetamine (Adderall 10 mg oral tablet) 1 tab(s) Oral (given by mouth) every day. amphetamine-dextroamphetamine (amphetamine-dextroamphetamine 30 mg oral capsule, extended release) 1 cap(s) Oral (given by mouth) once a day (in the morning). ARIPiprazole (ARIPiprazole 15 mg oral tablet) 1 tab(s) Oral (given by mouth) every day. atorvastatin (atorvastatin 80 mg oral tablet) 1 tab(s) Oral (given by mouth) every day. bupropion-dextromethorphan (Auvelity 45 mg-105 mg oral tablet, extended release) 1 tab(s) Oral (given by mouth) 2 times per day. DULoxetine (DULoxetine 40 mg oral delayed release capsule) 1 tab(s) Oral (given by mouth) every day. meloxicam (meloxicam 15 mg oral tablet) 1 tab(s) Oral (given by mouth) every day. prazosin (prazosin 2 mg oral capsule) 1 cap(s) Oral (given by mouth) 2 times per day. pregabalin (pregabalin 150 mg oral capsule) 1 cap(s) Oral (given by mouth) every day. tiZANidine (tiZANidine 4 mg oral tablet) 1 tab(s) Oral (given by mouth) At bedtime. Medication List: New Medications Other Medications acetaminophen-hydrocodone (acetaminophen-hydrocodone 325 mg-5 mg oral tablet) 1 tab(s) Oral (given by mouth) every 4 hours as needed pain. Medications to Continue That Have Not Changed Other Medications amitriptyline (amitriptyline 50 mg oral tablet) 1 tab(s) Oral (given by mouth) once a day (at bedtime). amphetamine-dextroamphetamine (Adderall 10 mg oral tablet) 1 tab(s) Oral (given by mouth) every day. amphetamine-dextroamphetamine (amphetamine-dextroamphetamine 30 mg oral capsule, extended release) 1 cap(s) Oral (given by mouth) once a day (in the morning). ARIPiprazole (ARIPiprazole 15 mg oral tablet) 1 tab(s) Oral (given by mouth) every day. atorvastatin (atorvastatin 80 mg oral tablet) 1 tab(s) Oral (given by mouth) every day. bupropion-dextromethorphan (Auvelity 45 mg-105 mg oral tablet, extended release) 1 tab(s) Oral (given by mouth) 2 times per day. DULoxetine (DULoxetine 40 mg oral delayed release capsule) 1 tab(s) Oral (given by mouth) every day. meloxicam (meloxicam 15 mg oral tablet) 1 tab(s) Oral (given by mouth) every day. prazosin (prazosin 2 mg oral capsule) 1 cap(s) Oral (given by mouth) 2 times per day. pregabalin (pregabalin 150 mg oral capsule) 1 cap(s) Oral (given by mouth) every day. tiZANidine (tiZANidine 4 mg oral tablet) 1 tab(s) Oral (given by mouth) At bedtime. No Longer Take the Following Medications Template Non-Formulary (Gummie (THC)) 1 tab(s) Chewed At bedtime. traMADol (traMADol 50 mg oral tablet) 1 tab(s) Oral (given by mouth) Every 12 hours scheduled time as needed as needed for pain. New Medications Other Medications acetaminophen-hydrocodone (acetaminophen-hydrocodone 325 mg-5 mg oral tablet) 1 tab(s) Oral (given by mouth) every 4 hours as needed pain. Medications to Continue That Have Not Changed Other Medications amitriptyline (amitriptyline 50 mg oral tablet) 1 tab(s) Oral (given by mouth) once a day (at bedtime). amphetamine-dextroamphetamine (Adderall 10 mg oral tablet) 1 tab(s) Oral (given by mouth) every day. amphetamine-dextroamphetamine (amphetamine-dextroamphetamine 30 mg oral capsule, extended release) 1 cap(s) Oral (given by mouth) once a day (in the morning). ARIPiprazole (ARIPiprazole 15 mg oral tablet) 1 tab(s) Oral (given by mouth) every day. atorvastatin (atorvastatin 80 mg oral tablet) 1 tab(s) Oral (given by mouth) every day. bupropion-dextromethorphan (Auvelity 45 mg-105 mg oral tablet, extended release) 1 tab(s) Oral (given by mouth) 2 times per day. DULoxetine (DULoxetine 40 mg oral delayed release capsule) 1 tab(s) Oral (given by mouth) every day. meloxicam (meloxicam 15 mg oral tablet) 1 tab(s) Oral (given by mouth) every day. prazosin (prazosin 2 mg oral capsule) 1 cap(s) Oral (given by mouth) 2 times per day. pregabalin (pregabalin 150 mg oral capsule) 1 cap(s) Oral (given by mouth) every day. tiZANidin (more content not included)... [facility] 03-24-2025 Telephone encounter Note Post op pain rx. PDMP reviewed [facility] 03-24-2025 Miscellaneous Notes Post op pain rx. PDMP reviewed documented in this encounter [facility] 03-15-2025 History of Present illness Narrative Images from the original note were not included. GENERAL HISTORY AND PHYSICAL: NAME: Cande Rahman : 1970 HISTORY OF PRESENT ILLNESS: Cande Rahman is an 55 y.o. @ female. Here for surgery instructions right shoulder scope 04/01/25 @ [facility]. PAST MEDICAL HISTORY: Past Medical History: Diagnosis Date ADHD (attention deficit hyperactivity disorder) ([facility]) Arthritis Bipolar disorder Fibromyalgia MIKE (obstructive sleep apnea) PTSD (post-traumatic stress disorder) ([facility]) Rheumatoid arthritis ([facility]) PAST SURGICAL HISTORY: Past Surgical History: Procedure Laterality Date CERVICAL FUSION 11/06/2021 ANTERIOR FUSION CERVICAL DISCECTOMY C5-C6, C6-C7 Dr Oconnor [facility] HYSTERECTOMY LUMBAR SPINE SURGERY 12/03/2023 complete L4 and L5 laminectomy/partial medial facetectomy and bilateral foraminotomies L4-5 Dr Oconnor LUMBAR SPINE SURGERY 2003 L4-L5 Dr. Workman ROTATOR CUFF REPAIR Left 02/25/2024 LT shoulder RCR w/implant and SLAP repair - Dr Montes TUBAL LIGATION SOCIAL HISTORY: Social History Occupational History Not on file Tobacco Use Smoking status: Every Day Types: Cigarettes Smokeless tobacco: Never Substance and Sexual Activity Alcohol use: Yes Comment: monthly Drug use: Not on file Comment: MARIJUIANA Sexual activity: Not on file ALLERGIES: Allergies Allergen Reactions Grass Pollen(K-O-R-T-Swt Laurita) Unknown Nasal congestion MEDICATIONS: Current Outpatient Medications Medication Instructions acetaminophen (TYLENOL) 650 mg, Every 4 hours PRN amitriptyline (Elavil) 10 MG tablet amphetamine-dextroamphetamine XR (Adderall XR) 30 MG 24 hr capsule 30 mg, Every morning ARIPiprazole (ABILIFY) 15 mg, Daily with breakfast atorvastatin (Lipitor) 40 MG tablet Every 24 hours dextroamphetamine (DEXTROSTAT) 40 mg, Daily DULoxetine (CYMBALTA) 20 mg, Daily RT meloxicam (Mobic) 15 MG tablet prazosin (MINIPRESS) 2 mg, 2 times daily pregabalin (LYRICA) 150 mg, 2 times daily tiZANidine (ZANAFLEX) 4 mg, Daily traMADol (ULTRAM) 50 mg, As needed REVIEW OF SYSTEMS: Review of Systems Constitutional: Negative for fatigue, fever and unexpected weight change. Eyes: Negative for redness and visual disturbance. Gastrointestinal: Negative for abdominal pain. Denies Indigestion Musculoskeletal: See note: Skin: Negative for color change and rash. Neurological: Negative for light-headedness and numbness. Vitals: Body mass index is 30.67 kg/m . PHYSICAL EXAM: Physical Exam Constitutional: General: She is not in acute distress. Appearance: Normal appearance. HENT: Head: Normocephalic and atraumatic. Right Ear: External ear normal. Left Ear: External ear normal. Nose: Nose normal. No rhinorrhea. Mouth/Throat: Mouth: Mucous membranes are moist. Pharynx: No posterior oropharyngeal erythema. Eyes: Extraocular Movements: Extraocular movements intact. Conjunctiva/sclera: Conjunctivae normal. Cardiovascular: Rate and Rhythm: Normal rate and regular rhythm. Pulses: Normal pulses. Heart sounds: No murmur heard. Pulmonary: Effort: Pulmonary effort is normal. No respiratory distress. Breath sounds: Normal breath sounds. No wheezing or rhonchi. Abdominal: Palpations: Abdomen is soft. Tenderness: There is no abdominal tenderness. Musculoskeletal: Cervical back: Normal range of motion and neck supple. Lymphadenopathy: Cervical: No cervical adenopathy. Skin: General: Skin is warm and dry. Findings: No erythema or rash. Neurological: General: No focal deficit present. Mental Status: She is alert and oriented to person, place, and time. Psychiatric: Mood and Affect: Mood normal. Behavior: Behavior normal. No orders of the defined types were placed in this encounter. ASSESSMENT: ICD-10-CM 1. Pre-op examination Z01.818 PLAN: This patient presents for preadmission testing for upcoming surgery. Complete history with medical, surgery, and current allergy and medication list obtained. Consent for surgery signed and witnessed after verbal consent to perform surgery received. All questions answered and proposed surgery scheduled. SURGERY INSTRUCTIONS February PAT February PRE CERT SENT ARTHREX NOTIFIED Follow up in about 1 month (around 04/15/2025) for Post-Op April 05 @ 9:15 with Aditi in [place]. documented in this encounter [facility] 02-08-2025 Miscellaneous Notes Call received from Debby John. Dora was calling to follow up on records requests. Dora left message indicating that patient's date of was 12/30/1969. Upon review of patient's chart, she did sign release of records for Lewis Sotelo. Call returned to Dora to inform her that the D.O.B she provided was incorrect and also to inform her that records request for our patient were received and forwarded to medical records. No answer. Message left for Dora to return call if she still had questions. documented in this encounter [facility] 02-08-2025 Telephone encounter Note Call received from Debby John. Dora was calling to follow up on records requests. Dora left message indicating that patient's date of was 12/30/1969. Upon review of patient's chart, she did sign release of records for Lewis Sotelo. Call returned to Dora to inform her that the D.O.B she provided was incorrect and also to inform her that records request for our patient were received and forwarded to medical records. No answer. Message left for Dora to return call if she still had questions. [facility] 01-20-2025 Note [facility] SURGERY Clinical Discharge Summary PERSON INFORMATION Name CANDE RAHMAN Age 55 Years 1970 Sex FEMALE Language Mauritanian PCP Marital Status Single Phone Med Service Ambulatory Surgery N 19-06-54 Acct# Arrival Visit Reason SURGERY - LEFT SHOULDER ARTHROSCOPY WITH ROTATOR CUFF REPAIR Acuity LOS 030 11:09 Address: [address] [place] [address] Comment: PROVIDER INFORMATION VITALS INFORMATION Vital Sign Triage Latest Temp Oral Temp Temporal Temp Intravascular Temp Axillary Temp Rectal 02 Sat 100 % 100 % Respiratory Rate Peripheral Pulse Rate Apical Heart Rate Blood Pressure / 69 mmHg / 77 mmHg Comment: MEDICAL INFORMATION Allergy Info: No Known Medication Allergies Prescriptions Given: amitriptyline (amitriptyline 50 mg oral tablet) 1 tab(s) Oral (given by mouth) once a day (at bedtime). amphetamine-dextroamphetamine (Adderall 10 mg oral tablet) 1 tab(s) Oral (given by mouth) every day. amphetamine-dextroamphetamine (Adderall 30 mg oral tablet) 1 tab(s) Oral (given by mouth) every day. amphetamine-dextroamphetamine (amphetamine-dextroamphetamine 30 mg oral capsule, extended release) 1 cap(s) Oral (given by mouth) once a day (in the morning). ARIPiprazole (ARIPiprazole 15 mg oral tablet) 1 tab(s) Oral (given by mouth) every day. atorvastatin (atorvastatin 80 mg oral tablet) 1 tab(s) Oral (given by mouth) every day. bupropion-dextromethorphan (Auvelity 45 mg-105 mg oral tablet, extended release) 1 tab(s) Oral (given by mouth) every day. DULoxetine (DULoxetine 40 mg oral delayed release capsule) 1 tab(s) Oral (given by mouth) As Directed. meloxicam (meloxicam 15 mg oral tablet) 1 tab(s) Oral (given by mouth) every day. prazosin (prazosin 2 mg oral capsule) 1 cap(s) Oral (given by mouth) 2 times per day. pregabalin (pregabalin 150 mg oral capsule) 1 cap(s) Oral (given by mouth) every day. tiZANidine (tiZANidine 4 mg oral tablet) 1 tab(s) Oral (given by mouth) At bedtime. traMADol (traMADol 50 mg oral tablet) 1 tab(s) Oral (given by mouth) Every 12 hours scheduled time as needed as needed for pain. Medication List: Medications to Continue That Have Not Changed Other Medications amitriptyline (amitriptyline 50 mg oral tablet) 1 tab(s) Oral (given by mouth) once a day (at bedtime). amphetamine-dextroamphetamine (Adderall 10 mg oral tablet) 1 tab(s) Oral (given by mouth) every day. amphetamine-dextroamphetamine (Adderall 30 mg oral tablet) 1 tab(s) Oral (given by mouth) every day. amphetamine-dextroamphetamine (amphetamine-dextroamphetamine 30 mg oral capsule, extended release) 1 cap(s) Oral (given by mouth) once a day (in the morning). ARIPiprazole (ARIPiprazole 15 mg oral tablet) 1 tab(s) Oral (given by mouth) every day. atorvastatin (atorvastatin 80 mg oral tablet) 1 tab(s) Oral (given by mouth) every day. bupropion-dextromethorphan (Auvelity 45 mg-105 mg oral tablet, extended release) 1 tab(s) Oral (given by mouth) every day. DULoxetine (DULoxetine 40 mg oral delayed release capsule) 1 tab(s) Oral (given by mouth) As Directed. meloxicam (meloxicam 15 mg oral tablet) 1 tab(s) Oral (given by mouth) every day. prazosin (prazosin 2 mg oral capsule) 1 cap(s) Oral (given by mouth) 2 times per day. pregabalin (pregabalin 150 mg oral capsule) 1 cap(s) Oral (given by mouth) every day. tiZANidine (tiZANidine 4 mg oral tablet) 1 tab(s) Oral (given by mouth) At bedtime. traMADol (traMADol 50 mg oral tablet) 1 tab(s) Oral (given by mouth) Every 12 hours scheduled time as needed as needed for pain. Medications to Continue That Have Not Changed Other Medications amitriptyline (amitriptyline 50 mg oral tablet) 1 tab(s) Oral (given by mouth) once a day (at bedtime). amphetamine-dextroamphetamine (Adderall 10 mg oral tablet) 1 tab(s) Oral (given by mouth) every day. amphetamine-dextroamphetamine (Adderall 30 mg oral tablet) 1 tab(s) Oral (given by mouth) every day. amphetamine-dextroamphetamine (amphetamine-dextroamphetamine 30 mg oral capsule, extended release) 1 cap(s) Oral (given by mouth) once a day (in the morning). ARIPiprazole (ARIPiprazole 15 mg oral tablet) 1 tab(s) Oral (given by mouth) every day. atorvastatin (atorvastatin 80 mg oral tablet) 1 tab(s) Oral (given by mouth) every day. bupropion-dextromethorphan (Auvelity 45 mg-105 mg oral tablet, extended release) 1 tab(s) Oral (given by mouth) every day. DULoxetine (DULoxetine 40 mg oral delayed release capsule) 1 tab(s) Oral (given by mouth) As Directed. meloxicam (meloxicam 15 mg oral tablet) 1 tab(s) Oral (given by mouth) every day. prazosin (prazosin 2 mg oral capsule) 1 cap(s) Oral (given by mouth) 2 times per day. pregabalin (pregabalin 150 mg oral capsule) 1 cap(s) Oral (given by mouth) every day. tiZANidine (tiZANidine 4 mg oral tablet) 1 tab(s) Oral (given by mouth) At bedtime. traMADol (traMADol 50 mg oral tablet) 1 tab(s) Oral (given by mouth) Every 12 hours scheduled time as need (more content not included)... [facility] 01-20-2025 Telephone encounter Note Post op pain rx. PDMP reviewed [facility] 01-20-2025 Miscellaneous Notes Post op pain rx. 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 [Electronically Signed on: 01/19/2025 08:53 EDT] Agatha Jo RN [Verified on: 01/19/2025 08:53 EDT] Agatha Jo RN [facility] 01-17-2025 Telephone encounter Note Called [facility], patient was cleared per Isael Patton. Faxing clearance and labs over to our office. [facility] 01-17-2025 Miscellaneous Notes Called [facility], patient was cleared per Isael Patton. Faxing clearance and labs over to our office. Spoke to Isael Patton's office at [facility] and pt needed additional labs done. They do have the results but Isael has not reviewed yet. They will send clearance once he is cleared. [facility] was notified as well. [facility] pre-sx called asking for the medical clearance/ though she was to see PCP on 01/11 documented in this encounter [facility] 01-14-2025 Telephone encounter Note Spoke to Isael Patton's office at [facility] and pt needed additional labs done. They do have the results but Isael has not reviewed yet. They will send clearance once he is cleared. [facility] was notified as well. [facility] 01-14-[address] Grubbs office, spoke with [place]. Questioned if patient saw the PCP on 01/11/25 for medical clearance for upcoming surgery on 01/21/25. States she will check into it and return call. [Electronically Signed on: 01/14/2025 10:45 EDT] Mariluz Hoyt RN [Verified on: 01/14/2025 10:45 EDT] Mariluz Hoyt RN 12:30 01/14/25 Laura returns call. States patient saw her PCP and some additional tests were ordered. States should be getting the clearance letter 01/17/25. [Electronically Signed on: 01/14/2025 12:37 EDT] Mariluz Hoyt RN [facility] 01-14-2025 Telephone encounter Note [facility] pre-sx called asking for the medical clearance/ though she was to see PCP on 01/11 [facility] 01-10-2025 History of Present illness Narrative Images from the original note were not included. GENERAL HISTORY AND PHYSICAL: NAME: Cande Rahman : 1970 HISTORY OF PRESENT ILLNESS: Cande Rahman is an 54 y.o. @ female. Here for surgery instructions H&P LT SHOULDER SCOPE/RCR 01/21/25 @ [facility] PAST MEDICAL HISTORY: Past Medical History: Diagnosis Date ADHD (attention deficit hyperactivity disorder) (CMS/HCC) Arthritis Bipolar disorder ([facility]/HCC) Fibromyalgia MIKE (obstructive sleep apnea) PTSD (post-traumatic stress disorder) ([facility]/HCC) Rheumatoid arthritis ([facility]/HCC) PAST SURGICAL HISTORY: Past Surgical History: Procedure Laterality Date CERVICAL FUSION 11/06/2021 ANTERIOR FUSION CERVICAL DISCECTOMY C5-C6, C6-C7 Dr Oconnor [facility] HYSTERECTOMY LUMBAR SPINE SURGERY 12/03/2023 complete L4 and L5 laminectomy/partial medial facetectomy and bilateral foraminotomies L4-5 Dr Oconnor LUMBAR SPINE SURGERY 2004 L4-L5 Dr. Workman ROTATOR CUFF REPAIR Left 02/25/2024 LT shoulder RCR w/implant and SLAP repair - Dr Montes TUBAL LIGATION SOCIAL HISTORY: Social History Occupational History Not on file Tobacco Use Smoking status: Every Day Types: Cigarettes Smokeless tobacco: Never Substance and Sexual Activity Alcohol use: Yes Comment: monthly Drug use: Not on file Comment: MARIJUIANA Sexual activity: Not on file ALLERGIES: Allergies Allergen Reactions Grass Pollen(K-O-R-T-Swt Laurita) Unknown Nasal congestion MEDICATIONS: Current Outpatient Medications Medication Instructions acetaminophen (TYLENOL) 650 mg, Oral, Every 4 hours PRN amitriptyline (Elavil) 10 MG tablet One capsule at 8 PM each night amphetamine-dextroamphetamine XR (Adderall XR) 30 MG 24 hr capsule 30 mg, Oral, Every morning ARIPiprazole (ABILIFY) 15 mg, Oral, Daily with breakfast atorvastatin (Lipitor) 40 MG tablet Every 24 hours DULoxetine (CYMBALTA) 20 mg, Oral, Daily RT meloxicam (Mobic) 15 MG tablet take 1 tablet by mouth once daily with food or milk methocarbamol (ROBAXIN) 500 mg, Oral, 4 times daily prazosin (MINIPRESS) 2 mg, Oral, 2 times daily pregabalin (LYRICA) 150 mg, Oral, 2 times daily REVIEW OF SYSTEMS: Review of Systems Constitutional: Negative for fatigue, fever and unexpected weight change. Eyes: Negative for redness and visual disturbance. Gastrointestinal: Negative for abdominal pain. Denies Indigestion Musculoskeletal: See note: Skin: Negative for color change and rash. Neurological: Negative for light-headedness and numbness. Vitals: Body mass index is 28.41 kg/m . PHYSICAL EXAM: Physical Exam Constitutional: General: She is not in acute distress. Appearance: Normal appearance. HENT: Head: Normocephalic and atraumatic. Right Ear: External ear normal. Left Ear: External ear normal. Nose: Nose normal. No rhinorrhea. Mouth/Throat: Mouth: Mucous membranes are moist. Pharynx: No posterior oropharyngeal erythema. Eyes: Extraocular Movements: Extraocular movements intact. Conjunctiva/sclera: Conjunctivae normal. Cardiovascular: Rate and Rhythm: Normal rate and regular rhythm. Pulses: Normal pulses. Heart sounds: No murmur heard. Pulmonary: Effort: Pulmonary effort is normal. No respiratory distress. Breath sounds: Normal breath sounds. No wheezing or rhonchi. Abdominal: Palpations: Abdomen is soft. Tenderness: There is no abdominal tenderness. Musculoskeletal: Cervical back: Normal range of motion and neck supple. Lymphadenopathy: Cervical: No cervical adenopathy. Skin: General: Skin is warm and dry. Findings: No erythema or rash. Neurological: General: No focal deficit present. Mental Status: She is alert and oriented to person, place, and time. Psychiatric: Mood and Affect: Mood normal. Behavior: Behavior normal. No orders of the defined types were placed in this encounter. ASSESSMENT: ICD-10-CM 1. Pre-op evaluation Z01.818 PLAN: This patient presents for preadmission testing for upcoming surgery. Complete history with medical, surgery, and current allergy and medication list obtained. Consent for surgery signed and witnessed after verbal consent to perform surgery received. All questions answered and proposed surgery scheduled. Patient presents today for fitting of left [id number] Shoulder Orthosis, Acromioclavicular, Prefabricated, Off the Shelf today. Brace is used to immobilize and increase stability of the shoulder joint to allow for full and complete healing. Fitting and adjustments were done under physician order and supervision. Patient was placed in the brace and all straps were adjusted for proper fit. Brace was dispensed to the patient and [facility] Patient Agreement was completed and signed. Warranty information was given and explained to the patient with good understanding. Proper care and fitting was also explained to the patient with good understanding. LT SHOULDER SCOPE/RCR 01/21/25 @ RIYA [facility] 01/10/25 @ 1:45 [facility] 01/07/25 @ 2PM CLEARANCE WITH ISAEL PATTON 01/11/25 @ 8:45AM PER ANESTHESIA Follow up for Post-Op 02/04/25 @ 9 ED RIVKA. documented in this encounter [facility] 01-10-2025 Note PAT reviewed for namrata durán 01/21/[address] Guy, he would like medical clearance due to history. Spoke with [place] at Dr. Carbone office. [Electronically Signed on: 01/10/2025 12:56 EDT] Sanjuana Llamas RN [Verified on: 01/10/2025 12:56 EDT] Sanjuana Llamas RN 01/10/25 at 1400 Laura called and stated that the patient is scheduled to see PCP on 01/11/25 for medical clearance. [Electronically Signed on: 01/14/2025 10:42 EDT] Mariluz Hoyt RN [facility] 12-30-2024 History of Present illness Narrative Images from the original note were not included. [address] [facility] [id number] Date of Service: 12/30/2024 Subjective: Cande Rahman is a 54 y.o. female who presents today for evaluation joints pain. Patient is seen at the request of Veronica Dixon MD. This is follow-up visit with this patient who is 54-year-old female patient presenting today as an established patient for follow-up of fibromyalgia was seen 1st time on 10/27/2023. Last time seen in the clinic was 07/01/2024 Patient symptoms started in 2019 with widespread musculoskeletal pain as well as fatigability, poor sleep, feeling tired and exhausted, she has hands and shoulders left hip pain,no swelling, no Raynaud's, no alopecia, no butterfly rash, no skin rash. . In addition she has been having neck pain as well as low back pain X-ray lumbar spine 06/26/2023 severe disc degenerative disease L5-S1 Patient has been given the following medications including, Lyrica 100 mg twice daily as well as baclofen Past surgical s/p cervical discectomy and fusion C5-C7 in 11/06/21 Past medical negative Smoking history 1 pack/day reduced 2 year ago 1/2 pack for 40 years . Lab test 10/27/2023 rheumatoid factor, CCP negative, ESR 42 and CRP 1.4 mg/dL Current medications including elavil, Methocarbamol. Cymbalta,and Mobic in addition she is on Lyrica 100 mg at bed time. Today 12/30/2024 patient continued to be symptomatic The following portions of the patient's history were reviewed and updated as appropriate: allergies, current medications, past family history, past medical history, past social history, past surgical history and problem list. Review of Systems: Review of Systems Constitutional: Positive for fatigue. Musculoskeletal: Positive for arthralgias. Diffuse musculoskeletal pain , feels tired in the morning, exhausted and easy fatigability during daytime Skin: Negative for rash. Psychiatric/Behavioral: Positive for sleep disturbance. Poor sleep Current Outpatient Medications Medication Sig Dispense Refill acetaminophen (TYLENOL) 325 mg tablet Take 2 tablets (650 mg total) by mouth every 4 (four) hours as needed for fever, headaches or pain. amphetamine-dextroamphetamine XR (ADDERALL XR) 10 mg 24 hr capsule Take 1 capsule (10 mg total) by mouth daily with lunch Indications: attention deficit disorder with hyperactivity. amphetamine-dextroamphetamine XR (ADDERALL XR) 30 mg 24 hr capsule Take 1 capsule (30 mg total) by mouth every morning Indications: attention deficit disorder with hyperactivity. ARIPiprazole (ABILIFY) 15 mg tablet Take 1 tablet (15 mg total) by mouth daily with breakfast Indications: manic-depression. atorvastatin (LIPITOR) 40 mg tablet Take 1 tablet (40 mg total) by mouth in the morning. buPROPion SR (WELLBUTRIN SR) 100 mg 12 hr tablet Take 1 tablet (100 mg total) by mouth in the morning. Indications: anxiousness associated with depression. methylPREDNISolone (MEDROL, KAMARI,) 4 mg tablet Take 1 tablet (4 mg total) by mouth See Admin Instructions. Use as directed by package instructions 21 tablet 0 naloxone (NARCAN) 4 mg/actuation spray,non-aerosol nasal spray Administer 1 spray (4 mg total) into alternating nostrils as needed for opioid reversal. 1 each 0 prazosin (MINIPRESS) 2 mg capsule Take 1 capsule (2 mg total) by mouth in the morning and 1 capsule (2 mg total) before bedtime. Indications: high blood pressure, posttraumatic stress syndrome. psyllium (METAMUCIL) 0.52 gram capsule Take 1 capsule (0.52 g total) by mouth in the morning and at bedtime. 60 capsule 1 traMADoL (ULTRAM) 50 mg tablet Take 1 tablet (50 mg total) by mouth every 6 (six) hours as needed for pain. amitriptyline (ELAVIL) 50 mg tablet One capsule at 8 PM each night 90 tablet 1 DULoxetine (CYMBALTA) 60 mg capsule Take 1 capsule (60 mg total) by mouth in the morning and 1 capsule (60 mg total) before bedtime. 180 capsule 1 meloxicam (MOBIC) 15 mg tablet One tablet daily with food 90 tablet 1 pregabalin (LYRICA) 150 mg capsule Take 1 capsule (150 mg total) by mouth once daily at bedtime. 90 capsule 1 tiZANidine (ZANAFLEX) 4 mg tablet One tab at 8 PM each night 90 tablet 1 No current facility-administered medications for this visit. Physical Exam: Physical Exam Vitals and nursing note reviewed. Constitutional: Appearance: She is well-developed. HENT: Head: Normocephalic and atraumatic. Right Ear: External ear normal. Left Ear: External ear normal. Nose: Nose normal. Eyes: Conjunctiva/sclera: Conjunctivae normal. Pupils: Pupils are equal, round, and reactive to light. Neck: Thyroid: No thyromegaly. Vascular: No JVD. Pulmonary: Effort: Pulmonary effort is normal. Musculoskeletal: General: No tenderness or deformity. Normal range of motion. Cervical back: Normal range of motion. Comments: Symmetrical tender trigger points No synovitis Skin: General: Skin is warm and dry. Coloration: Skin is not pale. Findings: No erythema or rash. Neurological: Mental Status: She is alert and oriented to person, place, and time. Cranial Nerves: No cranial nerve deficit. Coordination: Coordination normal. Psychiatric: Behavior: Behavior normal. Thought Content: Thought content normal. CORTEZ-28 (If Applicable) There is currently no information documented on the homunculus. Go to the Rheumatology activity and complete the homunculus joint exam. CORTEZ-28 (CRP): -- CORTEZ-28 (ESR): -- Tender (CORTEZ-28): -- Swollen (CORTEZ-28): -- Resp 18 Ht 167.6 cm (5' 5.98 ) Wt 84.4 kg (186 lb) LMP 01/20/2019 (Approximate) BMI 30.04 kg/m : reviewed Labs and Imaging: reviewed and discussed with the patient during the visit.I Lab Results Component Value Date WBC 9.4 11/07/2023 HGB 12.7 12/04/2023 HCT 37.9 12/04/2023 MCV 91 11/07/2023 CRP 1.4 (H) 10/27/2023 GFR >60 11/01/2021 GFR >60 11/01/2021 AST 26 11/12/2022 Imaging: Assessment and Plan: Cande Rahman is a 54 y.o. female patient with: 1. Fibromyalgia - amitriptyline (ELAVIL) 50 mg tablet; One capsule at 8 PM each night Dispense: 90 tablet; Refill: 1 - meloxicam (MOBIC) 15 mg tablet; One tablet daily with food Dispense: 90 tablet; Refill: 1 - pregabalin (LYRICA) 150 mg capsule; Take 1 capsule (150 mg total) by mouth once daily at bedtime. Dispense: 90 capsule; Refill: 1 - tiZANidine (ZANAFLEX) 4 mg tablet; One tab at 8 PM each night Dispense: 90 tablet; Refill: 1 - DULoxetine (CYMBALTA) 60 mg capsule; Take 1 capsule (60 mg total) by mouth in the morning and 1 capsule (60 mg total) before bedtime. Dispense: 180 capsule; Refill: 1 At this point patient continued to be symptomatic. Will increase dose of ANCA as well as Cymbalta Return to clinic 6 month. This note was created with the assistance of a speech recognition program. While intending to generate a timely document that accurately reflects the content of the visit, no guarantee can be provided that every grammatical or spelling mistake has been or will be identified or corrected. Thank you for your understanding. [facility] Dr. Cady Fernández MD [address], [address] [place] [address] Office: [phone] documented in this encounter [facility] 12-21-2024 History of Present illness Narrative Images from the original note were not included. HISTORY OF PRESENT ILLNESS: EST PT Cande Rahman is an 54 y.o. @ female. EST PT WITH DR MONTES- LT SHOULDER PAIN- 2 WKS S/P CORTISONE INJ 12/07- 3 DAYS RELIEF, PAIN IS BACK MRI 08/24/24 [facility] (POST-OP) XRAY 05/04/[address] CERVICAL 09/24/23 [facility] XR CERVICAL 06/25/23 PHYSICAL THERAPY [facility] JUN 2024 (6 VISITS) SA CORTISONE INJECTION 12/07/24-3 DAYS RELIEF PAIN MANAGEMENT- 2022? [facility] NO PREDNISONE LT SHOULDER SCOPE 02/25/24 [facility] 10 MONTHS P/O LT SHOULDER RCR WITH BIO INDUCTIVE IMPLANT (Regeneten) SLAP REPAIR 02/25/[address] MONTES. ANTERIOR SHOULDER PAIN, RADIATES DOWN ARM TO HAND. + INTERMITTENT N/T IN RT HAND. + NECK PAIN- WORSE WITH ALL ROM OF SHOULDER. ADMITS WEAKNESS. INCREASED PAIN WITH WEATHER CHANGES. NOT TAKING ANYTHING FOR PAIN. + WAKE AT HS. SHE DOES NOT FEEL SURGERY WAS HELPFUL. + LYRICA AND ROBAXIN PREVIOUS DISCECTOMY AND FUSION C5-C7 11/06/21 DR LYNN FUENTES: On 04/26/24, she fell down stairs and landed on back. ALLERGIES: Allergies Allergen Reactions Grass Pollen(K-O-R-T-Swt Laurita) Unknown Nasal congestion HOME MEDICATIONS: Current Outpatient Medications Medication Instructions acetaminophen (TYLENOL) 650 mg, Oral, Every 4 hours PRN amitriptyline (Elavil) 10 MG tablet One capsule at 8 PM each night amphetamine-dextroamphetamine XR (Adderall XR) 30 MG 24 hr capsule 30 mg, Oral, Every morning ARIPiprazole (ABILIFY) 15 mg, Oral, Daily with breakfast atorvastatin (Lipitor) 40 MG tablet Every 24 hours DULoxetine (CYMBALTA) 20 mg, Oral, Daily RT meloxicam (Mobic) 15 MG tablet take 1 tablet by mouth once daily with food or milk methocarbamol (ROBAXIN) 500 mg, Oral, 4 times daily prazosin (MINIPRESS) 2 mg, Oral, 2 times daily pregabalin (LYRICA) 150 mg, Oral, 2 times daily PHYSICAL EXAM: Shoulder Musculoskeletal Exam Inspection Left Left shoulder inspection is normal. Ecchymosis: none Peripheral edema: none Atrophy: none Masses: none Prior incision: arthroscopic portals Incision: well-healed Palpation Left Crepitus: no crepitus Increased warmth: none Tenderness: present Anterior shoulder: mild AC joint: mild Lateral arm: mild Range of Motion Right Right shoulder active abduction: + pain passing 90 degrees. Left Left shoulder range of motion is normal. Active ROM: pain. Passive ROM: pain. Active forward elevation: 140. Passive forward elevation: 180. Shoulder active abduction: 140. Passive abduction: 180. Active external rotation at side: 80. Passive external rotation at side: 80. Internal rotation: L5. Strength Left External rotation: 5/5. External rotation is affected by pain. Internal rotation: 5/5. Abduction: 5/5. Abduction is affected by pain. Biceps: 5/5. Biceps are affected by pain. Triceps: 5/5. Neurovascular Left Radial pulse: normal and 2+ Capillary refill: <3 sec Axillary nerve sensory distribution: normal Scapula Left Left shoulder scapula is normal. Position: normal Winging: none Special Tests Left Rotator Cuff Signs Neer's test: positive Erazo test: positive Painful arc test: positive Biceps/tera Signs Speed's test: negative General Constitutional: appears stated age Neurological: alert and oriented x3 Vitals: There is no height or weight on file to calculate BMI. Tobacco Use: High Risk (07/01/2024) Received from [facility] Patient History Smoking Tobacco Use: Every Day Smokeless Tobacco Use: Never Passive Exposure: Not on file Alcohol Use: Not At Risk (12/04/2023) Received from [facility], [facility] AUDIT-C Frequency of Alcohol Consumption: 2-4 times a month Average Number of Drinks: 1 or 2 Frequency of Binge Drinking: Never IMAGING: Procedures No orders of the defined types were placed in this encounter. ASSESSMENT: ICD-10-CM 1. Sprain of left rotator cuff capsule, initial encounter S43.422A 2. Status post left rotator cuff repair Z98.890 PLAN: Injection of 43 days relief. We have discussed her case at length including her symptoms physical exam and MRI today. We have recommended a repeat diagnostic and operative arthroscopy of her left shoulder for re-tear of her left rotator cuff. We'll see her back on the day of surgery. Patient understands the risks and benefits of said treatment. We have discussed both surgical and nonsurgical treatment options with the patient and the risks and benefits associated with both. The patient is requesting surgical intervention because the patient's symptoms were affecting the patient's activities of daily living and ability to sleep. The patient's symptoms were unresponsive to outpatient treatment options. After lengthy discussions involving but not limited to both surgical and nonsurgical treatment options the patient has requested surgical intervention and we will see them back on the day of surgery. The patient understands the risks of said treatment. Exam Questions answered in laymen terms at the bedside. The diagnosis, home exercise plan and any ongoing restrictions/ recommendations reviewed. If unable to be reached in office, I recommend evaluation at nearest Emergency Room if any symptoms worsened or new symptoms develop for requiring urgent evaluation. documented in this encounter [facility] 12-07-2024 History of Present illness Narrative Associated Order(s): L Inj/Asp: L subacromial bursa Post-Procedure Diagnose(s): Sprain of left rotator cuff capsule, initial encounter Images from the original note were not included. HISTORY OF PRESENT ILLNESS: EST PT Cande Rahman is an 54 y.o. @ female. EST PT WITH DR MONTES. LAST VISIT 07/22/25- LT SHOULDER PAIN MRI 08/24/24 [facility] (POST-OP) XRAY 05/04/[address] CERVICAL 09/24/23 [facility] XR CERVICAL 06/25/[address] [facility] JUN 2024 (6 VISITS) NO CORTISONE INJECTION PAIN MANAGEMENT- 2022? [facility] NO PREDNISONE LT SHOULDER SCOPE 02/25/24 J[facility] 9 MONTHS P/O LT SHOULDER RCR WITH BIO INDUCTIVE IMPLANT (Regeneten) SLAP REPAIR 02/25/[address] MONTES. ANTERIOR SHOULDER PAIN, RADIATES DOWN ARM TO HAND. + INTERMITTENT N/T IN RT HAND. + NECK PAIN- WORSE WITH ALL ROM. ADMITS WEAKNESS. INCREASED PAIN WITH WEATHER CHANGES. NOT TAKING ANYTHING FOR PAIN. + WAKE AT HS. SHE DOES NOT FEEL SURGERY WAS HELPFUL. + LYRICA AND ROBAXIN PREVIOUS DISCECTOMY AND FUSION C5-C7 11/06/21 DR LYNN FUENTES: On 04/26/24, she fell down stairs and landed on back. ALLERGIES: Allergies Allergen Reactions Grass Pollen(K-O-R-T-Swt Laurita) Unknown Nasal congestion HOME MEDICATIONS: Current Outpatient Medications Medication Instructions acetaminophen (TYLENOL) 650 mg, Oral, Every 4 hours PRN amitriptyline (Elavil) 10 MG tablet One capsule at 8 PM each night amphetamine-dextroamphetamine XR (Adderall XR) 30 MG 24 hr capsule 30 mg, Oral, Every morning ARIPiprazole (ABILIFY) 15 mg, Oral, Daily with breakfast atorvastatin (Lipitor) 40 MG tablet Every 24 hours DULoxetine (CYMBALTA) 20 mg, Oral, Daily RT meloxicam (Mobic) 15 MG tablet take 1 tablet by mouth once daily with food or milk methocarbamol (ROBAXIN) 500 mg, Oral, 4 times daily prazosin (MINIPRESS) 2 mg, Oral, 2 times daily pregabalin (LYRICA) 150 mg, Oral, 2 times daily PHYSICAL EXAM: Shoulder Musculoskeletal Exam Inspection Left Left shoulder inspection is normal. Ecchymosis: none Peripheral edema: none Atrophy: none Masses: none Palpation Left Crepitus: no crepitus Increased warmth: none Tenderness: present Anterior shoulder: mild AC joint: mild Lateral arm: mild Range of Motion Right Right shoulder active abduction: + pain passing 90 degrees. Left Left shoulder range of motion is normal. Active ROM: pain. Passive ROM: pain. Active forward elevation: 160. Passive forward elevation: 180. Shoulder active abduction: 160. Passive abduction: 180. Active external rotation at side: 80. Passive external rotation at side: 80. Internal rotation: L5. Strength Left External rotation: 5/5. Internal rotation: 5/5. Abduction: 5/5. Biceps: 5/5. Triceps: 5/5. Neurovascular Left Radial pulse: normal and 2+ Capillary refill: <3 sec Axillary nerve sensory distribution: normal Scapula Left Left shoulder scapula is normal. Position: normal Winging: none Special Tests Left Rotator Cuff Signs Neer's test: positive Erazo test: positive Painful arc test: positive Biceps/tera Signs Speed's test: negative General Constitutional: appears stated age Neurological: alert and oriented x3 Vitals: There is no height or weight on file to calculate BMI. Tobacco Use: High Risk (07/01/2024) Received from [facility] Patient History Smoking Tobacco Use: Every Day Smokeless Tobacco Use: Never Passive Exposure: Not on file Alcohol Use: Not At Risk (12/04/2023) Received from [facility], [facility] AUDIT-C Frequency of Alcohol Consumption: 2-4 times a month Average Number of Drinks: 1 or 2 Frequency of Binge Drinking: Never IMAGING: L Inj/Asp: L subacromial bursa on 12/07/2024 10:32 AM Indications: pain Details: 21 G needle, posterior approach Medications: 40 mg methylPREDNISolone acetate 40 MG/ML Outcome: tolerated well, no immediate complications Procedure, treatment alternatives, risks and benefits explained, specific risks discussed. Consent was given by the patient. Patient was prepped and draped in the usual sterile fashion. Orders Placed This Encounter Procedures L Inj/Asp: L subacromial bursa This order was created via procedure documentation ASSESSMENT: ICD-10-CM 1. Pain and swelling of left shoulder M25.512 M25.412 2. Sprain of left rotator cuff capsule, initial encounter S43.422A L Inj/Asp: L subacromial bursa MRI IMPRESSION: Low-grade intrasubstance tearing of distal infraspinatus tendon at and just proximal to the footprint with possible tiny full-thickness tear components superimposed on mild tendinosis. PLAN: We have discussed her case with her at length. We have recommended an injection for a partial tear of her rotator cuff. We have discussed her restrictions and her home exercise program. We'll see her back in 1 month. If her symptoms persist or worsen, we will recommend a repeat diagnostic and operative arthroscopy of her left shoulder. . Questions answered in laymen terms at the bedside. The diagnosis, home exercise plan and any ongoing restrictions/ recommendations reviewed. If unable to be reached in office, I recommend evaluation at nearest Emergency Room if any symptoms worsened or new symptoms develop for requiring urgent evaluation. documented in this encounter [facility] 11-22-2024 Telephone encounter Note I reviewed results with patient over the phone. I recommend she follow up with Dr. Carbone to discuss injection vs shoulder scope. Can we call her to schedule with him? Thank you! [facility] 11-22-2024 Miscellaneous Notes I reviewed results with patient over the phone. I recommend she follow up with Dr. Carbone to discuss injection vs shoulder scope. Can we call her to schedule with him? Thank you! Patient called and left vm regarding MRI results that was done 08/24. She never received the results. She is having shoulder pain. Who should patient be scheduled with? documented in this encounter [facility] 11-22-2024 Telephone encounter Note Patient called and left regarding MRI results that was done 08/24. She never received the results. She is having shoulder pain. Who should patient be scheduled with? [facility] 07-22-2024 History of Present illness Narrative Images from the original note were not included. HISTORY OF PRESENT ILLNESS: Cande Rahman is an 54 y.o. @ female. Follow up LT shoulder scope LT shoulder: sent to PT at last visit 06/07, completed 6 visits. She thinks ROM has improved, pain persists 5 months s/p LT shoulder RCR utilizing a bio inductive implant (Regeneten) and SLAP lesion repair 02/25/24. On 04/26, she fell down stairs and landed on back. Anterior tenderness, worse with reaching across her body. Pain is worse some days, worse with rainy weather. Taking tramadol rarely. Using ice prn. Admits N/T in MF, RF and LF. Denies swelling. Denies popping/grinding. States she has been using it. Wakes pt at HS, aches at night. Doesn't feel like surgery was helpful MEDICATION: Current Outpatient Medications on File Prior to Visit Medication Sig Dispense Refill acetaminophen (Tylenol) 325 MG tablet Take 650 mg by mouth every 4 (four) hours if needed amitriptyline (Elavil) 10 MG tablet One capsule at 8 PM each night amphetamine-dextroamphetamine XR (Adderall XR) 30 MG 24 hr capsule Take 30 mg by mouth in the morning. ARIPiprazole (Abilify) 15 MG tablet Take 15 mg by mouth in the morning. Take with meals. atorvastatin (Lipitor) 40 MG tablet 1 (one) time each day at the same time buPROPion XL (Wellbutrin XL) 150 MG 24 hr tablet Take 150 mg by mouth in the morning. DULoxetine (Cymbalta) [address] capsule Take 20 mg by mouth in the morning. meloxicam (Mobic) 15 MG tablet take 1 tablet by mouth once daily with food or milk methocarbamol (Robaxin) 500 MG tablet Take 500 mg by mouth in the morning and 500 mg at noon and 500 mg in the evening and 500 mg before bedtime. prazosin (Minipress) 2 MG capsule Take 2 mg by mouth in the morning and 2 mg in the evening. pregabalin (Lyrica) 150 MG capsule Take 150 mg by mouth in the morning and 150 mg in the evening. No current facility-administered medications on file prior to visit. MEDICAL HISTORY: Past Medical History: Diagnosis Date ADHD (attention deficit hyperactivity disorder) ([facility]) Arthritis Bipolar disorder ([facility] Fibromyalgia MIKE (obstructive sleep apnea) PTSD (post-traumatic stress disorder) ([facility]) Rheumatoid arthritis ([facility]) ALLERGIES: Allergies Allergen Reactions Grass Pollen(K-O-R-T-Swt Laurita) Unknown Nasal congestion VITALS: Visit Vitals Smoking Status Every Day PHYSICAL EXAM: Ortho Exam LEFT SHOULDER ROM 150/150/L5 Negative lift off Anterior lateral tenderness Strength 4/5 Crepitus Positive cross Positive impingement Portals well healed ASSESSMENT: ICD-10-CM 1. Chronic left shoulder pain M25.512 G89.29 2. Status post left rotator cuff repair Z98.890 3. Internal derangement of left shoulder M24.812 MR shoulder left wo IV contrast PLAN: I explained the diagnosis and reviewed treatment options. I answered all of the patient's questions. I recommend a MRI of the Left shoulder, follow up after MRI. Dr. Montes obtained history and examined the patient, I am acting as scribe for Dr. Montes/azeem Montes D.O. documented in this encounter [facility] 07-08-2024 History of Present illness Narrative Physical Therapy Physical Therapy Treatment Visit Patient Name: Cande Rahman Today's Date: 07/08/2024 Encounter Diagnoses Name Primary? Acute pain of left shoulder Yes Status post left rotator cuff repair Visit number: 4 Sup time: 38 min Total time: 42 min Time in: 1:30 pm Time out: 2:12 pm Subjective Cande Rahman 54 y.o. female presents to physical therapy w/ chief c/o L shoulder/neck pain. Mechanism of Onset: SX 02/25/24, fall 04/26/24 no MRI since fall has to do PT with medicaid. Pt reports significantly better ROM before fall even without formal PT. Current deficits: pain, decreased ROM, decreased strength. Quick DASH= 84% impaired at IE Pain: mod to severe, 6/10 upon arrival. Location: L side neck, shoulder grossly including ant shoulder down bicep and down lateral upper arm as well Aggravating Factors: neck movement, arm movement, ADLs/self care, pushing, pulling Relieving factors: rest/ice min Imaging: No MRI since fall Precautions: RTC/slap repair, fall 04/26/24 likely re-tear Objective L shoulder AROM: flex to 70, abd to 80, ext min loss, IR/ext behind back short of L SI jt, ER to 0 PROM: unable to get any farther than AROM, severe guarding and highly irritable Severe tightness L UT and LS, severe limited neck AROM, potential whiplash with fall. Treatment Interventions Manual Therapy: STM/massage L UT/LS, ant shoulder down bicep, STM to L pec region and pec release, gentle PROM x 20 min Therapeutic Exercise: per STEPAN grid ROM, flexibility x 18 min sup, see grid. Therapeutic Activity: Exercises to improve dynamic activities, functional tasks, functional mobility to return to prior activity level Modalities: CP x deferred will do at home Assessment/Plan L shoulder, neck pain, decreased ROM, strength causing increased difficulty with ADLs/self care, decreased QOL Min Improved tolerance to PROM last couple sessions able to reach ~100 flex and 90 abd. MT focus on massage to address tightness and guarding. Progress as able. Very min progress to date continued concerns of damaging repair(s) with fall remain, [facility] prognosis remains poor. Pt only completed 4 formal visits only including IE on 06/16/24 to date. documented in this encounter [facility] 07-01-2024 Telephone encounter Note Pt cx due to illness. Received call about 1:05 pm [facility] 07-01-2024 Miscellaneous Notes Pt cx due to illness. Received call about 1:05 pm documented in this encounter [facility] 07-01-2024 History of Present illness Narrative Images from the original note were not included. [address] [facility] [address] [facility] [id number] Date of Service: 07/01/2024 Subjective: Cande Rahman is a 54 y.o. female who presents today for evaluation joints pain. Patient is seen at the request of Veronica Dixon MD. This is follow-up visit with this patient who is 54-year-old female patient presenting today as an established patient for follow-up of fibromyalgia was seen 1st time on 10/27/2023. Last time seen in the clinic was 01/01/2024 Patient symptoms started in 2019 with widespread musculoskeletal pain as well as fatigability, poor sleep, feeling tired and exhausted, she has hands and shoulders left hip pain,no swelling, no Raynaud's, no alopecia, no butterfly rash, no skin rash. . In addition she has been having neck pain as well as low back pain X-ray lumbar spine 06/26/2023 severe disc degenerative disease L5-S1 Patient has been given the following medications including, Lyrica 100 mg twice daily as well as baclofen Past surgical s/p cervical discectomy and fusion C5-C7 in 11/06/21 Past medical negative Smoking history 1 pack/day reduced 2 year ago 1/2 pack for 40 years . Lab test 10/27/2023 rheumatoid factor, CCP negative, ESR 42 and CRP 1.4 mg/dL Current medications including elavil, Methocarbamol. Cymbalta,and Mobic in addition she is on Lyrica 100 mg at bed time. Today 07/01/2024 patient continued to be symptomatic The following portions of the patient's history were reviewed and updated as appropriate: allergies, current medications, past family history, past medical history, past social history, past surgical history and problem list. Review of Systems: Review of Systems Constitutional: Positive for fatigue. Musculoskeletal: Positive for arthralgias. Diffuse musculoskeletal pain , feels tired in the morning, exhausted and easy fatigability during daytime Skin: Negative for rash. Psychiatric/Behavioral: Positive for sleep disturbance. Poor sleep Current Outpatient Medications Medication Sig Dispense Refill acetaminophen (TYLENOL) 325 mg tablet Take 2 tablets (650 mg total) by mouth every 4 (four) hours as needed for fever, headaches or pain. amphetamine-dextroamphetamine XR (ADDERALL XR) 10 mg 24 hr capsule Take 1 capsule (10 mg total) by mouth daily with lunch Indications: attention deficit disorder with hyperactivity. amphetamine-dextroamphetamine XR (ADDERALL XR) 30 mg 24 hr capsule Take 1 capsule (30 mg total) by mouth every morning Indications: attention deficit disorder with hyperactivity. ARIPiprazole (ABILIFY) 15 mg tablet Take 1 tablet (15 mg total) by mouth daily with breakfast Indications: manic-depression. atorvastatin (LIPITOR) 40 mg tablet Take 1 tablet (40 mg total) by mouth in the morning. buPROPion SR (WELLBUTRIN SR) 100 mg 12 hr tablet Take 1 tablet (100 mg total) by mouth in the morning. Indications: anxiousness associated with depression. meloxicam (MOBIC) 15 mg tablet One tablet daily with food 90 tablet 1 prazosin (MINIPRESS) 2 mg capsule Take 1 capsule (2 mg total) by mouth in the morning and 1 capsule (2 mg total) before bedtime. Indications: high blood pressure, posttraumatic stress syndrome. psyllium (METAMUCIL) 0.52 gram capsule Take 1 capsule (0.52 g total) by mouth in the morning and at bedtime. 60 capsule 1 traMADoL (ULTRAM) 50 mg tablet Take 1 tablet (50 mg total) by mouth every 6 (six) hours as needed for pain. amitriptyline (ELAVIL) 50 mg tablet One capsule at 8 PM each night 90 tablet 1 DULoxetine 40 mg capsule,delayed release(DR/EC) Take 20 mg by mouth in the morning and 20 mg before bedtime. 180 capsule 1 methylPREDNISolone (MEDROL, KAMARI,) 4 mg tablet Take 1 tablet (4 mg total) by mouth See Admin Instructions. Use as directed by package instructions (Patient not taking: Reported on 06/08/2024) 21 tablet 0 naloxone (NARCAN) 4 mg/actuation spray,non-aerosol nasal spray Administer 1 spray (4 mg total) into alternating nostrils as needed for opioid reversal. (Patient not taking: Reported on 04/01/2024) 1 each 0 pregabalin (LYRICA) 100 mg capsule Take 1 capsule (100 mg total) by mouth once daily at bedtime. 90 capsule 1 tiZANidine (ZANAFLEX) 4 mg tablet One tab at 8 PM each night 90 tablet 1 No current facility-administered medications for this visit. Physical Exam: Physical Exam Vitals and nursing note reviewed. Constitutional: Appearance: She is well-developed. HENT: Head: Normocephalic and atraumatic. Right Ear: External ear normal. Left Ear: External ear normal. Nose: Nose normal. Eyes: Conjunctiva/sclera: Conjunctivae normal. Pupils: Pupils are equal, round, and reactive to light. Neck: Thyroid: No thyromegaly. Vascular: No JVD. Pulmonary: Effort: Pulmonary effort is normal. Musculoskeletal: General: No tenderness or deformity. Normal range of motion. Cervical back: Normal range of motion. Comments: Symmetrical tender trigger points No synovitis Skin: General: Skin is warm and dry. Coloration: Skin is not pale. Findings: No erythema or rash. Neurological: Mental Status: She is alert and oriented to person, place, and time. Cranial Nerves: No cranial nerve deficit. Coordination: Coordination normal. Psychiatric: Behavior: Behavior normal. Thought Content: Thought content normal. CORTEZ-28 (If Applicable) There is currently no information documented on the homunculus. Go to the Rheumatology activity and complete the homunculus joint exam. CORTEZ-28 (CRP): -- CORTEZ-28 (ESR): -- Tender (CORTEZ-28): -- Swollen (CORTEZ-28): -- Resp 18 Ht 167.6 cm (5' 5.98 ) Wt 93 kg (205 lb) LMP 01/20/2019 (Approximate) BMI 33.10 kg/m : reviewed Labs and Imaging: reviewed and discussed with the patient during the visit.I Lab Results Component Value Date WBC 9.4 11/07/2023 HGB 12.7 12/04/2023 HCT 37.9 12/04/2023 MCV 91 11/07/2023 CRP 1.4 (H) 10/27/2023 GFR >60 11/01/2021 GFR >60 11/01/2021 AST 26 11/12/2022 Imaging: Assessment and Plan: Cande Rahman is a 54 y.o. female patient with: 1. Fibromyalgia - amitriptyline (ELAVIL) 50 mg tablet; One capsule at 8 PM each night Dispense: 90 tablet; Refill: 1 - DULoxetine 40 mg capsule,delayed release(DR/EC); Take 20 mg by mouth in the morning and 20 mg before bedtime. Dispense: 180 capsule; Refill: 1 - pregabalin (LYRICA) 100 mg capsule; Take 1 capsule (100 mg total) by mouth once daily at bedtime. Dispense: 90 capsule; Refill: 1 - tiZANidine (ZANAFLEX) 4 mg tablet; One tab at 8 PM each night Dispense: 90 tablet; Refill: 1 At this point patient continued to be symptomatic. She did not like methocarbamol has not been of help. change chlorzoxazone to Zanaflex, increase Cymbalta to 40 mg twice daily as well as amitriptyline 50 mg and keep her on meloxicam. Return to clinic 6 month. This note was created with the assistance of a speech recognition program. While intending to generate a timely document that accurately reflects the content of the visit, no guarantee can be provided that every grammatical or spelling mistake has been or will be identified or corrected. Thank you for your understanding. [facility] Dr. Cady Fernández MD [address], [address] [place] [address] Office: [phone] documented in this encounter [facility] 06-23-2024 History of Present illness Narrative Physical Therapy Physical Therapy Evaluation Visit Patient Name: Cande Rahman Today's Date: 06/23/2024 Encounter Diagnoses Name Primary? Acute pain of left shoulder Yes Status post left rotator cuff repair Visit number: 2 Sup time: 35 min Total time: 50 min Time in: 1:45 pm Time out: 2:35 Subjective Cande Rahman 54 y.o. female presents to physical therapy w/ chief c/o L shoulder/neck pain. Mechanism of Onset: SX 02/25/24, fall 04/26/24 no MRI since fall has to do PT with medicaid. Pt reports significantly better ROM before fall even without formal PT. Current deficits: pain, decreased ROM, decreased strength. Quick DASH= 84% impaired at IE Pain: mod to severe Location: L side neck, shoulder grossly including ant shoulder down bicep and down lateral upper arm as well Aggravating Factors: neck movement, arm movement, ADLs/self care, pushing, pulling Relieving factors: rest/ice min Imaging: No MRI since fall Precautions: RTC/slap repair, fall 04/26/24 likely re-tear Objective L shoulder AROM: flex to 70, abd to 80, ext min loss, IR/ext behind back short of L SI jt, ER to 0 PROM: unable to get any farther than AROM, severe guarding and highly irritable Severe tightness L UT and LS, severe limited neck AROM, potential whiplash with fall. Treatment Interventions Manual Therapy: STM/massage L UT/LS, ant shoulder down bicep, gentle PROM x 15 min total (mostly massage due to severe guarding with PROM) Therapeutic Exercise: per STEPAN grid ROM, flexibility x 20 min sup, added wall walk flex low reps due to poor tolerance and increased some hold times/reps, also added neck ROM due to L side s/s Therapeutic Activity: Exercises to improve dynamic activities, functional tasks, functional mobility to return to prior activity level Modalities: CP x 10 min end of session Assessment/Plan L shoulder, neck pain, decreased ROM, strength causing increased difficulty with ADLs/self care, decreased QOL Prognosis poor 2nd to fall and re-injury and very poor presentation today, very limited ROM and highly irritable Min improved ROM passive flexion stretch but remains highly irritable with very limited ROM suggestive of damage to repair documented in this encounter [facility] 06-17-2024 History of Present illness Narrative Physical Therapy Physical Therapy Evaluation Visit Patient Name: Cande Rahman Today's Date: 06/17/2024 Encounter Diagnoses Name Primary? Status post left rotator cuff repair Visit number: 1 Subjective Cande Rahman 54 y.o. female presents to physical therapy w/ chief c/o L shoulder/neck pain. Mechanism of Onset: SX 02/25/24, fall 04/26/24 no MRI since fall has to do PT with medicaid. Pt reports significantly better ROM before fall even without formal PT. Current deficits: pain, decreased ROM, decreased strength. Quick DASH= 84% impaired at IE Pain: mod to severe Location: L side neck, shoulder grossly including ant shoulder down bicep and down lateral upper arm as well Aggravating Factors: neck movement, arm movement, ADLs/self care, pushing, pulling Relieving factors: rest/ice min Imaging: No MRI since fall Precautions: RTC/slap repair, fall 04/26/24 likely re-tear Objective L shoulder AROM: flex to 70, abd to 80, ext min loss, IR/ext behind back short of L SI jt, ER to 0 PROM: unable to get any farther than AROM, severe guarding and highly irritable Severe tightness L UT and LS, severe limited neck AROM, potential whiplash with fall. Treatment Interventions Education: HEP education with demonstration handout and review, Educated on Eval Findings and POC, heat vs cold use x 10 min self care Manual Therapy: STM/massage L UT/LS, ant shoulder down bicep, gentle PROM x 10 min (mostly massage due to severe guarding with PROM) Therapeutic Exercise: per STEPAN grid ROM, flexibility x 15 min sup Therapeutic Activity: Exercises to improve dynamic activities, functional tasks, functional mobility to return to prior activity level Modalities: CP x 10 min end of session Assessment/Plan L shoulder, neck pain, decreased ROM, strength causing increased difficulty with ADLs/self care, decreased QOL Prognosis poor 2nd to fall and re-injury and very poor presentation today, very limited ROM and highly irritable Patient Goals Short Term Goal #1: pt will demo L shoulder AROM grossly WNL all planes pain free Short Term Goal #2: pt will deom L shoulder and elbow strenght grossly greater than or equal to 4+/5 MMT all planes Short Term Goal #3: pt will self report impairment less than or equal to 10% per Quick DASH at DC Short Term Goal #4: pt will be ind with HEP for maintenance and able to avoid further intervention at this time Pt will benefit from skilled PT to address the above impairments for 2-3x/week for 4-6 weeks pending pt needs/progress. I hereby deem this POC medically necessary. Please sign below. Date: documented in this encounter [facility] 06-14-2024 Miscellaneous Notes ----- Message from LINDA Sam sent at 06/10/2024 9:54 PM EDT ----- Regarding: FW:Results Please let patient know her stool was negative for infection. Continue adequate water intake, high fiber, and fiber supplement. Thank you, Paty ----- Message ----- From: Interface - Lab Results/Orders In Sent: 06/10/2024 7:17 PM EDT To: LINDA Morales Spoke with patient regarding GI panel results and Paty Silver CNP recommendations. Patient verbally understood with no further questions. documented in this encounter [facility] 06-14-2024 Telephone encounter Note ----- Message from LINDA Sam sent at 06/10/2024 9:54 PM EDT ----- Regarding: FW:Results Please let patient know her stool was negative for infection. Continue adequate water intake, high fiber, and fiber supplement. Thank you, Paty ----- Message ----- From: Interface - Lab Results/Orders In Sent: 06/10/2024 7:17 PM EDT To: LINDA Morales [facility] 06-14-2024 Telephone encounter Note Spoke with patient regarding GI panel results and Paty Silver CNP recommendations. Patient verbally understood with no further questions. [facility] 06-11-2024 Miscellaneous Notes Cande calls and asking for lyrica to be filled. Informed that office is only seeing as needed and will need to obtain this medication from another provider- informed that will call in a 1 month supply but will need to have someone else prescribe from this point- she verbalizes understanding. Called in to [facility]: pregabalin (LYRICA) 100 mg capsule [[id number]] Order Details Dose: 100 mg Route: oral Frequency: 2 times daily Dispense Quantity: 60 capsule Refills: 0 Note to Pharmacy: 30 Day Supply Sig: Take 1 capsule (100 mg total) by mouth in the morning and 1 capsule (100 mg total) before bedtime. Last prescription from office. [facility] Telephone encounter Note Cande calls and asking for lyrica to be filled. Informed that office is only seeing as needed and will need to obtain this medication from another provider- informed that will call in a 1 month supply but will need to have someone else prescribe from this point- she verbalizes understanding. Called in to [facility]: pregabalin (LYRICA) 100 mg capsule [[id number]] Order Details Dose: 100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 over the incision, it is OK to shower with them. Do not remove them. Let them fall off on their own. If you have a question, call your doctor s office. Go to the follow-up appointment with your doctor. documented in this encounter [facility] 01-28-2024 Miscellaneous Notes Preoperative Education Checklist- General Surgery date: 02/25/24 Surgery time: 1015 a.m. Arrival time: 0815 a.m. 1. Bring a photo ID and your insurance card with you the day of surgery. You will check in at the main lobby of the [facility]- registration desk is straight ahead as soon as you walk in. Tell them you are here for surgery. 2. If you have a Living Will/Durable Power of Rolling Machine Operator Automatic for Health Care that is not on file here, please bring a copy the day of surgery. 3. Please shower/bathe the night before surgery with the provided soap or wipes. Do not shower the morning of surgery- you will do use wipes when you arrive here at the hospital before getting into your surgical gown. Do not shave the area of your procedure for 2 days prior to your surgery. 4. NO powder, lotion, perfume/cologne, aftershave, make-up, deodorant, or hair products after you have bathed. 5. NO nail american/acrylic on at least one finger. If you are having a hand, wrist or foot surgery then all nail american and artificial/acrylic nails must be removed from that hand or foot. 6. Avoid ALL Aspirin and non-steroidal anti-inflammatory drugs and certain vitamins (Ibuprofen, Advil, Aleve, Excedrin, Meloxicam, Celebrex, fish/krill oil, etc.) for 7 days prior to surgery as instructed by your surgeon and/or your prescribing doctor. Tylenol IS ALLOWED. If you are on Ticlid, Xarelto, Eliquis, Pradaxa, Plavix or Coumadin, please check with your prescribing doctor for instructions for when to stop them. 7. If you use an inhaler, continue to use it routinely. 8. Nothing to eat or drink (not even water, gum, mints, or hard candy!) AFTER midnight prior to your surgery. 9. Take only medications that you are instructed to on the morning of surgery with a TINY SIP OF WATER. 10. Choose a responsible adult that will be able to drive you home when you are discharged from your hospital stay for your surgery and can stay with you in your home for 24 hours after your procedure. You must NOT drive any vehicle or operate any machinery for 24 hours after surgery. 11. When you dress for your appointment, please wear loose fitting clothing that is appropriate to accommodate your surgical area procedure. BRING WITH YOU ANY DEVICES YOU MAY NEED: KYLIE hose, ice machine, sling/swath, brace or special shoe, oversized zip-up or button up shirt, CPAP machine if staying overnight. 12. Do NOT wear jewelry, watches, or any piercings or metal for surgery- leave these valuables and money at home. 13. Do NOT wear contact lenses for surgery- glasses are okay if needed. 14. The anesthesiologist will talk with you the day of surgery and will ask you to sign a Consent Form. 15. Refrain from smoking or any type of tobacco use for at least 8 hours and marijuana for 24 hours prior to arrival for your surgery. 16. If a GREEN BLOOD band is given to you, please bring it with you for the day of surgery. 17. Notify your surgeon if you develop any illness before your surgery. 18. If you are staying overnight, please DO NOT BRING your home medications with you. 19. If you have any questions prior to surgery, please call the Preadmission Testing office at [phone], Mon.-Fri. 7 a.m.-3 p.m. Leave a voicemail if needed. Pre-Surgery Instructions: Medication Instructions acetaminophen (TYLENOL) 325 mg tablet Stop taking 0 days prior to procedure amitriptyline (ELAVIL) 25 mg tablet Stop taking 0 days prior to procedure amphetamine-dextroamphetamine XR (ADDERALL XR) 10 mg 24 hr capsule Stop taking 0 days prior to procedure amphetamine-dextroamphetamine XR (ADDERALL XR) 30 mg 24 hr capsule Stop taking 0 days prior to procedure ARIPiprazole (ABILIFY) 15 mg tablet Stop taking 0 days prior to procedure buPROPion SR (WELLBUTRIN SR) 100 mg 12 hr tablet Stop taking 0 days prior to procedure chlorzoxazone (PARAFON FORTE) 500 mg tablet Stop taking 0 days prior to procedure DULoxetine (CYMBALTA) 20 mg capsule Stop taking 0 days prior to procedure meloxicam (MOBIC) 15 mg tablet Stop taking 1 week prior to procedure methocarbamoL (ROBAXIN) 500 mg tablet Stop taking 0 days prior to procedure naloxone (NARCAN) 4 mg/actuation spray,non-aerosol nasal spray Stop taking 0 days prior to procedure polyethylene glycol (GLYCOLAX) 17 gram packet Stop taking 0 days prior to procedure prazosin (MINIPRESS) 2 mg capsule Stop taking 0 days prior to procedure pregabalin (LYRICA) 100 mg capsule Stop taking 0 days prior to procedure pregabalin (LYRICA) 150 mg capsule Stop taking 0 days prior to procedure sennosides-docusate sodium (SENOKOT-S) 8.6-50 mg Stop taking 0 days prior to procedure How to Avoid an Infection after Your Surgery Your doctor will give you specific instructions, but remember: -ALWAYS wash hands before caring for your incision. -No picking, scratching, or rubbing your incision. -No creams, lotion, powder, rubbing alcohol or hydrogen peroxide on the incision (can harm the tissue and slow healing). -Your doctor will give you specific instructions for what type of dressing you will need and how often it will need changed for infection purposes. -No tight clothing on incision. -Do not allow anyone to touch your incision unless they are cleaning, checking, or redressing it (be sure they wash their hands first). -No contact of your incision with pets; avoid sleeping with pets. -Take full course of antibiotic if prescribed for you after surgery- do not stop unless directed to by your physician. You may also be given an antibiotic prior to your surgery to help prevent surgical site infections. -Eat a healthy and varied diet including proteins, fruits, and vegetables to help promote wound healing and keep blood sugars under control if you are diabetic. -Smoking slows the healing process by decreasing the amount of oxygen in your blood that is needed for tissue healing. Try to avoid or stop smoking if possible. LOOK at your incision each morning and each night to check the progress of healing. Some soreness, numbness, itching and/or mild bruising around the incision is normal. Call your doctor if you notice any of the following: -Increased redness or hardening around the incision area. -Increased pain at the incision site. -Incision feels hot to the touch. -Swelling or pulling apart of the incision edges. -Yellow or green drainage or foul odor coming from the incision. -Bleeding from the incision (apply pressure as needed). -Fever higher than 101 degrees Fahrenheit for more than 4 hours. SHOWERING: Your doctor will give you specific instructions, but remember: -Be careful getting into and out of the shower. -Showers should be quick (5 minutes or less). -Use a clean washcloth to gently wash your incision with soap and water and pat the area dry with a clean towel. -No re-using wash cloths or towels; get a fresh one to clean your incision. -Do not soak in the bathtub, go swimming or use a hot tub (Jacuzzi), or perform activities where your hand or arm are submerged in water or exposed to any fluids or substances (washing dishes, cooking, gardening, hunting, etc.) until instructed by your doctor. -If your have the sticky strips (steri-strips) over the incision, it is OK to shower with them. Do not remove them. Let them fall off on their own. If you have a question, call your doctor s office. Go to the follow-up appointment with your doctor. Hibiclens and surgical instructions reviewed. Patient verbalized understanding. documented in this encounter [facility] 01-28-2024 Nurse Note Preoperative Education Checklist- General Surgery date: 02/25/24 Surgery time: 1015 a.m. Arrival time: 0815 a.m. 1. Bring a photo ID and your insurance card with you the day of surgery. You will check in at the main lobby of the [facility]- registration desk is straight ahead as soon as you walk in. Tell them you are here for surgery. 2. If you have a Living Will/Durable Power of Rolling Machine Operator Automatic for Health Care that is not on file here, please bring a copy the day of surgery. 3. Please shower/bathe the night before surgery with the provided soap or wipes. Do not shower the morning of surgery- you will do use wipes when you arrive here at the hospital before getting into your surgical gown. Do not shave the area of your procedure for 2 days prior to your surgery. 4. NO powder, lotion, perfume/cologne, aftershave, make-up, deodorant, or hair products after you have bathed. 5. NO nail american/acrylic on at least one finger. If you are having a hand, wrist or foot surgery then all nail american and artificial/acrylic nails must be removed from that hand or foot. 6. Avoid ALL Aspirin and non-steroidal anti-inflammatory drugs and certain vitamins (Ibuprofen, Advil, Aleve, Excedrin, Meloxicam, Celebrex, fish/krill oil, etc.) for 7 days prior to surgery as instructed by your surgeon and/or your prescribing doctor. Tylenol IS ALLOWED. If you are on Ticlid, Xarelto, Eliquis, Pradaxa, Plavix or Coumadin, please check with your prescribing doctor for instructions for when to stop them. 7. If you use an inhaler, continue to use it routinely. 8. Nothing to eat or drink (not even water, gum, mints, or hard candy!) AFTER midnight prior to your surgery. 9. Take only medications that you are instructed to on the morning of surgery with a TINY SIP OF WATER. 10. Choose a responsible adult that will be able to drive you home when you are discharged from your hospital stay for your surgery and can stay with you in your home for 24 hours after your procedure. You must NOT drive any vehicle or operate any machinery for 24 hours after surgery. 11. When you dress for your appointment, please wear loose fitting clothing that is appropriate to accommodate your surgical area procedure. BRING WITH YOU ANY DEVICES YOU MAY NEED: KYLIE hose, ice machine, sling/swath, brace or special shoe, oversized zip-up or button up shirt, CPAP machine if staying overnight. 12. Do NOT wear jewelry, watches, or any piercings or metal for surgery- leave these valuables and money at home. 13. Do NOT wear contact lenses for surgery- glasses are okay if needed. 14. The anesthesiologist will talk with you the day of surgery and will ask you to sign a Consent Form. 15. Refrain from smoking or any type of tobacco use for at least 8 hours and marijuana for 24 hours prior to arrival for your surgery. 16. If a GREEN BLOOD band is given to you, please bring it with you for the day of surgery. 17. Notify your surgeon if you develop any illness before your surgery. 18. If you are staying overnight, please DO NOT BRING your home medications with you. 19. If you have any questions prior to surgery, please call the Preadmission Testing office at [phone], Mon.-Fri. 7 a.m.-3 p.m. Leave a voicemail if needed. Pre-Surgery Instructions: Medication Instructions acetaminophen (TYLENOL) 325 mg tablet Stop taking 0 days prior to procedure amitriptyline (ELAVIL) 25 mg tablet Stop taking 0 days prior to procedure amphetamine-dextroamphetamine XR (ADDERALL XR) 10 mg 24 hr capsule Stop taking 0 days prior to procedure amphetamine-dextroamphetamine XR (ADDERALL XR) 30 mg 24 hr capsule Stop taking 0 days prior to procedure ARIPiprazole (ABILIFY) 15 mg tablet Stop taking 0 days prior to procedure buPROPion SR (WELLBUTRIN SR) 100 mg 12 hr tablet Stop taking 0 days prior to procedure chlorzoxazone (PARAFON FORTE) 500 mg tablet Stop taking 0 days prior to procedure DULoxetine (CYMBALTA) 20 mg capsule Stop taking 0 days prior to procedure meloxicam (MOBIC) 15 mg tablet Stop taking 1 week prior to procedure methocarbamoL (ROBAXIN) 500 mg tablet Stop taking 0 days prior to procedure naloxone (NARCAN) 4 mg/actuation spray,non-aerosol nasal spray Stop taking 0 days prior to procedure polyethylene glycol (GLYCOLAX) 17 gram packet Stop taking 0 days prior to procedure prazosin (MINIPRESS) 2 mg capsule Stop taking 0 days prior to procedure pregabalin (LYRICA) 100 mg capsule Stop taking 0 days prior to procedure pregabalin (LYRICA) 150 mg capsule Stop taking 0 days prior to procedure sennosides-docusate sodium (SENOKOT-S) 8.6-50 mg Stop taking 0 days prior to procedure How to Avoid an Infection after Your Surgery Your doctor will give you specific instructions, but remember: -ALWAYS wash hands before caring for your incision. -No picking, scratching, or rubbing your incision. -No creams, lotion, powder, rubbing alcohol or hydrogen peroxide on the incision (can harm the tissue and slow healing). -Your doctor will give you specific instructions for what type of dressing you will need and how often it will need changed for infection purposes. -No tight clothing on incision. -Do not allow anyone to touch your incision unless they are cleaning, checking, or redressing it (be sure they wash their hands first). -No contact of your incision with pets; avoid sleeping with pets. -Take full course of antibiotic if prescribed for you after surgery- do not stop unless directed to by your physician. You may also be given an antibiotic prior to your surgery to help prevent surgical site infections. -Eat a healthy and varied diet including proteins, fruits, and vegetables to help promote wound healing and keep blood sugars under control if you are diabetic. -Smoking slows the healing process by decreasing the amount of oxygen in your blood that is needed for tissue healing. Try to avoid or stop smoking if possible. LOOK at your incision each morning and each night to check the progress of healing. Some soreness, numbness, itching and/or mild bruising around the incision is normal. Call your doctor if you notice any of the following: -Increased redness or hardening around the incision area. -Increased pain at the incision site. -Incision feels hot to the touch. -Swelling or pulling apart of the incision edges. -Yellow or green drainage or foul odor coming from the incision. -Bleeding from the incision (apply pressure as needed). -Fever higher than 101 degrees Fahrenheit for more than 4 hours. SHOWERING: Your doctor will give you specific instructions, but remember: -Be careful getting into and out of the shower. -Showers should be quick (5 minutes or less). -Use a clean washcloth to gently wash your incision with soap and water and pat the area dry with a clean towel. -No re-using wash cloths or towels; get a fresh one to clean your incision. -Do not soak in the bathtub, go swimming or use a hot tub (Jacuzzi), or perform activities where your hand or arm are submerged in water or exposed to any fluids or substances (washing dishes, cooking, gardening, hunting, etc.) until instructed by your doctor. -If your have the sticky strips (steri-strips) over the incision, it is OK to shower with them. Do not remove them. Let them fall off on their own. If you have a question, call your doctor s office. Go to the follow-up appointment with your doctor. T [facility] 01-28-2024 Nurse Note Hibiclens and surgical instructions reviewed. Patient verbalized understanding. T [facility] 01-01-2024 History of Present illness Narrative Images from the original note were not included. [facility] [address] [place] [address], [address] [place] [address] * CHART NOTE ? 01/01/2024 Patient: Cande Rahman 1970 [id number] Physician: León Oconnor MD CHIEF COMPLAINT Post-op HISTORY OF PRESENT ILLNESS 53 y.o. female presents to the office today as a post-op patient S/P L4-5 laminectomy performed on 12-03-2023. Cande reports she is not having any back pain, but continues to have numbness and tingling in the left heel. 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 Patient does not use an assistive device for ambulation. Patient is not diabetic and current smoker. ALLERGIES Allergies Allergen Reactions Grass Pollen Other (See Comments) Nasal congestion MEDICATIONS Current Outpatient Medications: acetaminophen (TYLENOL) 325 mg tablet, Take 2 tablets (650 mg total) by mouth every 4 (four) hours as needed for fever, headaches or pain., Disp: , Rfl: amitriptyline (ELAVIL) 25 mg tablet, One capsule at 8 PM each night, Disp: 90 tablet, Rfl: 1 amphetamine-dextroamphetamine XR (ADDERALL XR) 10 mg 24 hr capsule, Take 1 capsule (10 mg total) by mouth daily with lunch Indications: attention deficit disorder with hyperactivity., Disp: , Rfl: amphetamine-dextroamphetamine XR (ADDERALL XR) 30 mg 24 hr capsule, Take 1 capsule (30 mg total) by mouth every morning Indications: attention deficit disorder with hyperactivity., Disp: , Rfl: ARIPiprazole (ABILIFY) 15 mg tablet, Take 1 tablet (15 mg total) by mouth daily with breakfast Indications: manic-depression., Disp: , Rfl: buPROPion SR (WELLBUTRIN SR) 100 mg 12 hr tablet, Take 1 tablet (100 mg total) by mouth in the morning. Indications: anxiousness associated with depression., Disp: , Rfl: DULoxetine (CYMBALTA) 20 mg capsule, Take 1 capsule (20 mg total) by mouth in the morning and 1 capsule (20 mg total) before bedtime., Disp: 180 capsule, Rfl: 1 meloxicam (MOBIC) 15 mg tablet, One tablet daily with food, Disp: 90 tablet, Rfl: 1 methocarbamoL (ROBAXIN) 500 mg tablet, Take 1 tablet (500 mg total) by mouth in the morning and 1 tablet (500 mg total) at noon and 1 tablet (500 mg total) in the evening and 1 tablet (500 mg total) before bedtime. (Patient taking differently: Take 1 tablet (500 mg total) by mouth in the evening.), Disp: 30 tablet, Rfl: 0 naloxone (NARCAN) 4 mg/actuation spray,non-aerosol nasal spray, Administer 1 spray (4 mg total) into alternating nostrils as needed for opioid reversal., Disp: 1 each, Rfl: 0 prazosin (MINIPRESS) 2 mg capsule, Take 1 capsule (2 mg total) by mouth in the morning and 1 capsule (2 mg total) before bedtime. Indications: high blood pressure, posttraumatic stress syndrome., Disp: , Rfl: pregabalin (LYRICA) 100 mg capsule, Take 1 capsule (100 mg total) by mouth in the morning and 1 capsule (100 mg total) before bedtime., Disp: 60 capsule, Rfl: 1 chlorzoxazone (PARAFON FORTE) 500 mg tablet, Take 1 tablet (500 mg total) by mouth 4 (four) times a day as needed for muscle spasms. (Patient not taking: Reported on 01/01/2024), Disp: 30 tablet, Rfl: 5 polyethylene glycol (GLYCOLAX) 17 gram packet, Take 17 g by mouth in the morning. (Patient not taking: Reported on 01/01/2024), Disp: , Rfl: pregabalin (LYRICA) 150 mg capsule, Take 1 capsule (150 mg total) by mouth in the morning and 1 capsule (150 mg total) before bedtime. Do all this for 30 days., Disp: 60 capsule, Rfl: 0 sennosides-docusate sodium (SENOKOT-S) 8.6-50 mg, Take 1 tablet by mouth in the morning and 1 tablet before bedtime. (Patient not taking: Reported on 01/01/2024), Disp: , Rfl: VITAL SIGNS BP 121/82 (BP Site: Left Arm, BP Postition: Sitting) Pulse 81 Ht 167.6 cm (5' 5.98 ) Wt 95.3 kg (210 lb) LMP 01/20/2019 (Approximate) BMI 33.92 kg/m PHYSICAL EXAMINATION Surgical wound is well approximated and well healed without signs/symptoms of infection. There is no redness, edema or drainage. MRI / IMAGES None new IMPRESSION / PLAN 53 y.o. female presents to the office today as a post-op patient S/P L4-5 laminectomy performed on 12-03-2023. Cande reports she is not having any back pain, but continues to have numbness and tingling in the left heel. PLAN: Lumbar flexion/extension x-rays to be completed in 3 months. Follow up 3 months. Electronically Signed By: Guero Durbin CNP This note was created with the assistance of a speech recognition program with the goal of generating a timely record of the patient encounter. Inadvertent computerized coding educator errors related to syntax, spelling, homophones, and/or inaudibility may be present. LINDA Henley 01/07/24 1250 documented in this encounter [facility] 01-01-2024 Instructions AIXA Lynn - 01/01/2024 3:00 PM EDT Patient was seen by LINDA Ugarte Patient was given an order for a Lumbar Spine Flex/Ext xray to be done in 3 months. Patient will follow up in 3 months. JA The following attachments cannot be sent through Care Everywhere.Quitting smoking (Mauritanian)documented in this encounter [facility] 01-01-2024 History of Present illness Narrative Images from the original note were not included. [address] [facility] [address] [facility] [id number] Date of Service: 01/01/2024 Subjective: Cande Rahamn is a 53 y.o. female who presents today for evaluation joints pain. Patient is seen at the request of [facility]. This is follow-up visit with this patient who is 53-year-old female patient presenting today as an established patient for follow-up of fibromyalgia was seen 1st time on 10/27/2023 Patient symptoms started in 2019 with widespread musculoskeletal pain as well as fatigability, poor sleep, feeling tired and exhausted, she has hands and shoulders left hip pain,no swelling, no Raynaud's, no alopecia, no butterfly rash, no skin rash. . In addition she has been having neck pain as well as low back pain X-ray lumbar spine 06/26/2023 severe disc degenerative disease L5-S1 Patient has been given the following medications including, Lyrica 100 mg twice daily as well as baclofen Past surgical s/p cervical discectomy and fusion C5-C7 in 11/06/21 Past medical negative Smoking history 1 pack/day reduced 2 year ago 1/2 pack for 40 years . Lab test 10/27/2023 rheumatoid factor, CCP negative, ESR 42 and CRP 1.4 mg/dL Current medications including elavil, Methocarbamol. Cymbalta,and Mobic in addition she is on Lyrica 100 mg at bed time. Today 01/01/2024 patient said that she has been having pain as well as fatigability, see said methocarbamol has not been of help The following portions of the patient's history were reviewed and updated as appropriate: allergies, current medications, past family history, past medical history, past social history, past surgical history and problem list. Review of Systems: Review of Systems Constitutional: Positive for fatigue. Musculoskeletal: Positive for arthralgias. Diffuse musculoskeletal pain , feels tired in the morning, exhausted and easy fatigability during daytime Skin: Negative for rash. Psychiatric/Behavioral: Positive for sleep disturbance. Poor sleep Current Outpatient Medications Medication Sig Dispense Refill acetaminophen (TYLENOL) 325 mg tablet Take 2 tablets (650 mg total) by mouth every 4 (four) hours as needed for fever, headaches or pain. amphetamine-dextroamphetamine XR (ADDERALL XR) 10 mg 24 hr capsule Take 1 capsule (10 mg total) by mouth daily with lunch Indications: attention deficit disorder with hyperactivity. amphetamine-dextroamphetamine XR (ADDERALL XR) 30 mg 24 hr capsule Take 1 capsule (30 mg total) by mouth every morning Indications: attention deficit disorder with hyperactivity. ARIPiprazole (ABILIFY) 15 mg tablet Take 1 tablet (15 mg total) by mouth daily with breakfast Indications: manic-depression. buPROPion SR (WELLBUTRIN SR) 100 mg 12 hr tablet Take 1 tablet (100 mg total) by mouth in the morning. Indications: anxiousness associated with depression. methocarbamoL (ROBAXIN) 500 mg tablet Take 1 tablet (500 mg total) by mouth in the morning and 1 tablet (500 mg total) at noon and 1 tablet (500 mg total) in the evening and 1 tablet (500 mg total) before bedtime. 30 tablet 0 naloxone (NARCAN) 4 mg/actuation spray,non-aerosol nasal spray Administer 1 spray (4 mg total) into alternating nostrils as needed for opioid reversal. 1 each 0 polyethylene glycol (GLYCOLAX) 17 gram packet Take 17 g by mouth in the morning. prazosin (MINIPRESS) 2 mg capsule Take 1 capsule (2 mg total) by mouth in the morning and 1 capsule (2 mg total) before bedtime. Indications: high blood pressure, posttraumatic stress syndrome. pregabalin (LYRICA) 100 mg capsule Take 1 capsule (100 mg total) by mouth in the morning and 1 capsule (100 mg total) before bedtime. (Patient taking differently: Take 1 capsule (100 mg total) by mouth nightly.) 60 capsule 1 sennosides-docusate sodium (SENOKOT-S) 8.6-50 mg Take 1 tablet by mouth in the morning and 1 tablet before bedtime. amitriptyline (ELAVIL) 25 mg tablet One capsule at 8 PM each night 90 tablet 1 chlorzoxazone (PARAFON FORTE) 500 mg tablet Take 1 tablet (500 mg total) by mouth 4 (four) times a day as needed for muscle spasms. 30 tablet 5 DULoxetine (CYMBALTA) 20 mg capsule Take 1 capsule (20 mg total) by mouth in the morning and 1 capsule (20 mg total) before bedtime. 180 capsule 1 meloxicam (MOBIC) 15 mg tablet One tablet daily with food 90 tablet 1 pregabalin (LYRICA) 150 mg capsule Take 1 capsule (150 mg total) by mouth in the morning and 1 capsule (150 mg total) before bedtime. Do all this for 30 days. 60 capsule 0 No current facility-administered medications for this visit. Physical Exam: Physical Exam Vitals and nursing note reviewed. Constitutional: Appearance: She is well-developed. HENT: Head: Normocephalic and atraumatic. Right Ear: External ear normal. Left Ear: External ear normal. Nose: Nose normal. Eyes: Conjunctiva/sclera: Conjunctivae normal. Pupils: Pupils are equal, round, and reactive to light. Neck: Thyroid: No thyromegaly. Vascular: No JVD. Pulmonary: Effort: Pulmonary effort is normal. Musculoskeletal: General: No tenderness or deformity. Normal range of motion. Cervical back: Normal range of motion. Comments: Symmetrical tender trigger points No synovitis Skin: General: Skin is warm and dry. Coloration: Skin is not pale. Findings: No erythema or rash. Neurological: Mental Status: She is alert and oriented to person, place, and time. Cranial Nerves: No cranial nerve deficit. Coordination: Coordination normal. Psychiatric: Behavior: Behavior normal. Thought Content: Thought content normal. CORTEZ-28 (If Applicable) There is currently no information documented on the homunculus. Go to the Rheumatology activity and complete the homunculus joint exam. CORTEZ-28 (CRP): -- CORTEZ-28 (ESR): -- Tender (CORTEZ-28): -- Swollen (CORTEZ-28): -- BP (!) 133/92 Resp 18 Ht 167.6 cm (5' 5.98 ) Wt 95.3 kg (210 lb) LMP 01/20/2019 (Approximate) BMI 33.91 kg/m : reviewed Labs and Imaging: reviewed and discussed with the patient during the visit.I Lab Results Component Value Date WBC 9.4 11/07/2023 HGB 12.7 12/04/2023 HCT 37.9 12/04/2023 MCV 91 11/07/2023 CRP 1.4 (H) 10/27/2023 GFR >60 11/01/2021 GFR >60 11/01/2021 AST 26 11/12/2022 Imaging: Assessment and Plan: Cande Rahman is a 53 y.o. female patient with: 1. Fibromyalgia - amitriptyline (ELAVIL) 25 mg tablet; One capsule at 8 PM each night Dispense: 90 tablet; Refill: 1 - DULoxetine (CYMBALTA) 20 mg capsule; Take 1 capsule (20 mg total) by mouth in the morning and 1 capsule (20 mg total) before bedtime. Dispense: 180 capsule; Refill: 1 - meloxicam (MOBIC) 15 mg tablet; One tablet daily with food Dispense: 90 tablet; Refill: 1 - chlorzoxazone (PARAFON FORTE) 500 mg tablet; Take 1 tablet (500 mg total) by mouth 4 (four) times a day as needed for muscle spasms. Dispense: 30 tablet; Refill: 5 No user is assigned to the case. At this point patient continued to be symptomatic. She did not like methocarbamol has not been of help. Will increase amitriptyline 25 mg as well as Cymbalta to 2 capsules daily and change methocarbamol to chlorzoxazone and keep her on meloxicam. Return to clinic 6 month. This note was created with the assistance of a speech recognition program. While intending to generate a timely document that accurately reflects the content of the visit, no guarantee can be provided that every grammatical or spelling mistake has been or will be identified or corrected. Thank you for your understanding. [facility] Rheumatology Dr. Cady Fernández MD [address] [facility] [address] [place] [id number] Office: [phone] documented in this encounter [facility] 12-04-2023 History of Present illness Narrative Patient discharged to home all discharge paperwork signed and reviewed with patient. Patient verbalized understanding. PIV removed at discharge no s/s of any distress noted at this time. documented in this encounter [facility] 12-04-2023 Hospital course Narrative Images from the original note were not included. [facility] [address] [place] [address] * NEUROSURGERY DISCHARGE SUMMARY Patient: Cande Rahman Date of : 1970 Acct: [id number] Primary Care Physician: ORALIA Ward Admit date: 12/03/2023 12/03/2023 9:37 AM Discharge date: No discharge date for patient encounter. Discharge Diagnoses: Spinal stenosis of lumbar region, unspecified whether neurogenic claudication present Principal Problem: Spinal stenosis of lumbar region, unspecified whether neurogenic claudication present Active Problems: Spinal stenosis of lumbar region Radiculopathy, lumbar region Discharge Medications: Medication List START taking these medications Instructions Last Dose Given Next Dose Due acetaminophen 325 mg tablet Commonly known as: TYLENOL Take 2 tablets (650 mg total) by mouth every 4 (four) hours as needed for fever, headaches or pain. naloxone 4 mg/actuation spray,non-aerosol nasal spray Commonly known as: NARCAN Administer 1 spray (4 mg total) into alternating nostrils as needed for opioid reversal. oxyCODONE-acetaminophen 5-325 mg per tablet Commonly known as: PERCOCET Take 1-2 tablets by mouth every 6 (six) hours as needed for pain for up to 7 days. Max Daily Amount: 8 tablets polyethylene glycol 17 gram packet Commonly known as: GLYCOLAX Start taking on: December 05, 2023 Take 17 g by mouth in the morning. sennosides-docusate sodium 8.6-50 mg Commonly known as: SENOKOT-S Take 1 tablet by mouth in the morning and 1 tablet before bedtime. CHANGE how you take these medications Instructions Last Dose Given Next Dose Due amitriptyline 10 mg tablet Commonly known as: ELAVIL What changed: how much to take how to take this when to take this One capsule at 8 PM each night methocarbamoL 500 mg tablet Commonly known as: ROBAXIN What changed: when to take this Take 1 tablet (500 mg total) by mouth in the morning and 1 tablet (500 mg total) at noon and 1 tablet (500 mg total) in the evening and 1 tablet (500 mg total) before bedtime. CONTINUE taking these medications Instructions Last Dose Given Next Dose Due * amphetamine-dextroamphetamine XR 10 mg 24 hr capsule Commonly known as: ADDERALL XR Take 1 capsule (10 mg total) by mouth daily with lunch Indications: attention deficit disorder with hyperactivity. * amphetamine-dextroamphetamine XR 30 mg 24 hr capsule Commonly known as: ADDERALL XR Take 1 capsule (30 mg total) by mouth every morning Indications: attention deficit disorder with hyperactivity. ARIPiprazole 15 mg tablet Commonly known as: ABILIFY Take 1 tablet (15 mg total) by mouth daily with breakfast Indications: manic-depression. buPROPion SR 100 mg 12 hr tablet Commonly known as: WELLBUTRIN SR Take 1 tablet (100 mg total) by mouth in the morning. Indications: anxiousness associated with depression. DULoxetine 20 mg capsule Commonly known as: CYMBALTA Take 1 capsule (20 mg total) by mouth in the morning. prazosin 2 mg capsule Commonly known as: MINIPRESS Take 1 capsule (2 mg total) by mouth in the morning and 1 capsule (2 mg total) before bedtime. Indications: high blood pressure, posttraumatic stress syndrome. * pregabalin 100 mg capsule Commonly known as: LYRICA Take 1 capsule (100 mg total) by mouth in the morning and 1 capsule (100 mg total) before bedtime. * pregabalin 150 mg capsule Commonly known as: LYRICA Take 1 capsule (150 mg total) by mouth in the morning and 1 capsule (150 mg total) before bedtime. Do all this for 30 days. * This list has 4 medication(s) that are the same as other medications prescribed for you. Read the directions carefully, and ask your doctor or other care provider to review them with you. STOP taking these medications meloxicam 15 mg tablet Commonly known as: MOBIC traMADoL 50 mg tablet Commonly known as: ULTRAM Where to Get Your Medications These medications were sent to [id number] [address] [id number] methocarbamoL 500 mg tablet naloxone 4 mg/actuation spray,non-aerosol nasal spray oxyCODONE-acetaminophen 5-325 mg per tablet You can get these medications from any pharmacy You don't need a prescription for these medications acetaminophen 325 mg tablet polyethylene glycol 17 gram packet sennosides-docusate sodium 8.6-50 mg Diet: Adult diet Regular Texture Activity: as tolerated per discharge instructions Follow-up: Follow up as scheduled with Dr. Oconnor Consultants: None Procedures: (1) complete L4 and L5 laminectomy (2) partial medial facetectomy and bilateral foraminotomies L4-5 Diagnostic Test: MRI Lumbar spine 1. Broad-based central disc protrusion at L4-L5 with moderate degree of spinal stenosis and minimal narrowing of the neural foramina. 2. Severe disc degenerative disease at L5-S1 and associated disc bulging causing mild degree of spinal stenosis but severe narrowing of the neural foramina. 3. No evidence of compression fracture, spondylolisthesis or acute bony pathology. Physical Exam: No acute distress Awake and Alert Respirations even and unlabored Abdomen soft and nontender Regular heart rate and rhythm PERRL BUE/BLE strength and sensation intact Drain output: 80ml yesterday, 10ml today Incision: well approximated with chromic suture. No surrounding erythema, edema, or drainage. Surgical drain removed without difficulty. Hospital Course: clinical course has improved. 53 year old female with history of degenerative lumbar stenosis and neuro compression presented for elective L4-5 decompression. Patient reports improvement in symptoms following surgery and ready for discharge. Pt seen and evaluated on morning rounds. Awake, alert and oriented with clear appropriate speech. Pre-op symptoms are improved after surgery. Surgical pain is well controlled with oral pain medications. Pt is eating, drinking and voiding without difficulty with + flatus. Ambulating in halls with steady gait. Surgical incision well approximated and intact with chromic suture, no incisional concerns. Criteria for discharge has been met. Verbal discharge instructions reviewed, all questions have been answered. Pt verbalized understanding. OARRS report has been reviewed and appropriate. Written discharge instructions and a prescription for Percocet for pain control will be provided at the time of discharge. Pt will be discharged to home later today with no needs. Follow up appointment is in place and appointment details have been reviewed. Disposition: home Condition: Stable Alley Saleh PA-C The patient has been started on an opiate pain medication for a condition that is expected to last longer than seven days. Alternatives to opiate medication have been considered and discussed with the patient and it has been agreed upon that opiates are needed in this case. This initial prescription for this problem has been written for 7 days. The reasons for opiate pain medication therapy in this case is acute postoperative pain. The risks versus benefits of opiate therapy, and extended opiate therapy have been discussed with the patient and have been deemed acceptable and clinically appropriate. Alley Saleh PA-C Neurosurgery [facility] Patient Touch 12/04/23 11:46 AM Alley Saleh PA-C 12/04/23 1141 documented in this encounter [facility] 12-04-2023 Hospital Discharge instructions Alley Saleh PA-C - 12/04/2023 11:41 AM EST Neurosurgery Discharge Instructions Special Medication Instructions: No Aspirin, Anti-Inflammatories, Anti-Platelet agents or other blood thinning medications for 7 days from date of surgery No alcohol Continue stool softeners while taking narcotic pain medication. Add laxatives as needed Activities: No lifting greater than 1-2 lbs for 14 days No driving for 7 days or while taking pain medication May shower, no tub baths or swimming for 14 days from date of surgery Avoid bending, twisting and strenuous activity Take short frequent walks during the day Stairs as tolerated, take your time Notify Doctor if you notice: Increased pain Redness, swelling, bleeding or drainage from incision Temperature 101 degrees or above Numbness, tingling or decreased strength different than before your surgery or new since your surgery. In case of emergency, call 911 immediately! If 911 is not available, call your local emergency medical system for help Wound Care: Change dressing daily and as needed for 7 days. Sutures are absorbable and do not require removal. Do not apply creams or ointments to your incision Shower daily with old dressing in place to protect incision Change dressing after your shower If surgical tapes rather than sutures/danielle are present over your incision, they will likely loosen and fall off after several days. If the tapes are still in place 7 days after your surgery, gently remove at that time. Other Instructions: Home instructions per [facility] Neurosurgery Booklet Call [facility] Neurosurgery with any questions, . documented in this encounter [facility] 12-04-2023 Miscellaneous Notes Problem: Pain Goal: Patient goal is pain score less than 4, able to rest, and participant in treatment plan as appropriate Description: INTERVENTIONS: 1. Encourage patient or legal statement services representative to report early pain and ask for pain medicine when needed 2. Assess pain using appropriate pain scale and include the scale used when documenting 3. Administer analgesics based on type and severity of pain and evaluate response within appropriate time frame 4. Implement non-pharmacological measures as appropriate and evaluate response 5. Consider cultural and social influences on pain and pain management 6. Notify LIP if interventions ineffective or patient reports new pain 7. Monitor vital signs including pulse ox, end-tidal CO2 based on pain intervention 8. Reassess pain per policy 9. Teach patient or legal statement services representative interventions for comforting Outcome: Adequate for Discharge Problem: Safety Goal: Patient will be injury free during hospitalization Description: INTERVENTIONS: 1. Assess patient's risk for falls and implement fall prevention plan of care per policy 2. Provide and maintain a safe environment 3. Proper use of double Identifiers 4. Medication administration using the 5 rights 5. Hand hygiene 6. Specimens are labeled at the bedside 7. Instruct patient/ patient statement services representative about use of safety devices 8. Include patient/ patient statement services representative in decisions related to safety Outcome: Adequate for Discharge Problem: Infection Goal: Absence of infection during hospitalization Description: Interventions: 1. Assess and monitor for signs and symptoms of infection 2. Monitor lab/diagnostic results 3. Monitor all insertion sites i.e., indwelling lines, tubes and drains 4. Monitor endotracheal (as able) and nasal secretions for changes in amount and color 5. Administer medications as ordered 6. Instruct and encourage patient and family to use good hand hygiene technique 7. Identify and instruct patient/patient statement services representative in use of appropriate isolation precautions for identified infection/symptoms 8. Provide and discuss with patient/patient statement services representative on educational MDRO sheet 9. Encourage and monitor nutritional status daily and consult online content coordinator if indicated 10. Implement neutropenic guidelines as needed 11. Review exposure to history of communicable disease and recent travel history on admission 12. Encourage annual influenza vaccine 13. Encourage pneumonia vaccine Outcome: Adequate for Discharge Problem: Knowledge Deficit Goal: Patient/patient statement services representative demonstrates understanding of disease process, treatment plan, medications, and discharge instructions Description: INTERVENTIONS 1. Complete learning assessment and assess knowledge base 2. Provide teaching at level of understanding 3. Provide teaching via preferred learning method(s) Outcome: Adequate for Discharge Problem: Discharge Planning Goal: Discharge to post-acute care, other facility, or home with appropriate resources Description: Patient's goal is: INTERVENTIONS 1. Conduct assessment to determine patient/family and health care team treatment goals, and need for post-acute services based on payer coverage, community resources, and patient preferences, and barriers to discharge 2. Coordinate with Social work, Care Navigation, and Utilization Review to arrange appropriate level of services according to patient's needs based on patient preference and payer coverage in collaboration with the physician and health care team 3. Address psychosocial, clinical, and financial barriers to discharge as identified in assessment in conjunction with the patient/family and health care team 4. Consult appropriate ancillary services (i.e.. PT/OT/ST, etc) as needed 5. Communicate with and update the patient/family, physician, and health care team regarding progress on the discharge plan 6. Identify discharge learning needs (meds, wound care, etc). 7. Arrange for needed discharge transportation as appropriate Outcome: Adequate for Discharge Problem: Moderate - High Risk Fall Score Description: Ortiz Fall Score of =/> 25 or indicated by [facility] Assessment Goal: Patient should be free from fall Description: Interventions: 1. [place] to environment 2. Hourly rounds addressing the 4 P's (Pain, Positioning, Possessions, Potty) 3. Clear area of hazards (spills, clutter, electrical cords, unnecessary equipment) 4. Place equipment (bed & TV controls, call light, phone, urinal) within reach 5. Encourage patient to wear glasses and hearing aides as appropriate 6. Maintain bed in lowest position 7. Lock wheels on bed/wheelchair 8. Provide adequate lighting, including night light 9. Assess need for additional bedding, food/fluids, pain med's prior to sleep/routinely 10. Provide gripper slippers or personal non-skid footwear 11. Teach patient and patient statement services representative to maintain environment for safety and engage in all aspects of fall prevention program 12. Remind patient to call for help before getting out of bed 13. Initiate bed/chair/exit alarms supportive devices as appropriate, (chair wedge, no-skid floor mat, raised edge mattress, hip protectors) 14. Locate patient bed assignment for optimal visualization 15. Evaluate and identify Safe Patient Handling Equipment needs 16. Provide supervision when out of bed or chair 17. Utilize gait belt as needed to assist with ambulation 18. Place adaptive equipment (cane, walker) within reach 19. Request patient statement services representative bring adaptive equipment/mobility aids from home or obtain and provide as needed 20. Consult pharmacy regarding effects of med's affecting mobility, cognition, and alternatives 21. Obtain physician order for PT if risk factors associated with mobility are present 22. Obtain physician order for OT as appropriate 23. Utilize diversional activities 24. Educate patient and patient statement services representative how to maintain a safe environment during visitation times (notify nurse prior to leaving bedside) 25. Consider appropriateness of medical or non-medical nurse 26. Set up voiding schedule as appropriate (every 2 hours) Outcome: Adequate for Discharge Problem: Pain Goal: Patient goal is pain score less than 4, able to rest, and participant in treatment plan as appropriate Description: INTERVENTIONS: 1. Encourage patient or legal statement services representative to report early pain and ask for pain medicine when needed 2. Assess pain using appropriate pain scale and include the scale used when documenting 3. Administer analgesics based on type and severity of pain and evaluate response within appropriate time frame 4. Implement non-pharmacological measures as appropriate and evaluate response 5. Consider cultural and social influences on pain and pain management 6. Notify LIP if interventions ineffective or patient reports new pain 7. Monitor vital signs including pulse ox, end-tidal CO2 based on pain intervention 8. Reassess pain per policy 9. Teach patient or legal statement services representative interventions for comforting Outcome: Progressing Note: Evaluation of progress towards goal: Pain held in tolerable limits with current pain medications Problem: Safety Goal: Patient will be injury free during hospitalization Description: INTERVENTIONS: 1. Assess patient's risk for falls and implement fall prevention plan of care per policy 2. Provide and maintain a safe environment 3. Proper use of double Identifiers 4. Medication administration using the 5 rights 5. Hand hygiene 6. Specimens are labeled at the bedside 7. Instruct patient/ patient statement services representative about use of safety devices 8. Include patient/ patient statement services representative in decisions related to safety Outcome: Progressing Note: Evaluation of progress towards goal: Patient remains injury free for shift. Problem: Infection Goal: Absence of infection during hospitalization Description: Interventions: 1. Assess and monitor for signs and symptoms of infection 2. Monitor lab/diagnostic results 3. Monitor all insertion sites i.e., indwelling lines, tubes and drains 5. Administer medications as ordered 6. Instruct and encourage patient and family to use good hand hygiene technique 7. Identify and instruct patient/patient statement services representative in use of appropriate isolation precautions for identified infection/symptoms 8. Provide and discuss with patient/patient statement services representative on educational MDRO sheet 9. Encourage and monitor nutritional status daily and consult online content coordinator if indicated 10. Implement neutropenic guidelines as needed 11. Review exposure to history of communicable disease and recent travel history on admission 12. Encourage annual influenza vaccine 13. Encourage pneumonia vaccine Outcome: Progressing Note: Evaluation of progress towards goal: No new evidence of infection for shift. Problem: Knowledge Deficit Goal: Patient/patient statement services representative demonstrates understanding of disease process, treatment plan, medications, and discharge instructions Description: INTERVENTIONS 1. Complete learning assessment and assess knowledge base 2. Provide teaching at level of understanding 3. Provide teaching via preferred learning method(s) Outcome: Progressing Note: Evaluation of progress towards goal: All questions answered to best of ability and patient satisfaction. Problem: Discharge Planning Goal: Discharge to post-acute care, other facility, or home with appropriate resources Description: Patient's goal is: INTERVENTIONS 1. Conduct assessment to determine patient/family and health care team treatment goals, and need for post-acute services based on payer coverage, community resources, and patient preferences, and barriers to discharge 2. Coordinate with Social work, Care Navigation, and Utilization Review to arrange appropriate level of services according to patient's needs based on patient preference and payer coverage in collaboration with the physician and health care team 3. Address psychosocial, clinical, and financial barriers to discharge as identified in assessment in conjunction with the patient/family and health care team 4. Consult appropriate ancillary services (i.e.. PT/OT/ST, etc) as needed 5. Communicate with and update the patient/family, physician, and health care team regarding progress on the discharge plan 6. Identify discharge learning needs (meds, wound care, etc). 7. Arrange for needed discharge transportation as appropriate Outcome: Progressing Note: Evaluation of progress towards goal: Patient continues with plan of care. Problem: Moderate - High Risk Fall Score Description: Ortiz Fall Score of =/> 25 or indicated by [facility] Assessment Goal: Patient should be free from fall Description: Interventions: 1. [place] to environment 2. Hourly rounds addressing the 4 P's (Pain, Positioning, Possessions, Potty) 3. Clear area of hazards (spills, clutter, electrical cords, unnecessary equipment) 4. Place equipment (bed & TV controls, call light,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 Take 1 tablet (500 mg total) by mouth once daily at bedtime. 30 tablet 5 methylPREDNISolone (MEDROL, KAMARI,) 4 mg tablet follow package directions (Patient not taking: Reported on 09/09/2023) 21 tablet 0 No current facility-administered medications for this visit. Physical Exam: Physical Exam Vitals and nursing note reviewed. Constitutional: Appearance: She is well-developed. HENT: Head: Normocephalic and atraumatic. Right Ear: External ear normal. Left Ear: External ear normal. Nose: Nose normal. Eyes: Conjunctiva/sclera: Conjunctivae normal. Pupils: Pupils are equal, round, and reactive to light. Neck: Thyroid: No thyromegaly. Vascular: No JVD. Cardiovascular: Rate and Rhythm: Normal rate and regular rhythm. Heart sounds: Normal heart sounds. No murmur heard. No friction rub. No gallop. Pulmonary: Effort: Pulmonary effort is normal. Breath sounds: Normal breath sounds. No stridor. Abdominal: General: There is no distension. Palpations: Abdomen is soft. There is no mass. Tenderness: There is no abdominal tenderness. Musculoskeletal: General: No tenderness or deformity. Normal range of motion. Cervical back: Normal range of motion and neck supple. Comments: Symmetrical tender trigger points No synovitis Lymphadenopathy: Cervical: No cervical adenopathy. Skin: General: Skin is warm and dry. Coloration: Skin is not pale. Findings: No erythema or rash. Neurological: Mental Status: She is alert and oriented to person, place, and time. Cranial Nerves: No cranial nerve deficit. Coordination: Coordination normal. Psychiatric: Behavior: Behavior normal. Thought Content: Thought content normal. CORTEZ-28 (If Applicable) There is currently no information documented on the homunculus. Go to the Rheumatology activity and complete the homunculus joint exam. CORTEZ-28 (CRP): -- CORTEZ-28 (ESR): -- Tender (CORTEZ-28): -- Swollen (CORTEZ-28): -- BP 128/74 Resp 18 Ht 167.6 cm (5' 5.98 ) Wt 97.5 kg (215 lb) LMP 01/20/2019 (Approximate) BMI 34.72 kg/m : reviewed Labs and Imaging: reviewed and discussed with the patient during the visit.I Lab Results Component Value Date WBC 8.5 11/12/2022 HGB 15.4 11/12/2022 HCT 45.7 11/12/2022 MCV 92 11/12/2022 GFR >60 11/01/2021 GFR >60 11/01/2021 AST 26 11/12/2022 Imaging: Assessment and Plan: Cande Rahman is a 53 y.o. female patient with: 1. Fibromyalgia - Erythrocyte Sedimentation Rate (ESR); Future - C-reactive protein; Future - Rheumatoid factor; Future - CCP Ab; Future - X-ray osseous survey limited; Future - methocarbamoL (ROBAXIN) 500 mg tablet; Take 1 tablet (500 mg total) by mouth once daily at bedtime. Dispense: 30 tablet; Refill: 5 - amitriptyline (ELAVIL) 10 mg tablet; One capsule at 8 PM each night Dispense: 30 tablet; Refill: 5 - meloxicam (MOBIC) 15 mg tablet; One tablet daily with food Dispense: 30 tablet; Refill: 2 - DULoxetine (CYMBALTA) 20 mg capsule; Take 1 capsule (20 mg total) by mouth in the morning. Dispense: 30 capsule; Refill: 5 2. Arthritis - Ambulatory referral to Rheumatology No user is assigned to the case. At this point I explained to the patient that she does have fibromyalgia, I have discussed with the patient the nature of her disease, I have explained to her that there is no evidence at this time of inflammatory condition or connective tissue disease. I have discussed with her the pertinent laboratory and imaging studies that might be appropriate in his case at this time, I am starting patient on the following medications at this time elavil, Methocarbamol. Cymbalta,and Mobic in addition she is on Lyrica 100 mg at bed time The nature of her illness was explained fully, as she was able to understand RTC 2 month Total [id number] time was 35 minutes with more than 50% of the visit spent counseling and discussing diagnostic or treatment recommendations, prognosis, risks and benefits of management options, instructions, compliance or risk-factor reduction. This note was created with the assistance of a speech recognition program. While intending to generate a timely document that accurately reflects the content of the visit, no guarantee can be provided that every grammatical or spelling mistake has been or will be identified or corrected. Thank you for your understanding. [facility]ology [address]. Cady Fernández [place] [address] [place] [address], [address] [place] [address] Office: [phone] documented in this encounter [facility] 10-16-2023 History of Present illness Narrative Images from the original note were not included. [facility] [address] [place] [address], [address] [place] [address] * CHART NOTE ? 10/21/2023 Patient: Cande Rahman 1970 [id number] Physician: León Oconnor MD CHIEF COMPLAINT Follow-up. HISTORY OF PRESENT ILLNESS 53 year old female s/p cervical discectomy and fusion C5-C7 in 11/06/21 presents to the office today as a follow-up. She reports she was at the ED last week because of severe lower back pain. She states at that time, she couldn't walk or sit without pain. She reports at this time, back pain is more prevalent than her bilateral shoulder pain. Patient's imaging was reviewed to her understanding. A referral to a orthopedic surgeon for her shoulder was recommended. Neurosurgical intervention for the lumbar spine and associated risks, benefits, and recovery were discussed. She has previously been treated with ELOY by pain management with no relief. Denies loss of cement tester assistant strength, saddle anesthesia, urinary or bowel dysfunction, and loss of balance. Patient is not a diabetic and is a current smoker. Hx of prior lumbar spine surgery in [place] performed by Dr. Workman. ALLERGIES Allergies Allergen Reactions Grass Pollen Other (See Comments) Nasal congestion MEDICATIONS Current Outpatient Medications: amphetamine-dextroamphetamine XR (ADDERALL XR) 10 mg 24 hr capsule, Take 1 capsule (10 mg total) by mouth every morning., Disp: , Rfl: amphetamine-dextroamphetamine XR (ADDERALL XR) 30 mg 24 hr capsule, Take 1 capsule (30 mg total) by mouth every morning., Disp: , Rfl: ARIPiprazole (ABILIFY) 15 mg tablet, Take 1 tablet (15 mg total) by mouth daily with breakfast., Disp: , Rfl: buPROPion SR (WELLBUTRIN SR) 100 mg 12 hr tablet, Take 1 tablet (100 mg total) by mouth in the morning., Disp: , Rfl: methocarbamoL (ROBAXIN) 500 mg tablet, Take 1 tablet (500 mg total) by mouth 3 (three) times a day as needed., Disp: , Rfl: oxyCODONE-acetaminophen (PERCOCET) 5-325 mg per tablet, Take 1 tablet by mouth every 4 (four) hours as needed for pain. Max Daily Amount: 6 tablets, Disp: , Rfl: prazosin (MINIPRESS) 2 mg capsule, Take 1 capsule (2 mg total) by mouth nightly., Disp: , Rfl: pregabalin (LYRICA) 150 mg capsule, Take 1 capsule (150 mg total) by mouth in the morning and 1 capsule (150 mg total) before bedtime., Disp: 60 capsule, Rfl: 0 baclofen (LIORESAL) 10 mg tablet, Take 1 tablet (10 mg total) by mouth in the morning and 1 tablet (10 mg total) before bedtime. (Patient not taking: Reported on 10/16/2023), Disp: 60 tablet, Rfl: 3 dextroamphetamine-amphetamine (ADDERALL) 20 mg tablet, Take 1 tablet (20 mg total) by mouth in the morning and 1 tablet (20 mg total) before bedtime. (Patient not taking: Reported on 10/16/2023), Disp: , Rfl: ibuprofen (MOTRIN) 800 mg tablet, Take 1 tablet (800 mg total) by mouth every 8 (eight) hours as needed for pain. (Patient not taking: Reported on 10/16/2023), Disp: , Rfl: methylPREDNISolone (MEDROL, KAMARI,) 4 mg tablet, follow package directions (Patient not taking: Reported on 09/09/2023), Disp: 21 tablet, Rfl: 0 pregabalin (LYRICA) 100 mg capsule, Take 1 capsule (100 mg total) by mouth in the morning and 1 capsule (100 mg total) before bedtime. (Patient not taking: Reported on 10/16/2023), Disp: 60 capsule, Rfl: 1 traMADoL (ULTRAM) 50 mg tablet, Take 1 tablet (50 mg total) by mouth every 8 (eight) hours as needed for pain for up to 30 days., Disp: 90 tablet, Rfl: 0 VITAL SIGNS BP 129/85 (BP Site: Left Arm, BP Postition: Sitting) Pulse 95 Ht 167.6 cm (5' 5.98 ) Wt 95.3 kg (210 lb) LMP 01/20/2019 (Approximate) BMI 33.91 kg/m PHYSICAL EXAMINATION Neurologic Exam Mental Status Oriented to person, place, and time. Level of consciousness: alert Knowledge: good. Motor Exam Muscle bulk: normal Overall muscle tone: normal Strength Strength 5/5 throughout. Sensory Exam Light touch normal. Gait, Coordination, and Reflexes Reflexes Right brachioradialis: 2+ Left brachioradialis: 2+ Right biceps: 2+ Left biceps: 2+ Right triceps: 2+ Left triceps: 2+ Right patellar: 2+ Left patellar: 2+ Right achilles: 2+ Left achilles: 2+ Right cement tester assistant: 2+ Left cement tester assistant: 2+ Right Dumont: absent Left Dumont: absent Right ankle clonus: absent Left ankle clonus: absent Antalgic gait MRI / IMAGES CT cervical spine without contrast 09/24/2023 IMPRESSION: * No acute osseous abnormality of the cervical spine. * Multilevel degenerative disc disease contributes to mild spinal canal stenosis and varying degrees of neural foraminal stenosis most pronounced at C5-C6 level. * Anterior cervical fusion changes at C5-C6 and C6-C7 without evidence of complication. MR shoulder right without contrast 09/24/2023 IMPRESSION: 1. Tendinosis of the rotator cuff tendons without discrete or full-thickness tear. Slight delaminating injury infraspinatus myotendinous junction is probably present. 2. No fracture. 3. AC joint arthritis. 4. Suspect subtle nondisplaced degeneration of the superior labrum. No paralabral cyst. Slight thickening, intermediate signal along the anterior labral ligamentous structures may indicate some thickening of the middle glenohumeral ligament or possible nondisplaced labral injury in this region. This may reflect a labral variant as well. Consider arthrogram evaluation as clinically warranted. MR lumbar spine without contrast 06/25/23: IMPRESSION: 1. Broad-based central disc protrusion at L4-L5 with moderate degree of spinal stenosis and minimal narrowing of the neural foramina. 2. Severe disc degenerative disease at L5-S1 and associated disc bulging causing mild degree of spinal stenosis but severe narrowing of the neural foramina. 3. No evidence of compression fracture, spondylolisthesis or acute bony pathology. IMPRESSION / PLAN 53 year old female s/p cervical discectomy and fusion C5-C7 in 11/06/21 presents to the office today as a follow-up. She reports she was at the ED last week because of severe lower back pain. She states at that time, she couldn't walk or sit without pain. She reports at this time, back pain is more prevalent than her bilateral shoulder pain. Patient's imaging was reviewed to her understanding. A referral to a orthopedic surgeon for her shoulder was recommended. Neurosurgical intervention for the lumbar spine and associated risks, benefits, and recovery were discussed. PLAN: L4-5 laminectomy. Pre-op chest x-ray. Refer to Dr. Montes for shoulder pain. Electronically Signed By: León Oconnor MD This note was created with the assistance of a speech recognition program with the goal of generating a timely record of the patient encounter. Inadvertent computerized coding educator errors related to syntax, spelling, homophones, and/or inaudibility may be present. Scribe Statement: Scribed for and in the presence of León Oconnor MD by Christel Baird. Christel Royfman 10/16/23 1236 Christel Royfman 10/16/23 1309 Christel Royfman 10/16/23 1322 Christel Royfman 10/16/23 1505 Christel Royfman 10/16/23 1507 Christel Royfman 10/16/23 1509 Provider Statement: I, León Oconnor MD personally performed the services described in the documentation, as scribed by AR in my presence, and it is both accurate and complete. documented in this encounter [facility] 10-16-2023 Instructions Marcelle Rodriguez CMA - 10/16/2023 2:05 PM EST Patient was seen by Dr. Oconnor Placed referral for ortho Patient will meet with Josseline to schedule a surgery date LO The following attachments cannot be sent through Care Everywhere.Quitting smoking (Mauritanian)documented in this encounter [facility] 10-10-2023 Miscellaneous Notes Cande called in requesting a prescription refill for her Lyrica 150 mg. Script called into pharmacy with Lanette. documented in this encounter [facility] 10-10-2023 Telephone encounter Note Cande called in requesting a prescription refill for her Lyrica 150 mg. Script called into pharmacy with Lanette. [facility] Evaluation note Diagnosis Back pain, unspecified back location, unspecified back pain laterality, unspecified chronicity History of back surgery Other postprocedural status Lumbar degenerative disc disease Degeneration of lumbar or lumbosacral intervertebral disc Lumbar spondylosis Lumbosacral spondylosis without myelopathy Lumbar radiculopathy Thoracic or lumbosacral neuritis or radiculitis, unspecified documented in this encounter [employer] Phone: evaluation note* Diagnosis Chronic left shoulder pain- Primary Pain in joint, shoulder region Status post left rotator cuff repair Internal derangement of left shoulder [facility] Diagnosis Acute pain of left shoulder- Primary Status post left rotator cuff repair documented in this encounter [facility]* Diagnosis Status post left rotator cuff repair- Primary documented [facility]* Diagnosis Acute pain of left shoulder- Primary Status post left rotator cuff repair [facility] Diagnosis Acute pain of left shoulder- Primary Status post left rotator cuff repair [facility] Diagnosis Acute pain of left shoulder- Primary Status post left rotator cuff repair [facility]* Diagnosis Acute pain of left shoulder- Primary Status post left rotator cuff repair documented [facility] encounter [facility]* Diagnosis Acute pain of left shoulder- Primary Status post left rotator cuff repair [facility] Diagnosis Chronic right shoulder pain Pain in joint, shoulder region Radiculopathy, cervical region Brachial neuritis or radiculitis nos [facility] Diagnosis Spinal stenosis of lumbar region Radiculopathy, lumbar region Thoracic or lumbosacral neuritis or radiculitis, unspecified Spinal stenosis of lumbar region, unspecified whether neurogenic claudication present- Primary Radiculopathy, lumbar region Thoracic or lumbosacral neuritis or radiculitis, unspecified Spinal stenosis of lumbar region, unspecified whether neurogenic claudication present Radiculopathy, lumbar region Thoracic or lumbosacral neuritis or radiculitis, unspecified documented in this encounter [facility] Diagnosis Spinal stenosis of lumbar region, unspecified whether neurogenic claudication present- Primary Left shoulder pain, unspecified chronicity Pre-op testing Unspecified pre-operative examination Pre-op testing Unspecified pre-operative examination Spinal stenosis of lumbar region, unspecified whether neurogenic claudication present Spinal stenosis of lumbar region Radiculopathy, lumbar region Thoracic or lumbosacral neuritis or radiculitis, unspecified Spinal stenosis of lumbar region, unspecified whether neurogenic claudication present Radiculopathy, lumbar region Thoracic or lumbosacral neuritis or radiculitis, unspecified [facility] Diagnosis Spinal stenosis of lumbar region Radiculopathy, lumbar region Thoracic or lumbosacral neuritis or radiculitis, unspecified Fibromyalgia- Primary Unspecified myalgia and myositis Arthritis Unspecified arthropathy, site unspecified Spinal stenosis of lumbar region, unspecified whether neurogenic claudication present Radiculopathy, lumbar region Thoracic or lumbosacral neuritis or radiculitis, unspecified documented in this encounter [facility]* Diagnosis Spinal stenosis of lumbar region Radiculopathy, lumbar region Thoracic or lumbosacral neuritis or radiculitis, unspecified Spinal stenosis of lumbar region with neurogenic claudication- Primary Spinal stenosis of lumbar region, unspecified whether neurogenic claudication present Radiculopathy, lumbar region Thoracic or lumbosacral neuritis or radiculitis, unspecified Spinal stenosis of lumbar region, unspecified whether neurogenic claudication present Radiculopathy, lumbar region Thoracic or lumbosacral neuritis or radiculitis, unspecified documented in this encounter [facility]* Diagnosis Spinal stenosis of lumbar region Radiculopathy, lumbar region Thoracic or lumbosacral neuritis or radiculitis, unspecified Stenosis of cervical spine Spinal stenosis in cervical region Radiculopathy, cervical region Brachial neuritis or radiculitis nos Spinal stenosis of lumbar region, unspecified whether neurogenic claudication present Radiculopathy, lumbar region Thoracic or lumbosacral neuritis or radiculitis, unspecified [facility] Diagnosis Spinal stenosis of lumbar region, unspecified whether neurogenic claudication present- Primary Spinal stenosis of lumbar region, unspecified whether neurogenic claudication present Radiculopathy, lumbar region Thoracic or lumbosacral neuritis or radiculitis, unspecified Acute post-operative pain Radiculopathy, lumbar region Thoracic or lumbosacral neuritis or radiculitis, unspecified [facility] Diagnosis Fibromyalgia Unspecified myalgia and myositis [facility] Diagnosis Status post lumbar laminectomy- Primary documented [facility] this [facility]* Diagnosis Stenosis of cervical spine Spinal stenosis in cervical region Radiculopathy, cervical region Brachial neuritis or radiculitis nos [facility]* Diagnosis Fibromyalgia- Primary Unspecified myalgia and myositis documented in this encounter [facility]* Diagnosis Diarrhea, unspecified type- Primary Fecal urgency documented in this encounter [facility]* Diagnosis Fibromyalgia Unspecified myalgia and myositis documented in this encounter [facility]* Diagnosis Pain and swelling of left shoulder- Primary Sprain of left rotator cuff capsule, initial encounter documented in this encounter [facility]* Diagnosis Sprain of left rotator cuff capsule, initial encounter- Primary Status post left rotator cuff repair documented in this encounter [facility]* Diagnosis Fibromyalgia Unspecified myalgia and myositis documented [facility] this encounter [facility]* Diagnosis Pre-op evaluation- Primary documented in this encounter [facility]* Diagnosis Pain and swelling of left shoulder- Primary Post-op pain Other acute postoperative pain documented in this encounter [facility]* Diagnosis Pre-op examination- Primary documented in this encounter [facility]* Diagnosis Post-operative pain- Primary Other acute postoperative pain [facility]* Diagnosis Status post arthroscopy of left shoulder [facility] on filedocumented in [facility]ructionsNot on filedocumented in this encounterPro[facility] SystemInstructionsNot on filedocumented in this encounter[facility] SystemInstructionsNot on filedocumented in this encounterPro[facility] InstructionsNot on filedocumented in this [facility] InstructionsNot on filedocumented in this [facility] InstructionsNot on filedocumented in this [facility] InstructionsNot on filedocumented in this encounterPro[facility] InstructionsNot on filedocumented in this encounterPro[facility] InstructionsNot on filedocumented in this encounterPro[facility] InstructionsNot on filedocumented in this encounterProMckit[facility] SystemReason for referral (narrative)* Consultation (Routine) - Pending Review Specialty Diagnoses / Procedures Referred By Shawn pope Referred To Contact Orthopedic Surgery Diagnoses Left shoulder pain, unspecified chronicity León Oconnor MD [address] [place] [phone] JyotiRosalio marcelino, [address] [address] Referral ID Status Reason Start Date Expiration Date Visits Requested Visits Authorized [id number] Pending Review Specialty Services Required 3 10/15/2024 1 1 [facility]* Consultation (Routine) - Pending Review Specialty Diagnoses / Procedures Referred By Shawn pope Referred To Contact Rheumatology Diagnoses Arthritis León Oconnor MD [address] [place] [phone] Yumiko Pal MD [address] [phone] Referral ID Status Reason Start Date Expiration Date Visits Requested Visits Authorized [id number] Pending Review Specialty Services Required 3 09/08/2024 1 1 [facility] Summary Purpose Family History No Family History Records FoundNo Family History Records FoundNo Family History Records FoundNo Family History Records FoundNo Family History Records FoundNo Family History Records FoundNo Family History Records FoundNo Family History Records FoundNo Family History Records FoundNo Family History Records Found Advance Directives No Advanced Directives Records FoundDocuments on File Type Date Recorded Patient Automatic Winder Operator Expl anation ACP-Advance Directive ACP-Power of Rolling Machine Operator Automatic Documents on File Type Date Recorded Patient Automatic Winder Operator Expl anation Living Will 11/06/2021 10:57 AM [place]IVING [place] Durable Power of Rolling Machine Operator Automatic 11/06/2021 10:57 AM DPOA Latest Code Status on File Code Status Date Activated Date Inactivated Comments Full Code 11/06/2021 3:15 PM 11/07/2021 12:57 PM Documents on File Type Date Recorded Patient Automatic Winder Operator Expl anation Living Will 11/06/2021 10:57 AM [place]IVING [place] Durable Power of Rolling Machine Operator Automatic 11/06/2021 10:57 AM DPOA Latest Code Status on File Code Status Date Activated Date Inactivated Comments Full Code 11/06/2021 3:15 PM 11/07/2021 12:57 PM Latest Code Status on File Code Status Date Activated Date Inactivated Comments Full Code 12/04/2023 7:35 AM 12/04/2023 2:45 PM Code Status History Code Status Date Activated Date Inactivated Comments Full Code 11/06/2021 3:15 PM 11/07/2021 12:57 PM Latest Code Status on File Code Status Date Activated Date Inactivated Comments Full Code 12/04/2023 7:35 AM 12/04/2023 2:45 PM Code Status History Code Status Date Activated Date Inactivated Comments Full Code 11/06/2021 3:15 PM 11/07/2021 12:57 PM Date Activated Date Inactivated Comments 12/04/2023 7:35 AM 12/04/2023 2:45 PM Date Activated Date Inactivated Comments 11/06/2021 3:15 PM 11/07/2021 12:57 PM Date Activated Date Inactivated Comments 12/04/2023 7:35 AM 12/04/2023 2:45 PM Date Activated Date Inactivated Comments 11/06/2021 3:15 PM 11/07/2021 12:57 PM Procedure Findings Note HNO ID: [id number] Author: China Rodriguez Service: Gynecology Author Type: Physician Type: Brief Op Note Filed: 12/14/2019 11:17 AM Note Text: BRIEF OPERATIVE NOTE Log ID: [id number] Surgery/Procedure Date: 12/14/2019 Incision/Procedure Start Time: 8:37 AM Incision Close/Procedure End Time: 10:41 AM Surgeon(s) and Occupational Therapy Instructor(s): Surgeon(s) and Role: * Alanna Rodriguez - Primary Physician Occupational Therapy Instructor: Di Rahman (Pa) Paraprofessional Aide Teacher: Manish Mann No qualified residents avaialble Procedures and Anesthesia: Procedure(s) and Anesthesia Type: * LAPAROSCOPIC HYSTERECTOMY TOTAL FOR UTERUS 250 G OR LESS W/REMOVAL TUBES - General * CYSTOSCOPY - General Findings: 1. Uterus 8 weeks size with fibroids. 2. Bilateral fallopian tubes with evidence of tubal sterilization 3. Both ovaries normal. 4. Cystoscopy normal with normal bladder survey and good bilateral ureteric jets. Estimated Blood Loss: 10 cc Input : 1000 cc Output : 600 cc Specimens: uterus, bilateral fallopian tubes and cervix (more content not included)... Reason for Referral Status Reason Specialty Diagnoses / Procedures Referre d By Contact Referred To Contact Closed Radiology Diagnoses Back pain, unspecified back location, unspecified back pain laterality, unspecified chronicity History of back surgery Lumbar degenerative disc disease Lumbar spondylosis Lumbar radiculopathy Procedures MRI LUMBAR SPINE W WO CONTRAST Agustín Walls MD [address] [facility] [address] [place] [address] Specialty Diagnoses / Procedures Referred By Contac t Referred To Contact Radiology Diagnoses Internal derangement of left shoulder Procedures MR shoulder left wo IV contrast Rosalio Montes, [address] [facility] [address] [place] [address] Noms Fnr Mr [address] [facility] [address] [place] [address] Referral ID Status Reason Start Date Expiration Date V isits Requested Visits Authorized [id number] Pending Review 07/22/2024 01/18/2025 1 1 Specialty Diagnoses / Procedures Referred By Contac t Referred To Contact Physical Therapy Diagnoses Status post left rotator cuff repair Procedures IN OFFICE/OUTPATIENT NEW HIGH MDM 60 MINUTES Aditi Billy, VENDOR ANALYST [address] [place] [address] Trisha Harris, PT [address] [place] [address] Referral ID Status Reason Start Date Expiration Date Visits Requested Visits Authorized [id number] Pending Review Specialty Services Required 06/07/2024 12/04/2024 1 1 Specialty Diagnoses / Procedures Referred By Shawn pope Referred To Contact Diagnoses Fibromyalgia Cady Fernández MD [address] [address] Referral ID Status Reason Start Date Expiration Date V isits Requested Visits Authorized [id number] Pending Review 1 1 Referral ID Status Reason Start Date Expiration Date Visits Re quested Visits Authorized [id number] Closed 1 1 Referral ID Status Reason Start Date Expiration Date Visits Re quested Visits Authorized [id number] Closed 1 1 Additional Source Comments INFORMATION SOURCE (unrecogn ized section and content) DATE CREATED AUTHOR 09/17/2019 [facility] DATE CREATED AUTHOR AUTHOR'S ORGANIZ ATION 12/17/2019 [facility] DATE CREATED AUTHOR AUTHOR'S ORGANIZ ATION 02/01/2020 [facility] DATE CREATED AUTHOR AUTHOR'S ORGANIZ ATION 05/31/2021 [facility] DATE CREATED AUTHOR AUTHOR'S ORGANIZ ATION 07/19/2022 [facility] DATE CREATED AUTHOR AUTHOR'S ORGANIZ ATION 12/05/2023 DATE CREATED AUTHOR AUTHOR'S ORGANIZ ATION 06/10/2024 [facility] DATE CREATED AUTHOR AUTHOR'S ORGANIZ ATION 01/16/2025 [facility] DATE CREATED AUTHOR AUTHOR'S ORGANIZ ATION 04/13/2025 [facility] DATE CREATED AUTHOR AUTHOR'S ORGANIZ ATION 04/16/2025 [facility] EPIC Reason for Visit (unrecogniz ed section and content) Status Reason Specialty Diagnoses / Procedures Referre d By Contact Referred To Contact Closed Radiology Diagnoses Back pain, unspecified back location, unspecified back pain laterality, unspecified chronicity History of back surgery Lumbar degenerative disc disease Lumbar spondylosis Lumbar radiculopathy Procedures MRI LUMBAR SPINE W WO CONTRAST Agustín Walls MD [address] [address] Reason Comments Follow-up Specialty Diagnoses / Procedures Referred By Shawn pope Referred To Contact Physical Therapy Diagnoses Status post left rotator cuff repair Procedures IN OFFICE/OUTPATIENT [facility] 60 MINUTES Aditi Billy, VENDOR ANALYST [address] [place] [address] Trisha Harris, PT [address] [place] [address] Referral ID Status Reason Start Date Expiration Date Visits Requested Visits Authorized [id number] Authorized Specialty Services Required 06/07/2024 12/04/2024 30 30 Reason Onset Date Comments MRI 11/22/2024 Reason Onset Date Comments Med Refill 10/10/2023 Reason Comments Back Pain Patient was in the [facility] last Friday Results follow up MRi and CT results Reason Onset Date Comments Med Refill 11/25/2023 Reason Onset Date Comments surgery reminder 12/02/2023 Specialty Diagnoses / Procedures Referred By Shawn pope Referred To Contact Diagnoses Spinal stenosis of lumbar region, unspecified whether neurogenic claudication present Radiculopathy, lumbar region Spinal stenosis of lumbar region, unspecified whether neurogenic claudication present [M48.061] Radiculopathy, lumbar region [M54.16] Procedures IN LAMINEC/FACETECT/FORAMIN,LUMBA R 1 SEG LAMINECTOMY LUMBAR SINGLE LEVEL / L4/5 León Oconnor MD [address] [facility] [address] [place] [phone] Referral ID Status Reason Start Date Expiration Date Visits Re quested Visits Authorized [id number] 1 1 Reason Comments Post-op POST OP LUMBAR MARICHUY ECTOMY Reason Onset Date Comments med refill request 03/30/2024 Reason Onset Date Comments refill request 06/11/2024 Reason Comments Change in Bowel Habits Change in bowel h abits, last colon 02/13/24- Normal 10 year recall Reason Comments Med Change Request Reason Comments Pain Reason Comments Follow-up Reason Comments Pre-op Exam Reason Onset Date Comments Surgery Clearance 01/14/2025 Reason Comments Post-op Care Teams (unrecognized sec tion and content) Taker Away Relationship Specialty Start Date End Date Veronica Dixon MD [address] [place] [address] PCP - General Pediatrics 12/23/23 Gabriella Valdes MD [address] [place] [address] PCP - YENNIFER Boone [facility] 01/19/24 Unallocated, Kendys MD Lisa [address] [place] [address] Family Medicine 12/09/23 Taker Away Relationship Specialty Start Date End Date Veronica Dixon MD [address] [place] [address] PCP - General Pediatrics 12/23/23 Gabriella Valdes MD [address] [place] [address] PCP - YENNIFER Boone [facility] 01/19/24 Unallocated, Yennifer Gonzalez MD [address] [place] [address] Family Medicine 12/09/23 Taker Away Relationship Specialty Start Date End Date Veronica Dixon MD [address] [place] [address] PCP - General Pediatrics 12/23/23 Gabriella Valdes MD [address] [place] [address] PCP - NOMS Paolo [facility] 01/19/24 Unallocated, Yennifer Gonzalez MD [address] [facility] [place] [address] Family Medicine 12/09/23 Taker Away Relationship Specialty Start Date End Date Veronica Dixon MD [address] [place] [address] PCP - General Pediatrics 12/23/23 Unallocated, Yennifer Gonzalez MD [address] [place] [address] Family Medicine 12/09/23 Taker Away Relationship Specialty Start Date End Date Veronica Dixon MD [address] [place] [address] PCP - General Pediatrics 12/23/23 Unallocated, Yennifer Gonzalez MD [facility] [place] [place] [address] Family Medicine 12/09/23 Taker Away Relationship Specialty Start Date End Date Veronica Dixon MD [address] [place] [address] PCP - General Pediatrics 12/23/23 Unallocated, Yennifer Gonzalez MD [facility] [place] [address] Family Medicine 12/09/23 Taker Away Relationship Specialty Start Date End Date Veronica Dixon MD [address] [place] [address] PCP - General Pediatrics 12/23/23 Unallocated, Yennifer Gonzalez MD [address] [place] [address] Family Medicine 12/09/23 Taker Away Relationship Specialty Start Date End Date Veroniac Dixon MD [address] [place] [address] PCP - General Pediatrics 12/23/23 Unallocated, Yennifer Gonzalez MD [address] [place] [address] Family Medicine 12/09/23 Taker Away Relationship Specialty Start Date End Date Veronica Dixon MD [address] [place] [address] PCP - General Pediatrics 12/23/23 Unallocated, Yennifer Gonzalez MD [address] [place] [address] Family Medicine 12/09/23 Taker Away Relationship Specialty Start Date End Date Veronica Dixon MD [address] [place] [address] PCP - General Pediatrics 12/23/23 Unallocated, Yennifer Gonzalez MD [address] [place] [address] Family Medicine 12/09/23 Taker Away Relationship Specialty Start Date End Date Veronica Dixon MD [address] [place] [address] PCP - General Pediatrics 12/23/23 Unallocated, Yennifer Gonzalez MD [address] [place] [address] Family Medicine 12/09/23 Taker Away Relationship Specialty Start Date End Date Veronica Dixon MD [address] [place] [address] PCP - General Pediatrics 12/23/23 Unallocated, Yennifer Gonzalez MD [address] [place] [address] Family Medicine 12/09/23 Taker Away Relationship Specialty Start Date End Date Veronica Dixon MD [address] [place] [address] PCP - General Pediatrics 12/23/23 Unallocated, Yennifer Gonzalez MD [address] [place] [address] Family Medicine 12/09/23 Taker Away Relationship Specialty Start Date End Date Veronica Dixon MD [address] [place] [address] PCP - General Pediatrics 12/23/23 Gabriella Valdes MD [address] [place] [address] PCP - YENNIFER Boone [facility] 01/19/24 Unallocated, Yennifer Gonzalez MD [facility] [address] [facility] [place] [address] Family Medicine 12/09/23 Taker Away Relationship Specialty Start Date End Date Veronica Dixon MD [address] [place] [address] PCP - General Pediatrics 12/23/23 Gabriella Valdes MD [address] [place] [address] PCP - YENNIFER Boone [facility] 01/19/24 Unallocated, Yennifer Gonzalez MD [address] [place] [address] Family Medicine 12/09/23 Taker Away Relationship Specialty Start Date End Date Veronica Dixon MD [address] [place] [address] PCP - General Pediatrics 12/23/23 Gabriella Valdes MD [address] [place] [address] PCP - NOMS Paolo [facility] 01/19/24 Unallocated, Noms Provider, MD [address] [place] [address] Family Medicine 12/09/23 Taker Away Relationship Specialty Start Date End Date Services, [facility] [address] [place] PCP - General Family Medicine 10/10/17 Taker Away Relationship Specialty Start Date End Date Services, [facility] [address] [place] PCP - General Family Medicine 10/10/17 Taker Away Relationship Specialty Start Date End Date Services, [facility] [address] [place] PCP - General Family Medicine 10/10/17 Taker Away Relationship Specialty Start Date End Date Services, [facility] [address] [place] PCP - General Family Medicine 10/10/17 Taker Away Relationship Specialty Start Date End Date Services, [facility] [address] [place] PCP - General Family Medicine 10/10/17 Taker Away Relationship Specialty Start Date End Date Services, [facility] [address] [place] PCP - General Family Medicine 10/10/17 Taker Away Relationship Specialty Start Date End Date Services, [facility] [address] [place] PCP - General Family Medicine 10/10/17 Taker Away Relationship Specialty Start Date End Date Services, [facility] [address] [place] PCP - General Family Medicine 10/10/17 Taker Away Relationship Specialty Start Date End Date Services, [facility] [address] [place], [place] PCP - General Family Medicine 10/10/17 Taker Away Relationship Specialty Start Date End Date [facility] [address] [place], [place] PCP - General Family Medicine 10/10/17 Taker Away Relationship Specialty Start Date End Date Former[facility] [address] [place], [place] PCP - General Family Medicine 10/10/17 Taker Away Relationship Specialty Start Date End Date Veronica Dixon MD [address] [place] [address] PCP - General Family Medicine 05/31/24 Taker Away Relationship Specialty Start Date End Date Veronica Dixon MD [address] [place] [address] PCP - General Family Medicine 05/31/24 Taker Away Relationship Specialty Start Date End Date Veronica Dixon MD [address] [place] [address] PCP - General Family Medicine 05/31/24 Taker Away Relationship Specialty Start Date End Date Veronica Dixon MD [address] [place] [address] PCP - General Family Medicine 05/31/24 Taker Away Relationship Specialty Start Date End Date Veronica Dixon MD [address] [place] [address] PCP - General Family Medicine 05/31/24 Taker Away Relationship Specialty Start Date End Date Veronica Dixon MD [address] [place] [address] [place] [address] PCP - General Pediatrics 12/23/23 Gabriella Valdes MD [address] [facility] [place] [address] PCP - NOMS Paolo [facility] 01/19/24 Unallocated, [place] [address] [place], [place] [address] [address] Family Medicine 12/09/23 Taker Away Relationship Specialty Start Date End Date Veronica Dixon MD [address] [place] [address] PCP - General Pediatrics 12/23/23 Gabriella Valdes MD [address] [place] [address] PCP - NOMS Paolo [facility] 01/19/24 Unallocated, Yennifer Gonzalez MD [address] [place] [address] Family Medicine 12/09/23 Taker Away Relationship Specialty Start Date End Date Veronica Dixon MD [address] [place] [address] PCP - General Pediatrics 12/23/23 Gabriella Valdes MD [address] [place] [address] PCP - NOMS Paolo [facility] 01/19/24 Unallocated, Yennifer Gonzalez MD [address] [facility] [place] [address] Family Medicine 12/09/23 Taker Away Relationship Specialty Start Date End Date Veronica Dixon MD [address] [place] [address] PCP - General Family Medicine 05/31/24 Taker Away Relationship Specialty Start Date End Date [facility], [facility] [address] [place] PCP - General Family Medicine 01/14/25 Taker Away Relationship Specialty Start Date End Date Veronica Dixon MD [address] [place] [address] PCP - General Pediatrics 12/23/23 Gabriella Valdes MD [address] [facility] [place] [address] PCP - NOMS Paolo [facility] 01/19/24 Unallocated, Kendys MD Lisa [address] [place] [address] Family Medicine 12/09/23 Taker Away Relationship Specialty Start Date End Date Veronica Dixon MD [facility] [place] [address] PCP - General Pediatrics 12/23/23 Gabriella Valdes MD PCP - NOMChina Boone [facility] 01/19/24 Unallocatog, Yennifer Gonzalez MD [address] [place] [address] Family Medicine 12/09/23 Taker Away Relationship Specialty Start Date End Date Veronica Dixon MD [address] [place] [address] PCP - General Pediatrics 12/23/23 Gabriella Valdes MD PCP - NOMS Paolo [facility] 01/19/24 Unallocated, Kendys ProviderMD [address] [place] [address] [facility] 12/09/23 Taker Away Relationship Specialty Start Date End Date Veronica Dixon MD [address] [place] [address] PCP - General Pediatrics 12/23/23 Gabriella Valdes MD PCP - NOMS Paolo [facility] 01/19/24 Unallocated, Yennifer ProviderMD [address] [place] [address] [facility] 12/09/23 Scheduled Active and Recently Administ ered Medications (unrecognized section and content) Medication Order 12/02/2023 12/03/2023 12/04/2023 amitriptyline (ELAVIL) tablet 10 mg 10 mg, oral, Nightly, First dose on Fri12/03/23 at 2200, PACU & Post-op, Indications: insomnia 2055 (Given - Provider: Iván Berry RN)2200 (Canceled Entry - Provider: Iván Berry RN) amphetamine-dextroamphetami ne XR (ADDERALL XR) 15 mg 24 hr capsule 30 mg 30 mg, oral, Daily, First dose on Fri12/04/23 at 0800, PACU & Post-op, Look-alike/sound-alike medication - verify indication for use. Do not crush or chew. Capsule may be swallowed whole or it may be opened and the contents sprinkled on applesauce. Applesauce should be consumed immediately without chewing., Indications: attention-deficit hyperactivity disorder 0819 (Given - Provid er: Maricruz Coleman RN) amphetamine-dextroamphetami ne XR (ADDERALL XR) 5 mg 24 hr capsule 10 mg 10 mg, oral, Daily with lunch, First dose on Fri12/03/23 at 1700, PACU & Post-op, Look-alike/sound-alike medication - verify indication for use. Do not crush or chew. Capsule may be swallowed whole or it may be opened and the contents sprinkled on applesauce. Applesauce should be consumed immediately without chewing., Indications: attention-deficit hyperactivity disorder 1700 (Not Given - Provider: Kailyn Curiel LPN - Reason: Patient/family refused) 1200 (Not Given - Provider: Maricruz Coleman RN - Reason: Patient/family refused - Comment: Patient will take home medication d/c) ARIPiprazole (ABILIFY) tablet 15 mg 15 mg, oral, Daily with breakfast, First dose on Fri12/03/23 at 1700, PACU & Post-op, Look-alike/sound-alike medication - verify indication for use., Indications: bipolar disorder 1700 (Not Given - Provider: Kailyn Curiel LPN - Reason: Patient/family refused) 0927 (Given - Provider: Maricruz Coleman RN) buPROPion XL (WELLBUTRIN XL) 24 hr tablet 150 mg 150 mg, oral, Daily, First dose on Otilia 12/04/23 at 0900, Look-alike/sound-alike medication - verify indication for use. Do not crush or chew. 09 (Given - Provid er: Maricruz Coleman RN) ceFAZolin (ANCEF) 2,000 mg in sodium chloride 0.9 % 50 mL IVPB-MBP (COMPLETED) 2,000 mg, intravenous, at 100 mL/hr, Administer over 30 Minutes, Every 8 hours, First dose on Fri12/03/23 at 2000, For 2 doses, PACU & Post-op, Pharmacy to adjust per renal function; Start 8 hours after pre-op dose for total of 3 doses including pre-op dose. Infuse all doses within 24 hours of initial dose. For patient less than 120 kg. ADD-VANTAGE/MBP- Discard 24 hours after activating; dissolve drug prior to administration, Indication: Surgical prophylaxis 2112 (New Bag - Provider: Iván Berry RN)2142 (Stop Bag - Provider: Iván Berry RN) 518 (New Bag - Provider: Iván Berry RN)0549 (Stop Bag - Provider: Maricruz Coleman RN) DULoxetine (CYMBALTA) DR capsule 20 mg 20 mg, oral, Daily, First dose on Fri12/03/23 at 1700, PACU & Post-op, Look-alike/sound-alike medication - verify indication for use. Swallow whole-do not crush or chew. Although the cleaner and trimmer does not recommend opening the capsule, the contents of capsule may be sprinkled on applesauce or in apple juice and swallowed (without chewing) immediately; do not sprinkle contents on chocolate pudding. 1700 (Not Given - Provider: Kailyn Curiel LPN - Reason: Patient/family refused) 0925 (Given - Provider: Maricruz Coleman, RN) enoxaparin (LOVENOX) syringe 40 mg 40 mg, subcutaneous, Daily, First dose on Otilia 12/04/23 at 0600, PACU & Post-op, When Creatinine Clearance 30 mL/min or greater Look-alike/sound-alike medication - verify indication for use. 0600 (Not Given - Provider: Iván Berry RN - Reason: Patient/family refused) methocarbamoL (ROBAXIN) tablet 500 mg 500 mg, oral, 4 times daily, First dose on Fri12/03/23 at 1715, PACU & Post-op 1715 (Not Given - Provider: Kailyn Curiel LPN - Reason: Patient/family refused)2056 (Given - Provider: Iván Berry, RN)2200 (Canceled Entry - Provider: Iván Berry, RN) 0923 (Given - Provider: Maricruz Coleman, RN) polyethylene glycol (GLYCOLAX) packet 17 g 17 g, oral, Daily, First dose on Fri12/03/23 at 1645, PACU & Post-op, Look-alike/sound-alike medication - verify indication for use. Dissolve 1 packet (17 gm) in 8 ounces of water, juice, soda, coffee or tea. 1645 (Not Given - Provider: Kailyn Curiel LPN - Reason: Patient/family refused) 0900 (Not Given - Provider: Maricruz Coleman RN - Reason: Patient/family refused) prazosin (MINIPRESS) capsule 2 mg 2 mg, oral, 2 times daily, First dose on Fri12/03/23 at 2100, PACU & Post-op, Indications: hypertension, post traumatic stress disorder 2056 (Given - Provider: Iván Berry, RN) 09 (Given - Provider: Maricruz Coleman, RN) pregabalin (LYRICA) capsule 150 mg 150 mg, oral, 2 times daily, First dose on Fri12/03/23 at 2100, PACU & Post-op, Look-alike/sound-alike medication. Verify indication for use 2055 (Given - Provider: Iván Berry, RN) 925 (Given - Provider: Maricruz Coleman, RN) sennosides-docusate sodium (SENOKOT-S) 8.6-50 mg 1 tablet 1 tablet, oral, 2 times daily, First dose on Otilia 12/04/23 at 0900, PACU & Post-op, Start Post-Op Day 1: Hold for diarrhea 925 (Given - Provid er: Maricruz Coleman RN) sodium chloride 0.9 % flush 3 mL 3 mL, intravenous, Every 12 hours scheduled, First dose on Fri12/03/23 at 2100, PACU & Post-op, Once tolerating oral intake 2110 (Given - Provider: Iván Berry, NEREYDA) 926 (Given - Provider: Maricruz Coleman, RN) Continuous Medication Order 12/02/2023 12/03/2023 12/04/2023 sodium chloride 0.9 % infusion (CANCELED) 75 mL/hr, intravenous, Continuous, Starting on Fri12/03/23 at 1645, PACU & Post-op 1645 (New Bag - Provider: Libby Natarajan, RN) 0813 (Stop Bag - Provider: Maricruz Coleman, RN) PRN Medication Order 12/02/2023 12/03/2023 12/04/2023 acetaminophen (TYLENOL) tablet 650 mg 650 mg, oral, Every 4 hours PRN, mild pain - pain scale 1-3, fever of 38.6, Starting on Fri12/03/23 at 1631, PACU & Post-op, Do not give for fever if patient received acetaminophen containing products within 4 hours. bisacodyL (DULCOLAX) suppository 10 mg 10 mg, rectal, As needed, constipation, if no BM within 6 hours of administering Milk of Magnesia, Starting on Fri12/05/23 at 0000, PACU & Post-op, Start Post-Op Day 2 Look-alike/sound-alike medication - verify indication for use. dextrose (GLUTOSE) 40 % gel 15 g 15 g, oral, As needed, low blood sugar, blood glucose less than 70 mg/dL, Starting on Fri12/03/23 at 1631, PACU & Post-op, If patient conscious and taking PO. If blood glucose is not greater than 70 mg/dL after initial treatment, repeat treatment. dextrose 5 % (D5W) infusion 100 mL/hr, intravenous, Continuous PRN, blood glucose less than 70 mg/dL, Starting on Fri12/03/23 at 1631, PACU & Post-op, Use immediately following dextrose 50% or glucagon treatment for patients who are unconscious or NPO. Contact prescriber for additional orders. If blood glucose is not greater than 70 mg/dL after initial treatment, repeat treatment. dextrose 50 % in water (D50W) 50% solution 25 mL 25 mL, intravenous, As needed, low blood sugar, blood glucose less than 70 mg/dL and unconscious or NPO with IV access, Starting on Fri12/03/23 at 1631, PACU & Post-op, Push over 1-3 minutes STAT. If conscious and not NPO, immediately follow with meal tray or high protein (7 grams) snack if tray not available. If NPO, initiate 5% dextrose in water at 100 mL/hr and contact prescriber for additional orders. If blood glucose is not greater than 70 mg/dL after initial treatment, repeat treatment. VESICANT (RED) Warning: HYPERTONIC solution. gentamicin 160 mg in 0.9% sod chl 1000 mL irrigation (bag) (CANCELED) As needed, Starting on Fri12/03/23 at 1213, Intra-op 1213 (Given - Provider: León Oconnor MD) glucagon HCL injection 1 mg 1 mg, intramuscular, As needed, low blood sugar, blood glucose less than 70 mg/dL and unconscious or NPO without IV access., Starting on Fri12/03/23 at 1631, PACU & Post-op, If conscious and not NPO, immediately follow with meal tray or high protein (7Grams) snack if tray not available. If NPO, initiate IV 5% Dextrose/Water at 100 mL/hr and contact prescriber for additional orders. If blood glucose is not greater than 70 mg/dL after initial treatment, repeat treatment. lidocaine-EPINEPHrine (XYLOCAINE W/EPI) 1 %-1:[id number] injection (CANCELED) As needed, Starting on Fri12/03/23 at 1212, Intra-op 1212 (Given - Provider: León Oconnor MD) magnesium hydroxide (MILK OF MAGNESIA) suspension 30 mL 30 mL, oral, 2 times daily PRN, if no BM by post-op day 2, Starting on Fri12/05/23 at 0000, PACU & Post-op, Start Post-Op Day 2: DO NOT use in Renal/Dialysis patients Shake well. midazolam (PF) (VERSED) injection 2 mg (CANCELED) 2 mg, intravenous, As needed, anxiety, Starting on Fri12/03/23 at 1112, For 2 doses, Pre-op, May repeat in 10 minutes, if needed, if original midazolam (VERSED) ineffective, Indication: Other, Indication: anxiety 1132 (Given - Provider: Patricia Ferrari RN) morphine injection 2 mg 2 mg, intravenous, Every 4 hours PRN, for breakthrough pain, Starting on Fri12/03/23 at 1631, PACU & Post-op, Look-alike/sound-alike medication - verify indication for use. 2050 (Given - Provider: Iván Berry RN) ondansetron (PF) (ZOFRAN) injection 4 mg 4 mg, intravenous, Every 6 hours PRN, nausea, vomiting, Starting on Fri12/03/23 at 1631, PACU & Post-op, Administer over 2-5 minutes. oxyCODONE-acetaminophen (PERCOCET) 5-325 mg per tablet 1 tablet(Linked Group 1) 1 tablet, oral, Every 4 hours PRN, moderate pain - pain scale 4-6, Starting on Fri12/03/23 at 1254, PACU & Post-op, Look-alike/sound-alike medication - verify indication for use. 2354 (See Alternative - Provider: Iván Berry RN) 921 (See Alternative - Provider: Maricruz Coleman RN) oxyCODONE-acetaminophen (PERCOCET) 5-325 mg per tablet 2 tablet(Linked Group 1) 2 tablet, oral, Every 4 hours PRN, severe pain - pain scale 7-10, Starting on Fri12/03/23 at 1254, PACU & Post-op, Look-alike/sound-alike medication - verify indication for use. 2355 (Given - Provider: Iván Berry, RN) 0922 (Given - Provider: Maricruz Coleman RN) sodium chloride 0.9 % flush 3 mL 3 mL, intravenous, As needed, line care, before and after each intermittent use, Starting on Fri12/03/23 at 1631, PACU & Post-op, Once tolerating oral intake thrombin (recombinant) (RECOTHROM) solution (CANCELED) As needed, Starting on Fri12/03/23 at 1212, Intra-op 1212 (Given - Provider: León Oconnor MD) Linked Groups Order Group 1: oxyCODONE-acetaminophen (PERCOCET) 5-325 mg per tablet 1 tabletJump to med 1 tablet, oral, Every 4 hours PRN, moderate pain - pain scale 4-6, Starting on Fri12/03/23 at 1254, PACU & Post-op, Look-alike/sound-alike medication - verify indication for use. Or oxyCODONE-acetaminophen (PERCOCET) 5-325 mg per tablet 2 tabletJump to med 2 tablet, oral, Every 4 hours PRN, severe pain - pain scale 7-10, Starting on Fri12/03/23 at 1254, PACU & Post-op, Look-alike/sound-alike medication - verify indication for use. FOR RECORDS PERTAINING TO PATIENTS WHO ARE OR HAVE BEEN ENROLLED IN A CHEMICAL DEPENDENCY/SUBSTANCEABUSE PROGRAM, SOME INFORMATION MAY BE OMITTED. This clinical summary was aggregated from multiple sources. Caution should be exercised in using it in the provision of clinical care. This summary normalizes information from multiple sources, and as a consequence, information in this document may materially change the coding, format and clinical context of patient data. In addition, data may be omitted in some cases. CLINICAL DECISIONS SHOULD BE BASED ON THE PRIMARY CLINICAL RECORDS. [employer] [facility]. provides no warranty or guarantee of the accuracy or completeness of information in this document.
--- NOTE | 2025-05-15 04:01 | ED.DENTAL1 ---
HPI - Dental/Oral General Chief complaint: Dental/Oral Stated complaint: jaw pain Time Seen by Provider: 05/15/25 03:56 Source: patient Mode of arrival: walk-in History of Present Illness HPI Narrative: tooth # 17 removed one week ago and now her entire lower mandible is hurting. No fever or swelling. No relief with ibuoprofen Related Data Home Medications ?Medication ?Instructions ?Recorded ?Confirmed aripiprazole 15 mg tablet 15 mg PO DAILY 10/08/23 10/08/23 baclofen 10 mg tablet 10 mg PO Q12H 10/08/23 10/08/23 bupropion HCl 150 mg 24 hr tablet, 150 mg PO DAILY 10/08/23 05/15/25 extended release dextroamphetamine-amphetamine ER 30 mg PO .dailly 10/08/23 05/15/25 30 mg 24hr capsule,extend release prazosin 2 mg capsule 2 mg PO Q12H 10/08/23 05/15/25 pregabalin 100 mg capsule 100 mg PO Q12H 10/08/23 05/15/25 tizanidine 4 mg tablet 4 mg PO DAILY 10/08/23 05/15/25 Previous Rx's ?Medication ?Instructions ?Recorded oxycodone-acetaminophen 5 mg-325 1 tab PO Q4H PRN pain #10 tabs 10/08/23 mg tablet (Percocet) Allergies Allergy/AdvReac Type Severity Reaction Status Date / Time No Known Drug Allergies Allergy Verified 05/15/25 03:53 Review of Systems ROS Status of ROS 10 or more systems reviewed and unremarkable except as noted in history and below PFSH PFSH Social History Smoking status: Current every day smoker Little interest or pleasure in doing things: not at all Feeling down, depressed, or hopeless: not at all Exam Constitutional Vital Signs, click to edit/add: Last Vital Signs Temp 98.2 F 05/15/25 03:48 Pulse 75 05/15/25 03:48 Resp 20 05/15/25 03:48 BP 131/80 05/15/25 03:48 Pulse Ox 98 05/15/25 03:48 O2 Del Method Room Air 05/15/25 03:48 Common normals: no apparent distress, average body habitus, oriented x3, no limitations, healthy appearing, alert and well nourished [facility] Common normals: normocephalic and head/scalp atraumatic Other: dental extraction site looks good but is tender. No swelling Eye Common normals: PERRL and EOMs intact bilaterally Respiratory Common normals: normal respiratory effort, no retractions, no use of accessory muscles and clear to auscultation bilaterally Cardio Common normals: regular rate, regular rhythm, S1 normal heart sound and S2 normal heart sound Extremity Common normals: normal to inspection and full ROM Neuro Common normals: oriented x3, CN's II-XII intact bilaterally and moves all extremities Psych Appearance: grossly normal Course Vital Signs Vital signs: Vital Signs Temperature 98.2 F 05/15/25 03:48 Pulse Rate 75 05/15/25 03:48 Respiratory Rate 20 05/15/25 03:48 Blood Pressure 131/80 05/15/25 03:48 Pulse Oximetry 98 05/15/25 03:48 Oxygen Delivery Method Room Air 05/15/25 03:48 Temperature 98.2 F 05/15/25 03:48 Pulse Rate 75 05/15/25 03:48 Respiratory Rate 20 05/15/25 03:48 Blood Pressure 131/80 05/15/25 03:48 Pulse Oximetry 98 05/15/25 03:48 Oxygen Delivery Method Room Air 05/15/25 03:48 MDM - Dental/Oral MDM Narrative Medical decision making narrative: left # 17 tooth extraction last week. Now presents complaining of pain of her entire lower mandible. Dental site looks good but is tender. No obvious swelling. CRP mildly elevated and WBC normal. Atypical presentation. Will cover for possible underlying infection with clindamycin and have her followup with her dentist Lab Data Labs: Lab Results 05/15/25 Range/Units 04:11 WBC 10.3 (4.0-11.0) 10^3/uL RBC 4.11 L (4.20-5.40) 10^6/uL Hgb 12.6 (12.0-16.0) g/dL Hct 38.1 (36.0-48.0) % MCV 92.7 (81.0-99.0) fL MCH 30.7 (26.7-34.0) pg MCHC 33.1 (29.9-35.2) g/dL RDW 12.8 (11.0-15.0) % Plt Count 347 (150-450) 10^3/uL MPV 9.1 L (9.5-13.5) fL Neut % (Auto) 55.8 (43.0-75.0) % Lymph % (Auto) 33.5 (20.5-60.0) % Maverick % (Auto) 8.7 (1.7-12.0) % Eos % (Auto) 1.4 (0.9-7.0) % Baso % (Auto) 0.4 (0.2-2.0) % Neut # (Auto) 5.8 (1.4-6.5) 10^3/uL Lymph # (Auto) 3.4 (1.2-3.8) 10^3/uL Maverick # (Auto) 0.9 H (0.3-0.8) 10^3/uL Eos # (Auto) 0.1 (0.0-0.7) 10^3/uL Baso # (Auto) 0.0 (0.0-0.1) 10^3/uL Abs Immat Gran (auto) 0.02 (0.00-0.03) 10^3/uL Imm/Tot Granulo (auto) 0.2 (0.0-0.5) % Sodium 143 (136-145) mmol/L Potassium 4.6 (3.5-5.1) mmol/L Chloride 106 (98-107) mmol/L Carbon Dioxide 35.9 H (21.0-32.0) mmol/L Anion Gap 5.7 BUN 15.0 (7.0-18.0) mg/dL Creatinine 0.87 (0.55-1.02) mg/dL Est GFR ( Amer) >60 (>=60 mL/min/1.73m^2) Est GFR (Non-Af Amer) >60 (>=60 mL/min/1.73m^2) BUN/Creatinine Ratio 17.2 Glucose 90 (74-106) mg/dL Calcium 9.5 (8.5-10.1) mg/dL C-Reactive Protein 0.64 H (<=0.50) mg/dL Discharge Plan Discharge Chief Complaint: Dental/Oral Clinical Impression: Dentalgia Patient Disposition: Home, Self-Care Prescriptions / Home Meds: No Action aripiprazole 15 mg tablet 15 mg PO DAILY baclofen 10 mg tablet 10 mg PO Q12H bupropion HCl 150 mg tablet extended release 24 hr 150 mg PO DAILY pregabalin 100 mg capsule 100 mg PO Q12H prazosin 2 mg capsule 2 mg PO Q12H dextroamphetamine-amphetamine 30 mg capsule,extended release 24hr 30 mg PO .dailly tizanidine 4 mg tablet 4 mg PO DAILY oxycodone-acetaminophen [Percocet] 5-325 mg tablet 1 tab PO Q4H PRN (Reason: pain) Qty: 10 0RF Print Language: Estonian Instructions: Toothache (ED) Additional Instructions: follow up with your dentist next week. Continue ibuprofen for pain Referrals: [facility] [Primary Care Provider, Unknown] - 1 week
[2025-05-15 04:20] LABS: Hematocrit 38.1 % (36.0-48.0); Hemoglobin 12.6 g/dL (12.0-16.0); Immature Granulocytes Abs Auto 0.02 10^3/uL (0.00-0.03); Immature Granulocytes Pct Auto 0.2 % (0.0-0.5); Lymphocytes Absolute Auto 3.4 10^3/uL (1.2-3.8); Mean Corpuscular HGB Conc 33.1 g/dL (29.9-35.2); Mean Corpuscular Hemoglobin 30.7 pg (26.7-34.0); Mean Corpuscular Volume 92.7 fL (81.0-99.0); Platelet Count 347 10^3/uL (150-450); Red Blood Count 4.11 10^6/uL (4.20-5.40); White Blood Count 10.3 10^3/uL (4.0-11.0)
[2025-05-15] MEDS: METHYLPREDNISOLONE SOD SUCC PF 125 MG/2 ML VIAL IVP (04:20)
[2025-05-15] MEDS: CLINDAMYCIN PHOSPHATE/D5W 900 MG/50 ML PREMIX 100 MG IV (04:20)
[2025-05-15 04:30] LABS: Anion Gap 5.7; Blood Urea Nitrogen 15.0 mg/dL (7.0-18.0); Calcium 9.5 mg/dL (8.5-10.1); Carbon Dioxide 35.9 mmol/L (21.0-32.0); Chloride 106 mmol/L (98-107); Estimated GFR (African America >60 (>=60 mL/min/1.73m^2); Estimated GFR (Non-African Ame >60 (>=60 mL/min/1.73m^2); Glucose 90 mg/dL (74-106); Potassium 4.6 mmol/L (3.5-5.1); Sodium 143 mmol/L (136-145)
== END 2025-05-15 05:43 | disposition home or self-care (01) ==
PROVIDERS: Emergency Provider Internal Medicine
DX: K08.89 Other specified disorders of teeth and supporting structures (principal); F17.200 Nicotine dependence, unspecified, uncomplicated; K08.409 Partial loss of teeth, unspecified cause, unspecified class
CPT/HCPCS: 36415; 80048; 85025; 86140; 96365; 96375; 99284; J0736; J2919

== ENCOUNTER 2025-06-18 14:32 | Emergency (ER) | payer MEDICAID, SELFPAY ==
[2025-06-18 14:35] VITALS: BP 118/79; PULSE 87; TEMP 37.1; O2SAT 98; BMI 27.8
--- OUTSIDE RECORDS SUMMARY | 2025-06-18 14:38 | XMS_ITS | CCD ---
Author Organization [facility] CliniSymd Care Team Providers Care Fill Manager Name Role Phone Unavailable Primary Care Provider UnavailAGUSTÍN Hernandez Referring Unavailable [facility] Primary Care Unavailable IRA, DR RODAS Admitting Unavailable IRA, DR RODAS Consulting Unavailable IRA, DR RODAS Attending Unavailable STEPHAN JUAREZ Admitting Unavailable STEPHAN JUAREZ Attending Unavailable IRA, DR RODAS Consulting Unavailable [facility] Primary Care Unavailable LEÓN OCONNOR Referring Unavailable SERVICES, [facility] Care Unava ilable FERNÁNDEZ, CADY Attending Unavailable LEÓN OCONNOR Referring Unavailable SERVICES, [facility] Care Unava ilable FERNÁNDEZ, CADY Referring Unavailable SERVICES, [facility] Unava ilable FERNÁNDEZ, CADY Referring Unavailable SERVICES, [facility] Unava ilable LEÓN OCONNOR Referring Unavailable SERVICES, [facility] Care Unava ilable LEÓN OCONNOR Admitting Unavailable LEÓN OCONNOR Attending Unavailable SERVICES, [facility] Unava ilable SERVICES, [facility] Care Unava ilable LEÓN OCONNOR Attending Unavailable LEÓN OCONNOR Referring Unavailable SERVICES, [facility] Care Unava ilable SERVICES, [facility] Care Unava ilable GUERO DURBIN Attending Unavailable LEÓN OCONNOR Attending Unavailable SERVICES, [facility] Care Unava ilable SERVICES, [facility] Care Unava ilable GUERO DURBIN Attending Unavailable PATY SILVER Attending Unavailable VERONICA DIXON Referring Unavailable VERONICA DIXON Primary Care Unavailable Unallocated Yennifer ARREOLA Provider Unavailable Veronica Dixon MD Primary Care Provider Gabriella Valdes MD Unavailable Gabriella Valdes MD Unavailable Unallocated , Yennifer Provider Unavailable Services, [facility] Primary Care Provider Veronica Dixon MD Primary Care Provider ROSALIO MONTES Referring Unavailable SERVICES, [facility] Unava ilable JYOTI, ROSALIO Vargas Admitting Unavailable JYOTI, ROSALIO Vargas Attending Unavailable ROSALIO MONTES Referring Unavailable SERVICES, [facility] Primary Care Unava ilable LAURITA SINGH Attending Unavailable SERVICES, [facility] Unava ilable GUERO DURBIN Referring Unavailable SERVICES, [facility] Unava ilable PATY SILVER Referring Unavailable DIXON, VERONICA L Primary Care Unavailable FERNÁNDEZCADY Attending Unavailable DIXON, VERONICA L Primary Care Unavailable FERNÁNDEZLEVIR Attending Unavailable DIXON, VERONICA L Referring Unavailable DIXON, VERONICA L Primary Care Unavailable ISAEL PATTON Referring Unavailable SERVICES, [facility] Unava ilable Services, [facility] Primary Care Provider Gabriella Valdes MD Unavailable [phone] LUIS CARBONE Admitting Unavailable LUIS CARBONE Attending [...] T Attending Unavailable THEODORE SAMUEL Attending Unavailable BLILY, ADITI T Attending Unavailable BILLY, ADITI T [...] Propensity to adverse reactions to drug (disorder) [facility] Medications Current Medications Medication Drug Class(es) [...] Discontinued docusate sodium 50 mg / sennosides, mcc 8.6 mg oral tablet (8 sources) Start: [...] Administer over 2-5 minutes. 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] Onset: 07-05-2022 Episodic Other [...] Coding Summaryon 04-12-2025 Coding Summary HTMLBase 64 SbdueapgJNw5fMy+PGhlYW Q+AW0VNDHrI86bkPZahF5p Z3EUFReLUbfqKGXCOWpDJv IqgoOeYR5xbPFxATYr IC8+VP8wNRJpShxweDGho8 S4dXO6Z10xqc2nPVtosAF4 ONPsIlKqmpcoy6ybcAv4AA cuNmluOyBt GJUooI52BNS2hO50Ku67lU SgkPRoo1gacRk5SrSzUXCw TOE7aCytDXmjh3FzTVAgY7 0wnJRts3X2 WBMpgRssgWGgFfOekJI2mQ 9uTBbazotrh5bllgjoOfz0 ls71lDYbr8X2jUA3I7Nvcs T8RNLirYWk TskafBZNhP3joearm1vwvb ecQgZrOZFkLMe8DVw3JHWq yQkfQyObZC98GZQ4JCNjap FmU4CyLZAl wRopGtX0l0S3Or3TL0QCTn jmU3YMGYFSKWuozSO+PC90 wh96P6LsKmahUgl4UOGkFA P3eJB6zD1a QNYsLBrbm5E8fOU3G4Gvfa Uztu1xb5rjPAHpESgvD93v zWPnv5T4AUMwfCV9ITDuzQ rsXkAtyA31 Oyc+VJJkjJhst6GlGhgnr7 muq6tcmVi8WfdwKHJaygRk bDnnGRJ1h3PkLf6hPWMopJ F1xOF5sS5d RgMzXzQ9WFvlB860XtAbcI YuQichA78fF1SalWV+PHRy Sjz8BKXkyOgyEE1rZ4WwHH RpbmctbGVm zCxdKA3xXDAfjdfyXCFisF 4sQGZmO8l8BzVrOjZ9KScz D0QtLPKcubpuLk82bR2rCi OtFvC1CTit R2DafgX7VGFlbELcBChbSZ S3Y70kc1H3SWWzBOGpITE1 rNJ7kO0puTmungzbgRWqhX sgdmVydGlj RNgbYVpgN247RDBpjCghJw NvZGluZyBEYXRlOiAgMDYv MjQvMjAyNTwvdGQ+PHRkIH E8dFgyHBFr eBSuUIhnUo1xfEhnbBomFW 3wJVKzssptQCXnbU9rWKCs yKRgrLxxHZ8mHZLlcuewz3 12ZePbCEH9 UVWemFJkW7SsoM2oPjJfNJ RmFLSsZ6RdvQGrLUnoT519 HGloJnB6AGKrmvAeH2XrIY FsaWduOiB0 i2R9Fo2Vt7ZqewrfT1VetP KgVaKpBiukZAp1A1QkYahb dHI+VH85MVUqJG74LXk0TW M7gWbaXCcx VIObA0LqhG2fCdWfRSNeED RkOyc+PHRhYmxlIHdpZHRo UYzyJETcWkTmuCwrYX1bEd 9yZGVyLWNv pKubbACnAlXop3tfVAIfOH imAK2yjWfiJ3OlnTW6PCUn z3v9Hr36K85hW3NehIX+PG NafON1vLW3 sX8hPtUdQrH8BWbxU691Vh DlpARrXismg8zri3ijzOf4 UdS5IBBdogTndRmtZGC5d9 QoTl33P51z IHdpZHRoPSIxNSUiIHZhbG vntf5axB5mQo0+PGNvbCB3 nXW0mL6aXoNrOkW8AYdfY4 49InRvcCIv Umcno0qwz6rmpNj8FfIhNS MzjtQalFutURB0n0CpZh73 Q3ZfqMvon7BbIjz9lb20cR Jgs5Q1uCB7 Z4KiXGHkyzxscCCbnAlaDI 8dWPPxtvteNUCgyO1vHCTl J6p3ChZbVcK6NPgmP7Kwqr R3VPDrxBFs BBSvkOMToM5nzjfhu0pghm wfYsBkYEEkLYl4KTw5JSLa aKoeWbGiNVR7TpU0LDR0fN MvpF6lfQss rmivqL4vRvk+SZB3gFRhxU PQZN8bHtuwcRD+PHRkIHN0 fJalLHweCYKjzN1rSZTiY1 n1PuRkXlP4 XBqxW8KysaO5GEEeeMAbBP BrsHFWxD0komezu1dkwurj SbGbQEEhUQt0EXv6DHWthB duOiBsZWZ0 RkT4LBF9vKOikQ2okUzffp qzyG8vGql+QmlydGggRGF0 IBy0L5HvRac9RNJwgFcbQT 0ncGFkZGlu Yu5yaJajgWlqMO6zRCQbca umf592IlAin4eyLTJhlYSt SImaGWV3Y54mu0V5MDJfAI ZqEZU0uBF0 eC9gfHfpahwcuTSsxGharn EjdAqhQXoyABllY155RCIb oAgtTbNcESk2A0VoMlg4PS MexUrgPP1w tROtDThzWe7rmNlrzQxlQP 0yIWStltelb029GwMvv9em PFAtzPMpQRhcVPP7M20zu0 T4IGNwEJSu NTM2iCW8iD6wyYwjijlyvX VmdDsgdmVydGljYWwtYWxp L133CNMvzQwjUyVvdAq4N5 WrOwo9SYDi yJpwNY8ajZHpFSkzKc5nkZ oncCvyNM2tKMCcdhihy421 VaOxx4sbKJMbsWTyGKplRY Y8A85mm9T0 TKJbOYUoLPN6mEB2qS2gvJ lnbjogbGVmdDsgdmVydGlj FRxbDAbnL166THNzeRwlKr BhdGllbnQg PUeaGXi9U2DnPsmtbWA+PC 42QOBbCM27rLPfhFUtl3uv wPz6PzEnSGSeBNC6xBvvYC exa2QmUUWo E87jtDLha8G7JBWusVpvuU LkMaBuzGI3zS1eLJqnehug y9yoivulDfmvz9zcve01yN 44E17eSGbn ZHRoPSIzMCUiIHZhbGlnbj 8izA4lYy7+BJGkrZI8sDE4 dA0jJAIjNzY5WVmbK378Wd RvcCIvPjxj v4bis4uncOo7XeW9KHTiau BeyKqtXXP9t9RvLj57P24p IHdpZHRoPSIyMCUiIHZhbG nbni1nuE9n Ii8+WJLwvRV5uMM0xM5jVj TgGwL5DFzzM933NhMqgHDt XwsrS34nG1IndTS+PHRyPj s5SASizGim QD2tiSAjNKliIr8nMUZ9Pd IfJkJsSEerH1EyKGFdomjt jlnxmVP7SUSoTSOqiE02Kd 9udDogMTBw sIZQpR7kkhipb0ffmvurUv BdOVEmUGv2RKx5METhyRhb SwHeYAI6ZxH1HDP2qNOwsS 1hbGlnbjog yH3lG8SjRJWifunhFx07iA 6zGyVgRuR4THuyBns+SkFD O2MZPebpZWLUEPkhCBWGVV D0F0JwBhb9 XVBxfIicNP3ezMXbFQfeAu 2pyBrulRzyRM8vHSLhejxm RJBlyZ3sTOYjwSNxmMqeTB 4wNTBpbjtm o792VuTiQMD2EFMjsDZjW2 MypQ2kIuRjAJGyPVKrS4Dg nSPnBYcgD297ZKklIoA7WG QoqdEzP1Fu RIHqnNrvAoK5b7B1Ql2gLp 5bZZ2zZUjmXD56AL52sFUa i5T4wZM1B0YyBBDssbxhhh ayuEX4JHYx OTClgY31nVBbUBxsFm4tq0 D0c441BJCqGPAjiS21Yn9s yNroBWCziKOAhF6nianbi4 xvcjogIzAw IJWxDCv7AEw1HSXqaYshTx LgONL1PnV3PHD5oKTumN2u zTqoiwcifI8pKxf+NTMgWW XouhS8V0Ek Znd4KCXeuQjrMB2slABkBX wsUi6mcJbieXoiOT7kLYDh vvlpDVNzrD0hTCZlcMDbiI ugJA9tPSSh rqghx874MyFqJWV0LADqrV VtL0RogI5sDfSrOPHqZFFu Q8WvlADgLWqzQ146XAelKd H0WPBztkJd L6VqOQUanSdiCxH6c4J2Lv 7DUG7CKHT4R6DhVuv7AHQy mHavOJ2nkSWgQUkjQb6mqJ jhyWceSO6r APMocgwcONOfvF2aNVAhqY MgwLwmJB0fCFWurelxo558 ZoDmOVK2KMNxwQLiQ2PuvH 9yOiAjMDAw LFKtL0LtsXRmZYqnM332PW csWwD7CYDypoNqC3PcHURg nHajIlV4u4V5Pv6VJEhsM8 LlM8TfqFdt dGQ+BY10or96M5HhDelmBv c5UFVlBTW2zUC0pW2qGQFh GYwby5R8iGB1A0YqlzDgry 2rm0ysZWHi EYfjA22acURgz8H7ZWJfiM A9XRYtlVenLqPnhK32Ocm+ QBMsmIege1AjYyyqq8mme0 jpsKk4YkYo GQAyjiPnpJkaBAJ4s8HySq 22D59pISqeYQCtJITeTKMn NVFnfXgpsw9wtR5iMj7+PG XpvTE2zZX9 nT8pDmImMoD0MJrtL789Qc XnsLWqMztxv7qqp3ypjKn3 DyBnTKQtzgAkzTcsNOI0r9 QjCn98B9Ck eNehl2QdCjn3pq69oIRnx4 O7hQC2Z9QzDXIapipmuQMd uBfaKP5yZXOtnaizSNTyjZ 9hUOFnI0z2 MmKrJnR6WJwfE0DqleU3XT LgbAOvQYHelXJPmK2gjsnc l7pdlyhoCrAlQDUmBAl5DJ a0NIXfsYmc HxYsYPM8XjT4WIO1mDKahF 9lySnemlfueJ1zFuc+UGh5 r0zutJLmRV3ktYD4AL13FU 99uYWcr4E9 hVO3A9YuCKAgwfdnmivntS R2OWDhWNHiwD51Bz7lcEcz Dz1gMDNkQST8KIYpkLJrZ5 PimQ5kEmTx AGAhZFGaU1TviSJnDJguI5 37OUqzDhU2LRPobzNnZ8Nv FHEdpEqmRpS5g1B1Iu0XOC 75GL20ML04 gKDzr7H0pOR5W6IeAOUsix xjivfdpLN3DFYwYNNppT31 Gk4aeKncJm4nKDVaHPW4XU OdpWJuD3Ub iT2qXtDqNLGaFTVlE6IrdM GbEJgaM881VCovBpV2UANh ltWlX8QrEYUjdMxuOsN8k0 P1Ro5ISa60 DD78AM26vDVao9U6aSL5Z3 RvPJCkhyqgthmqxWF7VZQr YOOufX79To1jaTwzCs8lNZ WkJLZ5QTDc gXMqV4ZvbK5qWwWjJVGaJN KcG5KevEWiKByvM955RUtf FgG0NWSkpgXiV1TdGAHleA acWmY3i3R2 El4KCOcwbnp1N0ZuVlbukE I+GD70DUKfXF35nMFumGBb d6dxzTh5QjAqEXKvOCN0fP cxPCnoy6It ZXI (more content not included)... Normal [facility] MAGR Intraoperative Recordon 04-07-2025 MAGR Intraoperative Record MAGR Intra-Op Record Summary Primary Physician: LUIS CARBONE DO Finalized Date/Time: 04/07/25 13:32:35 Pt. Name: CANDE RAHMAN/Sex: 1970 FEMALE Med Rec #: [id number] Physician: LUIS CARBONE DO Financial #: [id number] Pt. Type: D Room/Bed: / Admit/Disch: 04/01/25 [...] Role Performed Surgeon - Primary Anesthesiologist of Mri Manager Record Time In 04/01/25 11:18:00 04/01/25 11:12:00 04/01/25 11:12:00 Time Out 04/01/25 12:40:00 04/01/25 12:53:00 04/01/25 12:53:00 Procedure Arthroscopy Arthroscopy Arthroscopy Shoulder(Left) Shoulder(Left) Shoulder(Left) Last Modified By: Libby Dobson RN, Erica RN Baumer, Erica RN 04/01/25 12:55:34 04/01/25 12:55:34 04/01/25 12:55:34 Entry 4 Entry 5 Case Attendee Ching Stewart CST, Hunter ST CSFA Role Performed Aircraft Engineer Scrub Personnel Time In 04/01/25 11:12:00 04/01/25 [...] Outcome Met ( (more content not included)... [facility] Coding Summaryon 04-06-2025 Coding Summary HTMLBase 64 ZqzroatsFIq7bKz+PGhlYW Q+GM8BJXMxU92jrBIpxQ6b O6HJFEvVDzsiWGYQDHgLHu FbcyCnAG4emXTdMMZr IC8+ML6zCVThVzeuhSMfl7 E0uVR6S67qfl0eZIledHW7 BMTsTgSyntlti9vamBg6ZO cuNmluOyBt BVQusS30UUO8gG63Oj56tR KghJJsb4aswRu2JnYyLINr JKA2bUrcIDotm4AoPLAxO6 7cnFGxc9D2 DJPhaOelnDFzHpAfyWX7vH 7mETcsezyfl2uvkrwxVih3 pj32xGIge9D2iSC5A2Gkyn T2ZKRaqIJi CubqtZVLqC2hrzlek7owks uiTaRpZKYzTNm1QEm6YHDf sPigCkCrPS80GTP1DGUzam ZbY3EpUFXg nXicWjO6q3U9Vf4NS6ILTw jxE8VRKAAEZCwljJQ+PC90 vb09U4LtGcnfPaj4UYGdYD U3oZF7sZ0h HZLfJOsgw1H9kBW5D6Spzk Oqnh0ob0rhLXBzRJvcA57m iHMcg3B6VFSqbLS7BILtmC moYoXyjZ56 Oyc+NOIqiUwlp1VlMbynw2 ukn0xngFy9MzgpSAQuigYu kWuhOEE1r4WvTr8nILXrxU H7iDV6tM5s PlXlPbM5LBsxP531IbUpwX MnOuayT75nP9VjsZE+PHRy Rkx2NGHbbTekVL9sE0CcYK RpbmctbGVm sQmgNW3gOYWhipjqCLVuuO 3aIZHrP3q3IlUgPmD8THhb R6NvZQKtdayzRp31sV9pSr ImFyZ8RLpr X4FfoiL3OQTlhEFtIGuzOX W1V38co6Y6HPKoTYPqEGE9 cUD0qO1uuKcncmxcwXPboJ sgdmVydGlj PQdaBYgeE832PZZytItlXr NvZGluZyBEYXRlOiAgMDYv MTgvMjAyNTwvdGQ+PHRkIH X9bZrgVJVh hDDhVDymVn1twYlrnGujGF 3tFMCrsojbPCUmeE4uGJFt dPUqiTagUH8hPMZqsowuj6 60RiCaWSO1 DVRctTCyI3ZiiR0sKoNaAA WsWVRwY3HrnNKhHQgoE199 HMkeNpB9IXIsdtFhN0TnJE FsaWduOiB0 t9R2Zg8Si9RlgpppX4UlzY OfOsYsKtlsEGq9A8BdFeji dHI+NC21KPWeRC21IZi5TD Z2rNphDZvs NFGsF4BttW6yBmGyPACjWH RkOyc+PHRhYmxlIHdpZHRo OIncRHUwEmMtlCwgXU8hBs 9yZGVyLWNv vJokyWUxFeCin3peYFSdAX omMU0vqUdzQ4OzjPY9CKAy t3w9Nf67E03uP3WfhII+PG OjnPO4vFM4 lD0tFlYzOmE7MMmtW270Xx NvyMXlOshop3wpt9zprCp2 UiW3NUAedhTdaJoiJTS6t4 RfYv89R37f IHdpZHRoPSIxNSUiIHZhbG sjbb1tmY3hJe9+PGNvbCB3 wHA1zM4bCtMmYrP7EMkgE5 49InRvcCIv Ajqby7ebo8dmeSy1GkTaIS BcgnJvmMkmVCF1z4IeTz27 U8TvnCwnw4RnWbc1mn82mS Kpq0P6hNP5 A9QlYEXviptnzGFvlHcqWW 6rSELhesjdXCEtwS2hNNAp G8u6FqRqErM0GNkgY1Xwwo H2IDIhaWIp ETOxkKHJfW6ovejez2gkcg qyYoQiOBUvHOy4EYl7KLWn vHssPnWoMYR4TsO3PEK4cJ ChlS6lsJam esybfO7qMup+VWJ5pXLgfQ JCAC0zOvjdwPB+PHRkIHN0 oWrjBEewHGGfeG2hYAGmB9 m9JuPoItX5 UZezY4CckhN6RRJpmFWqHV IpwWNJkY3cailqw0pdyapk HuDwBJVlLKf4KJv9SXZdxW duOiBsZWZ0 AuV3WSX5fHWbpK2ffJxnux mzxZ5qQuf+QmlydGggRGF0 BFh0L7VhWml9XAPlpSclIL 0ncGFkZGlu Xl2xnMacsNjgSY5dANGgpo uvr774WyCqf5ctPTEpvNWt DPwzTGF9P20fr8G4RTFzPI OlLUF3yVS6 xK1kxRriafgguVBwvMgkcl RzjIecJRgmBFeuV282CRSu vVlcHkVxJIn9I2FlWpy6LT OsbInjNL8u vPIdYXerJs8czZalxSzqMA 0tZJRrxgjog209ZwGhs4gt VLUotODwZWddYEZ2U81ls9 E9LZCkHTHq DKU0kZZ8jI3zmAeiabietF VmdDsgdmVydGljYWwtYWxp M903MJYyfVctSnCfhNf0P3 QdZyc0CBMb mYirQC1rtFIiAQmiLf5mqB jnmQtyNT3bUBYzyauhb056 HlArw5uiDAEydDCbAPqcSK R7E29tt1V1 FXNrZKRnCTK7fDS5rN4zfV lnbjogbGVmdDsgdmVydGlj PRofVPefE963UAVmcNpdLd BhdGllbnQg MReoVJe5E5CiJljvfES+PC 44FBQnQT37vJBsrOEff8mj gWx3SwBbTUWaCEW5nQgfRJ pbs7PlMECv E20ifWDxl9T6DRXwwXyweM NoDjHtjQI5xW2iCHhcfzbi g8uligfnBbkym0nzsg97kN 74S25qWKym ZHRoPSIzMCUiIHZhbGlnbj 9vjD2rSp3+ORNxrDB0aIX2 fS3eJCWmClW5FIduD398Fi RvcCIvPjxj t9zsx5cvlLc7BbS0JZSdhq AjfMezVEY2t0QlTb43M15n IHdpZHRoPSIyMCUiIHZhbG yqjh0sbC6q Ii8+NTEzdJP7kKO1xQ1qWf OzYfS5YFuxW947SqFukJJj BitsG65qM4NvhIZ+PHRyPj w0XEUoyDvr LG3zbRZqAIonQa0cUTE2Wi YqIdZrLOoeX7BbCHUntmyu ojfczHN3MREfZPJynI30Jq 9udDogMTBw qYUObI8mwmwvf2hrulhbHu AjLYEbZJb2BTt3UPSceSwa KxNkACE7WfC5AEH5kBFmeN 1hbGlnbjog fB5vQ0XrANWicbzpPt96fY 9gDuNhNnR4CGwsBxw+SkFD K9TNPeidFMTEJArzMLIAHH M4I4VjUwi2 XXKefFvcQS7puBXpWZfzSc 4vnCubpVsgRW9iNRGeuyhd DZCkbL8qQJJgoGFqhVtiTK 4wNTBpbjtm u520PfMgJSF0VSBykKJvL4 UkzI6sAuMmFFJqTHAhK1Lq fCHgQZzkH808ECsfGhO3ZE KcryCoE3Fi UNBeoMsoBtT9x0L0Xk6mFk 7wVS6nVIbhSD61CF60bGYr r1E0xCP0P4YaCYUziobkwx cixKE0JKEz BZRinT07zCWrRCgoFe9wn3 P0d496AOTwJMPeyQ77Cd3y kRceSIUlqKXWrP5ujsqhm6 xvcjogIzAw KWTeTTc2CEd5ILHwrFkcFx VfYHR6AgA0IRH6nYTjoO0e hXkofxqgcS7jFih+NTMgWW ItcxG9W7Er Rim3UUOthLhlRW3wvWFnQF seDo6kdLqwbRzxXL8qYVRg isbzIERuqP2hGOPvuOOaiJ mrHC8kTOYi yrnon637UqNcADO8OOMmnM IlG9WpnF1rDoSqGFNyPLMt Z5EfoCKrZMuqW762VRynUg R4HWIahnZk O5WwAMZeuOpfIkD8x3N4Ff 8XSB7VFGG6W0OwGqo2DJNf kGyuCC2ggNPeMVgrSo8brM zjkBalOP9b HIRmspbjMZXqdY3gJLJouE XjnIvbVH6hVOHgxcgji399 AoPxCIF7DVGpaVZsI6EuoC 9yOiAjMDAw VYCxJ9TqrLAiNHhmL273XN suMrH8OPQkdcHrL3SdMNHy tEbkFrE0d8H5Nk7GHXovL6 MxG8HlhMaz dGQ+TC76mw65K3OdHtynQj e9BWRpHJP2bHJ3xM8zJZPb NPyte2K4uZY7E6YzrlLzcy 9ii4zgHSXu ZGbdN03zeIOud2T5CVQlnM Y6RFKqpItjGhHqqQ02Niw+ JYTjmWlqz6BmJdcqg8enu1 xsrDa3KyPw KZLqrbUxwDbpXLM8o6SuFg 62X29mYYqgHVUrXKHwPAYx HYDjqAacaz8nlD2iXd5+PG OqbDQ8aUI9 xR5wBgDzMwP3MJyzO486Vo BnqPDjWokaj8hbk9jkiRw1 IwRxPYLypzKpvLgqPKR9y6 AnDv29A9Ml wFpyg5TgPov0mp24zCJqe6 N8pTK9G3AkIGDrjjdxmFCg kWasQA4mULMewdejQKYvlS 7mCSCuC4o0 PfRjMvN9JUkyS0QuvvJ9TU PtdJUyZPRffZALdN9wyyxm r6waabtnKmFdGEAsPDl1FC x2PQIobIxl ZrZgSZL8YuI4FDV9dOUgvV 3gtHsahfgwsT7fZdp+UGh5 y3getVBvAJ7drUK3ET83OT 80mZSja2O4 vHC0W7KhCCUgtxqjbjyqeD S5KCQqFSBdfL24Jz0udOzm El3bBLMqWLX5OXIyqSAkI4 HsiF9hXfTl LBFkDHMdR3FbwUPrUKdwW0 26CLeaUsQ8XKPamtDkP7Eg TZLpsExwQoH9i4L8Sa2RAN 55RR52NT07 gJHuf4T5yUG0W9IcSNIeda bmejxmvEW4CNNyZUOxkM61 Mv8ejFiyHr1vZYBnQBJ8SI XwoPLcV5Kq xG7pVrYeFKInUMKuQ4PwlX MyTLucP301PZyjSaY9DOKz dtFqM3AjXPSzyGjiUpN3c1 M9Sp0ZRt39 XL67AT61jYDjl9R7xJV5L4 BzLQOwauheutdgaVJ7OTAi YOKrmO93Vh2uaIyrEw0tHW YmYQP9CZVu gJDcF5AsgD9iTfIvZBTaWY LyX4IicIRpGQfcU321GZzx YvZ6XZHgiqSzB3ThMLVxaV kqDfY1f8A6 Px5BYJxgcvt7K0GaKlfrcF I+UA35YFNrQH34oIXtvZBj w2xywRo6MdGkTTEwFUS0qO zhZTxom1Cz ZXI (more content not included)... [facility] Consent Formson 04-04-2025 Consent Forms [id number]#1.00 [facility] Outside Recordson 04-04-2025 Outside Records [id number]#1.00 [facility] Provider Orderson 04-04-2025 Provider Orders [id number]#1.00 [facility] Telemetry Stripson Telemetry Strips [id number]#1.00 [facility] Anesthesia Noteon 04-01-2025 Anesthesia Note Patient: CANDE [...] on: 04/01/2025 13:37 EDT] Tera Carpenter MD [facility] Anesthesia Note Patient: CANDE RAHMAN Age: [...] list: All Problems Anxiety / SNOMED CT 80085704 / Confirmed ADHD / SNOMED CT 7474202038 / Confirmed Bipolar 1 disorder / SNOMED CT 6083449440 / Confirmed Depression / SNOMED CT 82329115 / Confirmed Hyperlipidemia / SNOMED CT 88253801 / Confirmed Insomnia / SNOMED CT 866247644 / Confirmed Neck pain / SNOMED CT 355510936 / Confirmed Overactive bladder / SNOMED CT 5893118796 / Confirmed PTSD (post-traumatic stress disorder) / SNOMED CT 53303142 / Confirmed Shoulder pain / SNOMED CT 59276483 / Confirmed Tobacco user / SNOMED CT 077607115 / Probable Histories Family History: No family history items have been selected or recorded. Procedure history: Surgery ([id number]). Comments: 01/06/2025 15:10 EDT - Danni King RN back Tubal ligation ([id number]). Shoulder ([id number]). Comments: 01/06/2025 15:14 EDT Danni Kumar RN left shoulder surgery Hysterectomy ([id number]). Social History Electronic Cigarette/Vaping Assessment Electronic Cigarette [...] Oriented. Review / Management Laboratory Results Plan [place] [employer] (ASA) physical status classification: [...] on: 04/01/2025 10:38 EDT] Tera Carpenter MD [facility] Inpatient Patient Summaryon 04-01-2025 [place] [address] Patient Discharge Instructions Name: CANDE RAHMAN : 1970 Patient Address: [address] [place] [address] Primary Care Provider: Name: Phone: After you are discharged if you find you have any questions, please, call [phone] ext [phone] to speak to a nurse. Discharge Diagnosis: Acute pain of left shoulder Prescription Information: If you have been given a prescription for narcotics, seek immediate medical attention if you have any difficulty breathing or any sudden status changes such as confusion and sleepiness. If you or anyone you know is experiencing suicidal thoughts, mental health, alcohol and/or drug addiction problems; contact the [facility] 12/05 Crisis Hotline -Text 4HMPK ud 609604. If you received any narcotics, sedation, or [...] business decisions or sign any legal documents [facility] would like to thank you for allowing us to assist you with your healthcare needs. The following includes patient education materials and information regarding your injury/illness. CANDE RAHMAN has been given the following list of follow-up instructions, prescriptions, and patient education materials: Follow-up Instructions With: Address: When: Aditi Blakelyen [address] [place] [address], [place] [phone] Business (1) 04/15/2025 9:15 AM Medications During [...] pregabalin (prega (more content not included)... Normal [facility] MAGR Intraoperative Recordon 04-01-2025 MAGR Intraoperative Record MAGR Intra-Op Record Summary Primary Physician: Finalized Date/Time: 04/01/25 11:19:45 Pt. Name: CANDE RAHMANEileen Shukla/Sex: 1970 FEMALE Med Rec #: [id number] Physician: LUIS CARBONE DO Financial #: [id number] Pt. Type: D Room/Bed: / Admit/Disch: 04/01/25 [...] Slauterbeck, Linda RN Role Performed Anesthesiologist of Mri Manager Mri Manager Record Time In 04/01/25 11:02:00 04/01/25 11:02:00 [...] By: Gold Fried (more content not included)... [facility] MAGR PACU Recordon MAGR PACU Record MAGR PACU Record Summary Primary Physician: LUIS CARBONE DO Finalized Date/Time: 04/01/25 13:44:10 Pt. Name: JOSIAH CANDE PALMA Gayla/Sex: 1970 FEMALE Med Rec #: [id number] Physician: LUIS CARBONE DO Financial #: [id number] Pt. Type: D Room/Bed: / Admit/Disch: 04/01/25 09:25:00 - Institution: PACU Case Times MAGR Entry 1 In PACU I 04/01/25 12:50:00 Discharge from PACU 04/01/25 13:33:00 I Last Modified By: Joaquín Muhammad RN 04/01/25 13:44:06 Finalized By: Joaquín Muhammad RN Document Signatures Signed By: Joaquín Muhammad RN 04/01/25 13:44 [facility] MAGR Postoperative Recordon 04-01-2025 MAGR Postoperative Record MAGR Phase II Record Summary Primary Physician: LUIS CARBONE DO Finalized Date/Time: 04/01/25 14:14:46 Pt. Name: CANDE RAHMANEileen Caal./Sex: 1970 FEMALE Med Rec #: [id number] Physician: LUIS CARBONE DO Financial #: [id number] Pt. Type: D Room/Bed: / Admit/Disch: 04/01/25 [...] Signed By: Joyce Fried RN 04/01/25 14:14 [facility] Preoperative Recordon 0 04-01-2025 [facility] Preoperative Record MAGR Pre-Op Record Summary Primary Physician: LUIS CARBONE DO Finalized Date/Time: 04/01/25 12:55:27 Pt. Name: JOSIAH CANDE Shukla/Sex: 1970 FEMALE Med Rec #: [id number] Physician: LUIS CARBONE DO Financial #: [id number] Pt. Type: D Room/Bed: / Admit/Disch: 04/01/25 [...] Signed By: Joaquín Muhammad RN 04/01/25 12:55 [facility] Patient Handouton 04-01-2025 Patient Handout Outpatient [...] or fever, please call Dr. Carbone at [phone]. 6.) Keep dressings in place, clean and [...] or concerns, please call the office at [phone] or [phone] [facility] Triage Panel 04-01-2025 Triage Internal Control Pass [facility] Comment on above: Performed By: #### 1 [id number] ####[facility] (DEFAULT)[address] [place] [address] 16134 U Amph Scr Negative [facility] Comment on above: Performed By: #### 1 [id number] ####[facility] (DEFAULT)[address] [place] [address] 12314 U Farhana Scr Negative [facility] Comment on above: Performed By: #### 1 [id number] ####[facility] (DEFAULT)[address] [place] [address] 20579 U Benzodia Scr Negative [facility] Comment on above: Performed By: #### 1 [id number] ####[facility] (DEFAULT)[address] [place] [address] [id number] U Cannab Scrn Positive [facility] Comment on above: Performed By: #### 1 [id number] ####[facility] (DEFAULT)[address] [place] [address] 45536 U Cocaine Scr Negative [facility] Comment on above: Performed By: #### 1 [id number] ####[facility] (DEFAULT)[address] [place] [address] 64156 U Methadone Scr Negative [facility] Comment on above: Performed By: #### 1 [id number] ####[facility] (DEFAULT)[address] [place] [address] 22137 U Methamp Scrn Negative [facility] Comment on above: Performed By: #### 1 [id number] ####[facility] (DEFAULT)[address] [place] [address] 89643 U Opiate Scr Negative [facility] Comment on above: Performed By: #### 1 [id number] ####[facility] (DEFAULT)[address] [place] [address] 86055 U Oxycod Scr Negative [facility] Comment on above: Performed By: #### 1 [id number] ####[facility] (DEFAULT)[address] [place] [address] 31862 U Phencyclidine Scr Negative Normal [facility] Comment on above: Performed By: #### 1 [id number] ####[facility] (DEFAULT)[address] [place] [address] 86664 U Tricyclic Antidepress Scr Positive [facility] Comment on above: Result Comment: Resu [...] PPX Propoxyphene (Norpropoxyphene): 300 ng/mL THC Cannabinoids (39-tdj-5-carboxy- -THC): 50 ng/mL TCA Tricyclic-Antidepressants (Desipramine): 300 ng/mL Performed By: #### 1 [id number] ####[facility] (DEFAULT)[address] [place] [address] 64862 Urine Source Voided [facility] Comment on above: Performed By: #### 1 [id number] ####[facility] (DEFAULT)[address] [place] [address] [phone] Progress Note - Nurseon 03-20 Progress Note - Nurse Spoke with pt and informed her to be at hospital at 10am and NPO after MN, she verbalizes understanding. [Electronically Signed on: 03/31/2025 09:18 EDT] Halblaub, Sidsel RN [Verified on: 03/31/2025 09:18 EDT] Ruthy Terry RN [facility] Coding Summaryon 03-15-2025 Coding Summary HTMLBase 64 FyqabcbkWBe3mIy+PGhlYW Q+OD9OJUCbR62lbLDcqZ7n U5FEVGdVKsmoIDZTJDlUQm JszqFzLF9cfCDdCCZt IC8+NF8xDQHmCwfoySClr3 V5sLP6G12jnj8hRNciyBA0 UEEuVdTuvgrsy1gkkIk8PA cuNmluOyBt TPGyuQ72CWN0vQ98Nv35qA ZbtHXhv1gisXh3RqVfDBAk GSO3bYtuALtyq0DrGTMkB8 9qvMDzj3Y1 ZMNmxPbxyJWvUpVgqGN4uA 9lQZfyjcvgk0tcvjikYps4 cz18jZPtm8D6cRX6P8Hfan K0DLNrvFVc CriafTSKnC8ufkhzc5mnhy ffExCqGEPgMBk8WYb7QAKh oNqdHgDqNO37YLF2SHBpsm ZjN7HrCNTc nNflSnY6j5P4Wy9RK1LIEa jvM7FVXPEAEJvkwXM+PC90 mg04C1LcZhtlIzq0GZDmGU R3gQN9hY9k BEUbBYymm2Z6sRY1N7Yvvi Gfsh2ge3rxVWFgVTeaC36z rYDnm4H1IIEjeHY3OMQgeF pyAlOetN14 Oyc+KPTdgPghz9YzDhqfx6 hvv4ipiLt5JeryNBLltrIh gRarLMN6e7SqDp6bSHGigL H3vGJ0bH2a RhDiHgW7ERoyZ161BwEbrR TdPvgfN81sO1JqqWO+PHRy Nwn1CGXquNpcVA7aR8FfOX RpbmctbGVm dMeaQG8gSWHcwanzYBVjhJ 5qIPItK9y7WhDtWdH2VIso T6BzBFEsfbxaGz89jG7zNo YmOwH9NUkz M2UskiB0RJKhjNPbADphUR X5R76tq9I1JBXkYVNqBUK2 zKE5oR3izDzlalxilWSyzY sgdmVydGlj EZsdIOltK873WWTzmTazGe NvZGluZyBEYXRlOiAgMDUv MjcvMjAyNTwvdGQ+PHRkIH P1iDwqZKMu lUAhMVspZx4czCmqjTieTM 5kRNSvdcemKDQfyG6tTBXu mVPnaThoXP1rYOHfgpvey3 83EsBjFXP3 HSMuvNPhP2ShbU5iXhZuNN RiLXDbI2AsfAJbCDwbH909 FAxwWgX2JOWmdgXmP5FjXI FsaWduOiB0 w3L6Gd6Ri3AvzbvsX7FgnE TiVdLuAvjeBEx9F5UwOodw dHI+KK05IAVgHL95CId3EW C9mTtyFNcu RJBjM9CapG4bHzIjYWLwYM RkOyc+PHRhYmxlIHdpZHRo HPszJQGpOuFbhLjvCQ2tHo 9yZGVyLWNv lXqwwCKpClHxt3apADOcJE gnTC5apIfmG0NygNQ7VGTx v4b7Py57P12uM4WiuRV+PG BlbFC1oHY0 bE3sCdMyUdI1BQttH686Zx SqbWObAksqe4jxg9axfVd7 NfE2DPVhvjKjlCssVAC7c0 WdZw45A53f IHdpZHRoPSIxNSUiIHZhbG gjgp6pjN3aFb8+PGNvbCB3 jHW2iS3sQuBrAwV3UQbiT3 49InRvcCIv Noiuw4kyp3sfeLa8JeRqVE CabdVbzTljUGJ8x9BkHl54 V3ZtsEjvy9UoMof1te01xT Wex9Y9pDK5 M8WmATNmpnuysSLajJycSI 3yPBWpelqrQRAsxO6gAXYp X7n1PjHhDkK2HJwhN4Aegf T4RFYuvRZg DSZjhSXCgL6yiaomm6qrnf vaNxCwSAKrKOk1MXb6TFEh lFqiZwOxPMI4GnF3OVY0gE OilF3yePin ounalH4tDce+FGB8nINioZ VZFU9bYeniaIM+PHRkIHN0 gYuhMXuwNEDppJ8hBCJdV0 v0VcYtVaV5 YLzoI6SxjyH3DZTmdHTtYW ClcTNFvJ7nsqifr7inodcc VbIfQYEpUYn6MKg2YWXkdL duOiBsZWZ0 PeO9ZFH3vZBgxL6bdOgpox pclV2uHvz+QmlydGggRGF0 LHl2F1IbGsf6XXSncPmvZW 0ncGFkZGlu Dj9xmXmhqFueHG7gAVEpia etl185QxObu8jzGVUlqEQj QTimLGY6K34ro5O7DBIkKB WlYBM1wQL3 yF9qrNbxhhiwhUZgpTknkt HzlNnfPKgnKBeuF169LREj qXsnEcYlFZn1O4CkRno2LX HxjRsyCZ1w gNHpAIgaKy0ioXtklQpcLY 3cZQBdwglrg102KxAiq7vx THBliINmNJcwHBS2X29ch7 P3CLQvEKUy DSM0lJK8jW4edUtruchqzS VmdDsgdmVydGljYWwtYWxp Q899XOFfmAkdVwFflPh0R1 FsZpd1STBn kDfrOT9mzKNpFCyvPh2anV neaBzbEQ2zTHEdwnvms192 PaPrv7nlBDMjkFNmVTegFQ W1P79rt2H2 IXBbRYCsFIS6tCS3sS1rjS lnbjogbGVmdDsgdmVydGlj UXgpMSrrC900NXQkmYujBn BhdGllbnQg AHnvHEu5R4VeRidyxYE+PC 42KYHjYE26rCAvzKYpi0qr mZe7PzPzQHXtLPL9sBtoCT eyi6ZyKZSv R48rdZElp5H2JTBdiTlcoF FvUkNbfUF9vS9wRFlqngqx v4vvzdciTwjhy9wyfe73wY 13V72kMJvg ZHRoPSIzMCUiIHZhbGlnbj 0kcN4yHa4+YNFthJD1sPU9 nZ0qSEXxRyD5OLeqP356Gz RvcCIvPjxj m5nhq0gtdTa0SzG8AHEuyv QokUzsXNE9x9JeTc61X47j IHdpZHRoPSIyMCUiIHZhbG bhrn2ooC1d Ii8+TIZlmJK6kWL5sG7uXn MgHcZ8BBnbJ243ZpAizQQq SeeaC54cM8MrnCH+PHRyPj u3NSOcyOvo FT0eoVQkKAxyIw6qFZS9Ab GrNrVgHKykY3LhFUSngwbb pfuicYO1ZSVoYTDhhY28Nn 9udDogMTBw vUFUvT5gbgxds2rvxzknYb OyQVDmUQu2PSh5NJMcmIyr GvTcUPC4TeE6XQL0tDZckV 1hbGlnbjog oB7oS3NlPWJmbdcoLz24oO 2tYoKrOwL6KOxhXje+SkFD H1XCAtahAJJJBRgkAJNXJQ R2R9ShTgd2 MRLlyGheYH0arYPaVFzaQi 7yuKtonRezWT2qDEOqgxbl MMWarM8qOMFyfIPwoFihMH 4wNTBpbjtm w127SsKbJFA4HIRwdUEdM9 EsiW1gZpQeNVDtKHXtF9Rh nCKsAYoaC688IGgxLeW7QA UqrsUgR9Yd ZQEukUytKrS5y4V6Bk1hVj 6lSU4tAQhtRQ02LS22tAQz g7T6iTF5R4MhPHIftdyadp lnkED9VQMo KXImcO10vZCvVKryBe1sn1 O5r447ACSqFPVzaN02Dt2b uBtvMXPppSXOgP1zovgqy1 xvcjogIzAw IONcRDs3BFu0LPSbdShbNf EcUHM0UfB0BAP2lURwfR4j sInsswmhwD4mBvg+NTMgWW SpbdA9O7Ev Lhl7PHDlsXeeRH4qzYLwNE ovDs8knRirxSdkJQ1vDVXo etjyBSBmfF5dRVQuvIJaqA weXE2gVOBn goofl243SdZlPUW7TMWblG YdP3VviB7mAsAfPUIgGEOx N1PkaEMgHQbrA827RGihSa R1TXByzqRi R7BwOEEliJlfDwW0s4B9Az 7EDM3PMPU5B5FwJto7EWHv jVgmNS7myMGhXDadYt3hmC nczHxgOC6f XBYbhfeaRKKsfY7vTSYcnZ MevMxwEO4sNGIrnbtit659 NlLdJIN2SNWuqQTmU9KaoS 9yOiAjMDAw GYWvW5HacRPtHMfyM871RA sqNuL1TFUxjbNrY1WhSLBr bKsaWnM6f8X9Ut4EDFthsE Q+HU72up91 N3HlXvoeToa1WXFuRTK6eZ A7bH1bSJVrJZgkb9M8pYO1 F6KzwzXuzv2ue4qbHFZeQX tlV32plHNs d2R1BNQxnJL0LXGibYboZp PlvN56Gmf+JLUtqIdzj2Un Qzshw0ygq8picQx5LtOkEP IgdmFsaWdu DVF2p6GzMz46K82uWHrtRT CrNBFnJCUzDGXvjKgyka9q eW7mQn8+HBRefJY1cJZ8rQ 2zBwVcDvH9 SRaiI035MeLlyXIeWbytv7 aqj3knwTc4WeQtPDBpnxJk lSfrITF4b9QmAq25H2TzoP pce3BzQvo6 er03mMPfl5L9iSB1H4CwOO NskdqciJTlaXauZF3cXBLs rvupVRCbuI7oXLNrN2l8Em RrPzP7IUch Z1XlucC2NQOoxOOpMDSfoC DYbP8hoxzie9nmibloIzIr ARAlTWb5PAj8YRYchLnvQe JwCCI1TxX6 KNU8gBKmhG6doXcjhiaqsI 9wOyc+TAt3g5hiqYNuKK6g pIS3FN25MK87fQIwp0K2aB W1E9RpNDDh avgsygrjrDE1RSHjSVSkoQ 87Ed6izWboZl5jTUEwEYH0 VXSaqHTcW5QjpT6rKoZtQB TbMAUjG5Xs hUBzCXncJ223OUfvXkF8ME VscxQaR3PlTLOltRgpZbF3 s0B6Pn9HWQ87ZQ46ZY12xN Jpi7E0uON0 O5UyAFRfovslkyunnVH7EJ BeDGOybO55Tj6nzMfhBb0x ZOBwAAU0QEHlbAXgS8FtvJ 9yOiAjMDAw KMVnN6QevBKaOKbxR954UI thAaB7STYfrrZzD3JpBYUx dPmnJyQ1x3L4Dj6BCh63UR 26FE14gLNo l1W6sPJ7H2CnHRJdmncdkv mmdRF7YZWsTTVbyB08Es4x uGaqWe8kEOPfDRD6PMEsmQ DjS7KagT6c MfKjUIChWFUbO5AoaVPoEF erW663FDexThF6ETPxmgIt F9PrNRGanRofZcS7q1G0Ze 0VSKifogq4 H3JhEvwkdTZ+ZY31SCKsNW 06rNVskANge9ddnCk2BkSr TBTqBCC7eVioIBnxr7RmYV KiK75tcWGm c2U (more content not included)... [facility] Progress Note - Nurseon 02-18 Progress Note - Nurse Dr Bernabe reviews pt chart and wants Triage panel morning of surgery. [Electronically Signed on: 03/10/2025 13:05 EDT] Ruthy Terry RN [Verified on: 03/10/2025 13:05 EDT] Ruthy Terry RN [facility] .Auto Diff 103-08-2025 Auto [place] % 7 % Normal 10-31 [facility] Comment on above: Performed By: #### 1 [id number], [id number], [id number] ####[facility] (DEFAULT)[address] [place] [address] 00937 Baso Abs# 0.0 x10 Normal 0.0-0.2 [facility] Comment on above: Performed By: #### 1 [id number], [id number], [id number] ####[facility] (DEFAULT)[address] [place] [address] 46354 Basophils/100 WBC (Bld) 0.5 % Normal 0.2-2.0 [facility] Comment on above: Performed By: #### 1 [id number], [id number], [id number] ####[facility] (DEFAULT)[address] [place] [address] 16262 Eos Abs# 0.1 x10 Normal 0.0-0.4 [facility] Comment on above: Performed By: #### 1 [id number], [id number], [id number] ####[facility] (DEFAULT)[address] [place] [address] 70497 Eosinophils/100 WBC (Bld) 2.1 % Normal 0.9-4.0 [facility] Comment on above: Performed By: #### 1 [id number], [id number], [id number] ####[facility] (DEFAULT)[address] [place] [address] 94150 Lymph Abs# 2.5 x10 Normal 1.3-2.9 [facility] Comment on above: Performed By: #### 1 [id number], [id number], [id number] ####[facility] (DEFAULT)[address] [place] [address] 70237 Lymphocytes/100 WBC (Bld) 38 % Normal 14-48 [facility] Comment on above: Performed By: #### 1 [id number], [id number], [id number] ####[facility] (DEFAULT)[address] [place] [address] 74183 [place] Abs# 0.5 x10 Normal 0.0-0.8 [facility] Comment on above: Performed By: #### 1 [id number], [id number], [id number] ####[facility] (DEFAULT)[address] [place] [address] 75182 Neut Abs# 3.4 x10 Normal 1.5-9.2 [facility] Comment on above: Performed By: #### 1 [id number], [id number], [id number] ####[facility] (DEFAULT)[address] [place] [address] 98434 Neutrophils/100 WBC (Bld) 52 % Normal 44-88 [facility] Comment on above: Performed By: #### 1 [id number], [id number], [id number] ####[facility] (DEFAULT)[address] [place] [address] 10952 [facility] Standardon 03-08-2025 eGFR Non AA >60 Invalid Interpretation Code [facility] Comment on above: Performed By: #### 1 [id number], [id number], [id number] ####[facility] (DEFAULT)[address] [place] [address] 51103 eGFR AA >60 Invalid Interpretation Code [facility] Comment on above: Performed By: #### 1 [id number], [id number], [id number] ####[facility] (DEFAULT)[address] [place] [address] 05743 Anion gap [Moles/Vol] 11.6 mmol/L Normal 5.0-19.0 [facility] Comment on above: Performed By: #### 1 [id number], [id number], [id number] ####[facility] (DEFAULT)[address] [place] [address] 64263 Calcium [Mass/Vol] 8.9 mg/dL Normal 8.9-10.3 [facility] Comment on above: Performed By: #### 1 [id number], [id number], [id number] ####[facility] (DEFAULT)[address] [place] [address] 99330 Chloride [Moles/Vol] 104 mmol/L Normal 101-111 [facility] Comment on above: Performed By: #### 1 [id number], [id number], [id number] ####[facility] (DEFAULT)[address] [place] [address] 11630 CO2 [Moles/Vol] 25 mmol/L Normal 21-32 [facility] Comment on above: Performed By: #### 1 [id number], [id number], [id number] ####[facility] (DEFAULT)[address] [place] [address] 59713 Creatinine [Mass/Vol] 0.83 mg/dL Normal 0.60-1.30 [facility] Comment on above: Performed By: #### 1 [id number], [id number], 8646954 ####[facility] (DEFAULT)[address] [place] [address] 39431 Glucose [Mass/Vol] 92.0 mg/dL Normal 74.0-118.0 [facility] Comment on above: Performed By: #### 1 [id number], [id number], 7839985 ####[facility] (DEFAULT)[address] [place] [address] 37783 Osmolality 273 mOsm/L Invalid Interpretation Code [facility] Comment on above: Performed By: #### 1 [id number], [id number], [id number] ####[facility] (DEFAULT)[address] [place] [address] 09639 Potassium [Moles/Vol] 4.6 mmol/L Normal 3.6-5.1 [facility] Comment on above: Performed By: #### 1 [id number], [id number], [id number] ####[facility] (DEFAULT)[address] [place] [address] 93681 Sodium [Moles/Vol] 136.0 mmol/L Normal 136.0-144.0 [facility] Comment on above: Performed By: #### 1 [id number], [id number], [id number] ####[facility] (DEFAULT)[address] [place] [address] 01823 Urea nitrogen [Mass/Vol] 18 mg/dL Normal 8-26 [facility] Comment on above: Performed By: #### 1 [id number], [id number], 0842052 ####[facility] (DEFAULT)[address] [place] [address] 53787 Urea nitrogen/Creatinine [Mass ratio] 21.6 mg/mg High 4.6-16.2 [facility] Comment on above: Performed By: #### 1 [id number], [id number], 8862363 ####[facility] (DEFAULT)[address] [place] [address] 33944 CBC w/ Auto Diffon 5 Erythrocyte distribution width (RBC) [Ratio] 14.8 % Normal 11.5-15.0 [facility] Comment on above: Performed By: #### 1 [id number], [id number], [id number] ####[facility] (DEFAULT)[address] [place] [address] 51725 Hematocrit (Bld) [Volume fraction] 41.6 % High 33.7-40.4 [facility] Comment on above: Performed By: #### 1 [id number], [id number], 4876506 ####[facility] (DEFAULT)[address] [place] [address] 72104 Hemoglobin (Bld) [Mass/Vol] 14.0 g/dL Normal 11.3-15.9 [facility] Comment on above: Performed By: #### 1 [id number], [id number], [id number] ####[facility] (DEFAULT)[address] [place] [address] Man Diff? Auto Invalid Interpretation Code [facility] Comment on above: Performed By: #### 1 [id number], [id number], [id number] ####[facility] (DEFAULT)[address] [place] [address] 52800 MCH (RBC) [Entitic mass] 31 pg Normal 24-34 [facility] Comment on above: Performed By: #### 1 [id number], [id number], [id number] ####[facility] (DEFAULT)[address] [place] [address] 83593 MCHC (RBC) [Mass/Vol] 34 g/dL Normal 26-37 [facility] Comment on above: Performed By: #### 1 [id number], [id number], [id number] ####[facility] (DEFAULT)[address] [place] [address] 07199 MCV (RBC) [Entitic vol] 93 fL Normal 81-100 [facility] Comment on above: Performed By: #### 1 [id number], [id number], 1155272 ####[facility] (DEFAULT)[address] [place] [address] 58259 Platelet 284 x10 Normal 138-427 [facility] Comment on above: Performed By: #### 1 [id number], [id number], 8600781 ####[facility] (DEFAULT)[address] [place] [address] 75541 Platelet mean volume (Bld) [Entitic vol] 7.7 fL Normal 6.3-10.2 [facility] Comment on above: Performed By: #### 1 [id number], [id number], 8346069 ####[facility] (DEFAULT)[address] [place] [address] RBC 4.47 x10 Normal 3.70-5.30 [facility] Comment on above: Performed By: #### 1 [id number], [id number], 6238555 ####[facility] (DEFAULT)[address] [place] [address] WBC 6.5 x10 Normal 3.5-10.5 [facility] Comment on above: Performed By: #### 1 [id number], [id number], 0842433 ####[facility] (DEFAULT)[address] [place] [address] 70833 Coding Summaryon 01-25-2025 Coding Summary HTMLBase 64 XwuktopzDOj0sJm+PGhlYW Q+UQ5JRFKyG31yyGKeqL0p W3FMGUsFGbpeKDQIRBnTVo JqpaBmUI8fsNOeBKBm IC8+ZU2jRJUgJxnchMJev4 E3bPR2P14alo7fPCfqkBH0 BUJiIwVmkbgne1oriXc5OA cuNmluOyBt IDTvzF90RAG1rF97Sf19zE EdrIAnl0fewZk9EoFkBXTc ZOO8sTguKJffi2ApMJDuO4 4zgOVgl8Y5 PJPzpCvmmIXuGyYbkGU4yV 8iOWknqndaq6gwovuiNvp7 xj49gVWbn8F7aHK1F7Rwnf S1KXKlnZWj AezfcCCDkY6sdkdry3xnum tcDjApSNPpHXp6RDb0RGNs zUagEeZxWG36MUT3VADhcl OoL3JcBCLo qQwaHeO7j4Z0Oi7KV2YEBq bnW0XQDEQAVJxqwSE+PC90 vw00N6IsOcqcHfg9ZMFkQR U6oVM1oG1u VQSoRGnom5Y6gTH8N0Loti Fywk3zw8qhNJIpEAlgK13w wDQpo2W8KIZuxAC5AATelV jbIkBlkE21 Oyc+LUUpnZxlr0FjMeqjh3 shn9pdfIw3YlntWIPyewTy kKbaAFP0k1NtFl6uXGZiiP Q9uJM3yO8t JtWdLtZ8TLsoV879HgLhiK IxYxgzF11hD8YggUO+PHRy Rtr5HPHkbOlfLF6sJ8RxDP RpbmctbGVm tMihUF0aQJShyxonCPFtjA 2kLSAoP7k1QwGwXhS3SCsv E4IcUSJwioorVy58wS0qQf KnPjU0CGol Q9ArcmU2QSNewCUaRHnwWI S1M02vn4V6JRAoTMQaDLX9 xFG3hW9xuCgxyzasbSXfrR sgdmVydGlj PYtiSMbqQ435VHXzuXjjXm NvZGluZyBEYXRlOiAgMDQv MDgvMjAyNTwvdGQ+PHRkIH S4pUftIJYd gKVbXXsfLq1siDkqdKyiCL 6dONFcbelwHXIrwR9zXZNk iGEwaQztXH0gPNKdkanik7 79PqQbYQQ4 QVRtnKRyB3CnyI2zQhIpDH WsIEEdI4CkcQCdQLexP678 JXjcGmX3UCRukdLqN7IvXJ FsaWduOiB0 r0L8Ly1Km7FeoizjR2NbjB QdBqBcEhagBWt9K6ZdWlyu dHI+QM17BBDeKT14HIp1UW C6rDwsWHun DFJkB0QqxG1fAbNqVDIgUO RkOyc+PHRhYmxlIHdpZHRo OIqaTQNbHqPnuDrlMM9bIe 9yZGVyLWNv qIkygHVjNyIhq1cgWELmDC shCE3ffSofN6PeaFO4WSYp m2n7En96T07dJ2AuiTU+PG ShlSY0kIX8 hW1dVfMhDtX7VHzdJ440Kr YrxBZdZjlat0ggf9vcdLe7 CaC5OBWdwrEtzBqvSJC4w7 YhRa52P79h IHdpZHRoPSIxNSUiIHZhbG vcjg7zbK7gPq2+PGNvbCB3 aTQ1nX8wTpTmKwC2QWlrI4 49InRvcCIv Mnxys2hgp7eqzTk1MpMmWE CktbDxxIwwHFT4y9TlFu19 H3FjwJfsz4BuGcl0pt36iW Qxq3M4jUA1 G8AtDNWaokbkuKPjdKrpRT 8iGPXkwpgiZRAiwY3sKQRh W7b1JoCoQsJ5OLuxQ8Msuz P1QTCmiLPg GVSvoWGXcI1hmyoxo2elff oaWlTxMRJaTAq3AMb8JYOd kXnoXdSyBLG3YoY2CCS6sU WetW5btGpc odafrS8eFft+YIY9cIEwkE EBRH5bPhcvkBL+PHRkIHN0 cXkkPZlqWGHooT3hAQJcD5 i4MyReJvJ3 YZrbG8KujvZ8ZKVlnVOaUG CdfIIGhV2swthvj3deykax RzEcCYJgHGp2PKx1AJJoyG duOiBsZWZ0 NqL6UQB0fHZazA7wqPywch rccN3oIqv+QmlydGggRGF0 DHi2C6WtCca6NKYrjBbmGC 0ncGFkZGlu Ar1hnFtwiCivVD7xZHVplu ljm434MpWyr8enILBmuIYw MHdmKGX3Q30cp1D1HUAlDC FuOFU3uEO0 sL5mpDclbtsueCDliSmtsj NckEwcYOvyORnvP799BKKx lYgoWcPnTSs9M6DsWai4QJ OhgCseJR4d oAEhJFdlCz0hcOarrEemSR 1uXOEgihpqn721XbZag5jh JGYgaZJvCCmvXCW9D44yc6 Z6PNQsJFYz FNE7lYP7pD3vlNwogbipiT VmdDsgdmVydGljYWwtYWxp S920CKKjkNhiMxRtnQu1T6 TkUer1LVYv xOnwCH2eaPLsPXxnIa0nxW jirDekWU5cBKHyczqzz774 YoUri7qeMYQrrRVmPSlbCZ I9A30xp0H1 DQBrPIXsNSH5wBO4hP5qhI lnbjogbGVmdDsgdmVydGlj CRyxKGvsZ000XAGhaHunEu BhdGllbnQg WUgpBVp4N2EsLsritWN+PC 62IFEqOH83vRMcwFWgc3rl dTa5WbJeGGLeELN0iSmdXK uzp6GyYACn W71cdJZxz5A3DPHdmZpncJ TjVtImlAO9sE4wIInyinyw z0tczdxvSnika5ngqj57oX 11F26pVPpm ZHRoPSIzMCUiIHZhbGlnbj 7xfN5tRe4+ZQRibRC3hFV5 uT1pYIAgBtN9RFayB399Ks RvcCIvPjxj j4nru7uwzNv4VtE2WCPudk CpzFdcTTT3v3YpBr31A87o IHdpZHRoPSIyMCUiIHZhbG qlyw4olC1d Ii8+PYKbsUJ0zYJ1qB9hFz RqJjL9NLqdL493BqHbnCEb HzxyY72cA5YklLG+PHRyPj h7OPMqwDgy XF5sbMXoQEkaBz8xBEE6Fl DmSfFdZIeoK6GvPMSamuhv mauzpED0SFIcOHSieI43Aa 9udDogMTBw mBRDfX4dcgsal4feawnhJo WsIJZeJIs1TKr1YJPtmShu YmHwLYC8NmE1WAI7oXLwhE 1hbGlnbjog aI5eY6VxJWZygprnRd23dL 8gPlGsXuE1XSluQvc+SkFD M6CPAxrcYNUGGItwUBCXLP D9P2RuDun2 GUOyfCznER9ybSUjCClaLk 7ogQwzxIcgYW5gNJArjyss WFJndX0zIJSocALshKooTC 4wNTBpbjtm f399GlYoWGD8CQAxgKQpN0 VtfM8sHqPgDBPpFQZbS7Ty rYShTMnwM599IYjqEqA1FL YbqdSxR5Wh DZWioXvhUsC0h6U2Xp4rMj 7lAL3eTRqtUG93XS06lTHj q2E6sOB2F0TmMDHhmddxhl ocmLH8OGZf IQDhtZ85oXFzKPbhGi3nd7 D1o948WXPxZAOadM17Om7q iSgvZCKxpAFAyM1acyqwl5 xvcjogIzAw LBQeSIs2HLd3VHZinTbnRr SoZMW6QyJ6TDI5qYMbuZ0n gMzifkyepI5zWbc+NTMgWW MnlyX7Q6Ct Kbd7ILZtnWxrON7ivCVsVH qoKj4pmIbmnQgtEJ2dGKEv msguDEHucV4aQFCxpWNwaN zwAK0pHWGi vocfj096ShZvXRD7FBGfqZ VgB2AskP4fJzWuJFNmLAVt M6JgoZZqBZczB531OUhhXs E5QBZbodLx X1OwRIShrEctUjC8n7N8Ph 1FXS6MGJS5Z2VhTat9AZJx aRnnCA0tbCOkFVapDn5hiO zlqZtsEE8u JEZoapbnEDLvfF9lRHXwvN HgkRutZG5jCWTwndyxn105 HqTsYLO3AGZkpLMxJ8LlcS 9yOiAjMDAw RHNjR5YtjGQcAPbsL544KQ fgBcZ1NKNdawKvD3QjIYIq iBonWjV8c2C9Ho6VCAhqP9 GaY2RfkMms dGQ+QJ92wu49O9RoHgbaCs l5VIQfKLF9iIU6jW3pSTJv KZcas8Y3lVA7R3CffrCgfl 7hr5qwBNAr ERocK92onZAhe9F0WEDzyB K3HZFhtFowUwMosT28Gpi+ OESadJbzq1DzIjill2kmu0 umdLz4SoCo KQTwmsXscJqgDPO7z4TpLs 86I40sVKjmQGYrBFQqSULb NAXcmZrkxy8sdL3lOf6+PG SkzAE5eCB4 tJ6dLdCwJtV5CYcyZ752Ul ZhcMKbYquei2dun3xguDj3 YpIdOHBnxeRozExkUQB5o6 EzMp49N0Mk gCwmb3WpLma9ij93rNStq0 G8nRV5E9VuNMYxprefoRVr gAimAQ3pTIGceqxhYYEhgO 2sKNFzG4b5 RqAkUcV6UIboD9GjcpQ7FG VayEOoSOYigBUUcJ5emeex m4fezjrfDmYtHJPbVUc0XI e4CFCnpTpi TfBqQCF7FgO6PWN9qURdeH 7wqUjnfcvxzR4bLkg+UGh5 d1ladMUnDP8nhEA1CS46CJ 08pBEfv2G0 kDV0R7WoJVFeygnhmjlikY S5OPPiFHOnnL51Nm0gyKvs So1aANMrWGL5FLUkbUMtO6 ViuS6mBnNb RCElCULtK1XtrVWnUTitP9 71AOobSzV7XKTcvpSvN9Fm JJOwpYjeBvU8f4P6Xn1JQL 24OP49UG87 sSGjy5S0wFF3C7UwNMIjyy esvzebpPG8CFNxXTFbbI80 If3qiAhrZs0xWMHvWPT3UZ AobBJmV8Mi cM6rEkMrUFHfPZKpP0CuvQ KtAQupY234EZbjFoK9PGJh msDtN9OiAHAwlIcbBhY5j4 T7Rz9WRr45 CY67AF69xQUtd6E3cHH8S5 TmSVCkausuphclhPU1FKVp VIZfyY68Ox6woOidDs5zQR GzOEP1SDLg zEExE3SzoI8rWlYbJNZwMQ VfV5MkdSAdKPzyP019AEts YfN5NEQrqaRsA0UgELQemK fiPoB8v4X2 Vd8GKLkajds9U5SaLaahhB I+GW30ZYKcEC10kRCvjTJq v3jfhBv9XiDrTGOjAOD6kV xiJGcep2Ae ZXI (more content not included)... [facility] [facility] Preoperative Record MAGR Pre-Op Record Summary Primary Physician: LUIS CARBONE DO Finalized Date/Time: 01/21/25 11:19:28 Pt. Name: CANDE RAHMAN/Sex: 1970 FEMALE Med Rec #: [id number] Physician: LUIS CARBONE DO Financial #: [id number] Pt. Type: D Room/Bed: / Admit/Disch: 01/21/25 [...] Signed By: Sanjuana Llamas RN 01/21/25 11:19 [facility] Triage Panel 12on 01-21-2025 Triage Internal Control Pass [facility] Comment on above: Performed By: #### 1 [id number] ####[facility] (DEFAULT)[address] [place] [address] U Amph Scr Negative [facility] Comment on above: Performed By: #### 1 [id number] ####[facility] (DEFAULT)[address] [place], [place] [id number] U Farhana Scr Negative [facility] Comment on above: Performed By: #### 1 [id number] ####[facility] (DEFAULT)[address] [place] [address] U Benzodia Scr Negative [facility] Comment on above: Performed By: #### 1 [id number] ####[facility] (DEFAULT)[address] [place] [address] U Cannab Scrn Positive [facility] Comment on above: Performed By: #### 1 [id number] ####[facility] (DEFAULT)[address] [place] [address] U Cocaine Scr Positive [facility] Comment on above: Performed By: #### 1 [id number] ####[facility] (DEFAULT)[address] [place] [address] U Methadone Scr Negative [facility] Comment on above: Performed By: #### 1 [id number] ####[facility] (DEFAULT)[address] [place] [address] U Methamp Scrn Negative [facility] Comment on above: Performed By: #### 1 [id number] ####[facility] (DEFAULT)[address] [place] [address] U Opiate Scr Negative [facility] Comment on above: Performed By: #### 1 [id number] ####[facility] (DEFAULT)[address] [place] [address] U Oxycod Scr Negative [facility] Comment on above: Performed By: #### 1 [id number] ####[facility] (DEFAULT)[address] [place] [address] U Phencyclidine Scr Negative [facility] Comment on above: Performed By: #### 1 [id number] ####[facility] (DEFAULT)[address] [place] [address] U Tricyclic Antidepress Scr Positive [facility] Comment on above: Result Comment: Resu [...] PPX Propoxyphene (Norpropoxyphene): 300 ng/mL THC Cannabinoids (40-lhb-1-carboxy- -THC): 50 ng/mL TCA Tricyclic-Antidepressants (Desipramine): 300 ng/mL Performed By: #### 1 [id number] ####[facility] (DEFAULT)[address] [place] [address] Urine Source Voided Normal [facility] Comment on above: Performed By: #### 1 [id number] ####[facility] (DEFAULT)[address] [place] [address] Inpatient Patient Summaryon 01-20-2025 Inpatient Patient Summary [facility] [address] [place] [id number] Patient Discharge Instructions Name: CANDE RAHMAN : 1970 Patient Address: [address] [place] [address] Primary Care Provider: Name: Phone: After you are discharged if you find you have any questions, please, call [phone] ext [phone] to speak to a nurse. Discharge Diagnosis: Acute pain of left shoulder Prescription Information: If you have been given a prescription for narcotics, seek immediate medical attention if you have any difficulty breathing or any sudden status changes such as confusion and sleepiness. If you or anyone you know is experiencing suicidal thoughts, mental health, alcohol and/or drug addiction problems; contact the [facility] 12/05 Crisis Hotline -text 4HMIB qd [phone]. If you received any narcotics, sedation, or [...] business decisions or sign any legal documents [facility] would like to thank you for allowing us to assist you with your healthcare needs. The following includes patient education materials and information regarding your injury/illness. CANDE RAHMAN has been given the following list of follow-up instructions, prescriptions, and patient education materials: Follow-up Instructions With: Address: When: Theodore Samuel [address] [place], [place] [id number] Business (1) 02/04/2025 9:00 AM Medications During [...] hours sched (more content not included)... Normal [facility] Patient Handouton 01-20-2025 Patient Handout Outpatient Shoulder [...] or fever, please call Dr. Carbone at [phone]. 6.) Keep dressings in place, clean and [...] or concerns, please call the office at [phone] or [phone] [facility] XR CHEST 2 VWSon 01-14-2025 XR CHEST 2 VWS XR CHEST 2 VWS PA and lateral chest: HISTORY: Preoperative exam. Anesthesia clearance. 2 views of the chest are obtained. Cardiac and mediastinal contours are within normal limits. Lungs are clear. There is no vascular congestion, effusion, or pneumothorax. Osseous structures appear intact. IMPRESSION: No acute findings. Finalized by Vincenzo Hernandez MD on 01/14/2025 10:33 PM [facility] Coding Summaryon 2025 Coding Summary HTMLBase 64 OzqkchnbACy2sTe+PGhlYW Q+BO6PQCDtI64xqRUahF9v V0ZRRTfBDhfcKCVUULxHMd OijjDlTG0xhITzTQRh IC8+AO9iYXFeUhfkgTUwn9 U6dQZ7P59jnb0vLBronSY2 TUAgMnZvkqmxj7geoCj7PH cuNmluOyBt MYMzoY88ART8iV37Mi57bP LsaTJor6mmeXy6OeRkULAe HRV2fRbbVFrcz5MsXAAkL7 4xbOHxe9D1 OFYrkRtphSQbPgKkhON2uI 3gYAezgyfpb7onskzbXlu5 df30fMRkt0U6aDO9G9Djnt T3CGQzkQUo MzhwpDGFdN3tszcud4uqdy kvUoJlZWJiAVk6TOv9PKUe oAklFuIvRD05QDS8XWObkj FdW1ZvWHGj sScoBgV4z2Z4Ty8AB0HYJp izH1ZQSWRUOAsetQF+PC90 rc21M6SoCkhvOqv2AJZnAP E7yFL6jA7d QYZxCZmdb3N4tQJ9W1Xnsr Wkkw1zb2ksYHIkQBvyU89s pVFaj8F7KOQjjMH2OWTmiC iqUmYnhM43 Oyc+ROBerRpkc1DiUanzd5 rer9nifYp9JqwbXDLmzmAi lKwgERZ3f7ZhUl1kEWUqpS D2tGC9qJ4m GgAuVaG0NQxfV144BrXoxL GjPijaD60jE9EsnYH+PHRy Hzy6JDMreHszCV8cU3NjKI RpbmctbGVm jWdrFC0fFQFmmuipKNVfzA 2uQEOoK7d8FbObUiI7NWfe J5BrPWWixhprRa93hZ0xDk MwMqN7FSxi B2TmjuC4GMRmwYDeFDbeOU H2F22kd1J8SLJxXEWyMOZ8 nHA5xM5hqWeezcdjsPZonN sgdmVydGlj EJxjANuwF784QREzdHkpMi NvZGluZyBEYXRlOiAgMDMv MjYvMjAyNTwvdGQ+PHRkIH F1kIvlBQXx hICxCTuyYi2biEcymVypJH 1eJDZvlcugLNXtaU7rNJLg sDSosTvqPV1iHYFpyufew5 53FrIbXAS3 DKIxeKUqF4FmrD3kCeJfDP HtFWUsB8AssRTqCEhaA949 QXdxJpO4QESytfKdV6VqMY FsaWduOiB0 h1E0Jz3Sg9IapwjpS1ZweW IxBrVnThjzNHf9N0JcMlxa dHI+FP70CMRgJI13GFv7MW T9yVkwOKvt NOMgF7LjlH0mWpTgYIOoUH RkOyc+PHRhYmxlIHdpZHRo BViqIFFqMyVduYvzHD0zBu 9yZGVyLWNv uMptaBRgOvAva8pfATCcIK frOX3oaYrsS6OtfQJ6MYTv u5y7Nb13V63xY3SghZA+PG QbiTQ7rPD2 gQ2yNlLyFxO2UZluR043Ko WorNYyHpjlx7gyj6vkoJv1 ZmQ9ZWPmnbFslTtjVDL0s8 KyFt02I89a IHdpZHRoPSIxNSUiIHZhbG tbsl8wpK9kOl1+PGNvbCB3 kYD1aU0vEfXdWrD1KBdwU2 49InRvcCIv Sdwnx5jjr4tquFg8UqAwED PdwsXqwTueSIV7l9AyYz64 F1TmsVyij6AgSos9oe18nT Vsv8Z9wYM2 M7LpACJnaltcqIVeyJyeVW 7cJYQbjvatZFNrxT0zFCYo Q5u9EfQhJoA3YSlkQ5Lubr Z6QMRtbTGz ZWGflNDRuN6njrvjw7usnj drStYiMTHeLNn1HSg4YEGn oBwfUpBpSOS3WbN8RUH3vE FhvT7cuDek fufdhO5zBmc+IRO0hRKnxW DQMK2eVlycuCG+PHRkIHN0 fTvuXLigVZRpaI5sSMMzV0 v7VoCzUhL7 LLbiO1BspaC3KVSjiGZnNF YzhMZCaE3orvynv0rndxuc KwMuFJUsDEu6JDq3ZWWqfP duOiBsZWZ0 IzU7MBV7rEMlsU3lmRtnzo seaS3aMpk+QmlydGggRGF0 WSi1E7AfQjs4BWWjrXhfLF 0ncGFkZGlu Vt6efZhmeWfdCS1jUHJqjs ode152HpQhw1zhZRZucOUd UNhmJBR4R43ch0Y0VJYiBY ZaTOE5xLR4 dC1mxNixfpqlvPJyuSjtze UktVofNFxsAMknK752XKDa wAkzIkBqWBf9P2KqQbx9NK ObjTehAX6q gIRrUNnvSa7xyJfzmGsdVP 7xXJFmrpgae981TyUkn5nk MDPyrOWmPYtuLXW1N92af4 K1AQCtZNNq PTJ1gOW5sN2ebGgndsybxM VmdDsgdmVydGljYWwtYWxp J669EXSteUuqPqLemUt4H2 TrMqg2RFJi wGpgQW3sgVTmFCvkNu9wrE iqeVbzHI9fCUXdzcdiu411 CdUtk6taIHRrmFHlPAhiGM H7P75ho3V4 QXLhCZFtYUO1wJG6xD4xgJ lnbjogbGVmdDsgdmVydGlj JYexZZomT572EFTzqLzcQm BhdGllbnQg DCpsLHo2F9CtPdkgbOH+PC 10PQRnOY82kJQxpOHlt7ry pEm9TkFvGTAnANH3uBbtTZ sbm1DmCITf N12tvJEub0L6UOInwQmaoD KhHvPstTY1fY0kPUiqwoss z9jxoitsRkhhz6wshp90hL 64D25rWEoj ZHRoPSIzMCUiIHZhbGlnbj 5irH8oSw8+JCWygQI5uKF9 bZ1gLVCiXnY5JYtpV788Ii RvcCIvPjxj c1vwq2hkbPx2IpT3TRPcrm WmfHuxMDM6s9YwFj69F53s IHdpZHRoPSIyMCUiIHZhbG umqu7veU8u Ii8+CFVxxVO4uIE4iX7uHn QrGlE6SBeuF583OsVabOCu MccwM39xZ9EgqXB+PHRyPj l5DDQhgJmu FX9ivSBtUHbsDm1pSIR8Lp DvZzDqWQepR5TkNPBtbswa sgoziOJ5LZYmPVBatR42Ha 9udDogMTBw yCXQwL7dmruly5yjtagtNa HtSHDlVEq7YQe7GDLvlCqs GzGrYKO8FiV4IPO3oCTzgF 1hbGlnbjog qB5kP0JoEVYclayxIa47xQ 7dUrLzTzE2KRxxQel+SkFD I7RQGqblNMGOKAzxMOZLJP R0J6DcFqn3 AAGlxKznII9zvZWvGNhyCf 6stCshgXwfYU8mKVYkwopa DCSxhC2cAMZpoVPbbQolDY 4wNTBpbjtm l059WrItHJV9GRGdeMVxU6 TnxO1jImZpGPLeWOLzG6Ya qPYqAMglE551ZWrqEpZ1NW OymtPhZ8Lb QFAwpVdqVpT8j4Q0Al9pUe 4hYB6ePKkhNF50YS23pEJv k1Q6iCD9T6TjDHNkknwutz txzAC8GAUf PJOcfI22xNRaBZcnGa8kt2 V6l396EPNpGHOuzM22Cs5e qBmhJQYwkANHuW7cjdyoj4 xvcjogIzAw FVHwGRg2IVa3YHDuzKvzJa QyIKN1JfN0JEG4bHEpwS8r hXrkwxnhlA3sGdd+NTMgWW IzmtP3Y6Ks Oua6IMYxoGgaKK2ppOYlQD tfNg2taRkrbXbjMV9wCTAi mtihHKKiqF9vJNHnrYCpoH iaKR8vUOAt nbide869AmPoVTE6KWJxeB DmM9YupV7mWnIsGQJkLIRd Z6MhsYWpMSmoY443DCumZo I7POFfoqAq O2ZyWNEamTwnUbW9p3K2Zj 1GET6QSKX0U0DfSaf9LSQo zFhyFV0whKEuDKyyKy5bcG hfxPbrGL8a GSFrhacgNKAxjM4wKTUxnD KjjPtrUI7tAFUkkvpdp544 PzLwNXE8ZQOxeJHdW2TyjZ 9yOiAjMDAw UJDxF7RyzJDjIKlfF975TO crSmY3XAHxlnBcZ8YfGUSk dPelFqC1o6B1Rq5OQMtibG Q+KC46tf47 B6PgVqwlJyg4JERgUEG3kB A0mN3pYZLpHUrxi4T1sJL7 G0KzzaMunt0qp7rcSSVuQW hiK65cxWRa m5Z0LWWjiCD9KLNajKtoQr ThbR30Pyr+XOFucBwhz8Uw Qthtq3dwe2shsKt2AbLtFP IgdmFsaWdu WXF5r4WcGe84L09jALbrNL XkIEFrZEBfACHpqAplku5v dK5tPs4+VHNrmGQ7zQR6iP 9bGcAbOkF2 KMnoB140WkMhlWMcShrzi5 elj8lcfFd1DcHgSKMjezJv nBluKEO0r8OnRy04U4YmyL hkl3ZoUbf5 sp69eUDrr4E1sEN4Y3XsMA VesacpsMAfyCdfXX1cPUSz ruvrAVArqI2wQZOfC3j1Vj UyUrH3SQlt T5QnsnQ4HWWxwBDkKVHjjO VMnM0tvgbmt4vwveukEtYw KZQoPEx3AEi1GBXgqDwfAo ChBPS6AcC9 LMT6tNAmwH8iqXoyhffvjC 9wOyc+CMo2k7viwGTiXA0d jBQ0VN66JS94hKKqb2U1aK P9S3ZrFNJj jdmpziepjZB0DGNgZXKnnN 56Sa6tiIakSj2cCWFqJPH0 YEUhvRCkZ1DozB6sGbCiQY OjYWMcF9Cr kOBwLUdvF790TAicYiH2RG PxncWhK5VtFAFblBirRyB7 y0I5Yl9TDZ52VQ66XA67jI Kzh7M1zEF4 G4XeIYRazfngdmfsiBV2YP YnPKVnxZ64Sr9ujJfcIn7f FSApRHT4QVIwtTWdX1VfuU 9yOiAjMDAw VUXcS3KckGBdUWbgS694KG nhOfR6YPBrctHyN3PqVPMf oFapPuN2d6X4Pb8OVj16SI 60PM74gEGi j9R2mNT1Y7BjKUTiagvlbw hovEL7OXPrKOWbiY26Mc3b dRefVi1iGQHqKTO3FWJylB AvZ9PnpB2d GaLuDGCjSXJqB8WrpGDdHB cxG218OWiiHyP8JWFwclIo V0EkFTIcnSpxFhJ6l2U2Ny 5STJvqptu4 Q9FbBvyriDF+BY10RXIjHG 54jKPitGCfk1hxuDa0LzUv ENPfOBS7lKrwJFdyi5QvML JeD18esPLg c2U (more content not included)... [facility] No Panel Informationon 12-07 Jr. Luis [...] in the usual sterile fashion. [facility] MR SHOULDER LEFT WO IV CONTR Cheryl [...] pain. Previous RCR and SLAP repair 02/25/24. [facility] C DIFFICILE BY PCRon 024 C. difficile toxin genes LEXI+probe Ql (Stl) TOXIGENIC C DIFF Negative (qualifier value) 027 NAP1 Negative (qualifier value) Normal PRNEG [facility] Comment on above: Performed By: #### 5 4067-4 #### [facility] ([id number]) [address], [address] [place] [address] #### 63306-8 #### [facility] ([id number]) [address] [place] [address] [facility] ([id number]) [address] [address] GI PANELon 06-10-2024 Gastrointestinal pathogens DNA and [...] SAPOVIRUS Not detected (qualifier value) Normal NDET [facility] Comment on above: Performed By: #### 5 4067-4 #### [facility] ([id number]) [address] [address] #### 60318-5 #### [facility] ([id number]) [address] [place] [address] [facility] ([id number]) [address] [address] XR SPINE LUMB BENDING ONLY 2 -3 [...] Delgado MD on 03/30/2024 10:19 AM Normal [facility] CREATININEon 12-04-2023 Creatinine [Mass/Vol] 0.78 mg/dL Normal 0.40-1.00 [facility] Comment on above: Result Comment: METH OD TRACEABLE TO IDHI STANDARD Performed By: #### 1 988-5, 90855-9, 28352-1, 62010-9 #### [facility] ([id number]) [address], [address] [place] [address] eGFR (CKD-EPI) NON-RACE DEPENDENT >90 Normal >59 [facility] Comment on above: Result Comment: Reported eGFR is based on the CKD-EPI 2020 equation that does not use a race coefficient. Performed By: #### 1 988-5, 43302-2, 70421-4, 03518-4 #### [facility] ([id number]) [address], [address] [place] [address] Creatinine includes GFR, ser umon 12-04-2023 Creatinine [Mass/Vol] 0.78 mg/dL 0.40 - 1.00 mg/dL [facility] Comment on above: METHOD TRACEABLE TO IDMS STANDARD eGFR (CKD-EPI)non-race dependent - PINF [facility] Comment on above: Reported eGFR is based on the CKD-EPI 2020 equation that does not use a race coefficient. [facility] HGB AND HCTon 12-04-2023 Hematocrit (Bld) [Volume fraction] 37.9 % Normal 35-47 [facility] Comment on above: Performed By: #### 1 988-5, 76480-0, 49794-5, 85947-2 #### [facility] ([id number]) [address], [address] [place] [address] Hemoglobin (Bld) [Mass/Vol] 12.7 g/dL Normal 11.7-15.5 [facility] Comment on above: Performed By: #### 1 988-5, 58657-3, 22983-9, 91444-7 #### [facility] ([id number]) [address], [address] [place] [address] Hemoglobin and hematocrit, b loodon 12-04-2023 Hematocrit (Bld) [Volume fraction] 37.9 % 35 - 47 % [facility] Hemoglobin (Bld) [Mass/Vol] 12.7 g/dL 11.7 - 15.5 g/dL [facility] PLATELET COUNT AND MPVon Platelet mean volume (Bld) [Entitic vol] 7.7 fL Normal 7-12 [facility] Comment on above: Performed By: #### 1 988-5, 16468-1, 37963-6, 55754-0 #### [facility] ([id number]) [address], [address] [place] [address] Platelets (Bld) [#/Vol] 280 10*3/uL Normal 150-450 [facility] Comment on above: Performed By: #### 1 988-5, 17847-1, 82204-9, 32940-3 #### [facility] ([id number]) [address], [address] [place] [address] Platelet counton 12-04-2023 Platelet mean volume (Bld) [Entitic vol] 7.7 fL 7 - 12 fL [facility] Platelets (Bld) [#/Vol] 280 10*3/uL [facility] RF Guidance for injection of Spine facet [...] Theodore Woods MD on 12/03/2023 12:39 PM [facility] Radiology Study observation (narrative) [facility] RF Guidance for injection of Spine facet jointOrdered By: Theodore Woods on 12-03-2023 [facility] Work Phone: Type and screen (Pre-op)on 0 12-03-2023 ABO O [facility] Rh Nom (Bld) Positive [facility] Bacteria identified Cx Nom ( U)on 11-08-2023 Service comment (Unsp spec) [Interp] >100,000 ORGANISMS/ML NORMAL UROGENITAL ROCIO [facility] APTTon 11-07-2023 aPTT Coag (PPP) [Time] 35 s [facility] BASIC METABOLIC PANLon 11-07 Anion gap [Moles/Vol] 9 mmol/L Normal 5-15 [facility] Comment on above: Performed By: #### C BCA, BMP, PINR, 08888-1 #### [facility] ([id number]) [address], [address] [place] [address] Calcium [Mass/Vol] 9.4 mg/dL Normal 8.5-10.5 [facility] Comment on above: Performed By: #### C BCA, BMP, PINR, 13041-4 #### [facility] ([id number]) [address], [address] [place] [address] Chloride [Moles/Vol] 106 mmol/L Normal 98-109 [facility] Comment on above: Performed By: #### C BCA, BMP, PINR, 98274-0 #### [facility] ([id number]) [address], [address] [place] [address] CO2 [Moles/Vol] 22 mmol/L Normal 22-32 [facility] Comment on above: Performed By: #### C BCA, BMP, PINR, 93165-4 #### [facility] ([id number]) [address], [address] [place] [address] Creatinine [Mass/Vol] 0.93 mg/dL Normal 0.40-1.00 [facility] Comment on above: Result Comment: METH OD TRACEABLE TO IDMS STANDARD Performed By: #### C BCA, BMP, PINR, 15617-5 #### [facility] ([id number]) [address], [address] [place] [address] GFR/1.73 sq M.predicted among non-blacks MDRD (S/P/Bld) [Vol rate/Area] 74 mL/min/{1.73_m2} Normal >59 [facility] Comment on above: Result Comment: Reported eGFR is based on the CKD-EPI 2020 equation that does not use a race coefficient. Performed By: #### C BCA, BMP, PINR, 55446-0 #### [facility] ([id number]) [address], [address] [place] [address] Glucose [Mass/Vol] 90 mg/dL Normal 65-99 [facility] Comment on above: Performed By: #### C BCA, BMP, PINR, 33639-0 #### [facility] ([id number]) [address], [address] [place] [address] Potassium [Moles/Vol] 4.2 mmol/L Normal 3.5-5.0 [facility] Comment on above: Performed By: #### C BCA, BMP, PINR, 08296-8 #### [facility] ([id number]) [address], [address] [place] [address] Sodium [Moles/Vol] 137 mmol/L Normal 134-146 [facility] Comment on above: Performed By: #### C BCA, BMP, PINR, 70287-1 #### [facility] ([id number]) [address], [address] [place] [address] Urea nitrogen [Mass/Vol] 19 mg/dL Normal 5-23 [facility] Comment on above: Performed By: #### C BCA, BMP, PINR, 91589-5 #### [facility] ([id number]) [address], [address] [place] [address] Basic Metabolic Panelon 10-20 Anion gap [Moles/Vol] 9 mmol/L 5 - 15 mmol/L [facility] Calcium [Mass/Vol] 9.4 mg/dL 8.5 - 10. 5 mg/dL [facility] Chloride [Moles/Vol] 106 mmol/L 98 - 10 9 mmol/L [facility] CO2 [Moles/Vol] 22 mmol/L 22 - 32 mmol/L [facility] Creatinine [Mass/Vol] 0.93 mg/dL 0.40 - 1.00 mg/dL [facility] Comment on above: METHOD TRACEABLE TO IDHI STANDARD eGFR (CKD-EPI)non-race dependent 74 - PINF [facility] Comment on above: Reported eGFR is based on the CKD-EPI 2020 equation that does not use a race coefficient. Glucose [Mass/Vol] 90 mg/dL 65 - 99 mg/dL [facility] Potassium [Moles/Vol] 4.2 mmol/L 3.5 - 5.0 mmol/L [facility] Sodium [Moles/Vol] 137 mmol/L 134 - 146 mmol/L [facility] Urea nitrogen [Mass/Vol] 19 mg/dL 5 - 23 mg/dL [facility] CBC AND AUTO DIFFon 11-07-19 ABSOLUTE BASOPHIL 0.0 X10E9/L Normal 0.0-0.2 [facility] Comment on above: Performed By: #### C BCA, BMP, PINR, 08224-0 #### [facility] ([id number]) [address] [place] [address] ABSOLUTE NEUTROPHIL 6.2 X10E9/L Normal 1.5-6.6 [facility] Comment on above: Performed By: #### C BCA, BMP, PINR, 57537-7 #### [facility] ([id number]) [address] [address] [place] [address] Basophils/100 WBC (Bld) 0.4 % Normal [facility] Comment on above: Performed By: #### C BCA, BMP, PINR, 49756-4 #### [facility] ([id number]) [address] [address] [place] [address] Eosinophils (Bld) [#/Vol] 0.0 10*3/uL Normal 0.0-0.4 [facility] Comment on above: Performed By: #### C BCA, BMP, PINR, 60972-3 #### [facility] ([id number]) [address] [address] Eosinophils/100 WBC (Bld) 0.4 % Normal [facility] Comment on above: Performed By: #### C BCA, BMP, PINR, 03568-8 #### [facility] ([id number]) [address] [address] [place] [address] Erythrocyte distribution width (RBC) [Ratio] 14.1 % Normal 11.5-15.0 [facility] Comment on above: Performed By: #### C BCA, BMP, PINR, 98528-9 #### [facility] ([id number]) [address] [address] [place] [address] Hematocrit (Bld) [Volume fraction] 45.0 % Normal 35-47 [facility] Comment on above: Performed By: #### C BCA, BMP, PINR, 39566-7 #### [facility] ([id number]) [address], [address] [place] [address] Hemoglobin (Bld) [Mass/Vol] 15.2 g/dL Normal 11.7-15.5 [facility] Comment on above: Performed By: #### C BCA, BMP, PINR, 60203-7 #### [facility] ([id number]) [address] [facility] [address] [place] [address] Lymphocytes (Bld) [#/Vol] 2.5 10*3/uL Normal 1.0-3.5 [facility] Comment on above: Performed By: #### C BCA, BMP, PINR, 19574-2 #### [facility] ([id number]) [address] [address] [place] [address] Lymphocytes/100 WBC (Bld) 26.3 % Normal [facility] Comment on above: Performed By: #### C BCA, BMP, PINR, 46751-9 #### [facility] ([id number]) [address], [address] [place] [address] MCH (RBC) [Entitic mass] 30.6 pg Normal 27-34 [facility] Comment on above: Performed By: #### C BCA, BMP, PINR, 66649-1 #### [facility] ([id number]) [address], [address] [place] [address] MCHC (RBC) [Mass/Vol] 33.8 g/dL Normal 32-36 [facility] Comment on above: Performed By: #### C BCA, BMP, PINR, 54148-6 #### [facility] ([id number]) [address], [address] [place] [address] MCV (RBC) [Entitic vol] 91 fL Normal 80-100 [facility] Comment on above: Performed By: #### C BCA, BMP, PINR, 78053-5 #### [facility] ([id number]) [address], [address] [place] [address] Monocytes (Bld) [#/Vol] 0.6 10*3/uL Normal 0-0.9 [facility] Comment on above: Performed By: #### C BCA, BMP, PINR, 25155-4 #### [facility] ([id number]) [address], [address] [place] [address] Monocytes/100 WBC (Bld) 6.6 % Normal [facility] Comment on above: Performed By: #### C BCA, BMP, PINR, 27556-2 #### [facility] ([id number]) [address], [address] [place] [address] Neutrophils/100 WBC (Bld) 66.3 % Normal [facility] Comment on above: Performed By: #### C BCA, BMP, PINR, 51563-4 #### [facility] ([id number]) [address], [address] [place] [address] Platelet mean volume (Bld) [Entitic vol] 8.1 fL Normal 7-12 [facility] Comment on above: Performed By: #### C BCA, BMP, PINR, 26749-1 #### [facility] ([id number]) [address], [address] [place] [address] Platelets (Bld) [#/Vol] 334 10*3/uL Normal 150-450 [facility] Comment on above: Performed By: #### C BCA, BMP, PINR, 82720-5 #### [facility] ([id number]) [address], [address] [place] [address] RBC COUNT 4.97 X10E12/L Normal 3.80-5.20 [facility] Comment on above: Performed By: #### C BCA, BMP, PINR, 94199-2 #### [facility] ([id number]) [address], [address] [place] [address] WBC (Bld) [#/Vol] 9.4 10*3/uL Normal 4.0-11.0 [facility] Comment on above: Performed By: #### C BCA, BMP, PINR, 56623-0 #### [facility] ([id number]) [address] [place] [address] CBC auto differentialon 10-20 Basophils (Bld) [#/Vol] 0.0 10*3/uL [facility] Basophils/100 WBC (Bld) 0.4 % [facility] Eosinophils (Bld) [#/Vol] 0.0 10*3/uL [facility] Eosinophils/100 WBC (Bld) 0.4 % [facility] Erythrocyte distribution width (RBC) [Ratio] 14.1 % 11.5 - 15.0 % [facility] Hematocrit (Bld) [Volume fraction] 45.0 % 35 - 47 % [facility] Hemoglobin (Bld) [Mass/Vol] 15.2 g/dL 11.7 - 15.5 g/dL [facility] Lymphocytes (Bld) [#/Vol] 2.5 10*3/uL [facility] Lymphocytes/100 WBC (Bld) 26.3 % [facility] MCH (RBC) [Entitic mass] 30.6 pg 27 - 34 pg [facility] MCHC (RBC) [Mass/Vol] 33.8 g/dL 32 - 36 g/dL [facility] MCV (RBC) [Entitic vol] 91 fL 80 - 100 fL [facility] Monocytes (Bld) [#/Vol] 0.6 10*3/uL [facility] Monocytes/100 WBC (Bld) 6.6 % [facility] Neutrophils (Bld) [#/Vol] 6.2 10*3/uL [facility] Neutrophils/100 WBC (Bld) 66.3 % [facility] Platelet mean volume (Bld) [Entitic vol] 8.1 fL 7 - 12 fL [facility] Platelets (Bld) [#/Vol] 334 10*3/uL [facility] RBC (Bld) [#/Vol] 4.97 10*6/uL [facility] WBC corrected for nucl RBC Auto (Bld) [#/Vol] 9.4 [facility] No Panel Informationon 11-07 [facility] PROTIME AND INRon 11-07-2023 INR Coag (PPP) [Relative time] 1.0 {INR} Normal 0.8-1.1 [facility] Comment on above: Performed By: #### C BCA, BMP, PINR, 27146-1 #### [facility] ([id number]) [address], [address] [place] [address] PT Coag (PPP) [Time] 11.4 s Normal 9.8-13.2 [facility] Comment on above: Performed By: #### C BCA, BMP, PINR, 67378-1 #### [facility] ([id number]) [address] [place] [address] Protime & INRon 11-07-2023 INR Coag (PPP) [Relative time] 1.0 {INR} [facility] PT Coag (PPP) [Time] 11.4 s [facility] Type and screenon 11-07-2023 ABO O [facility] Rh Nom (Bld) Positive [facility] URINALYSISon 11-07-2023 Bilirubin Ql (U) Negative Normal NEG [facility] BLOOD/HGB Negative Normal NEG [facility] Color (U) YELLOW Normal YELLOW [facility] Glucose Ql (U) Negative Normal NEG [facility] Hyaline casts LM Ql (Urine sed) 4 /lpf High 0-2 [facility] Ketones Ql (U) Negative Normal NEG [facility] Leukocyte esterase Test strip Ql (U) Negative Normal NEG [facility] MUCOUS PRESENT Abnormal NONE [facility] Nitrite Ql (U) Negative Normal NEG [facility] pH (U) 6.0 [pH] Normal 5.0-8.5 [facility] Protein Ql (U) Trace Abnormal NEG [facility] R.B.CELLS <1 Normal 0-5 [facility] Specific gravity (U) [Rel density] 1.029 Normal 1.003-1.035 [facility] SQUAMOUS EPITHELIUM 1 /hpf Normal 0-[address] [facility] TURBIDITY CLEAR Normal CLEAR [facility] Urobilinogen (U) [Mass/Vol] mg/dL Normal <1.1 [facility] W.B.CELLS 2 /hpf Normal 0-5 [facility] URINE CULTUREon 11-07-2023 Bacteria identified Cx Nom (U) CULTURE RESULTS >100,000 ORGANISMS/ML NORMAL UROGENITAL ROCIO Normal [facility] Comment on above: Performed By: #### 1 988-5, 61211-5, 22960-8, 34861-9 #### [facility] ([id number]) [address] [place] [address], [address] [place] [address] Urinalysison 11-07-2023 Bilirubin Ql (U) Negative Negative^Ne g ative [facility] Color (U) YELLOW YELLOW^YELLO W [facility] Epithelial cells Auto (Urine sed) [#/Area] 1 [facility] Glucose (U) [Mass/Vol] Negative Negative^Neg ative mg/dL [facility] Hemoglobin Auto test strip Ql (U) Negative Negative^Neg ative [facility] Hyaline casts (Urine sed) [#/Area] 4 /[LPF] High [facility] Interpretation and review of laboratory results Abnormal [facility] Ketones (U) [Mass/Vol] Negative Negative^Neg ative mg/dL [facility] Leukocyte esterase Auto test strip Ql (U) Negative Negative^Neg ative [facility] Mucus Ql (Urine sed) PRESENT Abnormal NONE^NONE [facility] Nitrite Auto test strip Ql (U) Negative Negative^Neg ative [facility] pH (U) 6.0 [pH] 5.0 - 8.5 [facility] Protein (U) [Mass/Vol] Trace Abnormal Negative^Neg ative mg/dL [facility] RBC Auto (Urine sed) [#/Area] [facility] Specific gravity Refractometry automated (U) [Rel density] 1.029 1.003 - 1.035 [facility] Turbidity Ql (U) CLEAR CLEAR^CLEAR [facility] Urobilinogen Qn (U) NINF [facility] WBC Auto (Urine sed) [#/Area] 2 [facility] aPTT Coag (PPP) [Time]on aPTT Coag (Bld) [Time] 35 s Normal 26-37 [facility] Comment on above: Performed By: #### 1 988-5, 76893-8, 66617-6, 28526-5 #### [facility] ([id number]) [address] [place] [address] XR OSSEOUS SURVEY LIMITEDon 10-29-2023 XR OSSEOUS SURVEY LIMITED XR OSSEOUS SURVEY LIMITED 2 views of each hand HISTORY: Bilateral hand pain and swelling COMPARISON: None FINDINGS: No fracture. No malalignment. Joint spaces are preserved. No significant osteophyte formation. No osseous erosive changes. IMPRESSION: No osseous abnormalities in either hand. Finalized by Kenroy Stahl MD on 10/28/2023 10:04 PM Normal [facility] C-reactive proteinon 024 CRP [Mass/Vol] 1.4 mg/dL High 0.000 - 0.744 mg/dL [facility] CCP Abon 10-27-2023 Cyclic citrullinated peptide IgG Qn U/ML NINF - 3.0 U/ML [facility] Comment on above: Interpretation-------- <3 Negative >=3 Positive CRP [Mass/Vol]on 10-27-2023 Interpretation and review of laboratory results Abnormal [facility] C REACTIVE PROTEIN 1.4 mg/dL High 0.000-0.744 [facility] Comment on above: Performed By: #### 1 988-5, 70579-5, 72931-5, 35092-8 #### [facility] ([id number]) [address], [address] [place] [address] Cyclic citrullinated peptide IgG Qnon 10-27-2023 [facility] ESR Photometric method (Bld) [Velocity]on 10-27-2023 Interpretation and review of laboratory results Abnormal [facility] ESR, ERYTHROCYTE SEDIMENTATION RATE 42 mm/h High 0-30 [facility] Comment on above: Performed By: #### 1 988-5, 62729-9, 04956-6, 07207-4 #### [facility] ([id number]) [address], [address] [place] [address] Erythrocyte Sedimentation Ra te (ESR)on 10-27-2023 ESR Photometric method (Bld) [Velocity] 42 mm/h High 0 - 30 mm/h [facility] Rheumatoid factoron 10-27-19 24 Rheumatoid factor Nephelometry Qn (S) NINF [facility] Rheumatoid factor Nephelomet ry Qn (S)on 10-27-2023 [facility] RHEUMATOID FACTOR <10 Normal <20 [facility] Comment on above: Performed By: #### 1 988-5, 42952-0, 18322-3, 02964-5 #### [facility] ([id number]) [address], [address] [place] [address] XR CHEST 2 VWSon 10-16-2023 XR CHEST [...] Edge MD on 10/16/2023 5:12 PM Normal [facility] XR Chest PA and Lateralon Chest 2 views History: Anesthesia clearance, preadmission testing, personal history of tobacco use Pre-op testing; Spinal stenosis of lumbar region, unspecified whether neurogenic claudication present Comparison: 10/23/2021 Findings: Chest 2 views. Stable cardiomediastinal silhouette. No focal opacity, effusion or pneumothorax. Impression: No evident acute cardiopulmonary process. Finalized by Ángel Edge MD on 10/16/2023 5:12 PM [facility] Ángel Edge MD - 10/16/2023 Chest 2 views History: Anesthesia clearance, preadmission testing, personal history of tobacco use Pre-op testing; Spinal stenosis of lumbar region, unspecified whether neurogenic claudication present Comparison: 10/23/2021 Findings: Chest 2 views. Stable cardiomediastinal silhouette. No focal opacity, effusion or pneumothorax. Impression: No evident acute cardiopulmonary process. Finalized by Ágnel Edge MD on 10/16/2023 5:12 PM [facility] Radiology Study observation (narrative) [facility] XR Chest PA and LateralOrder ed By: Ángel Edge on 10-16-2023 [facility] Work Phone: MRI LUMBAR SPINE W WO [...] is incompletely characterized. Correlate with pelvic ultrasound. [employer] Phone: MRI lumbar spine without and with [...] nodules. Correlate with ultrasound of the pelvis. Access Systems Work Phone: Kory, po Incoming Radiant Results From [employer] - 05/28/2021 9:12 PM EDT MRI lumbar [...] of the r (more content not included)... [employer] Work Phone: [employer] Phone: MRI LUMBAR SPINE W WO CONTRA [...] of soft t (more content not included)... [facility] PROGRESSon 02-01-2020 PROGRESS HNO ID: [id number] Author: Alanna Rodriguez Service: ? Author Type: [...] talking face to face. Alanna Rodriguez MD [facility] 01-07-2020 CNPN Telephone ([employer]) CANDE RAHMAN ([id number]) 1970 F Date Time Provider Department 01/07/20 ALANNA RODRIGUEZ [facility] During your visit today, we recorded the following information about you: Alanna Rodriguez MD 01/07/2020 1:17 PM Signed Please print out CMP and CBC requests and fax to following numbers: Lab Fax number : [phone] Doctors office : [phone] Vickie Bean Ma 01/07/2020 1:37 PM Signed [...] Status:Closed by VICKIE BEAN MA on 01/07/20 [facility] 01-03-2020 [facility] Telephone ([facility]) CANDE RAHMAN ([id number]) 1970 F Date Time Provider Department 01/03/20 ALANNA RODRIGUEZ [facility] During your visit today, we recorded the [...] to ED outside facility, she lives in [facility]. CT scan there reviewed : perinephric stranding and no pelvicalyceal or ureteric dilatation. No free fluid in pelvis or no abscess in pelvis. CBC ; WBC : 13 with left shift. Creatinine 1.9 UA : moderate blood and protein qnd leucs ++, urine culture : [phone] normal urogenital rocio. She was given cipro and flagyl for vaginal discharge. She was discharged on 01/01 with keflex and is her pain is completely gone and feels better, no fevers, normal GI and urinary function. No abdominal distention. Advised to call PCP at [place] and get repeat CBC and CMP ERUM. If needed will see her this week for further evaluations. Answered all her questions. Allergies As of Date: 01/03/2020 (No Known Allergies) Date Reviewed: 12/27/2019 Reviewed by: Mars Mei LPN - Fully Assessed Reason for Visit: Question [2497] Prescriptions as of 01/03/2020 Sig: CIPROFLOXACIN 500 [...] by ALANNA RODRIGUEZ MD on 01/04/20 Normal [facility] CNOVon 12-27-2019 CNOV Office Visit ([facility] ) CANDE RAHMAN ([id number]) 1970 F Date Time Provider Department 12/27/19 3:00 PM ALANNA RODRIGUEZ [facility] During your visit today, we recorded the following information about you: Blood pressure Weight 108/70 78.1 kg Mars Mei FACS TEACHER 12/27/2019 2:35 PM Signed Mechanical Energy Engineer offered: Patient declines. Alanna Rodriguez MD 12/27/2019 [...] Dec 27, 2019 2:31 PM Status: Signed Mechanical Energy Engineer offered: Patient declines. Prescriptions ordered this encounter [...] by ALANNA RODRIGUEZ MD on 12/27/19 Normal [facility] PROGRESSon 12-27-2019 PROGRESS HNO ID: [id number] Author: Alanna Rodriguez Service: ? Author Type: [...] in 4-6 weeks Alanna Rodriguez MD Normal [facility] Basic Metabolic Panlon 12-15 Anion gap [Moles/Vol] 8 mmol/L Normal 0-15 [facility] Comment on above: Performed By: #### C BC, BMP ####[address] [place]., [place] [phone] Calcium [Mass/Vol] 8.6 mg/dL Normal 8.5-10.2 [facility] Comment on above: Performed By: #### C BC, BMP ####[address] [place]., [place] [phone] Chloride [Moles/Vol] 106 mmol/L High 97-105 [facility] Comment on above: Performed By: #### C BC, BMP ####[address] [place]., [place] [phone] CO2 [Moles/Vol] 26 mmol/L Normal 22-30 [facility] Comment on above: Performed By: #### C BC, BMP ####[address] [place] [phone] Creatinine [Mass/Vol] 0.89 mg/dL Normal 0.58-0.96 [facility] Comment on above: Performed By: #### C BC, BMP ####[address] [place]., [place] [phone] eGFR- Amer. >60 Normal >60 [facility] Comment on above: Performed By: #### C BC, BMP ####[address] [place]., [place] [phone] GFR/1.73 sq M predicted among non-blacks MDRD (S/P/Bld) [Vol rate/Area] mL/min/{1.73_m2} Normal >60 [facility] Comment on above: Result Comment: eGFR (Estimated GFR) Units of measure: mL/min/1.73 meters squared eGFR is derived from the reexpressed MDRD Study equation using the following parameters: serum creatinine, age, gender and race. The creatinine assay has been calibrated to be traceable to IDHI. An eGFR <60 mL/min/1.73m2 for >3 months is consistent with chronic kidney disease. Refer to KDOQI guidelines for clinical interpretation. In patients with unstable renal function, e.g. those with acute kidney injury, the eGFR may not accurately reflect actual GFR. Performed By: #### C BC, BMP ####[address]., [place] [phone] Glucose [Mass/Vol] 92 mg/dL Normal 74-99 [facility] Comment on above: Performed By: #### C BC, BMP ####[address] [place] [phone] Potassium [Moles/Vol] 4.2 mmol/L Normal 3.7-5.1 [facility] Comment on above: Performed By: #### C BC, BMP ####[address] [place] [phone] Sodium [Moles/Vol] 140 mmol/L Normal 136-144 [facility] Comment on above: Performed By: #### C BC, BMP ####[address] [place] [phone] Urea nitrogen [Mass/Vol] 7 mg/dL Normal 7-21 [facility] Comment on above: Performed By: #### C BC, BMP ####[address] [place] [phone] CBCon 12-15-2019 Absolute nRBC <0.01 Normal <0.01 [facility] Comment on above: Performed By: #### C BC, BMP ####[address] [place] [phone] Erythrocyte distribution width (RBC) [Ratio] 13.2 % Normal 11.5-15.0 [facility] Comment on above: Performed By: #### C BC, BMP ####[address] [place] [phone] Hematocrit (Bld) [Volume fraction] 38.0 % Normal 36.0-46.0 [facility] Comment on above: Performed By: #### C BC, BMP ####[address] [place] [phone] Hemoglobin (Bld) [Mass/Vol] 12.5 g/dL Normal 11.5-15.5 [facility] Comment on above: Performed By: #### C BC, BMP ####[address] [place] [phone] MCH (RBC) [Entitic mass] 31.6 pG Normal 26.0-34.0 [facility] Comment on above: Performed By: #### C BC, BMP ####[address] [place] [phone] MCHC (RBC) [Mass/Vol] 32.9 g/dL Normal 30.5-36.0 [facility] Comment on above: Performed By: #### C BC, BMP ####[address] [place] [phone] MCV (RBC) [Entitic vol] 96.2 fL Normal 80.0-100.0 [facility] Comment on above: Performed By: #### C BC, BMP ####[address] [place] [phone] Platelet mean volume (Bld) [Entitic vol] 10.2 fL Normal 9.0-12.7 [facility] Comment on above: Performed By: #### C BC, BMP ####[address] [place] [phone] Platelets (Bld) [#/Vol] 217 10*3/uL Normal 150-400 [facility] Comment on above: Performed By: #### C BC, BMP ####[facility] [facility]., [place] [phone] RBC (Bld) [#/Vol] 3.95 10*6/uL Normal 3.90-5.20 [facility] Comment on above: Performed By: #### C BC, BMP ####[facility] [facility] [place]., [place] [phone] WBC (Bld) [#/Vol] 8.29 10*3/uL Normal 3.70-11.00 [facility] Comment on above: Performed By: #### C BC, BMP ####[facility] [facility]., [place] [phone] NURSING PROGon 12-15-2019 NURSING PROG HNO ID: [id number] Author: Racquel TinajeroRn) NEREYDA Winchester Service: Nursing Author Type: Registered Nurse Type: Nursing Progress Note Filed: 12/15/2019 7:29 AM Note Text: Nursing Progress Note Patient Name: Cande Rahman Patient Location: [id number]/[address]01 __ Daily Note: 0700- Assumed patient care, patient awake, alert no signs or symptoms of distress, bed locked and lowered call light within reach will continue to monitor This note was completed by: Racquel Winchester RN [facility] PROGRESSon 12-15-2019 PROGRESS HNO ID: [id number] Author: Gabriella Harris Service: Gynecology Author Type: [...] of care discussed with patient and nurse [facility] ANES Yi 12-14-2019 ANES POST HNO ID: [id number] Author: Ike Medina Service: Anesthesiology Author Type: [...] 14, 2019 TIME: 1:06 PM PAGER/CONTACT #: [phone] [facility] ANES PREOPon 12-14-2019 ANES PREOP HNO ID: [id number] Author: Ike Medina Service: Anesthesiology Author Type: [...] 0.5 mg by mouth twice daily. - [place] Aspartate 20 mg cap Take 1 capsule [...] December 14, 2019 TIME: 7:37 AM CSN: [id number] [facility] Confirm Blood Typeon 020 ABO/RH(D) Positive [facility] Comment on above: Performed By: #### C ONABO #### [facility] [address] [place] [address] HISTORY PHYSICALon 0 HISTORY PHYSICAL HNO ID: [id number] Author: Di Rahman (Pa) Service: Gastroenterology Author Type: Physician Tare Worker Type: HANDP Filed: 12/14/2019 7:38 AM Note [...] mouth twice daily. Unknown at Unknown time [place] Aspartate 20 mg cap Take 1 capsule [...] ASSESSMENT: Pain Pain Level: 0 Pain Assessment (RN/FACS TEACHER): Assessment Tool: Verbal (Numeric Rating or Visual Analog Scale) General: No weight loss, malaise or fevers. Neuro: No history of TIA's, stroke, PRODUCTION TRUCK DRIVER tumor, impaired sensorium, hemiplegia, paraplegia or quadraplegia. No neurological symptoms or problems. Respiratory: No history of current cough or dyspnea, or pneumonia in the past 6 weeks. No history of respiratory/pulmonary symptoms or problems. Cardiovascular: No history of HTN requiring medication, no history of angina, CHF, [place], cardiac surgery or stents. Denies rest pain, gangrene or revascularization/ampu tation for PVD. No history of cardiovascular symptoms or problems. GI: No history of GI symptoms or problems. No history of esophageal varices, recent ascites, or ETOH greater than 2 drinks per day. : No history of dysuria, frequency or incontinence,, stones or chronic kidney disease CURRICULUM AND ASSESSMENT COORDINATOR: See HPI : Not due to recent [...] 14, 2019 TIME: 7:15 AM PAGER/CONTACT #: [facility] NURSING PROGon 12-14-2019 NURSING PROG HNO ID: [id number] Author: Racquel TinajeroRn) NEREYDA Winchester Service: Nursing Author Type: Registered Nurse Type: Nursing Progress Note Filed: 12/14/2019 3:25 PM Note Text: Nursing Progress Note Patient Name: Cande Rahman Patient Location: [id number]/[address] __ Daily Note: 1515- Assumed patient care, patient arrived from PACU awake, alert no signs of distress bed locked and lowered call light within reach will continue to monitor This note was completed by: Racquel Winchester RN [facility] OPERATIVE NOon 12-14-2019 OPERATIVE NO HNO ID: [id number] Author: Alanna Rodriguez Service: Gynecology Author Type: Physician Type: Operative Report Filed: 12/17/2019 4:04 PM Note Text: Log ID: [id number] Surgery/Procedure Date: 12/14/2019 Incision/Procedure Start Time: 8:37 AM Incision Close/Procedure End Time: 10:41 AM Surgeon(s) and Tare Worker(s): Surgeon(s) and Role: * Alanna Rodriguez - Primary Physician Tare Worker: Di Rahman (Pa) Senior Interactive Developer: Manish Mann No qualified residents avaialble Procedures [...] 14, 2019 TIME: 11:14 AM PAGER/CONTACT #: [phone] [facility] PT EDon 12-14-2019 PT ED HNO ID: [id number] Author: Imani (Rn) NEREYDA Hale Service: ? [...] Signed By: Imani Hale RN In Department: [facility] SURGERY Normal [facility] SURGICAL PATHOLOGYon 020 SURGICAL PATHOLOGY Specimen #: [id number] Submitting Physician: ALANNA RODRIGUEZ MD FINAL [...] end also has a normal villous appearance. Incident Response Consultant sections are submitted as follows: A1 anterior cervix; A2 posterior cervix; A3 anterior uterine wall; A4 posterior uterine wall; A5-A6 right fallopian tube, totally submitted; A7-A8 left fallopian tube, totally submitted. KIANA/elisabet/12/15/19 Gross examination performed at [facility], [address] [place] [id number] Date of Report: 12/17/2019 Date of Procedure: 12/14/2019 Date of Receipt: 12/14/2019 Submitted by: ALNANA RODRIGUEZ MD Location: [facility] Diagnostic interpretation performed at [facility], [address] [place] [address]. CLIA Number: [id number] [facility] Type and Screenon 12-14-2019 ABO/RH(D) Positive [facility] Comment on above: Performed By: #### T SCR #### [facility] [address] [place] [phone] [facility] 11-22-2019 CNPN Telephone ([facility]) CANDE RAHMAN ([id number]) 1970 F Date Time Provider Department 11/22/19 ALANNA RODRIGUEZ [facility] During your visit today, we recorded the following information about you: Lula Peres RN 11/22/2019 4:11 PM Signed Pt called in today , she is scheduled for surgery tomorrow and was not able to get all of her medical clearance. Pt was seeing her pcp in [place] and they requested a CT of the [...] that were done by her pcp in [place] to the office so they can be uploaded into her chart. Advised to keep us informed of status of scheduling her CT scan and will plan on new surgical date of 12-14-2019. Lula Peres RN Cece Shepherd RN 11/23/2019 3:02 PM Signed Records received from [facility] in [place]. Placed on Dr. Rodriguez's desk for review [...] by LULA PERES RN on 11/22/19 Normal [facility] CNCOon 11-03-2019 CNCO HNO ID: [id number] Author: Mammography Coordinator Service: ? Author Type: Physician Type: Letter Filed: 11/04/2019 11:35 PM Note Text: November 03, 2019 PID: [id number] Cande Rahman [address] [place] [address] Dear Ms. Rahman, We are pleased to [...] report will be kept on file at [facility] as part of your permanent medical record and are available for your continuing care. Thank you for allowing us to help in meeting your health care needs. Sincerely, Dr. Heaton Interpreting Radiologist [facility] (Normal over 40) Normal [facility] CNOVon 11-03-2019 CNOV Office Visit (ENDOSO ) CANDE RAHMAN ([id number]) 1970 F Date Time Provider Department 11/03/19 [...] mouth every 6 hours as needed. - [place] Aspartate 20 mg cap Take 1 capsule [...] her thyroid function. Plan for hysterectomy by CURRICULUM AND ASSESSMENT COORDINATOR -TSH only mildly elevated. We will repeat labs today with thyroid antibodies. If still elevated to start a low dose levothyroxine and we can repeat free t4/tsh at the end of October prior to surgery. Gabriella Wang MD Endocrinology Staff [phone] can leave a message on her phone Referring Provider: ALANNA RODRIGUEZ [[id number]] Allergies As of Date: 11/03/2019 (No Known Allergies) Date Reviewed: 11/03/2019 Reviewed by: Trinity Shen Ma - Fully Assessed Reason for Visit: New Patient [172] Primary Visit Diagnosis:Other specified hypothyroidism [E03.8] Other Visit Diagnosis:Constipation , unspecified constipation type [K59.00] Order(s):TSH BLD [SQTSH] Order #: [id number] FUTURE T4 FREE/FREE THYROX [SQFT4] Order #: [id number] FUTURE THYROID PEROXIDASE ANTIBODY BLOOD [SQMICRO] Order #: [id number] FUTURE THYROGLOBULIN AB [SQTGAB] Order #: [id number] FUTURE Prescriptions as of 11/03/2019 Sig: OXYBUTYNIN [...] by GABRIELLA WANG MD on 11/03/19 Normal [facility] Free T4on 11-03-2019 Free T4 [Mass/Vol] 1.0 ng/dL Normal 0.9-1.7 [facility] Comment on above: Performed By: #### F T4, TSH, TGAB, MICRO ####[facility] [address] [place], [place] [phone] [facility] SCREENINGon 11-03-2019 [facility] SCREENING * * *Final Report* * * DATE OF EXAM: Nov 03 2019 3:04PM SOW 0581 - [facility] SCREENING / PROCEDURE REASON: Encounter for screening mammogram for malignant neoplasm of breast * * * * Physician Interpretation * * * * RESULT: #[id number] - [facility] SCREENING BILATERAL DIGITAL SCREENING MAMMOGRAM WITH CAD: [...] is recommended. Adriane Heaton M.D., lp/penrad:11/03/2019 16:30:11 Supervisor Plating And Point Assembly(s): [facility]aw[facility] letter sent: Normal over 40 Mammogram BI-RADS: [...] Health, Family Medicine, and Medical/Surgical Oncology, the [facility] has carefully reviewed the data and [...] their providers when to stop screening mammograms. Shovel Mechanic: Tawnya Transcribe Date/Time: Nov 03 2019 2:42P Dictated by: ADRIANE HEATON MD This examination was interpreted and the report reviewed and electronically signed by: ADRIANE HEATON MD on Nov 03 2019 4:30PM EST [id number] Normal [facility] PROGRESSon 11-03-2019 PROGRESS HNO ID: [id number] Author: Jose Ramon Benz (Tech) Service: ? Author Type: Pc Network Technician Type: Progress Notes Filed: 11/03/2019 3:05 PM [...] Benz November 03, 2019 3:05 PM Normal [facility] PROGRESS HNO ID: [id number] Author: Gabriella Wang Service: ? Author Type: [...] mouth every 6 hours as needed. - [place] Aspartate 20 mg cap Take 1 capsule [...] her thyroid function. Plan for hysterectomy by CURRICULUM AND ASSESSMENT COORDINATOR -TSH only mildly elevated. We will repeat labs today with thyroid antibodies. If still elevated to start a low dose levothyroxine and we can repeat free t4/tsh at the end of October prior to surgery. Gabriella Wang MD Endocrinology Staff [phone] can leave a message on her phone Normal [facility] TPO Antibodyon 11-03-2019 TPO Antibody <1.0 Normal <5.6 [facility] Comment on above: Performed By: #### F T4, TSH, TGAB, MICRO ####[facility] [place], [place] [phone] TSHon 11-03-2019 TSH Qn 1.400 uU/mL Normal 0.270-4.200 [facility] Comment on above: Result Comment: If [...] E, et al. 2017 Guidelines of the [place] Thy[employer] Association for the Diagnosis and Management of Thyroid Disease during and the . Thyroid, 2017:27:3:315-389. Performed By: #### F T4, TSH, TGAB, MICRO ####[facility] [place], [place] [phone] Thyroglobulin Abon 0 Thyroglobulin Ab Qn 1.4 [IU]/mL Normal <14.4 [facility] Comment on above: Performed By: #### F T4, TSH, TGAB, MICRO ####[facility] [place], [place] [phone] CNOVon 10-07-2019 CNOV Office Visit (OBGYSO ) CANDE RAHMAN ([id number]) 1970 F Date Time Provider Department 10/07/19 [...] mouth once daily.Disp: Rfl: CONSULT TO PCP [[id number]] Order #: [id number]: 1 FUTURE SURGICAL REQUEST - ELECTIVE [[id number]] Order #: [id number]: 1 PORTER SCREENING [[id number]] Order #: [id number] FUTURE Prescriptions as of 10/07/2019 Sig: DIVALPROEX 500 MG TABLET,OSFIA* Take 500 mg by mouth three ti* [...] Status:Closed by ALANNA RODRIGUEZ MD on 10/07/19 [facility] 10-07-2019 HOSP Patient:Sally Rahman MRN: Height:5' 6 (1.676 m) Weight:No patient weight recorded within the last 30 days. Outpatient Medications as of 12/14/19: oxybutynin ER (DITROPAN XL) 10 mg 24 hr tablet lurasidone (LATUDA) [address] (DEPAKOTE) 500 mg EC tablet LORazepam (ATIVAN) 0.5 mg tab [place] Aspartate 20 mg cap HYDROcodone-acetaminop hen (NORCO) [...] for the following basenames: K,HCT Progress Notes (ELECTRONICS HARDWARE DESIGN ENGINEER [facility]): Lula Peres RN 12/13/2019 10:12 AM Signed Spoke with [...] the hospital. Lula Peres RN Progress Notes (ELECTRONICS HARDWARE DESIGN ENGINEER [facility]): Lula Peres RN 11/22/2019 4:11 PM Signed Pt called in today , she is scheduled for surgery tomorrow and was not able to get all of her medical clearance. Pt was seeing her pcp in [place] and they requested a CT of the [...] that were done by her pcp in [place] to the office so they can be uploaded into her chart. Advised to keep us informed of status of scheduling her CT scan and will plan on new surgical date of 12-14-2019. Lula Shepherd RN 11/23/2019 3:02 PM Signed Records received from [facility] in [place]. Placed on Dr. Rodriguez's desk for review Adriana Peres RN also notified that records were received Will scan to chart once reviewed by . [facility] PROGRESSon 10-07-2019 PROGRESS HNO ID: [id number] Author: Alanna Rodriguez Service: ? Author Type: [...] face to face. Alanna Rodriguez MD Normal [facility] 09-17-2019 [facility] Telephone ([facility]) CANDE RAHMAN ([id number]) 1970 F Date Time Provider Department 09/17/19 [...] Status:Closed by ALANNA RODRIGUEZ MD on 09/17/19 [facility] FEMALE PELVIS TRANSVAGon 09-14-2019 US FEMALE PELVIS TRANSVAG * * *Final Report* * * DATE OF EXAM: Sep 14 2019 10:18AM [facility] - US FEMALE PELVIS TRANSVAG / [...] IMPRESSION: No ovarian torsion. Small fundal fibroid. Shovel Mechanic[facility] Transcribe Date/Time: Sep 14 2019 10:29A Dictated by : MY RICHARDSON MD This examination was interpreted and the report reviewed and electronically signed by: MY RICHARDSON MD on Sep 14 2019 10:32AM EST [id number] [facility] 09-13-2019 CNPN Telephone (bizk.it) CANDE RAHMAN ([id number]) 1970 F Date Time Provider Department 09/13/19 [...] endocrine phone number Currently driving. 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 in [place] Requesting a referral from Dr Rodriguez Advised pt a referral has been placed for endocrinology in the [facility] system Advised pt to first check [...] [E02] Order(s):CONSULT TO ENDOCRINOLOGY [9007] Order #: [id number]: 1 Prescriptions as of 09/13/2019 Sig: DIVALPROEX [...] Status:Closed by CHANTAL GÓMEZ on 09/14/19 Normal [facility] CBC and Differentialon 09-10 Abs Baso 0.05 k/uL Normal <0.11 [facility] Comment on above: Performed By: #### C BCDIF, CMP, TSH #### [place] [address] [place] [address] Abs [place] 0.68 k/uL Normal <0.87 [facility] Comment on above: Performed By: #### C BCDIF, CMP, TSH #### [place] [address] [place] [address] Abs Neut 7.04 k/uL Normal 1.45-7.50 [facility] Comment on above: Performed By: #### C BCDIF, CMP, TSH #### [place] [address] [place] [address] Absolute nRBC <0.01 Normal <0.01 [facility] Comment on above: Performed By: #### C BCDIF, CMP, TSH #### [place] [address] [place] [address] Basophils/100 WBC (Bld) 0.5 % Normal [facility] Comment on above: Performed By: #### C BCDIF, CMP, TSH #### [facility] [address] [place] [address] DTYPE Auto Diff Normal [facility] Comment on above: Performed By: #### C BCDIF, CMP, TSH #### [place] [address] [place] [id number] Eosinophils (Bld) [#/Vol] 0.10 10*3/uL Normal <0.46 [facility] Comment on above: Performed By: #### C BCDIF, CMP, TSH #### [facility] [address] [place], [place] [address] Eosinophils/100 WBC (Bld) 0.9 % Normal [facility] Comment on above: Performed By: #### C BCOSCARF CMP, TSH #### [facility] [address] [place], [place] [address] Erythrocyte distribution width (RBC) [Ratio] 12.3 % Normal 11.5-15.0 [facility] Comment on above: Performed By: #### C BCDIF CMP, TSH #### [place] [address] [place] [address] Hematocrit (Bld) [Volume fraction] 46.1 % High 36.0-46.0 [facility] Comment on above: Performed By: #### C BCDIF CMP, TSH #### [place] [id number] [place] [address] Hemoglobin (Bld) [Mass/Vol] 14.9 g/dL Normal 11.5-15.5 [facility] Comment on above: Performed By: #### C BCGENESIS CMP, TSH #### [place] [address] [place], [place] [address] Lymphocytes (Bld) [#/Vol] 3.02 10*3/uL Normal 1.00-4.00 [facility] Comment on above: Performed By: #### C BCDIF CMP, TSH #### [place] [address] [place], [place] [address] Lymphocytes/100 WBC (Bld) 27.7 % Normal [facility] Comment on above: Performed By: #### C BCDIF CMP, TSH #### [place] [address] [place], [place] [address] MCH (RBC) [Entitic mass] 31.7 pG Normal 26.0-34.0 [facility] Comment on above: Performed By: #### C BCDIF CMP, TSH #### [facility] [address] [place], [place] [address] MCHC (RBC) [Mass/Vol] 32.3 g/dL Normal 30.5-36.0 [facility] Comment on above: Performed By: #### C BCDIF, CMP, TSH #### [facility] [address] [place] [address] MCV (RBC) [Entitic vol] 98.1 fL Normal 80.0-100.0 [facility] Comment on above: Performed By: #### C BCDIF, CMP, TSH #### [place] [address] [place] [address] Monocytes/100 WBC (Bld) 6.2 % Normal [facility] Comment on above: Performed By: #### C BCDIF, CMP, TSH #### [place] [address] [place] [address] Neutrophils/100 WBC (Bld) 64.7 % Normal [facility] Comment on above: Performed By: #### C BCDIF, CMP, TSH #### [place] [address] [place] [address] NRBCs 0.0 /100 WBC Normal 0 [facility] Comment on above: Performed By: #### C BCDIF, CMP, TSH #### [place] [address] [place] [address] Platelet mean volume (Bld) [Entitic vol] 10.2 fL Normal 9.0-12.7 [facility] Comment on above: Performed By: #### C BCDIF, CMP, TSH #### [place] [address] [place] [address] Platelets (Bld) [#/Vol] 316 10*3/uL Normal 150-400 [facility] Comment on above: Performed By: #### C BCDIF, CMP, TSH #### [facility] [address] [place], [place] [address] RBC (Bld) [#/Vol] 4.70 10*6/uL Normal 3.90-5.20 [facility] Comment on above: Performed By: #### C BCDIF, CMP, TSH #### [facility] [address] [place], [place] [address] WBC (Bld) [#/Vol] 10.89 10*3/uL Normal 3.70-11.00 [facility] Comment on above: Performed By: #### C BCDIF, CMP, TSH #### [facility] [address] [place], [place] [address] CNOVon 09-10-2019 CNOV Office Visit (OBGYSO ) CANDE RAHMAN ([id number]) 1970 F Date Time Provider Department 09/10/19 [...] 0.5 mg by mouth twice daily. - [place] Aspartate 20 mg cap Take 1 capsule [...] external genitalia normal, normal Bartholin's glands, urethra, Dresbach's glands, no vulvar lesions, no cervical lesions, [...] MA 09/10/2019 4:48 PM Signed Addended by: TREAS LAINEZ MA on: 09/10/2019 04:48 PM Modules [...] uterus [D25.1] Secondary dysmenorrhea [N94.5] Order(s):SURGICAL PATHOLOGY [3799587] Order #: [id number] FEMALE PELVIS TRANSVAG [[id number]] Order #: [id number] FUTURE CBC + DIFF [SQCBCDIF] Order #: [id number] FUTURE COMP METABOLIC PANEL [SQCMP] Order #: [id number] FUTURE TSH BLD [SQTSH] Order #: [id number] FUTURE PAP FLUID CERVICAL SCREENING [[id number]] Order #: [id number] HCG QUAL UR B/O [[id number]] Order #: [id number] Prescriptions as of 09/10/2019 Sig: DIVALPROEX 500 [...] by ALANNA RODRIGUEZ MD on 09/10/19 Normal [facility] CYTOLOGYon 09-10-2019 CYTOLOGY ADDITIONAL PROCEDURES PRESENT Specimen originated from [facility] Specimen #: [id number] Submitting Physician: ALANNA RODRIGUEZ SPECIMEN SUBMITTED A: [...] from every slide are reviewed by a binding folder machine. GERALD Jin(ASCP) (Electronic Signature) _ ADDITIONAL PROCEDURE(S) HUMAN PAPILLOMA VIRUS Date Ordered: 09/13/2019 Date Reported: 09/15/2019 Procedure Results and Interpretation Negative for HPV DNA high risk type 16 by PCR. Negative for HPV DNA high risk type 18 by PCR. Negative for HPV DNA high risk types: 31,33,35,39,45,51,52,5 6,58,59,66,68 by PCR. This test was developed and its performance characteristics determined by [facility]'s [facility]ology [facility] [place] ([facility] It has not been cleared or approved by the FDA. [facility] is regulated under CLIA as qualified to perform high-complexity testing. This test is used for clinical purposes. It should not be regarded as investigational or for research. CLINICAL DATA ROUTINE EXAM, HPV Testing: Yes, automatic HPV patients over 30 Date of Last Menstrual Period: 09/10/2019 GROSS DESCRIPTION Glacial Acetic Acid added. STAINS A: CERVICAL, SCREENING, FLUID THIN PREP CURRICULUM AND ASSESSMENT COORDINATOR x 2 Blane Singh M.D., Social Services Coordinator Date of Report: 09/20/2019 Date of Procedure: 09/10/2019 Date of Receipt: 09/13/2019 Submitted by: ALANNA RODRIGUEZ Location: [facility] Diagnostic interpretation performed at [place] [address]. CLIA Number: [id number] The Pap Smear is a screening test for cervical cancer. False negative results occur with all screening tests, emphasizing the need for rescreening at recommended intervals, and clinical correlation. Normal [facility] Comp Metabolic Panelon 09-10 Albumin [Mass/Vol] 4.3 g/dL Normal 3.9-4.9 [facility] Comment on above: Performed By: #### C BCDIF, CMP, TSH #### [place] [address] ALP [Catalytic activity/Vol] 56 U/L Normal 34-123 [facility] Comment on above: Performed By: #### C BCDIF, CMP, TSH #### [place] [id number] ALT [Catalytic activity/Vol] 20 U/L Normal 7-38 [facility] Comment on above: Performed By: #### C BCDIF, CMP, TSH #### [place] [id number] Anion gap [Moles/Vol] 12 mmol/L Normal 9-18 [facility] Comment on above: Performed By: #### C BCDIF, CMP, TSH #### [place] [address] AST [Catalytic activity/Vol] 17 U/L Normal 13-35 [facility] Comment on above: Performed By: #### C BCDIF, CMP, TSH #### [place] [address] [place] [address] Bilirubin [Mass/Vol] mg/dL Low 0.2-1.3 [facility] Comment on above: Performed By: #### C BCDIF CMP, TSH #### [facility] [address] [place] [address] Calcium [Mass/Vol] 10.0 mg/dL Normal 8.5-10.2 [facility] Comment on above: Performed By: #### C BCDIF, CMP, TSH #### [place] [address] [place] [address] Chloride [Moles/Vol] 100 mmol/L Normal 97-105 [facility] Comment on above: Performed By: #### C BCDIF CMP, TSH #### [place] [address] [place] [address] CO2 [Moles/Vol] 27 mmol/L Normal 22-30 [facility] Comment on above: Performed By: #### C BCDIF, CMP, TSH #### [place] [address] [place] [phone] Creatinine [Mass/Vol] 0.90 mg/dL Normal 0.58-0.96 [facility] Comment on above: Performed By: #### C BCDIF CMP, TSH #### [facility] [address] [place] [address] eGFR- Amer. >60 Normal [facility] Comment on above: Performed By: #### C BCDIF, CMP, TSH #### [place] [address] [place] [address] GFR/1.73 sq M predicted among non-blacks MDRD (S/P/Bld) [Vol rate/Area] mL/min/{1.73_m2} Normal [facility] Comment on above: Result Comment: eGFR [...] By: #### C SLOAN MCKAY, TSH #### [facility] [address] [place], [place] [address] Glucose [Mass/Vol] 89 mg/dL Normal 74-99 [facility] Comment on above: Result Comment: The [place] Diabetes Association (ADA) provides guidance for cutoff [...] Standards of Medical Care in Diabetes 2016, [place] Diabetes Association. Diabetes Care. 2016.39(Suppl 1). Performed By: #### C SLOAN MCKAY, TSH #### [facility] [address] [place], [place] [address] Potassium [Moles/Vol] 4.3 mmol/L Normal 3.7-5.1 [facility] Comment on above: Performed By: #### C SLOAN MCKAY, TSH #### [facility] [address] [place], [place] [address] Protein [Mass/Vol] 7.5 g/dL Normal 6.3-8.0 [facility] Comment on above: Performed By: #### C BCSLOAN HURTADO, TSH #### [facility] [address] [place], [place] [address] Sodium [Moles/Vol] 139 mmol/L Normal 136-144 [facility] Comment on above: Performed By: #### C BCOSCARF, CMP, TSH #### [facility] [address] [place], [place] [address] Urea nitrogen [Mass/Vol] 14 mg/dL Normal 7-21 [facility] Comment on above: Performed By: #### C BCOSCARF, CMP, TSH #### [facility] [address] [place], [place] [address] HPV w/Genotypeon 09-10-2019 HPV HighRisk Other Negative for HPV DNA high risk types: 31,33,35,39,45,51,52,5 6,58,59,66,68 by PCR. Normal [facility] Comment on above: Result Comment: This test was developed and its performance characteristics determined by [facility]'s [facility] Pathology and Laboratory [facility] [place] ([facility]). It has not been cleared or approved by the FDA. [facility] is regulated under CLIA as qualified to perform high-complexity testing. This test is used for clinical purposes. It should not be regarded as investigational or for research. Performed By: #### H PVHRR ####[address] [phone] HPV HighRisk Type 16 Negative Normal [facility] Comment on above: Performed By: #### H PVHRR ####[facility] [place], [place] [phone] HPV HighRisk Type 18 Negative Normal [facility] Comment on above: Performed By: #### H PVHRR ####[place] [address] [place], [place] [phone] PROGRESSon 09-10-2019 PROGRESS HNO ID: [id number] Author: Alanna Rodriguez Service: ? Author Type: [...] 0.5 mg by mouth twice daily. - [place] Aspartate 20 mg cap Take 1 capsule [...] external genitalia normal, normal Bartholin's glands, urethra, Dresbach's glands, no vulvar lesions, no cervical lesions, [...] discuss future follow-up. Alanna Rodriguez MD Normal [facility] SURGICAL PATHOLOGYon 019 SURGICAL PATHOLOGY Specimen originated from [facility] Specimen #: [id number] Submitting Physician: ALANNA RODRIGUEZ FINAL DIAGNOSIS Endometrium, biopsy - Secretory endometrium with stromal breakdown. GZ/shr 09/13/2019 Stephanie Magallon M.D. (Electronic Signature) _ SPECIMEN SUBMITTED A: ENDOMETRIAL CAVITY BIOPSY CLINICAL DATA MENORRHAGIA GROSS DESCRIPTION A. Received in alcoholic formalin are multiple red-brown segments of hemorrhagic material aggregating to 2.2 x 2.2 x 0.5 cm. Totally submitted in one cassette. Gross examination performed at [facility], [address] [place] [address] 09/10/2019 11:47:43 PM Date of Report: 09/15/2019 Date of Procedure: 09/10/2019 Date of Receipt: 09/10/2019 Submitted by: ALANNA RODRIGUEZ Location: [facility] [place] [place] Diagnostic interpretation performed at [place] [address]. CLIA Number: [id number] Normal [facility] TSHon 09-10-2019 TSH Qn 5.700 uU/mL High 0.270-4.200 [facility] Comment on above: Result Comment: If [...] Arellano, et al. 2017 Guidelines of the [place] Thyroid Association for the Diagnosis and Management of Thyroid Disease during and the . Thyroid, 2017:27:3:315-389. Performed By: #### C BCDIF, CMP, TSH #### [facility] [address] [place], [place] [address] ED NOTEon 09-07-2019 ED NOTE HNO ID: [id number] Author: Nash TinajeroRn) NEREYDA Ocampo Service: Emergency Medicine Author Type: Registered Nurse Type: ED Notes Filed: 09/07/2019 3:08 PM Note Text: Discharge instructions/follow-up reviewed. All additional questions or concerns addressed at this time. Patient instructed to return to Emergency Department if experiencing worsening symptoms. Patient verbalized understanding. Patient alert, oriented, respirations easy and unlabored. Normal [facility] ED PROV NOTEon 09-07-2019 ED PROV NOTE HNO ID: [id number] Author: Fior Lucio MD Service: Emergency Medicine [...] oxygenation. Exam benign. Made f/up order for obstetrics gynecology md with their assistance. dc Signature: January Junior [...] fevers, or chills. States she went to [facility] last , and had CT imaging and [...] Patient brings in medical records from recent [facility] ED visit on 09/02/[address] [...] 1509 January Junior MD 09/07/19 1540 Normal [facility] Vital Signs Date Time Vital Sign Value Performing Clinician Facility 03-15-2025 14:16-040 Body height 167.6 cm Theodore TAYLOR Work Phone: [facility] 03-15-2025 14:16-040 Body mass index (BMI) [Ratio] 30.67 kg/m2 Theodore TAYLOR Work Phone: [facility] 03-15-2025 14:16-0400 Body weight 86.18 kg Theodore TAYLOR Work Phone: [facility] 01-10-2025 14:13-0400 Body height 167.6 cm Aditi Billy NP Work Phone: [facility] 01-10-2025 14:13-0400 Body mass index (BMI) [Ratio] 28.41 kg/m2 Aditi Milton [employer]SE HAND[employer]ER Work Phone: [facility] 01-10-2025 14:13-0400 Body weight 79.83 kg Aditi Milton [employer] HAND[employer] Work Phone: [facility] 12-30-2024 11:14-0400 Body height 167.6 cm Cady Fernández MD Work Phone: [facility] 12-30-2024 11:14-0400 Body mass index (BMI) [Ratio] 30.04 kg/m2 Cady Fernández MD Work Phone: [facility] 12-30-2024 11:14-0400 Body weight 84.37 kg Cady Fernández MD Work Phone: [facility] 12-30-2024 11:14-0400 Respiratory rate 18 /min Cady Fernández MD Work Phone: [facility] 07-01-2024 10:49-0400 Body height 167.6 cm Cady Fernández MD Work Phone: [facility] 07-01-2024 10:49-0400 Body mass index (BMI) [Ratio] 33.1 kg/m2 Cady Fernández MD Work Phone: [facility] 07-01-2024 10:49-0400 Body weight 92.99 kg Cady Fernández MD Work Phone: [facility] 07-01-2024 10:49-0400 Respiratory rate 18 /min Cady Fernández MD Work Phone: [facility] 06-08-2024 13:40-0400 Body height 167.6 cm Paty MCKEON Work Phone: [facility] 06-08-2024 13:40-0400 Body mass index (BMI) [Ratio] 34.22 kg/m2 Paty Silver CONSULTING GROUP ANALYST-NON LICENSED NUCLEAR EQUIPMENT OPERATOR Work Phone: [facility] 06-08-2024 13:40-0400 Body weight 96.16 kg Paty Silver CONSULTING GROUP ANALYST-NON LICENSED NUCLEAR EQUIPMENT OPERATOR Work Phone: [facility] 06-08-2024 13:40-0400 Diastolic blood pressure 67 mm[Hg] Paty Silver CONSULTING GROUP ANALYST-NON LICENSED NUCLEAR EQUIPMENT OPERATOR Work Phone: [facility] 06-08-2024 13:40-0400 Heart rate 102 /min Paty Silver CONSULTING GROUP ANALYST-NON LICENSED NUCLEAR EQUIPMENT OPERATOR Work Phone: [facility] 06-08-2024 13:40-0400 Systolic blood pressure 97 mm[Hg] Paty Silver CONSULTING GROUP ANALYST-NON LICENSED NUCLEAR EQUIPMENT OPERATOR Work Phone: [facility] 01-28-2024 12:50-0400 Body height 167.6 cm [facility] 2 [facility] 01-28-2024 12:50-0400 Body mass index (BMI) [Ratio] 34.7 kg/m2 [facility] 2 [facility] 01-28-2024 12:50-0400 Body weight 97.52 kg [facility] 2 [facility] 01-01-2024 15:29-0400 Body height 167.6 cm Guero Russ CONSULTING GROUP ANALYST-NON LICENSED NUCLEAR EQUIPMENT OPERATOR Work Phone: [facility] 01-01-2024 15:29-0400 Body mass index (BMI) [Ratio] 33.92 kg/m2 Gueromeghan Durbin CONSULTING GROUP ANALYST-NON LICENSED NUCLEAR EQUIPMENT OPERATOR Work Phone: [facility] 01-01-2024 15:29-0400 Body weight 95.25 kg Gueroeleazar Durbin CONSULTING GROUP ANALYST-NON LICENSED NUCLEAR EQUIPMENT OPERATOR Work Phone: [facility] 01-01-2024 15:29-0400 Diastolic blood pressure 82 mm[Hg] Guero Durbin CONSULTING GROUP ANALYST-NON LICENSED NUCLEAR EQUIPMENT OPERATOR Work Phone: [facility] 01-01-2024 15:29-0400 Heart rate 81 /min Guero Durbin CONSULTING GROUP ANALYST-NON LICENSED NUCLEAR EQUIPMENT OPERATOR Work Phone: [facility] [employer] [facility] 01-01-2024 15:29-0400 Systolic blood pressure 121 mm[Hg] Guero Durbin CONSULTING GROUP ANALYST-NON LICENSED NUCLEAR EQUIPMENT OPERATOR Work Phone: [facility] [employer] [facility] 01-01-2024 09:13-0400 Body height 167.6 cm Cady Fernández MD Work Phone: [facility] [employer] 01-01-2024 09:13-0400 Body mass index (BMI) [Ratio] 33.91 kg/m2 Cady Fernández MD Work Phone: [facility] [employer] 01-01-2024 09:13-0400 Body weight 95.25 kg Cady Fernández MD Work Phone: [facility] [employer] 01-01-2024 09:13-0400 Diastolic blood pressure 92 mm[Hg] [facility] 01-01-2024 09:13-0400 Respiratory rate 18 /min Cady Fern[facility]dez MD [facility] 01-01-2024 09:13-0400 Systolic blood pressure 133 mm[Hg] Cady Fernández MD Work Phone: [facility] [employer] 12-04-2023 07:23-0500 Body temperature 97.9 [degF] León [facility]connor [facility] 12-04-2023 07:23-0500 Diastolic blood pressure 57 mm[Hg] León [facility]connor MD [facility] 12-04-2023 07:23-0500 Heart rate 80 /min León Oconnor MD Work Phone: [facility] [employer] [facility] 12-04-2023 07:23-0500 SaO2% (BldA) [Mass fraction] 96 % León Oconnor MD Work Phone: [facility] 12-04-2023 07:23-0500 Systolic blood pressure 91 mm[Hg] León Oconnor MD Work Phone: [facility] 12-04-2023 05:20-0500 Respiratory rate 16 /min León Oconnor MD Work Phone: [facility] 12-03-2023 15:33-0500 Body height 167.6 cm León Oconnor MD Work Phone: [facility] 12-03-2023 15:33-0500 Body mass index (BMI) [Ratio] 34.44 kg/m2 León Oconnor MD Work Phone: [facility] 12-03-2023 15:33-0500 Body weight 96.8 kg León Oconnor MD Work Phone: [facility] 11-07-2023 13:37-0500 Body height 167.[address] [facility] [address] [place] [address] 11-07-2023 13:37-0500 Body mass index (BMI) [Ratio] 34.69 kg/m2 [facility] [address] [place] [address] 11-07-2023 13:37-0500 Body temperature 98.01 [degF] [facility] [address] [place] [address] 11-07-2023 13:37-0500 Body weight 97.5 kg [facility] 11-07-2023 13:37-0500 Diastolic blood pressure 81 mm[Hg] [facility] 11-07-2023 13:37-0500 Heart rate 95 /min [facility] 11-07-2023 13:37-0500 Respiratory rate 18 /min [facility] 11-07-2023 13:37-0500 SaO2% (BldA) [Mass fraction] 95 % [facility] 11-07-2023 13:37-0500 Systolic blood pressure 111 mm[Hg] [facility] 10-27-2023 10:47-0500 Body height 167.6 cm Cady Fernández MD [facility] 10-27-2023 10:47-0500 Body mass index (BMI) [Ratio] 34.72 kg/m2 Cady Fernández MD [facility] 10-27-2023 10:47-0500 Body weight 97.52 kg Cady Fernández MD Work Phone: [facility] [employer] 10-27-2023 10:47-0500 Diastolic blood pressure 74 mm[Hg] Cady Fern[facility]dez MD [facility] 10-27-2023 10:47-0500 Respiratory rate 18 /min Cady Fernández MD [facility] 10-27-2023 10:47-0500 Systolic blood pressure 128 mm[Hg] Cady Fernández MD Work Phone: [facility] [employer] 10-16-2023 14:53-0500 Body height 167.6 cm León Oconnor MD [facility] 10-16-2023 14:53-0500 Body mass index (BMI) [Ratio] 33.91 kg/m2 León Oconnor MD [facility] 10-16-2023 14:53-0500 Body weight 95.25 kg León [facility]connor MD [facility] 10-16-2023 14:53-0500 Diastolic blood pressure 85 mm[Hg] León Oconnor MD [facility] 10-16-2023 14:53-0500 Heart rate 95 /min León Oconnor MD Work Phone: [facility] [employer] [facility] 10-16-2023 14:53-0500 Systolic blood pressure 129 mm[Hg] León Oconnor MD Work Phone: [facility] Encounters Encounter Date Encounter Type Care Provider Facility Start: 04-15-2025 End: 04-15-2025 Bamboo flowsheet Aditi Billy [employer] HAND[employer] Work Phone: [facility] Start: 04-15-2025 End: 04-15-2025 Bamboo flowsheet Aditi Billy [employer] Work Phone: [facility] Start: 04-15-2025 End: 04-15-2025 Postop follow up visit related to original px Aditi Billy [employer]SE HAND[employer]ER Work Phone: [facility] Comment on above: Status post arthrosc opy of left shoulder Start: 04-15-2025 End: 04-15-2025 ambulatory ADITI BILLY Not Available Start: 04-01-2025 End: 04-01-2025 ambulatory [facility] Facility:[facility] Start: 03-24-2025 End: 03-31-2025 Refill Aditi Billy [employer]SE HAND[employer]ER Work Phone: [facility] Comment on [...] [facility] Start: 03-08-2025 End: 03-08-2025 ambulatory [facility] Facility:[facility] Start: 02-08-2025 End: 02-22-2025 Telephone encounter Julissa Rahman RN [facility] Start: 01-21-2025 End: 01-21-2025 ambulatory [facility] Facility:[facility] Start: 01-20-2025 End: 01-21-2025 Refill Aditi Billy [employer] Work Phone: [facility] Comment on above: Pain and swelling of left shoulder (Primary Dx); Post-op pain Start: 01-14-2025 End: 01-14-2025 ambulatory ISAEL PATTON [facility] Start: 01-14-2025 [facility] Start: 01-14-2025 End: 01-18-2025 Telephone encounter Jr. Luis Carbone DO Work Phone: [facility] Comment on above: Surgery Clearance Start: 01-10-2025 End: 01-10-2025 Patient encounter procedure Aditi Billy [employer]SE [employer]ER Work Phone: [facility] Comment on above: Pre-op evaluation (P rimary Dx) Start: 01-10-2025 End: 01-10-2025 Preprocedural examination done Aditi Billy [employer]SE HAND[employer]ER Work Phone: [facility] Healthcare Work Phone: Start: 01-10-2025 End: 01-10-2025 ambulatory ADITI BILLY Not Available Start: 01-07-2025 End: 01-07-2025 ambulatory [facility] Facility:[facility] Start: 12-30-2024 End: 12-30-2024 Office outpatient visit 25 minutes Cady Fernández MD Work Phone: [facility] Comment on above: Fibromyalgia Start: 12-30-2024 End: 12-30-2024 ambulatory [facility] Start: 12-21-2024 End: 12-21-2024 Bamboo flowsheet [facility] Work Phone: [facility] Start: 12-21-2024 End: 12-21-2024 Bamboo flowsheet Jr. Luis Waggoner Steplilibeth DO Work Phone: [facility] Start: 12-21-2024 End: 12-21-2024 Office outpatient visit 40 minutes Jr. Luis Carbone DO Work Phone: [facility] Comment on above: Sprain of left rotat or cuff capsule, initial encounter (Primary Dx); Status post left rotator cuff repair Start: 12-21-2024 End: 12-21-2024 ambulatory .LUIS Not Available Start: 12-07-2024 End: 12-07-2024 Bamboo flowsheet Jr. Luis Carbone DO Work Phone: [facility] Start: 12-07-2024 End: 12-07-2024 Bamboo flowsheet Jr. Luis Carbone DO Work Phone: [facility] Start: 12-07-2024 End: 12-07-2024 ambulatory JR.LUIS Not Available Start: 12-07-2024 End: 12-07-2024 Office outpatient visit 25 minutes Jr. Luis Carbone DO Work Phone: [facility] Comment on above: Pain and swelling of left shoulder (Primary Dx); Sprain of left rotator cuff capsule, initial encounter Start: 11-22-2024 End: 11-23-2024 Telephone encounter Rosalio Montes DO Work Phone: [facility] Comment on above: MRI Start: 08-24-2024 End: 08-24-2024 ambulatory ROSALIO MONTES Not Available Start: 07-22-2024 End: 07-22-2024 Bamboo flowsheet Rosalio Montes DO Work Phone: [facility] Start: 07-22-2024 End: 07-22-2024 Bamboo flowsheet Rosalio Montes DO Work Phone: [facility] Start: 07-22-2024 End: 07-22-2024 Office outpatient visit 10 minutes Rosalio Vargas Jyoti DO Work Phone: [facility] Comment on above: Chronic left shoulde r pain (Primary Dx); Status post left rotator cuff repair; Internal derangement of left shoulder Start: 07-22-2024 End: 07-22-2024 ambulatory ROSALIO ZARATEDLESTON Not Available Start: 07-15-2024 End: 07-15-2024 Bamboo flowsheet Heather Kenny MILKING MACHINE OPERATOR [facility] Start: 07-15-2024 End: 07-15-2024 Bamboo flowsheet Heather Carvajalall MILKING MACHINE OPERATOR [facility] Start: 07-15-2024 End: 07-15-2024 ambulatory Heather Kenny MILKING MACHINE OPERATOR [facility] Comment on above: Acute pain of left s houlder (Primary Dx); Status post left rotator cuff repair Start: 07-13-2024 End: 07-13-2024 Bamboo flowsheet Heather Kenny MILKING MACHINE OPERATOR [facility] Start: 07-13-2024 End: 07-13-2024 Bamboo flowsheet Heather Carvajalall MILKING MACHINE OPERATOR [facility] Start: 07-13-2024 End: 07-13-2024 ambulatory Heather Kenny MILKING MACHINE OPERATOR [facility] Comment on above: [...] 07-06-2024 End: 07-06-2024 Bamboo flowsheet Heather Kenny MILKING MACHINE OPERATOR [facility] Start: 07-06-2024 End: 07-06-2024 Bamboo flowsheet Heather Kenny MILKING MACHINE OPERATOR [facility] Start: 07-06-2024 End: 07-06-2024 ambulatory Heather Kenny MILKING MACHINE OPERATOR [facility] Comment on above: Acute pain of left s houlder (Primary Dx); Status post left rotator cuff repair Start: 07-05-2024 End: 07-05-2024 Refill Cady Fernández MD Work Phone: [facility] Comment on above: Fibromyalgia Start: 07-01-2024 End: 09-13-2024 Telephone encounter Trisha J Kobe PT Work Phone: [facility] Start: 07-01-2024 End: 07-01-2024 Office outpatient visit 25 minutes Cady Fernández MD Work Phone: [facility] Comment on above: Fibromyalgia (Primar y Dx) Start: 07-01-2024 End: 07-01-2024 ambulatory [facility] Start: 06-23-2024 End: 06-23-2024 Bamboo flowsheet [...] refill request Start: 06-10-2024 End: 06-10-2024 ambulatory [facility] Start: 06-08-2024 End: 06-08-2024 Office outpatient new 30 minutes [facility] CONSULTING GROUP ANALYST-NON LICENSED NUCLEAR EQUIPMENT OPERATOR Work Phone: [facility] Comment on above: Diarrhea, unspecifie d type (Primary Dx); Fecal urgency Start: 06-08-2024 End: 06-08-2024 ambulatory [facility] Start: 06-07-2024 End: 06-07-2024 Office outpatient visit 10 minutes Aditi Billy HOSE HANDLER Work Phone: [facility] Comment on above: Status post left rot ator cuff repair (Primary Dx) Start: 06-07-2024 End: 06-07-2024 ambulatory ADITI BILLY Not Available Start: 05-04-2024 End: 05-04-2024 ambulatory ADITI BILLY Not Available Start: 04-01-2024 End: 04-01-2024 ambulatory [facility] Start: 03-30-2024 End: 03-30-2024 Telephone encounter Imani Esteban RN [facility] Comment on above: med refill request Start: 03-29-2024 End: 03-29-2024 ambulatory GUERO DURBIN [facility] Start: 02-25-2024 End: 02-25-2024 Evaluation and management of inpatient LAURITA Nika SINGH [facility] Start: 02-25-2024 End: 02-25-2024 Evaluation and management of inpatient ROSALIO MONTES [facility] Start: 01-28-2024 End: 01-28-2024 [facility] Start: 01-28-2024 End: 01-28-2024 Patient encounter procedure [facility] Pre-Admission Testing 2 [facility] - Pre Ad[facility] Start: 01-01-2024 End: 01-01-2024 Postop follow up visit related to original px Guero Durbin CONSULTING GROUP ANALYST-NON LICENSED NUCLEAR EQUIPMENT OPERATOR Work Phone: [facility] Comment on above: Status post lumbar l aminectomy (Primary Dx) Start: 01-01-2024 End: 01-01-2024 ambulatory [facility] Start: 01-01-2024 End: 01-01-2024 Office outpatient visit 25 minutes Cady Fernández MD Work Phone: [facility] Comment on above: Fibromyalgia Start: 12-05-2023 End: 12-05-2023 Evaluation and management of inpatient [facility] Start: 12-03-2023 End: 12-05-2023 Evaluation and management of inpatient [facility] Start: 12-03-2023 End: 12-04-2023 ambulatory [facility] Start: 12-03-2023 End: 12-04-2023 Subsequent hospital visit by physician León Oconnor MD Work Phone: [facility] Comment on above: Acute post-operative pain (Primary Dx); Spinal stenosis of lumbar region, unspecified whether neurogenic claudication present; Radiculopathy, lumbar region Start: 12-02-2023 Telephone encounter Josseline Castillo [facility] Comment on above: surgery reminder Start: 11-25-2023 Telephone encounter Veronica James LPN [facility] Comment on above: Med Refill Stenosis of cervical spine; Radiculopathy, cervical region Start: 11-07-2023 End: 11-07-2023 ambulatory [facility] Start: 11-07-2023 End: 11-07-2023 Patient encounter procedure [facility] [address] [facility] Comment on above: Spinal stenosis of l umbar region with neurogenic claudication (Primary Dx); Spinal stenosis of lumbar region, unspecified whether neurogenic claudication present; Radiculopathy, lumbar region Start: 10-27-2023 End: 10-28-2023 ambulatory [facility] Start: 10-27-2023 End: 10-27-2023 ambulatory [facility] Start: 10-27-2023 End: 10-27-2023 Office outpatient new 45 minutes Cady Fernández MD Work Phone: [facility] Comment on above: Fibromyalgia (Primar y Dx); Arthritis Start: 10-16-2023 End: 10-17-2023 ambulatory [facility] Start: 10-16-2023 Encounter for other preprocedural examination [facility] Start: 10-16-2023 Encounter for other preprocedural examination [facility] Start: 10-16-2023 End: 10-16-2023 Office outpatient visit 40 minutes León Oconnor MD Work Phone: [facility] Comment on above: Spinal stenosis of l umbar region, unspecified whether neurogenic claudication present (Primary Dx); Left shoulder pain, unspecified chronicity; Pre-op testing Start: 10-16-2023 End: 10-16-2023 Patient encounter status León Oconnor MD Work Phone: [facility] Start: 10-16-2023 End: 10-16-2023 ambulatory [facility] Comment on above: Spinal stenosis of l umbar region, unspecified whether neurogenic claudication present (Primary Dx); Radiculopathy, lumbar region Start: 10-10-2023 Refill Veronica shoemaker [facility] Comment on above: Chronic right should er pain; Radiculopathy, cervical region Start: 07-04-2022 End: 07-04-2022 ambulatory STEPHAN JUAREZ Facility:[facility] Start: 02-20-2022 End: 02-20-2022 ambulatory [facility] Facility: Start: 05-27-2021 End: 05-30-2021 ambulatory AGUSTÍN Umesh WALLS [facility] Start: 05-27-2021 End: 05-29-2021 Subsequent hospital visit by physician Christelle Mri Room 1 [facility] MRI Comment on above: Back pain, unspecifi [...] Start: 12-04-2023 Creatinine blood Jo Ann Mishra CONSULTING GROUP ANALYST-NON LICENSED NUCLEAR EQUIPMENT OPERATOR Work Phone: Start: 12-04-2023 Adult depression scr eening assessment Cady Fernández MD Work Phone: Start: 12-04-2023 Blood count platelet automated Jo Ann Mishra CONSULTING GROUP ANALYST-NON LICENSED NUCLEAR EQUIPMENT OPERATOR Work Phone: Start: 12-03-2023 Fluor needle/cath spine/paraspinal [...] >=3 Positive Performed By: #### 1 [id number], [id number], [id number], [id number] #### [facility] ([id number]) [address], [address] [place] [address] Start: 05-26-2023 Mammography Aditi hassan HOSE HANDLER Work Phone: Start: 05-27-2021 Mri spinal canal lum bar w/o & w/contr matrl Agustín Walls MD Work Phone: Start: 02-12-2021 Colonoscopy Veronica James FACS TEACHER Start: 12-14-2019 Antibody screen Comment on above: Performed By: #### T SCR #### [facility] [address] [place] [address] Start: 09-10-2019 Microscopic observat ion [Identifier] in Cervix by Kb Carbone DO Work Phone: History of repair of musculotendinous cuff of shoulder Status post left rotator cuff repair Rosalio Montes DO Work Phone: History of repair of musculotendinous cuff of shoulder Status post left rotator cuff repair Heather Kenny MILKING MACHINE OPERATOR History of repair of musculotendinous cuff of shoulder Status post left rotator cuff repair Aditi Billy HOSE HANDLER Work Phone: History of repair of musculotendinous cuff of shoulder Status post left rotator cuff repair Trisha J Kobe PT Work Phone: History of repair of musculotendinous cuff of shoulder Status post left rotator cuff repair Trisha Randall Kobe PT Work Phone: History of repair of musculotendinous cuff of shoulder Status post left rotator cuff repair Heather Kenny MILKING MACHINE OPERATOR History of repair of musculotendinous cuff of shoulder Status post left rotator cuff repair Heather Kenny MILKING MACHINE OPERATOR History of repair of musculotendinous cuff of shoulder Status post left rotator cuff repair Jr. Luis Carbone DO Work Phone: Plan of Treatment Date Care Activity Detail Author Start: 02-12-2031 Screening for malign ant neoplasm of colon [facility] Start: 12-30-2025 Adult BMI Screening Adult BMI Screen ing [facility] Start: 07-01-2025 Adult BMI Screening Adult BMI Screen ing [facility] Start: 07-01-2025 Tobacco Screening Tobacco Screening [facility] Start: 06-30-2025 End: 06-30-2025 Patient encounter procedure 06/30/2025 11:30 AM EDT Office Visit [facility] [address] [facility] [address] [place] [phone] Cady Fernández MD [address] [id number] [facility] Start: 06-20-2025 Influenza vaccination [facility] Start: 06-08-2025 Adult BMI Screening Adult BMI Screen ing [facility] Start: 06-08-2025 Tobacco Screening Tobacco Screening [facility] Start: 05-16-2025 End: 05-16-2025 Patient encounter procedure 05/16/2025 1:45 PM EDT Office Visit [facility] [address] [place] [phone] Aditi Billy, HOSE HANDLER [address] [place] [address] [facility] Start: 04-15-2025 End: 04-15-2025 Patient encounter procedure [facility] Comment on above: Arrived Start: 03-15-2025 End: 03-15-2025 Patient encounter procedure 03/15/2025 2:15 PM EDT Office Visit [facility] [address] [place] [phone] Theodore Samuel PA [address] [place] [address] Pre-op examination (Primary Dx) [facility] Comment on above: Pre-op examination ( Primary Dx) Start: 02-24-2025 Adult BMI Screening Adult BMI Screen ing [facility] Start: 02-24-2025 Tobacco Screening Tobacco Screening [facility] Start: 02-04-2025 End: 02-04-2025 Patient encounter procedure 02/04/2025 9:00 AM EDT Office Visit [facility] [address] [place] [phone] Theodore Samuel PA [address] [facility] [address] [place] [address] [facility] Start: 01-27-2025 Adult BMI Screening Adult BMI Screen ing [facility] Start: 01-27-2025 Tobacco Screening Tobacco Screening [facility] Start: 01-03-2025 End: 01-03-2025 Patient encounter procedure 01/03/2025 1:45 PM EDT Office Visit [facility] [address] [place] [address] Aditi Billy, MER [address] [place], [place] [phone] [facility] Start: 12-31-2024 Adult BMI Screening Adult BMI Screen ing [facility] Start: 12-31-2024 Tobacco Screening Tobacco Screening [facility] Start: 12-30-2024 End: 12-30-2024 Patient encounter procedure 12/30/2024 11:30 AM EDT Office Visit [facility] [address] [place] [address] Cady Fernández MD [address] [address] [facility] Start: 12-21-2024 End: 12-21-2024 Patient encounter procedure [facility] Comment on above: Arrived Start: 12-07-2024 End: 12-07-2024 Patient encounter procedure [facility] Comment on above: Arrived Start: 12-04-2024 Depression Screening Depression Scre ening [facility] Start: 11-07-2024 Adult BMI Screening Adult BMI Screen ing [facility] Start: 11-07-2024 Tobacco Screening Tobacco Screening [facility] Start: 10-27-2024 Adult BMI Screening Adult BMI Screen ing [facility] Start: 10-27-2024 Tobacco Screening Tobacco Screening [facility] Start: 10-21-2024 Tobacco Screening Tobacco Screening [facility] Start: 10-16-2024 Adult BMI Screening Adult BMI Screen ing [facility] Start: 10-16-2024 Tobacco Screening Tobacco Screening [facility] Start: 09-10-2024 Screening for malign ant neoplasm of cervix [facility] Start: 09-09-2024 Adult BMI Screening Adult BMI Screen ing [facility] Start: 08-27-2024 Tobacco Screening Tobacco Screening [facility] Start: 07-22-2024 End: 07-22-2025 MR Shoulder - [...] Treatment [facility] [address] [place] [address] Heather Kenny PTA [facility] Start: 07-08-2024 End: 07-08-2024 Patient encounter procedure 07/08/2024 2:30 PM EDT Office Visit [facility] [address] [place] [address] Rosalio Motnes, [address] [address] [facility] Start: 07-08-2024 End: 07-08-2024 ambulatory [facility] Comment on above: Arrived Start: 07-06-2024 End: 07-06-2024 ambulatory [facility] Comment on above: Arrived Start: 07-01-2024 End: 07-01-2024 ambulatory 07/01/2024 2:00 PM EDT Treatment [facility] [address] [place] [address] Heather Kenny PTA [facility] Start: 07-01-2024 End: 07-01-2024 Patient encounter procedure 07/01/2024 11:00 AM EDT Office Visit [facility] [address] [place] [phone] Cady Fernández MD [address] [address] [facility] Start: 06-29-2024 End: 06-29-2024 ambulatory 06/29/2024 2:00 PM EDT Treatment [facility] [address] [place] [address] Heather Kenny PTA [facility] Start: 06-25-2024 End: 06-25-2024 ambulatory 06/25/2024 2:30 PM EDT Treatment [facility] [address] [place] [phone] Trisha Harris, PT [address] [place] [address] [facility] Start: 06-23-2024 End: 06-23-2024 ambulatory [facility] Comment on above: Arrived Start: 06-20-2024 COVID-19 Vaccine ( season) COVID-19 Vaccine ( season) [facility] Start: 06-20-2024 COVID-19 Vaccine ( season) COVID-19 Vaccine ( season) [facility] Start: 06-20-2024 Influenza vaccination N [facility] Start: 06-17-2024 End: 06-17-2024 ambulatory 06/17/2024 3:00 PM EDT Evaluation [facility] [address] [place] [phone] Trisha Harris, PT [address] [place] [address] Status post left rotator cuff repair [facility] Comment on above: Status post left rot ator cuff repair Start: 05-26-2024 Screening for malign ant neoplasm of breast Mammogram [facility] Start: 04-02-2024 End: 12-31-2024 XR Lumbar spine [...] PM EDT Office Visit [facility] [address] [place] [phone] [place] [address] [place] [address] [address] [place] [phone] [facility] Start: 02-25-2024 End: 02-25-2024 Admission to same day surgery center 02/25/2024 10:15 AM EDT - 02/25/2024 12:00 PM EDT Surgery [facility] [address] [place] [address] Rosalio Montes DO [address] [place] [address] ARTHROSCOPIC REPAIR ROTATOR CUFF SHOULDER [63520 (CPT )] [facility] Comment on above: ARTHROSCOPIC REPAIR ROTATOR CUFF SHOULDER [41193 (CPT )] Start: 02-25-2024 End: 02-25-2024 Arthroscopy shoulder rotator cuff repair ARTHROSCOPIC REPAIR ROTATOR CUFF SHOULDER left shoulder rotator cuff tear 02/25/2024 10:15 AM EDT [facility] Start: 02-25-2024 Subsequent hospital visit by physician 02/25/2024 10:15 AM EDT Hospital Encounter [facility] [address] [place] [address] Rosalio Montes DO [address] [place] [address] [facility] Start: 01-01-2024 End: 01-01-2024 Patient encounter procedure [facility] Start: 12-03-2023 End: 12-03-2023 Admission to same day surgery center 12/03/2023 11:45 AM EST - 12/03/2023 1:30 PM EST Surgery [facility] [address] [place] [phone] León Oconnor MD [address] [place] [address] [address] [place] [address] LAMINECTOMY LUMBAR SINGLE LEVEL / L4/5 [facility] Surgery Comment on above: LAMINECTOMY LUMBAR S SALLY LEVEL / L4/5 Start: 12-03-2023 End: 12-03-2023 Anesthesia consultation 12/03/2023 11:45 AM EST Anesthesia Event [facility] Surgery [address] [place] [phone] Veena Osei SRNA [facility] Start: 12-03-2023 End: 12-03-2023 LAMINECTOMY LUMBAR SINGLE LEVEL LAMINECTOMY LUMBAR SINGLE LEVEL Spinal stenosis of lumbar region, unspecified whether neurogenic claudication present Radiculopathy, lumbar region 12/03/2023 11:45 AM EST [facility] Start: 12-03-2023 Subsequent hospital visit by physician 12/03/2023 11:45 AM EST Hospital Encounter [address] [address] León Oconnor MD [address] [place] [address] [address] [place] [phone] [facility] Surgery Start: 12-02-2023 End: 12-02-2023 Patient encounter procedure 12/02/2023 1:00 PM EST Office Visit [facility] [address] [place] [phone] Kailyn Arzola, PA-C [address] [place] [address] [facility] Start: 11-21-2023 End: 11-21-2023 Admission to same day surgery center 11/21/2023 7:30 AM EST - 11/21/2023 9:15 AM EST Surgery [facility] Surgery [address] [place] [address] [place] [address] León Oconnor MD [address] [place] [address] [address] [place] [phone] LAMINECTOMY LUMBAR SINGLE LEVEL / L4/5 [facility] Surgery Comment on above: LAMINECTOMY LUMBAR S SALLY LEVEL / L4/5 Start: 11-21-2023 End: 11-21-2023 LAMINECTOMY LUMBAR SINGLE LEVEL LAMINECTOMY LUMBAR SINGLE LEVEL Spinal stenosis of lumbar region, unspecified whether neurogenic claudication present Radiculopathy, lumbar region 11/21/2023 7:30 AM EST [facility] Start: 11-21-2023 Subsequent hospital visit by physician 11/21/2023 7:30 AM EST Hospital Encounter [address] [phone] León Oconnor MD [address] [place] [address] [address] [place] [phone] [facility] Start: 11-07-2023 End: 11-07-2023 Patient encounter procedure 11/07/2023 1:30 PM EST Procedure visit [facility] [address] [phone] [facility] Start: 10-27-2023 End: 10-27-2024 XR [employer] [facility] Work Phone: Comment on above: Expected: 10/27/2023 , Expires: 10/27/2024 Start: 10-27-2023 End: 10-27-2023 Patient encounter procedure 10/27/2023 10:45 AM EST Office Visit [facility] [address] [phone] Cady Fernández MD [address] [address] [facility] Start: 10-16-2023 End: 10-16-2023 Patient encounter procedure 10/16/2023 2:05 PM EST Office Visit [facility] [address] [place] [phone] León Oconnor MD [address] [facility] [address] [place] [phone] [facility] Start: 06-20-2023 COVID-19 Vaccine ( season) COVID-19 Vaccine ( season) [facility] Start: 06-20-2023 Influenza vaccination Influenza Vacc ine [facility] Start: 09-10-2022 Screening for malign ant neoplasm of cervix Pap Smear [facility] Start: 01-11-2022 Administration of varicella zoster vaccine Zoster (Shingles) Vaccine (1 of 2) [facility] Start: 06-20-2021 Influenza vaccination Flu vaccine (# 1) [facility] Work Phone: Start: 06-01-2021 End: 06-01-2021 Patient encounter procedure 06/01/2021 Office Visit Neurosurgery Agustín Walls MD [address] [phone] [facility] Start: 2012 Diabetes screen Diabetes screen [facility] Work Phone: Start: 2012 Lipid panel Lipid screen [facility] Work Phone: Start: 01-11-1993 Screening for malign ant neoplasm of cervix [facility] Start: 01-11-1991 DTaP,Tdap and Td Vaccines (1 - Tdap) DTaP,Tdap and Td Vaccines (1 - Tdap) [facility] Start: 01-11-1991 DTaP/Tdap/Td vaccine (1 - Tdap) DTaP/Tdap/Td vaccine (1 - Tdap) [facility] [employer] Work Phone: Start: 01-11-1990 Adult BMI Follow Up Plan Adult BMI Follow Up Plan [facility] Start: 01-11-1987 HIV screening HIV screen [facility] Work Phone: Start: 1984 Depression Screening Depression Scre [facility] Start: 01-11-1978 Pneumococcal 0-64 ye ars Vaccine (1 of 2 - PPSV23) Pneumococcal 0-64 years Vaccine (1 of 2 - PPSV23) [facility] Work Phone: Start: 1972 Hepatitis C screening Hepatitis C sc reen [facility] [employer] Work Phone: Start: 1972 Screening for malign ant neoplasm of colon [facility] Start: 1972 Tobacco Counseling Tobacco Counselin g [facility] End: 06-08-2025 C difficile by PCR C difficile by PCR Lab Routine Diarrhea, unspecified type 1 Occurrences starting 06/08/2024 until 06/08/[address] [facility] Work Phone: Comment on above: 1 Occurrences starti ng 06/08/2024 until 06/08/2025 End: 06-08-2025 GI Panel(stool pathogen panel) GI Panel(stool pathogen panel) Lab Routine Diarrhea, unspecified type 1 Occurrences starting 06/08/2024 until 06/08/2025 [facility] Comment on above: 1 Occurrences starti ng 06/08/2024 until 06/08/2025 Immunizations Immunization Date Immunization Notes Care Provider Bahman lovett 11-13-2009 novel sponaysse-[id number], preservative-free, injectable Aditi Billy NP Work Phone: [facility] 11-13-2009 influenza virus vaccine, unspecified formulation Veronica James LPN [facility] Payers Date Payer Category Payer Unknown [id number] 2022 Medicaid [id number] 2022 Medicaid [id number] 2020 Unknown [id number] 1.2 .840.915534.1.13.239.2.7.3.074789.315 1972 Unknown [id number] 2.16.8 40.1.673973.3.579.2.182 1972 Unknown [id number] 2.16.84 0.1.438155.3.579.2.593 1972 Unknown [id number] 2.16.84 0.1.118045.3.579.2.593 1972 Unknown [id number] 2.16.8 40.1.338878.3.579.2.1286 1972 Unknown [id number] 2.16.8 40.1.085773.3.579.2.1286 1972 Unknown [id number] 2.16.8 40.1.482830.3.579.2.1286 1972 Unknown [id number] 2.16.8 40.1.577820.3.579.2.1286 1972 Unknown [id number] 2.16.84 0.1.501846.3.579.2.1286 1972 Unknown [id number] 2.16.84 0.1.639480.3.579.2.1286 1972 Unknown [id number] 2.16.84 0.1.600763.3.579.2.1286 1972 Unknown [id number] 2.16.84 0.1.656444.3.579.2.1286 1972 Unknown [id number] 2.16.84 0.1.228667.3.579.2.1286 1972 Unknown [id number] 2.16.8 40.1.128377.3.579.2.1286 1972 Unknown [id number] 2.16.8 40.1.318691.3.579.2.1286 1972 Unknown [id number] 2.16.8 40.1.948726.3.579.2.1286 1972 Unknown [id number] 2.16.84 0.1.242175.3.579.2.1285 1972 Unknown [id number] 2.16. 840.1.315755.3.579.2.6 1972 Unknown [id number] 2.16. 840.1.646072.3.579.2.1285 1972 Unknown [id number] 2.16.8 40.1.770703.3.579.2.1285 1972 Unknown [id number] 2.16.8 40.1.125981.3.579.2.1285 1972 Unknown [id number] 2.16.8 40.1.749465.3.579.2.1285 1972 Unknown [id number] 2.16.8 40.1.672834.3.579.2.1285 1972 Unknown [id number] 2.16.8 40.1.320743.3.579.2.1286 1972 Unknown [id number] 2.16.8 40.1.087129.3.579.2.6 1972 Unknown [id number] 2.16.8 40.1.600556.3.579.2.6 1972 Unknown [id number] 2.16.8 40.1.902497.3.579.2.718 1972 Unknown [id number] 2.16.8 40.1.521910.3.579.2.718 1972 Unknown [id number] 2.16.8 40.1.029163.3.579.2.8 1972 Unknown [id number] 2.16.8 40.1.135128.3.579.2.718 1972 Unknown [id number] 2.16.8 40.1.723835.3.579.2.1259 1972 Unknown [id number] 2.16.84 0.1.531097.3.579.2.9 1972 Unknown [id number] 2.16.84 0.1.660742.3.579.2.9 1972 Unknown [id number] 2.16.84 0.1.769146.3.579.2.9 1972 Unknown [id number] 2.16.84 0.1.601715.3.579.2.1258 1972 Unknown [id number] 2.16.84 0.1.865068.3.579.2.1258 1972 Unknown [id number] 2.16.84 0.1.564237.3.579.2.1258 1972 Unknown [id number] 2.16.84 0.1.437803.3.579.2.1258 1972 Unknown [id number] 2.16.84 0.1.999279.3.579.2.1258 1972 Unknown [id number] 2.16.84 0.1.666374.3.579.2.1258 1972 Unknown [id number] 2.16.84 0.1.541990.3.579.2.1258 1972 Unknown [id number] 2.16.84 0.1.837144.3.579.2.1258 1972 Unknown [id number] .16.84 0.1.175071.3.579.2.1258 1972 Unknown [id number] .16.84 0.1.685021.3.579.2.1259 1972 Unknown [id number] .16.84 0.1.080987.3.579.2.1258 1972 Unknown [id number] .16.84 0.1.983014.3.579.2.1259 1959 Unknown [id number] Social History Date Type Detail Facility Start: 05-04-2021 End: 12-07-2023 Tobacco smoking status NHIS Current every day smoker [employer] Phone: Start: 05-04-2021 End: 12-07-2023 Tobacco use and exposure Never used [employer] Start: 1970 [facility]igned [facility] Exposure to SARS-CoV -2 (event) Not sure [employer] History of tobacco use Cigarette Smoker [facility] [employer] Start: 07-07-2024 End: 04-15-2025 Alcoholic beverage intake Current drinker of alcohol (finding) [facility] [employer] System Start: 06-07-2024 End: 04-15-2025 History of Social function [facility] Start: 06-07-2024 End: 04-15-2025 Tobacco use panel [facility] Start: 12-09-2023 Alcohol Comment monthly [facility] Housing Instability Unknown [facility] Start: 08-09-2021 Alcohol Comment Occasional 4 c ans of beer monthly [facility] Has the [employer], or [employer] threatened to shut off services in your home in past 12Mo No [facility] How often to you hav e a drink containing alcohol? 2-4 times a month [facility] How many standard dr inks containing alcohol do you have on a typical day? 1 or 2 [facility] How often do you hav e 6 or more drinks on 1 occasion? Never [facility] Start: 05-25-2015 Sex Female (finding) [facility] Medical Equipment Procedure Code Equipment Code Equipment Origin al Text Equipment Identifier Dates Spacer Spnl 14x6 mm Coalition Mis 7d 12mm Ti Strl Lf - [id number] Start: 11-06-2021 Graft Bn Cllr Bn Mtrx Sm 1cc Vivigen Frmbl Rpl [id number] Rpl Special [id number] - [id number] - [id number] Start: 11-06-2021 Screw Bn 12mm 3. 6mm Slf Drl Va Spne Coalition Ns - [id number] Start: 11-06-2021 Implant Bio Tiss Med Bvn At Dlv Dev Bioinductive Impl - Sna - [id number] Start: 02-25-2024 Microraptor Knot less Regenesorb Suture [place] [id number])N/A, [id number]_[id number] Start: 02-25-2024 [place] Sut Teresa portillo Tndn Rotr Cuf Repr - Sna - [id number] Start: 02-25-2024 [place] Sut Bn As cp Dlv - Sna - [id number] Start: 02-25-2024 Clinical Notes 10-10-2023 to [...] Billy APRN, NP-C documented in this encounter [facility] 04-04-2025 Note [id number]#1.00[facility] 04-04-2025 Note [id number]#1.00[facility] 04-01-2025 Note [facility] SURGERY Clinical Discharge Summary PERSON INFORMATION Name CANDE RAHMAN Age 55 Years 1970 Sex FEMALE Language Turkish PCP Marital Status Single Phone Med Service Ambulatory Surgery Acct# Arrival 04/01/2025 09:25:00 Visit Reason Surgery- Shoulder arthroscopy left shoulder Acuity LOS 057 01:54 Address: [address] [place] [id number] Comment: PROVIDER INFORMATION VITALS INFORMATION Vital Sign [...] every day. tiZANidin (more content not included)... [facility] 03-24-2025 Telephone encounter Note Post op pain rx. PDMP reviewed [facility] 03-24-2025 Miscellaneous Notes Post op pain rx. PDMP reviewed documented in this encounter [facility] 03-15-2025 History of Present illness Narrative Images from the original note were not included. GENERAL HISTORY AND PHYSICAL: NAME: Cande Rahman : 1970 HISTORY OF PRESENT ILLNESS: Cande Rahman is an 55 y.o. @ female. Here for surgery instructions right shoulder scope 04/01/25 @ [facility]. PAST MEDICAL HISTORY: Past Medical History: Diagnosis Date ADHD (attention deficit hyperactivity disorder) ([facility]) Arthritis Bipolar disorder Fibromyalgia MIKE (obstructive sleep apnea) PTSD (post-traumatic stress disorder) ([facility]) Rheumatoid arthritis ([facility]) PAST SURGICAL HISTORY: Past Surgical History: Procedure [...] April 05 @ 9:15 with Aditi in [place]. documented in this encounter [facility] 02-08-2025 Miscellaneous Notes Call received from Debby [...] still had questions. documented in this encounter [facility] 02-08-2025 Telephone encounter Note Call received from [...] return call if she still had questions. [facility] 01-20-2025 Note [facility] SURGERY Clinical Discharge Summary PERSON INFORMATION Name CANDE RAHMAN Age 55 Years 1970 Sex FEMALE Language Turkish PCP Marital Status Single Phone Med Service Ambulatory Surgery N 19-06-54 Acct# Arrival Visit Reason SURGERY - LEFT SHOULDER ARTHROSCOPY WITH ROTATOR CUFF REPAIR Acuity LOS 030 11:09 Address: [address] [place] [address] Comment: PROVIDER INFORMATION VITALS INFORMATION Vital Sign [...] time as need (more content not included)... [facility] 01-20-2025 Telephone encounter Note Post op pain rx. PDMP reviewed [facility] 01-20-2025 Miscellaneous Notes Post op pain rx. PDMP reviewed documented in this encounter 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 [Electronically Signed on: 01/19/2025 08:53 EDT] Agatha Jo RN [Verified on: 01/19/2025 08:53 EDT] Agatha Jo RN [facility] 01-17-2025 Telephone encounter Note Called [facility], patient was cleared per Isael Patton. Faxing clearance and labs over to our office. [facility] 01-17-[address] [facility], patient was cleared per Isael Patton. Faxing clearance and labs over to our office. Spoke to Isael Patton's office at [facility] and pt needed additional labs done. They do have the results but Isael has not reviewed yet. They will send clearance once he is cleared. [facility] was notified as well. [facility] pre-sx called asking for the medical clearance/ though she was to see PCP on 01/[address] this encounter [facility] 01-14-2025 Telephone encounter Note Spoke to Isael Patton's office at [facility] and pt needed additional labs done. They do have the results but Isael has not reviewed yet. They will send clearance once he is cleared. [facility] was notified as well. [facility] 01-14-[address]25 Note Call [address] Grubbs [...] on: 01/14/2025 12:37 EDT] Mariluz Hoyt RN [facility] 01-14-2025 Telephone encounter Note [facility] pre-sx called asking for the medical clearance/ though she was to see PCP on 01/11 [facility] 01-10-2025 History of Present illness Narrative Images from the original note were not included. GENERAL HISTORY AND PHYSICAL: NAME: Cande Rahman : 1970 HISTORY OF PRESENT ILLNESS: Cande Rahman is an 54 y.o. @ female. Here for surgery instructions H&P LT SHOULDER SCOPE/RCR 01/21/25 @ [facility] PAST MEDICAL HISTORY: Past Medical History: Diagnosis Date ADHD (attention deficit hyperactivity disorder) (CMS/HCC) Arthritis Bipolar disorder ([facility]/H[facility]) Fibromyalgia MIKE (obstructive sleep apnea) PTSD (post-traumatic stress disorder) ([facility]/HCC) Rheumatoid arthritis ([facility]/HCC) PAST SURGICAL HISTORY: Past Surgical History: Procedure [...] Brace was dispensed to the patient and [facility] Patient Agreement was completed and signed. Warranty information was given and explained to the patient with good understanding. Proper care and fitting was also explained to the patient with good understanding. LT SHOULDER SCOPE/RCR 01/21/25 @ [facility] 01/10/25 @ 1:45 [facility] 01/07/25 @ 2PM CLEARANCE WITH ISAEL PATTON 01/11/25 @ 8:45AM PER ANESTHESIA Follow up for Post-Op 02/04/25 @ 9 ED RIVKA. documented in this encounter [facility] 01-10-2025 Note PAT reviewed for namrata durán [...] on: 01/14/2025 10:42 EDT] Mariluz Hoyt RN [facility] 12-30-2024 History of Present illness Narrative Images from the original note were not included. [address] [facility] [address] Date of Service: 12/30/2024 Subjective: Cande Rahman [...] [facility] Dr. Cady Fernández MD [address], [address] [place] [address] Office: [phone] documented in this encounter [facility] 12-21-2024 History of Present illness Narrative Images from the original note were not included. HISTORY OF PRESENT ILLNESS: EST PT Cande Rahman is an 54 y.o. @ female. EST PT WITH DR MONTES- LT SHOULDER PAIN- 2 WKS S/P CORTISONE INJ 12/07- 3 DAYS RELIEF, PAIN IS BACK MRI 08/24/24 EPIC (POST-OP) XRAY 05/04/[address] CERVICAL 09/24/23 [facility] XR CERVICAL 06/25/23 PHYSICAL THERAPY [facility] JUN 2024 (6 VISITS) SA CORTISONE INJECTION 12/07/24-3 DAYS RELIEF PAIN MANAGEMENT- 2022? [facility] NO PREDNISONE LT SHOULDER SCOPE 02/25/24 JYOTI [...] Tobacco Use: High Risk (07/01/2024) Received from [employer] Patient History Smoking Tobacco Use: Every Day Smokeless Tobacco Use: Never Passive Exposure: Not on file Alcohol Use: Not At Risk (12/04/2023) Received from [employer], [facility] [employer] Control Systems [facility] AUDIT-C Frequency of Alcohol Consumption: 2-4 times [...] requiring urgent evaluation. documented in this encounter [facility] 12-07-2024 History of Present illness Narrative Associated [...] 09/24/23 [facility] XR CERVICAL 06/25/23 PHYSICAL THERAPY [facility] JUN 2024 (6 VISITS) NO CORTISONE INJECTION [...] Tobacco Use: High Risk (07/01/2024) Received from [employer] Patient History Smoking Tobacco Use: Every Day Smokeless Tobacco Use: Never Passive Exposure: Not on file Alcohol Use: Not At Risk (12/04/2023) Received from [employer], [employer]UD[employer]C Frequency of Alcohol Consumption: 2-4 times [...] requiring urgent evaluation. documented in this encounter [facility] 11-22-2024 Telephone encounter Note I reviewed results with patient over the phone. I recommend she follow up with Dr. Carbone to discuss injection vs shoulder scope. Can we call her to schedule with him? Thank you! [facility] 11-22-2024 Miscellaneous Notes I reviewed results with [...] be scheduled with? documented in this encounter [facility] 11-22-2024 Telephone encounter Note Patient called and left regarding MRI results that was done 08/24. She never received the results. She is having shoulder pain. Who should patient be scheduled with? [facility] 07-22-2024 History of Present illness Narrative Images [...] Diagnosis Date ADHD (attention deficit hyperactivity disorder) ([facility]) Arthritis Bipolar disorder ([facility]) Fibromyalgia MIKE (obstructive sleep apnea) PTSD (post-traumatic stress disorder) ([facility]) Rheumatoid arthritis ([facility]) ALLERGIES: Allergies Allergen Reactions Grass Pollen(K-O-R-T-Swt Laurita) [...] Montes/azeem Montes D.O. documented in this encounter [facility] 07-08-2024 History of Present illness Narrative Physical [...] concerns of damaging repair(s) with fall remain, long term care pharmacist prognosis remains poor. Pt only completed 4 formal visits only including IE on 06/16/24 to date. documented in this encounter [facility] 07-01-2024 Telephone encounter Note Pt cx due to illness. Received call about 1:[address] [facility] 07-01-2024 Miscellaneous Notes Pt cx due to illness. Received call about 1:05 pm documented in this encounter [facility] 07-01-2024 History of Present illness Narrative Images from the original note were not included. [address] [facility] [address] Date of Service: 07/01/2024 Subjective: Caned Rahman is a 54 y.o. female who [...] or corrected. Thank you for your understanding. [facility] Physicians Rheumatology Dr. Cady Fernández MD [address], [address] [place] [address] Office: [phone] documented in this encounter [facility] 06-23-2024 History of Present illness Narrative Physical [...] damage to repair documented in this encounter [facility] 06-17-2024 History of Present illness Narrative Physical [...] sign below. Date: documented in this encounter [facility] 06-14-2024 Miscellaneous Notes ----- Message from LINDA [...] no further questions. documented in this encounter [facility] 06-14-2024 Telephone encounter Note ----- Message from LINDA Sam sent at 06/10/2024 9:54 PM EDT ----- Regarding: FW:Results Please let patient know her stool was negative for infection. Continue adequate water intake, high fiber, and fiber supplement. Thank you, Paty ----- Message ----- From: Interface - Lab Results/Orders In Sent: 06/10/2024 7:17 PM EDT To: LINDA Morales [facility] 06-14-2024 Telephone encounter Note Spoke with patient regarding GI panel results and Paty Silver CNP recommendations. Patient verbally understood with no further questions. [facility] 06-11-2024 Miscellaneous Notes Cande calls and asking for lyrica to be filled. Informed that office is only seeing as needed and will need to obtain this medication from another provider- informed that will call in a 1 month supply but will need to have someone else prescribe from this point- she verbalizes understanding. Called in to [facility]: pregabalin (LYRICA) 100 mg capsule [[id number]] Order Details Dose: 100 mg Route: oral Frequency: 2 times daily Dispense Quantity: 60 capsule Refills: 0 Note to Pharmacy: 30 Day Supply Sig: Take 1 capsule (100 mg total) by mouth in the morning and 1 capsule (100 mg total) before bedtime. Last prescription from office. [facility] 06-11-2024 Telephone encounter Note Cande calls and asking for lyrica to be filled. Informed that office is only seeing as needed and will need to obtain this medication from another provider- informed that will call in a 1 month supply but will need to have someone else prescribe from this point- she verbalizes understanding. Called in to [facility]: pregabalin (LYRICA) 100 mg capsule [[id number]] Order Details Dose: 100 mg Route: oral Frequency: 2 times daily Dispense Quantity: 60 capsule Refills: 0 Note to Pharmacy: 30 Day Supply Sig: Take 1 capsule (100 mg total) by mouth in the morning and 1 capsule (100 mg total) before bedtime. [facility] History of Present illness Narrative Images [...] Arthritis Back pain 01/2021 Bipolar 1 disorder ([facility]) Cervical radiculopathy Chronic depression Chronic pain disorder [...] Radiculopathy of lumbar region 10/2023 Rheumatoid arthritis ([facility]) Shoulder pain 01/27/2021 Spinal stenosis of lumbar region, unspecified whether neurogenic claudication present 10/2023 Visual impairment Glasses Past Surgical History: Procedure Laterality Date ANTERIOR FUSION CERVICAL MULTI LEVEL & DISCECTOMY C5-C6, C6-C7 N/A 11/06/2021 Performed by León Oconnor MD at [facility] ARTHROSCOPIC REPAIR ROTATOR CUFF SHOULDER Left 02/25/2024 Performed by Rosalio Montes DO at [facility] BACK SURGERY 2004 L4-L5 Dr. Workman COLONOSCOPY N/A 02/12/2021 Performed by Ángel Marrero DO at [facility] HYSTERECTOMY 2019 INJECTION BLOCK EPIDURAL CAUDAL STEROID N/A 03/14/2023 Performed by Pola Berger MD at [facility] INJECTION BLOCK EPIDURAL CERVICAL/THORACIC C 6/7 ELOY N/A 11/29/2022 Performed by Pola Berger MD at [facility] INJECTION SPINE TRANSFORAMINAL Left C 5,6 Nroot Left 07/19/2022 Performed by Pola Berger MD at [facility] LAMINECTOMY LUMBAR SINGLE LEVEL / L4/5 N/A 12/03/2023 Performed by León Oconnor MD at [facility] OTHER SURGICAL HISTORY Gall stones removed - did not have gall bladder removed REPAIR SUPERIOR LABRIUM ANTERIOR POSTERIOR SHOULDER Left 02/25/2024 Performed by Rosalio Montes DO at [facility] TUBAL LIGATION 1991 Allergies Allergen Reactions Grass [...] patient/family/caregiver Referring and communicating with other health healthcare network consultant Diarrhea, unspecified type [R19.7] PATY SILVER, CONSULTING GROUP ANALYST-NON LICENSED NUCLEAR EQUIPMENT OPERATOR [facility] Stewart/Hamer This note was created with the assistance of a speech recognition program. While intending to generate a timely document that accurately reflects the content of the visit, no guarantee can be provided that every grammatical or spelling mistake has been or will be identified or corrected. Thank you for your understanding. LINDA Morales 06/08/24 1438 documented in this encounter [facility] 06-08-2024 Instructions Ching Villasenor CLINICAL THERAPIST - 06/08/2024 1:30 PM EDT Are You Ready To Kick The Habit? Free Tobacco Cessation Resources [facility] Services [facility] Centers provide all employees with free tobacco cessation services that include: Counseling to understand nicotine addiction Education about medications that can help you successfully quit Assistance with developing a plan to quit Call to set up an individual appointment or find out when group classes will be held: [facility]: [phone] [facility]: [phone] [facility]: [phone] [facility]: [phone] Quit Smoking Action Plan and Resources [facility] offers an eight-week, online smoking cessation plan to all [facility] employees, regardless of whether [employer] is your medical insurance provider. Go to [email or web address] and click the Health Risk Assessment and Resources link to get started. In the Wtpwh7Rreykd menu, click Action Plans instead of Health Risk Assessment to access the Quit Smoking Action Plan. Additional smoking cessation resources are also available to all [facility] employees on the [employer] web page at [email or web address] [email or web address]. [employer] Tobacco Cessation Program If [employer] is your medical insurance provider, there are more free resources available to you, including: No copays or deductibles on local tobacco cessation counseling services to help you quit Prescription assistance for tobacco cessation medications to help you quit For details about the tobacco cessation program available to [employer] members, go to www.TASCET.DesRueda.com (Search: Tobacco Cessation Program). [place] Tobacco Quit Line 6-277-RKPO-NOW ( ) is a toll-free, telephonic service that helps [place] residents quit smoking and using tobacco. It is staffed by experts who tailor a quit plan for you and provide you with advice. [place] Tobacco Quit Line 7-936-PJIC-NOW ( ) is a toll-free, telephonic service that helps [place] residents quit smoking and using tobacco. It is staffed by experts who tailor a quit plan for you and provide you with advice. Two weeks of nicotine replacement therapy may be provided at no charge, if needed. Additional Resources These national organizations also offer free information and resources to help you quit tobacco: [place] [employer]--www.cancer.org/healthy/s tayawayfromtobacco [place] [employer]--www.heart.org (Search: Quit Smoking) Centers for Disease Control and Prevention--www.cdc.gov/tobacco [place] [employer]--www.lungusa.org The following attachments cannot be sent through Care Everywhere.Diarrhea in adolescents and adults (Turkish)High Fiber Diet (Turkish)documented in this encounter [employer] 06-07-2024 History of Present illness Narrative Images from the original note were not included. HISTORY OF PRESENT ILLNESS: Cadne Rahman is an 54 y.o. @ female. [...] evaluation. Aditi Gomez documented in this encounter [facility] 03-30-2024 Miscellaneous Notes Cande calls asking for Lyrica to be refilled to [facility] in [place]. Lyrica 150 mg bid for 30 days no refills called into the pharmacy. documented in this encounter [facility] 03-30-2024 Telephone encounter Note Cande calls asking for Lyrica to be refilled to [facility] in [place]. Lyrica 150 mg bid for 30 days no refills called into the pharmacy. [facility]24 Instructions Sharri Holm RN - 01/28/2024 12:45 PM EDT Preoperative Education Checklist- General Surgery date: 02/25/24 Surgery time: 1015 a.m. Arrival time: 0815 a.m. 1. Bring a photo ID and your insurance card with you the day of surgery. You will check in at the main lobby of the [facility]- registration desk is straight ahead as soon as you walk in. Tell them you are here for surgery. 2. If you have a Living Will/Durable Power of Production Control Planner for Health Care that is not on [...] after you have bathed. 5. NO nail martiniquais/acrylic on at least one finger. If you are having a hand, wrist or foot surgery then all nail martiniquais and artificial/acrylic nails must be removed from [...] please call the Preadmission Testing office at [phone], Mon.-Fri. 7 a.m.-3 p.m. Leave a voicemail [...] with your doctor. documented in this encounter [employer] 01-28-2024 Miscellaneous Notes Preoperative Education Checklist- General Surgery date: 02/25/24 Surgery time: 1015 a.m. Arrival time: 0815 a.m. 1. Bring a photo ID and your insurance card with you the day of surgery. You will check in at the main lobby of the [facility]- registration desk is straight ahead as soon as you walk in. Tell them you are here for surgery. 2. If you have a Living Will/Durable Power of Production Control Planner for Health Care that is not on [...] after you have bathed. 5. NO nail martiniquais/acrylic on at least one finger. If you are having a hand, wrist or foot surgery then all nail martiniquais and artificial/acrylic nails must be removed from [...] please call the Preadmission Testing office at [phone], Mon.-Fri. 7 a.m.-3 p.m. Leave a voicemail [...] Patient verbalized understanding. documented in this encounter [facility] 01-28-2024 Nurse Note Preoperative Education Checklist- General Surgery date: 02/25/24 Surgery time: 1015 a.m. Arrival time: 0815 a.m. 1. Bring a photo ID and your insurance card with you the day of surgery. You will check in at the main lobby of the [facility]- registration desk is straight ahead as soon as you walk in. Tell them you are here for surgery. 2. If you have a Living Will/Durable Power of Production Control Planner for Health Care that is not on [...] after you have bathed. 5. NO nail martiniquais/acrylic on at least one finger. If you are having a hand, wrist or foot surgery then all nail martiniquais and artificial/acrylic nails must be removed from [...] please call the Preadmission Testing office at [phone], Mon.-Fri. 7 a.m.-3 p.m. Leave a voicemail [...] the follow-up appointment with your doctor. T [facility] 01-28-2024 Nurse Note Hibiclens and surgical instructions reviewed. Patient verbalized understanding. T [facility] 01-01-2024 History of Present illness Narrative Images from the original note were not included. [facility] [address] [place] [address], [address] [place] [address] * CHART NOTE ? 01/01/2024 Patient: Cande Rahman 1970 [id number] Physician: León Oconnor MD CHIEF COMPLAINT Post-op HISTORY OF PRESENT ILLNESS 53 y.o. female presents to the office today as a post-op patient S/P L4-5 laminectomy performed on 12-03-2023. Cande reports she is not having any back pain, but continues to have numbness and tingling in the left heel. Denies loss of assembler bonding strength, saddle anesthesia, urinary or bowel dysfunction, [...] record of the patient encounter. Inadvertent computerized circular sawyer stone errors related to syntax, spelling, homophones, and/or inaudibility may be present. LINDA Henley 01/07/24 1250 documented in this encounter [facility] 01-01-2024 Instructions AIXA Lynn - 01/01/2024 3:00 PM EDT Patient was seen by LINDA Ugarte Patient was given an order for a Lumbar Spine Flex/Ext xray to be done in 3 months. Patient will follow up in 3 months. JA The following attachments cannot be sent through Care Everywhere.Quitting smoking (Turkish)documented in this encounter [facility] 01-01-2024 History of Present illness Narrative Images from the original note were not included. [address] [facility] [address] [facility] [id number] Date of Service: 01/01/2024 Subjective: Cande Rahman is a 53 y.o. female who presents today for evaluation joints pain. Patient is seen at the request of [facility]. This is follow-up visit with this patient [...] or corrected. Thank you for your understanding. [facility] Rheumatology Dr. Cady Fernández MD [address] [facility] [place] [facility] [place] [address] [place] [id number] Office: [phone] documented in this encounter [facility] 12-04-2023 History of Present illness Narrative Patient discharged to home all discharge paperwork signed and reviewed with patient. Patient verbalized understanding. PIV removed at discharge no s/s of any distress noted at this time. documented in this encounter [facility] 12-04-2023 Hospital course Narrative Images from the original note were not included. [facility] [address] [place] [address] * NEUROSURGERY DISCHARGE SUMMARY Patient: Cande Rahman Date of : 1970 Acct: [id number] Primary Care Physician: ORALIA Ward Admit date: [...] These medications were sent to [id number] [address] [address] methocarbamoL 500 mg tablet naloxone 4 mg/actuation [...] and clinically appropriate. Alley Saleh PA-C Neurosurgery [facility] Patient Touch 12/04/23 11:46 AM Alley Saleh PA-C 12/04/23 1143 documented in this encounter [facility] 12-04-2023 Hospital Discharge instructions Alley Saleh PA-C [...] that time. Other Instructions: Home instructions per [facility] Neurosurgery Booklet Call [facility] Neurosurgery with any questions, . documented in this encounter [employer] 12-04-2023 Miscellaneous Notes Problem: Pain Goal: Patient goal is pain score less than 4, able to rest, and participant in treatment plan as appropriate Description: INTERVENTIONS: 1. Encourage patient or legal wireless sales representative to report early pain and ask [...] per policy 9. Teach patient or legal wireless sales representative interventions for comforting Outcome: Adequate for [...] at the bedside 7. Instruct patient/ patient wireless sales representative about use of safety devices 8. Include patient/ patient wireless sales representative in decisions related to safety Outcome: [...] hygiene technique 7. Identify and instruct patient/patient wireless sales representative in use of appropriate isolation precautions for identified infection/symptoms 8. Provide and discuss with patient/patient wireless sales representative on educational MDRO sheet 9. Encourage and monitor nutritional status daily and consult delinquent tax collection assistant if indicated 10. Implement neutropenic guidelines as needed 11. Review exposure to history of communicable disease and recent travel history on admission 12. Encourage annual influenza vaccine 13. Encourage pneumonia vaccine Outcome: Adequate for Discharge Problem: Knowledge Deficit Goal: Patient/patient wireless sales representative demonstrates understanding of disease process, treatment [...] Score of =/> 25 or indicated by [facility] Assessment Goal: Patient should be free from fall Description: Interventions: 1. Drums to environment 2. Hourly rounds addressing the [...] non-skid footwear 11. Teach patient and patient wireless sales representative to maintain environment for safety and [...] (cane, walker) within reach 19. Request patient wireless sales representative bring adaptive equipment/mobility aids from home or obtain and provide as needed 20. Consult pharmacy regarding effects of med's affecting mobility, cognition, and alternatives 21. Obtain physician order for PT if risk factors associated with mobility are present 22. Obtain physician order for OT as appropriate 23. Utilize diversional activities 24. Educate patient and patient wireless sales representative how to maintain a safe environment during visitation times (notify nurse prior to leaving bedside) 25. Consider appropriateness of medical or non-resident medical officer 26. Set up voiding schedule as appropriate (every 2 hours) Outcome: Adequate for Discharge Problem: Pain Goal: Patient goal is pain score less than 4, able to rest, and participant in treatment plan as appropriate Description: INTERVENTIONS: 1. Encourage patient or legal wireless sales representative to report early pain and ask [...] per policy 9. Teach patient or legal wireless sales representative interventions for comforting Outcome: Progressing Note: [...] at the bedside 7. Instruct patient/ patient wireless sales representative about use of safety devices 8. Include patient/ patient wireless sales representative in decisions related to safety Outcome: [...] hygiene technique 7. Identify and instruct patient/patient wireless sales representative in use of appropriate isolation precautions for identified infection/symptoms 8. Provide and discuss with patient/patient wireless sales representative on educational MDRO sheet 9. Encourage and monitor nutritional status daily and consult delinquent tax collection assistant if indicated 10. Implement neutropenic guidelines as needed 11. Review exposure to history of communicable disease and recent travel history on admission 12. Encourage annual influenza vaccine 13. Encourage pneumonia vaccine Outcome: Progressing Note: Evaluation of progress towards goal: No new evidence of infection for shift. Problem: Knowledge Deficit Goal: Patient/patient wireless sales representative demonstrates understanding of disease process, treatment [...] Score of =/> 25 or indicated by [facility] Assessment Goal: Patient should be free from fall Description: Interventions: 1. Drums to environment 2. Hourly rounds addressing the [...] non-skid footwear 11. Teach patient and patient wireless sales representative to maintain environment for safety and [...] (cane, walker) within reach 19. Request patient wireless sales representative bring adaptive equipment/mobility aids from home or obtain and provide as needed 20. Consult pharmacy regarding effects of med's affecting mobility, cognition, and alternatives 21. Obtain physician order for PT if risk factors associated with mobility are present 22. Obtain physician order for OT as appropriate 23. Utilize diversional activities 24. Educate patient and patient wireless sales representative how to maintain a safe environment during visitation times (notify nurse prior to leaving bedside) 25. Consider appropriateness of medical or non-resident medical officer 26. Set up voiding schedule as appropriate [...] were completed. I then checked with a [place] elevator and confirmed that there was no [...] Oconnor MD - Primary Assistants: None Staff: Mri Manager Primary: Ramos Patrick RN Mri Manager Relief: Josh Dunn RN Scrub Relief: Veena Mason Scrub Person: Gentry De Leon CST Mri Manager Orientee: Peggy Kessler RN Pre-op Diagnosis: Spinal [...] lateral recess stenosis documented in this encounter [facility] 12-04-2023 Plan of care note Problem: Pain Goal: Patient goal is pain score less than 4, able to rest, and participant in treatment plan as appropriate Description: INTERVENTIONS: 1. Encourage patient or legal wireless sales representative to report early pain and ask [...] per policy 9. Teach patient or legal wireless sales representative interventions for comforting Outcome: Adequate for [...] at the bedside 7. Instruct patient/ patient wireless sales representative about use of safety devices 8. Include patient/ patient wireless sales representative in decisions related to safety Outcome: [...] hygiene technique 7. Identify and instruct patient/patient wireless sales representative in use of appropriate isolation precautions for identified infection/symptoms 8. Provide and discuss with patient/patient wireless sales representative on educational MDRO sheet 9. Encourage and monitor nutritional status daily and consult delinquent tax collection assistant if indicated 10. Implement neutropenic guidelines as needed 11. Review exposure to history of communicable disease and recent travel history on admission 12. Encourage annual influenza vaccine 13. Encourage pneumonia vaccine Outcome: Adequate for Discharge Problem: Knowledge Deficit Goal: Patient/patient wireless sales representative demonstrates understanding of disease process, treatment [...] Score of =/> 25 or indicated by [facility] Assessment Goal: Patient should be free from fall Description: Interventions: 1. Drums to environment 2. Hourly rounds addressing the [...] non-skid footwear 11. Teach patient and patient wireless sales representative to maintain environment for safety and [...] (cane, walker) within reach 19. Request patient wireless sales representative bring adaptive equipment/mobility aids from home or obtain and provide as needed 20. Consult pharmacy regarding effects of med's affecting mobility, cognition, and alternatives 21. Obtain physician order for PT if risk factors associated with mobility are present 22. Obtain physician order for OT as appropriate 23. Utilize diversional activities 24. Educate patient and patient wireless sales representative how to maintain a safe environment during visitation times (notify nurse prior to leaving bedside) 25. Consider appropriateness of medical or non-resident medical officer 26. Set up voiding schedule as appropriate (every 2 hours) Outcome: Adequate for Discharge [facility] 12-03-2023 Plan of care note Problem: Pain Goal: Patient goal is pain score less than 4, able to rest, and participant in treatment plan as appropriate Description: INTERVENTIONS: 1. Encourage patient or legal wireless sales representative to report early pain and ask [...] per policy 9. Teach patient or legal wireless sales representative interventions for comforting Outcome: Progressing Note: [...] at the bedside 7. Instruct patient/ patient wireless sales representative about use of safety devices 8. Include patient/ patient wireless sales representative in decisions related to safety Outcome: [...] hygiene technique 7. Identify and instruct patient/patient wireless sales representative in use of appropriate isolation precautions for identified infection/symptoms 8. Provide and discuss with patient/patient wireless sales representative on educational MDRO sheet 9. Encourage and monitor nutritional status daily and consult delinquent tax collection assistant if indicated 10. Implement neutropenic guidelines as needed 11. Review exposure to history of communicable disease and recent travel history on admission 12. Encourage annual influenza vaccine 13. Encourage pneumonia vaccine Outcome: Progressing Note: Evaluation of progress towards goal: No new evidence of infection for shift. Problem: Knowledge Deficit Goal: Patient/patient wireless sales representative demonstrates understanding of disease process, treatment [...] Score of =/> 25 or indicated by [facility] Assessment Goal: Patient should be free from fall Description: Interventions: 1. Drums to environment 2. Hourly rounds addressing the [...] non-skid footwear 11. Teach patient and patient wireless sales representative to maintain environment for safety and [...] (cane, walker) within reach 19. Request patient wireless sales representative bring adaptive equipment/mobility aids from home or obtain and provide as needed 20. Consult pharmacy regarding effects of med's affecting mobility, cognition, and alternatives 21. Obtain physician order for PT if risk factors associated with mobility are present 22. Obtain physician order for OT as appropriate 23. Utilize diversional activities 24. Educate patient and patient wireless sales representative how to maintain a safe environment during visitation times (notify nurse prior to leaving bedside) 25. Consider appropriateness of medical or non-resident medical officer 26. Set up voiding schedule as appropriate (every 2 hours) Outcome: Progressing Note: Evaluation of progress towards goal: Patient remains free from falls. Patient remains alert and oriented x4 and steady when ambulating. [facility] [employer] [facility] 12-03-2023 Procedure note NEUROSURGERY OPERATIVE NOTE Patient [...] were completed. I then checked with a [place] elevator and confirmed that there was no [...] room with stable vital signs. Complications: None. [facility] 12-03-2023 Procedure note Brief Post-op Note NAME: Cande Rahman : 1970 PROCEDURE DATE: 12/03/2023 Surgeon: Surgeon(s) and Role: * León Oconnor MD - Primary Assistants: None Staff: Mri Manager Primary: Ramos Patrick RN Mri Manager Relief: Josh Dunn RN Scrub Relief: Veena Mason Scrub Person: Gentry De Leon CST Mri Manager Orientee: Peggy Kessler RN Pre-op Diagnosis: Spinal [...] Findings: central canal and lateral recess stenosis [facility] 12-03-2023 Attending History and physical note HISTORY AND PHYSICAL INTERVAL NOTE: Cande Rahman 1970 [id number] H&P reviewed. The patient was examined and [...] Arthritis Back pain 01/2021 Bipolar 1 disorder ([facility]) Cervical radiculopathy Chronic depression Chronic pain disorder [...] Radiculopathy of lumbar region 10/2023 Rheumatoid arthritis ([facility]) Shoulder pain 01/27/2021 Spinal stenosis of lumbar region, unspecified whether neurogenic claudication present 10/2023 Visual impairment Glasses PAST SURGICAL HISTORY: Past Surgical History: Procedure Laterality Date ANTERIOR FUSION CERVICAL MULTI LEVEL & DISCECTOMY C5-C6, C6-C7 N/A 11/06/2021 Performed by León Oconnor MD at [facility] BACK SURGERY 2004 L4-L5 Dr. Workman COLONOSCOPY N/A 02/12/2021 Performed by Ángel Marrero DO at [facility] HYSTERECTOMY 2019 INJECTION BLOCK EPIDURAL CAUDAL STEROID N/A 03/14/2023 Performed by Pola Berger MD at [facility] INJECTION BLOCK EPIDURAL CERVICAL/THORACIC C 6/7 ELOY N/A 11/29/2022 Performed by Pola Berger MD at [facility] INJECTION SPINE TRANSFORAMINAL Left C 5,6 Nroot Left 07/19/2022 Performed by Pola Berger MD at [facility] OTHER SURGICAL HISTORY Gall stones removed - [...] CLAUDIA Rea 11/07/23 1407 CLAUDIA Rea 12/03/23 1051 [facility] 12-03-2023 History and physical note HISTORY AND PHYSICAL INTERVAL NOTE: Cande Rahman 1970 [id number] H&P reviewed. The patient was examined and [...] Arthritis Back pain 01/2021 Bipolar 1 disorder ([facility]) Cervical radiculopathy Chronic depression Chronic pain disorder [...] Radiculopathy of lumbar region 10/2023 Rheumatoid arthritis ([facility]) Shoulder pain 01/27/2021 Spinal stenosis of lumbar region, unspecified whether neurogenic claudication present 10/2023 Visual impairment Glasses PAST SURGICAL HISTORY: Past Surgical History: Procedure Laterality Date ANTERIOR FUSION CERVICAL MULTI LEVEL & DISCECTOMY C5-C6, C6-C7 N/A 11/06/2021 Performed by León Oconnor MD at [facility] BACK SURGERY 2004 L4-L5 Dr. Workman COLONOSCOPY N/A 02/12/2021 Performed by Ángel Marrero DO at [facility] HYSTERECTOMY 2019 INJECTION BLOCK EPIDURAL CAUDAL STEROID N/A 03/14/2023 Performed by Pola Berger MD at [facility] INJECTION BLOCK EPIDURAL CERVICAL/THORACIC C 6/7 ELOY N/A 11/29/2022 Performed by Pola Berger MD at [facility] INJECTION SPINE TRANSFORAMINAL Left C 5,6 Nroot Left 07/19/2022 Performed by Pola Berger MD at [facility] OTHER SURGICAL HISTORY Gall stones removed - [...] Rea 12/03/23 1056 documented in this encounter [facility] 12-02-2023 Miscellaneous Notes I spoke to Cande to let her know her surgery has been approved by insurance. Surgery is scheduled tomorrow 12/03/23 @ 11:45 am with TTH arrival time of 9:45 am documented in this encounter [facility] 12-02-2023 Telephone encounter Note I spoke to Cande to let her know her surgery has been approved by insurance. Surgery is scheduled tomorrow 12/03/23 @ 11:45 am with TTH arrival time of 9:45 am [facility] 11-25-2023 Miscellaneous Notes Cande calls into the office requesting medication refill for her lyrica. Prescription called into her pharmacy. documented in this encounter [facility] 11-25-2023 Telephone encounter Note Cande calls into the office requesting medication refill for her lyrica. Prescription called into her pharmacy. [facility] 11-25-2023 Miscellaneous Notes Cande calls into the office requesting medication refill for her Lyrica. Prescription called into her pharmacy. documented in this encounter [facility] 11-25-2023 Telephone encounter Note Cande calls into the office requesting medication refill for her Lyrica. Prescription called into her pharmacy. [employer] [facility] 11-07-2023 History and physical note PRE-ADMISSION TESTING [...] Arthritis Back pain 01/2021 Bipolar 1 disorder ([facility]) Cervical radiculopathy Chronic depression Chronic pain disorder [...] Radiculopathy of lumbar region 10/2023 Rheumatoid arthritis ([facility]) Shoulder pain 01/27/2021 Spinal stenosis of lumbar region, unspecified whether neurogenic claudication present 10/2023 Visual impairment Glasses PAST SURGICAL HISTORY: Past Surgical History: Procedure Laterality Date ANTERIOR FUSION CERVICAL MULTI LEVEL & DISCECTOMY C5-C6, C6-C7 N/A 11/06/2021 Performed by León Oconnor MD at [facility] BACK SURGERY 2004 L4-L5 Dr. Workman COLONOSCOPY N/A 02/12/2021 Performed by Ángel Marrero DO at [facility] HYSTERECTOMY 2019 INJECTION BLOCK EPIDURAL CAUDAL STEROID N/A 03/14/2023 Performed by Pola Berger MD at [facility] INJECTION BLOCK EPIDURAL CERVICAL/THORACIC C 6/7 ELOY N/A 11/29/2022 Performed by Pola Berger MD at [facility] INJECTION SPINE TRANSFORAMINAL Left C 5,6 Nroot Left 07/19/2022 Performed by Pola Berger MD at [facility] OTHER SURGICAL HISTORY Gall stones removed - [...] Oconnor on 11/21/2023. CLAUDIA Rea 11/07/23 1407 [facility] 11-07-2023 History and physical note PRE-ADMISSION [...] Arthritis Back pain 01/2021 Bipolar 1 disorder ([facility]) Cervical radiculopathy Chronic depression Chronic pain disorder [...] Radiculopathy of lumbar region 10/2023 Rheumatoid arthritis ([facility]) Shoulder pain 01/27/2021 Spinal stenosis of lumbar region, unspecified whether neurogenic claudication present 10/2023 Visual impairment Glasses PAST SURGICAL HISTORY: Past Surgical History: Procedure Laterality Date ANTERIOR FUSION CERVICAL MULTI LEVEL & DISCECTOMY C5-C6, C6-C7 N/A 11/06/2021 Performed by León Oconnor MD at [facility] BACK SURGERY 2004 L4-L5 Dr. Workman COLONOSCOPY N/A 02/12/2021 Performed by Ángel Marrero DO at [facility] HYSTERECTOMY 2019 INJECTION BLOCK EPIDURAL CAUDAL STEROID N/A 03/14/2023 Performed by Pola Berger MD at [facility] INJECTION BLOCK EPIDURAL CERVICAL/THORACIC C 6/7 ELOY N/A 11/29/2022 Performed by Pola Berger MD at [facility] INJECTION SPINE TRANSFORAMINAL Left C 5,6 Nroot Left 07/19/2022 Performed by Pola Berger MD at [facility] OTHER SURGICAL HISTORY Gall stones removed - [...] Rea 11/07/23 1407 documented in this encounter [facility] 11-07-2023 Instructions Kayleigh Wilson RN - 11/07/2023 1:30 PM EST Images from the original note were not included. Your surgery/procedure is scheduled at [facility] on 11/21/23 at [address] [facility] Address: [address] [place] [address] Park in Parking lot located on [facility]. Report to the Entrance B. Check in at the information desk the surgery. The waiting room located on the second floor. If you have any questions prior to surgery, please call Pre-Admission Clinic at [phone] between 7:30 am and 4:30 pm Friday through Friday. If you have questions the morning of surgery, please call the Pre-op Department at [phone]. PLEASE FOLLOW THESE INSTRUCTIONS OR YOUR SURGERY [...] would like to schedule therapy at a [facility] facility, please call [phone] ([phone]). Do not use lotions, creams, powders, perfume, make up, cologne or after-shaves day of surgery. Remove ALL jewelry including wedding rings, body piercings,hair extensions that contain metal, nail martiniquais, make-up, and contact lens. You may brush [...] be aware - it may not be benitez to cough following some types of surgeries [...] RIGHTS AND RESPONSIBILITIES As a patient at [facility], you have the right to: Receive medical care and be informed of who is taking care of you Be treated with dignity and respect Have a family member/wireless sales representative of choice and your physician notified of your admission Receive information and actively participate in decisions about your care and treatment Refuse care, treatment and services Decide who may provide your support and speak for you Access sabianism and spiritual services Participate in ethical issues [...] of hospital charges and payment methods Patient/patient wireless sales representative responsibilities are to: Provide information about [...] morning of surgery. documented in this encounter [facility] 10-27-2023 History of Present illness Narrative Images from the original note were not included. [address] [address] Date of Service: 10/27/2023 Subjective: Cande Rahman is a 53 y.o. female who presents today for evaluation joints pain. Patient is seen at the request of [facility] Ed. This is the 1st clinic visit [...] able to understand RTC 2 month Total wowb-dt-aizi time was 35 minutes with more than [...] or corrected. Thank you for your understanding. [facility] Physicians Rheumatology [address]. Cady Fernández [place] [address] [place] [address], [address] [place] [address] Office: [phone] documented in this encounter [facility] 10-16-2023 History of Present illness Narrative Images from the original note were not included. [facility] [address] [place] [address], [address] [place] [address] * CHART NOTE ? 10/21/2023 Patient: Cande Rahman 1970 [id number] Physician: León Oconnor MD CHIEF COMPLAINT Follow-up. [...] management with no relief. Denies loss of assembler bonding strength, saddle anesthesia, urinary or bowel dysfunction, and loss of balance. Patient is not a diabetic and is a current smoker. Hx of prior lumbar spine surgery in [place] performed by Dr. Workman. ALLERGIES Allergies Allergen [...] Right achilles: 2+ Left achilles: 2+ Right assembler bonding: 2+ Left assembler bonding: 2+ Right Dumont: absent Left Dumont: absent [...] record of the patient encounter. Inadvertent computerized circular sawyer stone errors related to syntax, spelling, homophones, and/or inaudibility may be present. Scribe Statement: Scribed for and in the presence of León Oconnor MD by Christel Baidr. Christel Royfman 10/16/23 1236 Christel Royfman 10/16/23 1309 Christel Royfman 10/16/23 1322 Christel Royfman 10/16/23 1505 Christel Royfman 10/16/23 1507 Christel Royfman 10/16/23 1509 Provider Statement: I, León Oconnor MD personally performed the services described in the documentation, as scribed by AR in my presence, and it is both accurate and complete. documented in this encounter [facility] 10-16-2023 Instructions Marcelle Rodriguez CMA - 10/16/2023 2:05 PM EST Patient was seen by Dr. Oconnor Placed referral for ortho Patient will meet with Josseline to schedule a surgery date LO The following attachments cannot be sent through Care Everywhere.Quitting smoking (Turkish)documented in this encounter [facility] 10-10-2023 Miscellaneous Notes Cande called in requesting a prescription refill for her Lyrica 150 mg. Script called into pharmacy with Lanette. documented in this encounter [facility] 10-10-2023 Telephone encounter Note Cande called in requesting a prescription refill for her Lyrica 150 mg. Script called into pharmacy with [facility]. [facility] Evaluation note Diagnosis Back pain, unspecified back location, unspecified back pain laterality, unspecified chronicity History of back surgery Other postprocedural status Lumbar degenerative disc disease Degeneration of lumbar or lumbosacral intervertebral disc Lumbar spondylosis Lumbosacral spondylosis without myelopathy Lumbar radiculopathy Thoracic or lumbosacral neuritis or radiculitis, unspecified documented in this encounter [employer] Phone: evaluation note* Diagnosis Chronic left shoulder pain- Primary Pain in joint, shoulder region Status post left rotator cuff repair Internal derangement of left shoulder [facility] Diagnosis Acute pain of left shoulder- Primary Status post left rotator cuff repair documented in this encounter [facility]* Diagnosis Status post left rotator cuff repair- Primary documented in this encounter [facility]* Diagnosis Acute pain of [...] rotator cuff repair documented in this encounter [facility]* Diagnosis Acute pain of left shoulder- Primary Status post left rotator cuff repair [facility] Diagnosis Chronic right shoulder pain Pain in joint, shoulder region Radiculopathy, cervical region Brachial neuritis or radiculitis nos [facility] Diagnosis Spinal stenosis of lumbar region Radiculopathy, lumbar region Thoracic or lumbosacral neuritis or radiculitis, unspecified Spinal stenosis of lumbar region, unspecified whether neurogenic claudication present- Primary Radiculopathy, lumbar region Thoracic or lumbosacral neuritis or radiculitis, unspecified Spinal stenosis of lumbar region, unspecified whether neurogenic claudication present Radiculopathy, lumbar region Thoracic or lumbosacral neuritis or radiculitis, unspecified [facility] Diagnosis Spinal stenosis of [...] or radiculitis, unspecified [facility] Diagnosis Spinal stenosis of lumbar region Radiculopathy, lumbar region Thoracic or lumbosacral neuritis or radiculitis, unspecified Fibromyalgia- Primary Unspecified myalgia and myositis Arthritis Unspecified arthropathy, site unspecified Spinal stenosis of lumbar region, unspecified whether neurogenic claudication present Radiculopathy, lumbar region Thoracic or lumbosacral neuritis or radiculitis, unspecified [facility] Diagnosis Spinal stenosis of [...] or radiculitis, unspecified [facility] Diagnosis Spinal stenosis of lumbar region Radiculopathy, lumbar region Thoracic or lumbosacral neuritis or radiculitis, unspecified Stenosis of cervical spine Spinal stenosis in cervical region Radiculopathy, cervical region Brachial neuritis or radiculitis nos Spinal stenosis of lumbar region, unspecified whether neurogenic claudication present Radiculopathy, lumbar region Thoracic or lumbosacral neuritis or radiculitis, unspecified [facility] Diagnosis Spinal stenosis of lumbar region, unspecified whether neurogenic claudication present- Primary Spinal stenosis of lumbar region, unspecified whether neurogenic claudication present Radiculopathy, lumbar region Thoracic or lumbosacral neuritis or radiculitis, unspecified Acute post-operative pain Radiculopathy, lumbar region Thoracic or lumbosacral neuritis or radiculitis, unspecified [facility] Diagnosis Fibromyalgia Unspecified myalgia and myositis [facility] Diagnosis Status post lumbar laminectomy- Primary [facility] Diagnosis Stenosis of cervical spine Spinal stenosis in cervical region Radiculopathy, cervical region Brachial neuritis or radiculitis nos [facility]* Diagnosis Fibromyalgia- Primary Unspecified myalgia and myositis [facility]* Diagnosis Diarrhea, unspecified type- Primary Fecal urgency [facility]* Diagnosis Fibromyalgia Unspecified myalgia and myositis documented [facility]* Diagnosis Pain and swelling of left shoulder- Primary Sprain of left rotator cuff capsule, initial encounter documented in this encounter [facility]* Diagnosis Sprain of left rotator cuff capsule, initial encounter- Primary Status post left rotator cuff repair documented in this encounter [facility] note* Diagnosis Fibromyalgia Unspecified myalgia and myositis [facility]* Diagnosis Pre-op evaluation- Primary documented in this encounter [facility]* Diagnosis Pain and swelling of left shoulder- Primary Post-op pain Other acute postoperative pain documented in this encounter [facility] note* Diagnosis Pre-op examination- Primary documented in this encounter [facility] HealthcareEvaluation note* Diagnosis Post-operative pain- Primary Other acute postoperative pain [facility]* Diagnosis Status post arthroscopy of left shoulder documented in this encounter [facility]ructionsNot on filedocumented in this encounterPro[facility] SystemInstructionsNot on filedocumented in this encounterProS[facility] Health SystemInstructionsNot on filedocumented in this encounterPro[facility] SystemInstructionsNot on filedocumented in this encounterProMedica Health [facility] InstructionsNot on filedocumented in this encounterProMedica Health [facility] InstructionsNot on filedocumented in this encounterProMedica [facility] InstructionsNot on filedocumented in this encounterProMedica [facility] InstructionsNot on filedocumented in this encounterProMed[facility] InstructionsNot on filedocumented in this encounterProMedica [facility] InstructionsNot on filedocumented in this encounterProMedica Health [facility] InstructionsNot on filedocumented in this encounterProFirelands Regional [facility] Centerca [facility] SystemReason for referral (narrative)* Consultation (Routine) - Pending Review Specialty Diagnoses / Procedures Referred By Shawn pope Referred To Contact Orthopedic Surgery Diagnoses Left shoulder pain, unspecified chronicity León Oconnor MD [address] [place] [phone] JyotiRosalio marcelino, [address] [address] Referral ID Status Reason Start Date Expiration Date Visits Requested Visits Authorized [id number] Pending Review Specialty Services Required 3 10/15/2024 1 1 [facility]* Consultation (Routine) - Pending Review Specialty Diagnoses / Procedures Referred By Shawn pope Referred To Contact Rheumatology Diagnoses Arthritis León Oconnor MD [address] [place] [phone] Yumiko Pal MD [address] [address] Referral ID Status Reason Start Date Expiration Date Visits Requested Visits Authorized [id number] Pending Review Specialty Services Required 3 09/08/2024 1 1 [facility] Summary Purpose Family History No Family History Records FoundNo Family History Records FoundNo Family History Records FoundNo Family History Records FoundNo Family History Records FoundNo Family History Records FoundNo Family History Records FoundNo Family History Records FoundNo Family History Records FoundNo Family History Records Found Advance Directives No Advanced Directives Records FoundDocuments on File Type Date Recorded Patient Incident Response Consultant Expl anation ACP-Advance Directive ACP-Power of Production Control Planner Documents on File Type Date Recorded Patient Incident Response Consultant Expl anation Living Will 11/06/2021 10:57 AM LIVING [place] Durable Power of Production Control Planner 11/06/2021 10:57 AM DPOA Latest Code Status on File Code Status Date Activated Date Inactivated Comments Full Code 11/06/2021 3:15 PM 11/07/2021 12:57 PM Documents on File Type Date Recorded Patient Incident Response Consultant Expl anation Living Will 11/06/2021 10:57 AM LIVING [place] [employer] Durable Power of Production Control Planner 11/06/2021 10:57 AM DPOA Latest Code Status [...] 12:57 PM Procedure Findings Note HNO ID: [id number] Author: China Rodriguez Service: Gynecology Author Type: Physician Type: Brief Op Note Filed: 12/14/2019 11:17 AM Note Text: BRIEF OPERATIVE NOTE Log ID: [id number] Surgery/Procedure Date: 12/14/2019 Incision/Procedure Start Time: 8:37 AM Incision Close/Procedure End Time: 10:41 AM Surgeon(s) and Tare Worker(s): Surgeon(s) and Role: * Alanna Rodriguez - Primary Physician Tare Worker: Di Rahman (Pa) Senior Interactive Developer: Manish Mann No qualified residents avaialble Procedures [...] W WO CONTRAST Agustín Walls MD [address] [facility] [address] [place] [address] Specialty Diagnoses / Procedures Referred By Contac t Referred To Contact Radiology Diagnoses Internal derangement of left shoulder Procedures MR shoulder left wo IV contrast Rosalio Montes, [address] [facility] [address] [place] [address] Noms Fnr Mr [address] [facility] [address] [place] [address] Referral ID Status Reason Start Date Expiration Date V isits Requested Visits Authorized [id number] Pending Review 07/22/2024 01/18/2025 1 1 Specialty Diagnoses / Procedures Referred By Contac t Referred To Contact Physical Therapy Diagnoses Status post left rotator cuff repair Procedures PA OFFICE/OUTPATIENT NEW HIGH MDM 60 MINUTES Aditi Billy, HOSE HANDLER [address] [place] [address] Trisha Harris, PT [address] [place] [address] Referral ID Status Reason Start Date Expiration Date Visits Requested Visits Authorized [id number] Pending Review Specialty Services Required 06/07/2024 12/04/2024 1 1 Specialty Diagnoses / Procedures Referred By Shawn pope Referred To Contact Diagnoses Fibromyalgia Cady Fernández MD [address] [address] Referral ID Status Reason Start Date Expiration Date V isits Requested Visits Authorized [id number] Pending Review 1 1 Referral ID Status Reason Start Date Expiration Date Visits Re quested Visits Authorized [id number] Closed 1 1 Referral ID Status Reason Start Date Expiration Date Visits Re quested Visits Authorized [id number] Closed 1 1 Additional Source Comments INFORMATION SOURCE (unrecogn ized section and content) DATE CREATED AUTHOR 09/17/2019 [facility] DATE CREATED AUTHOR AUTHOR'S ORGANIZ ATION 12/17/2019 [facility] DATE CREATED AUTHOR AUTHOR'S ORGANIZ ATION 02/01/2020 [facility] DATE CREATED AUTHOR AUTHOR'S ORGANIZ ATION 05/31/2021 [facility] DATE CREATED AUTHOR AUTHOR'S ORGANIZ ATION 07/19/2022 [facility] DATE CREATED AUTHOR AUTHOR'S ORGANIZ ATION 12/05/2023 [facility] DATE CREATED AUTHOR AUTHOR'S ORGANIZ ATION 06/10/2024 [facility] DATE CREATED AUTHOR AUTHOR'S ORGANIZ ATION 01/16/2025 [facility] DATE CREATED AUTHOR AUTHOR'S ORGANIZ ATION 04/13/2025 [facility] DATE CREATED AUTHOR AUTHOR'S ORGANIZ ATION 04/16/2025 [facility] d[facility] Specialists EPIC Reason for Visit (unrecogniz ed section and content) Status Reason Specialty Diagnoses / Procedures Referre d By Contact Referred To Contact Closed Radiology Diagnoses Back pain, unspecified back location, unspecified back pain laterality, unspecified chronicity History of back surgery Lumbar degenerative disc disease Lumbar spondylosis Lumbar radiculopathy Procedures MRI LUMBAR SPINE W WO CONTRAST Agustín Walls MD [address] [address] Reason Comments Follow-up Specialty Diagnoses / Procedures Referred By Shawn pope Referred To Contact Physical Therapy Diagnoses Status post left rotator cuff repair Procedures PA OFFICE/OUTPATIENT [facility]3] 60 MINUTES Aditi Billy, HOSE HANDLER [address] [place] [address] Trisha Harris, PT [address] [place] [address] Referral ID Status Reason Start Date Expiration Date Visits Requested Visits Authorized [id number] Authorized Specialty Services Required 06/07/2024 12/04/2024 30 [...] present [M48.061] Radiculopathy, lumbar region [M54.16] Procedures PA LAMINEC/FACETECT/FORAMIN,LUMBA R 1 SEG LAMINECTOMY LUMBAR SINGLE LEVEL / L4/5 León Oconnor MD [address] [facility] [address] [place] [phone] Referral ID Status Reason Start Date Expiration Date Visits Re quested Visits Authorized [id number] 1 1 Reason Comments Post-op POST OP [...] Care Teams (unrecognized sec tion and content) Fill Manager Relationship Specialty Start Date End Date Veronica Dixon MD [address] [place] [address] PCP - General Pediatrics 12/23/23 Gabriella Valdes MD [address] [place] [address] PCP - YENNIFER Boone [facility] 01/19/24 Unallocated, Kendys MD Lisa [address] [place] [address] Family Medicine 12/09/23 Fill Manager Relationship Specialty Start Date End Date Veronica Dixon MD [address] [place] [address] PCP - General Pediatrics 12/23/23 Gabriella Valdes MD [address] [place] [address] PCP - YENNIFER Boone [facility] 01/19/24 Unallocated, Yennifer Gonzalez MD [address] [place] [address] Family Medicine 12/09/23 Fill Manager Relationship Specialty Start Date End Date Veronica Dixon MD [address] [place] [address] PCP - General Pediatrics 12/23/23 Gabriella Valdes MD [address] [place] [address] PCP - [facility] 01/19/24 Unallocated, Yennifer Gonzalez MD [address] [place] [address] Family Medicine 12/09/23 Fill Manager Relationship Specialty Start Date End Date Veronica Dixon MD [address] [place] [address] PCP - General Pediatrics 12/23/23 Unallocated, Yennifer Gonzalez MD [address] [place] [address] Family Medicine 12/09/23 Fill Manager Relationship Specialty Start Date End Date Veronica Dixon MD [address] [place] [address] PCP - General Pediatrics 12/23/23 Unallocated, Yennifer Gonzalez MD [facility] [place] [address] Family Medicine 12/09/23 Fill Manager Relationship Specialty Start Date End Date Veronica Dixon MD [address] [place] [address] PCP - General Pediatrics 12/23/23 Unallocated, Yennifer Gonzalez MD [facility] [place] [address] Family Medicine 12/09/23 Fill Manager Relationship Specialty Start Date End Date Veronica Dixon MD [address] [place] [address] PCP - General Pediatrics 12/23/23 Unallocated, Yennifer Gonzalez MD [address] [place] [address] Family Medicine 12/09/23 Fill Manager Relationship Specialty Start Date End Date Veronica Dixon MD [address] [place] [address] PCP - General Pediatrics 12/23/23 Unallocated, Yennifer Gonzalez MD [address] [place] [address] Family Medicine 12/09/23 Fill Manager Relationship Specialty Start Date End Date Veronica Dixon MD [address] [place] [address] PCP - General Pediatrics 12/23/23 Unallocated, Yennifer Gonzalez MD [address] [place] [address] Family Medicine 12/09/23 Fill Manager Relationship Specialty Start Date End Date Veronica Dixon MD [address] [place] [address] PCP - General Pediatrics 12/23/23 Unallocated, Yennifer Gonzalez MD [address] [place] [address] Family Medicine 12/09/23 Fill Manager Relationship Specialty Start Date End Date Veronica Dixon MD [address] [place] [address] PCP - General Pediatrics 12/23/23 Unallocated, Yennifer Gonzalez MD [address] [place] [address] Family Medicine 12/09/23 Fill Manager Relationship Specialty Start Date End Date Veronica Dixon MD [address] [place] [address] PCP - General Pediatrics 12/23/23 Unallocated, Yennifer Gonzalez MD [address] [place] [address] Family Medicine 12/09/23 Fill Manager Relationship Specialty Start Date End Date Veronica Dixon MD [address] [place] [address] PCP - General Pediatrics 12/23/23 Unallocated, Yennifer Gonzalez MD [address] [place] [address] Family Medicine 12/09/23 Fill Manager Relationship Specialty Start Date End Date Veronica Dixon MD [address] [place] [address] PCP - General Pediatrics 12/23/23 Gabriella Valdes MD [address] [facility] [place] [address] PCP - YENNIFER Boone [facility] 01/19/24 Unallocated, Yennifer Gonzalez MD [facility] [place] [address] Family Medicine 12/09/23 Fill Manager Relationship Specialty Start Date End Date Veronica Dixon MD [address] [place] [address] PCP - General Pediatrics 12/23/23 Gabriella Valdes MD [address] [facility] [place] [address] PCP - YENNIFER Boone [facility] 01/19/24 Unallocated, Yennifer Gonzalez MD [address] [place] [address] Family Medicine 12/09/23 Fill Manager Relationship Specialty Start Date End Date Veronica Dixon MD [address] [place] [address] PCP - General Pediatrics 12/23/23 Gabriella Valdes MD [address] [facility] [place] [address] PCP - [facility] 01/19/24 Unallocated, Noms Provider, MD [address] [place] [address] Family Medicine 12/09/23 Fill Manager Relationship Specialty Start Date End Date Services, [facility] [address] [place] PCP - General Family Medicine 10/10/17 Fill Manager Relationship Specialty Start Date End Date Services, [facility] [address] [place] PCP - General Family Medicine 10/10/17 Fill Manager Relationship Specialty Start Date End Date Services, [facility] [address] [place] PCP - General Family Medicine 10/10/17 Fill Manager Relationship Specialty Start Date End Date Services, [facility] [address] [place] PCP - General Family Medicine 10/10/17 Fill Manager Relationship Specialty Start Date End Date Services, [facility] [address] [place], [place] PCP - General Family Medicine 10/10/17 Fill Manager Relationship Specialty Start Date End Date Services, [facility] [address] [place] PCP - General Family Medicine 10/10/17 Fill Manager Relationship Specialty Start Date End Date Services, [facility] [address] [place] PCP - General Family Medicine 10/10/17 Fill Manager Relationship Specialty Start Date End Date Services, [facility] [address] [place] PCP - General Family Medicine 10/10/17 Fill Manager Relationship Specialty Start Date End Date Services, [facility] [address] [place], [place] PCP - General Family Medicine 10/10/17 Fill Manager Relationship Specialty Start Date End Date [facility] [address] [place], [place] PCP - General Family Medicine 10/10/17 Fill Manager Relationship Specialty Start Date End Date [facility] [address] [place], [place] PCP - General Family Medicine 10/10/17 Fill Manager Relationship Specialty Start Date End Date Veronica Dixon MD [address] [place] [id number] PCP - General Family Medicine 05/31/24 Fill Manager Relationship Specialty Start Date End Date Veronica Dixon MD [address] [place] [address] PCP - General Family Medicine 05/31/24 Fill Manager Relationship Specialty Start Date End Date Veronica Dixon MD [address] [place] [address] PCP - General Family Medicine 05/31/24 Fill Manager Relationship Specialty Start Date End Date Veronica Dixon MD [address] [place] [address] PCP - General Family Medicine 05/31/24 Fill Manager Relationship Specialty Start Date End Date Veronica Dixon MD [address] [place] [address] PCP - General Family Medicine 05/31/24 Fill Manager Relationship Specialty Start Date End Date Veronica Dixon MD [address] [place] [address] [place] [address] PCP - General Pediatrics 12/23/23 Gabriella Valdes MD [address] [place] [address] PCP - [facility] 01/19/24 Unallocated, [place] [address] [place], [place] [address] [address] Family Medicine 12/09/23 Fill Manager Relationship Specialty Start Date End Date Veronica Dixon MD [address] [place] [address] PCP - General Pediatrics 12/23/23 Gabriella Valdes MD [address] [place] [address] PCP - [facility] 01/19/24 Unallocated, Yennifer Gonzalez MD [address] [place] [address] Family Medicine 12/09/23 Fill Manager Relationship Specialty Start Date End Date Veronica Dixon MD [address] [place] [address] PCP - General Pediatrics 12/23/23 Gabriella Valdes MD [address] [place] [address] PCP - [facility] 01/19/24 Unallocated, Yennifer Gonzalez MD [address] [place] [address] Family Medicine 12/09/23 Fill Manager Relationship Specialty Start Date End Date Veronica Dixon MD [address] [place] [address] PCP - General Family Medicine 05/31/24 Fill Manager Relationship Specialty Start Date End Date [facility], [facility] [address] [place] PCP - General Family Medicine 01/14/25 Fill Manager Relationship Specialty Start Date End Date Veronica Dixon MD [address] [place] [address] PCP - General Pediatrics 12/23/23 Gabriella Valdes MD [address] [facility] [place] [address] PCP - [facility] 01/19/24 Unallocated, Kendys MD Lisa [address] [place] [address] Family Medicine 12/09/23 Fill Manager Relationship Specialty Start Date End Date [facility] [place] [address] PCP - General Pediatrics 12/23/23 Gabriella Valdes MD PCP - [facility] [place] [facility] 01/19/24 Unallocatog, Yennifer Gonzalez MD [address] [place] [id number] Family Medicine 12/09/23 Fill Manager Relationship Specialty Start Date End Date Veronica Dixon MD [address] [place] [address] PCP - General Pediatrics 12/23/23 Gabriella Valdes MD PCP - [facility] [place] 01/19/24 Unallocated, Kendys ProviderMD [address] [place] [address] [facility] 12/09/23 Fill Manager Relationship Specialty Start Date End Date Veornica Dixon MD [address] [facility] [address] PCP - General Pediatrics 12/23/23 Gabriella Valdes MD PCP - [facility] [place] 01/19/24 Unallocated, Yennifer ProviderMD [address] [place] [address] [facility] 12/09/23 Scheduled Active and Recently Administ ered [...] whole-do not crush or chew. Although the wrapper rewinder does not recommend opening the capsule, the [...] treatment, repeat treatment. lidocaine-EPINEPHrine (XYLOCAINE W/EPI) 1 %-1:107914 injection (CANCELED) As needed, Starting on Fri12/03/23 [...] BE BASED ON THE PRIMARY CLINICAL RECORDS. [employer] [facility]. provides no warranty or guarantee of the accuracy or completeness of information in this document.
[2025-06-18 14:40] VITALS: O2SAT 98
--- NOTE | 2025-06-18 14:58 | ED.DENTAL1 ---
HPI - Dental/Oral General Chief complaint: Dental/Oral Stated complaint: DENTAL PAIN Time Seen by Provider: 06/18/25 14:38 Source: patient Mode of arrival: walk-in Limitations: no limitations History of Present Illness HPI Narrative: The patient is a 55-year-old female with a recent history of tooth extraction #17 one week ago, complicated by fragmentation of the tooth requiring re-extraction of two pieces 4 days ago. She now reports feeling another piece of tooth remaining in the extraction site, causing significant pain. She denies difficulty breathing, swallowing, fever, or other systemic symptoms. She has been taking ibuprofen for pain without relief. No other complaints were reported. The patient appears very uncomfortable due to the pain at the extraction site. Related Data Home Medications ?Medication ?Instructions ?Recorded ?Confirmed aripiprazole 15 mg tablet 15 mg PO DAILY 10/08/23 10/08/23 baclofen 10 mg tablet 10 mg PO Q12H 10/08/23 10/08/23 bupropion HCl 150 mg 24 hr tablet, 150 mg PO DAILY 10/08/23 05/15/25 extended release dextroamphetamine-amphetamine ER 30 mg PO .dailly 10/08/23 05/15/25 30 mg 24hr capsule,extend release prazosin 2 mg capsule 2 mg PO Q12H 10/08/23 05/15/25 pregabalin 100 mg capsule 100 mg PO Q12H 10/08/23 05/15/25 tizanidine 4 mg tablet 4 mg PO DAILY 10/08/23 05/15/25 Previous Rx's ?Medication ?Instructions ?Recorded oxycodone-acetaminophen 5 mg-325 1 tab PO Q4H PRN pain #10 tabs 10/08/23 mg tablet (Percocet) amoxicillin 875 mg tablet 875 mg PO Q12H #20 tabs 06/18/25 ibuprofen 800 mg tablet 800 mg PO Q8H PRN pain #30 tabs 06/18/25 oxycodone-acetaminophen 5 mg-325 1 tab PO Q6H PRN pain #14 tabs 06/18/25 mg tablet (Percocet) Allergies Allergy/AdvReac Type Severity Reaction Status Date / Time No Known Drug Allergies Allergy Verified 06/18/25 14:35 PFSH PFSH Social History Smoking status: Current every day smoker Little interest or pleasure in doing things: not at all Feeling down, depressed, or hopeless: not at all Exam Narrative Exam Narrative: General: Alert, oriented, in moderate distress due to dental pain. No acute distress otherwise. Vital Signs: Within normal limits. HEENT / Oral Cavity: Mouth: Ulceration noted along the inner gumline of teeth #17-18. Palpation: Tender to touch on area above on mouth; palpable tooth fragments in the inner gum and at the top area of the extraction site. No exudate from the dental site. Tongue: No swelling or lesions. Floor of mouth / submandibular area: No swelling, induration, or lymphadenopathy. Pharynx: Normal, no erythema or exudates. Cardiovascular: Heart rate regular, S1 and S2 normal, no murmurs Respiratory: Lungs clear to auscultation bilaterally, no wheezes, crackles, or rhonchi. Respiratory effort normal. Neurological / Mental Status: Alert and oriented x3. Speech clear. No focal deficits noted. Skin / Extremities: No rashes, edema, or other lesions noted. Constitutional Vital Signs, click to edit/add: Last Vital Signs Temp 98.7 F 06/18/25 14:35 Pulse 87 06/18/25 14:35 Resp 16 06/18/25 14:35 BP 118/79 06/18/25 14:35 Pulse Ox 98 06/18/25 14:40 O2 Del Method Room Air 06/18/25 14:40 Course Vital Signs Vital signs: Vital Signs Temperature 98.7 F 06/18/25 14:35 Pulse Rate 87 06/18/25 14:35 Respiratory Rate 16 06/18/25 14:35 Blood Pressure 118/79 06/18/25 14:35 Pulse Oximetry 98 06/18/25 14:35 Oxygen Delivery Method Room Air 06/18/25 14:35 Temperature 98.7 F 06/18/25 14:35 Pulse Rate 87 06/18/25 14:35 Respiratory Rate 16 06/18/25 14:35 Blood Pressure 118/79 06/18/25 14:35 Pulse Oximetry 98 06/18/25 14:40 Oxygen Delivery Method Room Air 06/18/25 14:40 MDM - Dental/Oral MDM Narrative Medical decision making narrative: The patient is a 55-year-old female presenting with persistent pain at the site of recent tooth extraction #17, complicated by residual tooth fragments in the extraction site. On examination, an ulceration was noted along the inner gumline of teeth #17-18, with palpable tooth fragments causing tenderness. She is not experiencing systemic symptoms such as fever, difficulty swallowing, or breathing, and there is no evidence of spreading infection. Given the findings, the patient was treated conservatively with antibiotic therapy (Amoxicillin 500 mg TID for 7 days) to prevent secondary infection, along with pain control using Percocet 5/325 mg every 6 hours PRN (limited Rx given) and Ibuprofen 800 mg every 8 hours. She was instructed to contact her dentist within the next 2 days for evaluation and possible removal of remaining fragments. Dental wax can be applied over exposed areas for comfort. The patient was counseled to return promptly to the ED if she develops increasing pain, swelling, fever, or other signs of infection. ANNELISE was evaluated and she does not have an extensive or recent or concerning narcotic use history. Discharge Plan Discharge Chief Complaint: Dental/Oral Clinical Impression: Pain, dental, Status post tooth extraction Patient Disposition: Home, Self-Care Time of Disposition Decision: 15:18 Condition: Good Mode of Transportation: Private Vehicle Prescriptions / Home Meds: New oxycodone-acetaminophen [Percocet] 5-325 mg tablet 1 tab PO Q6H PRN (Reason: pain) Qty: 14 0RF ibuprofen 800 mg tablet 800 mg PO Q8H PRN (Reason: pain) Qty: 30 0RF amoxicillin 875 mg tablet 875 mg PO Q12H Qty: 20 0RF No Action aripiprazole 15 mg tablet 15 mg PO DAILY baclofen 10 mg tablet 10 mg PO Q12H bupropion HCl 150 mg tablet extended release 24 hr 150 mg PO DAILY pregabalin 100 mg capsule 100 mg PO Q12H prazosin 2 mg capsule 2 mg PO Q12H dextroamphetamine-amphetamine 30 mg capsule,extended release 24hr 30 mg PO .dailly tizanidine 4 mg tablet 4 mg PO DAILY oxycodone-acetaminophen [Percocet] 5-325 mg tablet 1 tab PO Q4H PRN (Reason: pain) Qty: 10 0RF Print Language: Citizen Of [place] Instructions: Toothache (ED) Additional Instructions: Discharge Instructions ? Tooth Extraction / Residual Tooth Fragment Medications: Amoxicillin 500 mg ? Take three times daily for 7 days as prescribed. Complete the full course even if symptoms improve. Percocet 5/325 mg ? Take every 6 hours as needed for pain. Do not exceed prescribed dosage. Ibuprofen 800 mg ? Take every 8 hours as needed for pain, unless contraindicated. Take with food to reduce stomach upset. At-Home Care: Dental wax can be applied over exposed areas of the gum to reduce discomfort. Keep the extraction site clean; gently rinse your mouth with warm salt water 2?3 times daily. Avoid hard, crunchy, or sticky foods that could irritate the extraction site. Do not poke or try to remove any remaining tooth fragments yourself. Follow-Up: Contact your dentist within 2 days for evaluation and potential removal of remaining tooth fragments. Return to ED / Seek Care Immediately If: Increasing pain or swelling at the extraction site Fever or chills Redness spreading around the extraction site Difficulty swallowing, breathing, or opening your mouth Other Instructions: Rest as needed and maintain hydration. Use medications only as directed. Keep this paperwork for reference and bring it to your dental follow-up. Referrals: [facility] [Primary Care Provider, Unknown] - 1 week Discharge Date/Time: 06/18/25 15:30
[2025-06-18] MEDS: AMOXICILLIN 500 MG CAPSULE PO (15:10)
[2025-06-18] MEDS: OXYCODONE HCL/ACETAMINOPHEN 5MG/325MG 1 TAB PO (15:10)
== END 2025-06-18 15:30 | disposition home or self-care (01) ==
PROVIDERS: Emergency Provider Emergency Medicine
DX: K08.89 Other specified disorders of teeth and supporting structures (principal); K08.409 Partial loss of teeth, unspecified cause, unspecified class; F17.200 Nicotine dependence, unspecified, uncomplicated
CPT/HCPCS: 99283